=== PATIENT | female | born 1945 | race Caucasian/White ===

== ENCOUNTER → 2016-10-22 | Outpatient (CLI) | payer OTHER ==
[~2016-10-22] MED LIST: CHOL100010 PO; ESTR0.3T PO; METO25TA3 PO; OPTIRAY 320 IV PRN; ROSU5TAB PO; VSC/5 PO
--- NOTE | 2016-10-22 10:25 | DIAGNOSTIC IMAGING REPORT ---
CT ABD/PELVIS IV AND ORAL CONT CLINICAL HISTORY: PRIMARY CANCER OF THE LUNG F/U COMPARISON STUDY: 04/15/2016 TECHNIQUE: Following the IV administration of 117 mL of Optiray-320, CT scan of the abdomen and pelvis was performed from the lung bases to the proximal femurs. Images are reviewed in the axial, sagittal, and coronal planes. IV contrast was administered without complication. CT DOSE: 969.31 mGy.cm FINDINGS: Lower chest: There is a persistent right pleural effusion. There are postsurgical changes present. There are right infrahilar fibrotic changes similar to the prior study. Liver: The contrast-enhanced liver is normal in size, contour, and attenuation. There is no intrahepatic biliary ductal dilatation. The hepatic veins and portal veins are patent. Gallbladder: Surgically absent Spleen: Normal in size and attenuation. Pancreas: Unremarkable. Adrenal glands: Unremarkable. Kidneys: There is symmetric renal cortical enhancement. The kidneys are normal in size without hydronephrosis. Bowel: There are no transition zones indicate bowel obstruction. No acute inflammatory changes are visualized. Peritoneum: There is no intraperitoneal free air or abdominal ascites. Vasculature: The abdominal aorta is normal in course and caliber. Adenopathy: None. Pelvic viscera: The uterus appears surgically absent Skeletal structures: No destructive osseous lesions are seen. IMPRESSION: 1. No CT evidence of abdominal or pelvic metastatic disease 2. Postsurgical changes the right lung base. Persistent partially loculated right pleural effusion. Electronically signed by: Ten Rios M.D. 10/22/2016 10:24 AM Dictated Date/Time: 10/22/2016 10:20 AM
--- NOTE | 2016-10-22 10:27 | DIAGNOSTIC IMAGING REPORT ---
CT SCAN OF THE CHEST WITH IV CONTRAST CLINICAL HISTORY: Lung cancer follow-up. COMPARISON STUDY: Chest CT scans dated 04/15/2016 an 04/04/2015. TECHNIQUE: Following the IV administration of 117 cc of Optiray 320, CT scan of the thorax was performed from the thoracic inlet to the upper abdomen. Images are reviewed in the axial, sagittal, and coronal planes. IV contrast was administered without complication. FINDINGS: Thyroid: Imaged portions of the thyroid gland are normal in size and attenuation. Thoracic aorta: There is mild atherosclerotic calcification of the thoracic aorta, which is normal in caliber and demonstrates standard 3-vessel arch anatomy. No dissection is seen. Pulmonary vasculature: The pulmonary trunk is normal in caliber. There are no filling defects identified in the central pulmonary vessels to indicate pulmonary embolus. Note that this examination was not protocoled for evaluation of the pulmonary arteries. Heart: The heart is enlarged and without pericardial effusion. There are coronary artery calcifications. Lungs and pleural spaces: Evaluation of the lung parenchyma is modestly degraded by motion artifact. Again seen are postoperative changes from right lower lobe pulmonary resection. Loculated fluid at the right lung base is unchanged from previous and likely on a postoperative basis. Right perihilar scarring is similar to previous. No airspace consolidation is seen typical for pneumonia. There is no evidence of recurrent or residual pulmonary lesion. The trachea and central airways appear clear. Mediastinum: There is no mediastinal lymphadenopathy. Rupinder: Clear. Axillae: There is no axillary lymphadenopathy. Upper abdomen: Cholecystectomy clips are noted. No adrenal lesion is seen. There is a small hiatal hernia. Cortical atrophy is noted in the partially imaged kidneys. See report of abdominal CT performed concurrently for detailed intra-abdominal findings. Skeletal structures: The skeletal structures are osteopenic. Degenerative change and hyperkyphosis are noted in the thoracic spine. No lytic or blastic bony lesions are seen. Postoperative changes are noted in the right sided ribs. IMPRESSION: 1. Again seen are postoperative changes from right lower lobe pulmonary resection with chronic loculated pleural fluid at the right lung base. 2. There is no evidence of recurrent or metastatic disease in the thorax. 3. Cardiomegaly. 4. There is no airspace consolidation typical for pneumonia. 5. Additional findings as above. Electronically signed by: Flash Sr M.D. 10/22/2016 10:26 AM Dictated Date/Time: 10/22/2016 10:21 AM
== END | disposition home or self-care (01) ==
LOC: C.CTS 07:35
PROVIDERS: ATTEND Internal Medicine Hematology & Oncology
DX: C34.31 Malignant neoplasm of lower lobe, right bronchus or lung (principal); Z90.2 Acquired absence of lung [part of]; I51.7 Cardiomegaly

== ENCOUNTER → 2017-06-09 | Outpatient (CLI) | payer OTHER ==
[~2017-06-09] MED LIST changes: +ASPI81TA28 PO; -OPTIRAY 320 IV PRN
[2017-06-09 13:24] VITALS: BP 127/41; PULSE 40; TEMP 36.7; O2SAT 95
--- NOTE | 2017-06-09 14:30 | Radiation Oncology Follow-Up ---
Radiation Oncology Follow-Up Date of Visit Jun 09, 2017. Reason For Visit Annual follow-up Radiation Completion Date finished 10-11-2014 Diagnosis (1) Lung cancer, lower lobe Status: Resolved Onset Date: 07/19/2014 Histology Subtype: adenocarcinoma Stage: lll Permanent Comment: Non-small cell carcinoma of the lung. Status post bronchoscopy and biopsy 07/19/2014. Clinical stage TIb N2 M0 Status post completion of combined radiation and chemotherapy. Radiation completed 10/11/2014 received 6600 cGy Chemotherapy completed 11/18/2014 Status post right lower lobectomy 02/13/2015 Adenocarcinoma moderately differentiated grade 2 Pathologic stage [id number] N0M0 Last Edited By: Kiesha Traylor on Jun 04, 2015 15: 45 Interim History She's been doing well over this past year. She denies any change in respiratory status. She is not having difficulties with swallowing. She does have a dry cough. She has been seen in medical oncology and recently underwent CT scanning of the chest. I was performed on 05/30/2017. There is a chronic loculated right pleural effusion with evidence of prior right lower lobectomy. She is being followed by dermatology for 2 areas of cancer on her nose. One is on the right side of the nose the other on the dorsum the nose. She recently underwent Mohs procedures. Allergies Coded Allergies: Statins (Verified Adverse Reaction, Mild, Joint Pain, 04/18/15) Home Medications Scheduled Aspirin (Aspirin Ec), 81 MG PO DAILY Metoprolol Succ (Toprol Xl) (Toprol-Xl), 12.5 MG PO BID Rosuvastatin Calcium (Crestor), 5 MG PO EVERY OTHER DAY Solifenacin (Vesicare), 5 MG PO DAILY Review of Systems Gastrointestinal: Symptoms: WNL Oral: Symptoms: No Problems Respiratory: Symptoms: Dry Cough, SOB With Exertion Other Respiratory: " more of a dry cough jack in the evenings " Urinary: Symptoms: Nocturia Comments: nocturia times 2 Skin: Other Skin Symptoms: had skin cancer on righ tside of nose .... Physical Exam Vital Signs Date Time Temp Pulse Resp B/P (MAP) Pulse Ox O2 Delivery O2 Flow Rate FiO2 06/09/17 13:24 36.7 40 18 127/41 95 Fatigue: None General Appearance: no apparent distress Eyes: normal inspection, EOMI ENT: normal ENT inspection, hearing grossly normal Neck: no adenopathy, thyroid normal Respiratory/Chest: lungs clear, no respiratory distress, no accessory muscle use Cardiovascular: no gallop, no murmur, + bradycardia (rate at 44) Extremities: no pedal edema Neurologic/Psychiatric: no motor/sensory deficits, alert, normal mood/affect Skin: warm/dry Pain Management Side: Bilateral Patient Preferred Pain Scale: 0 - 10 Additional Studies See history of present illness recent CT of the chest 05/30/2017 at [facility]. Assessment & Plan Plan: Continue regular follow-up with medical oncology and pulmonary. She seen Dr. Andre today. She saw medical oncology today. CT scan was reviewed with her. We discussed the bradycardia. This was checked in medical oncology and was at 41. We noted at pulse in our office at 40 and 44. She is on beta joe. We have asked her primary care physician to see her and review the heart rate. We asked her to return to our office in 1 year. She has a follow- up appointment with dermatology in regards to the skin cancer which is being treated on the right side of the nose and the dorsum of the nose. She may call if she has any questions or concerns in the interim. Total Time In Follow-Up I spent 20 minutes speaking to the patient performing examination. I spent 15 minutes reviewing information in completing this note. Copy To Asa Mcgowan D.O.; Julio Ku D.O.; Boo Andre MD Problem Qualifiers (1) Lung cancer, lower lobe: Laterality: right Qualified Codes: C34.31 - Malignant neoplasm of lower lobe , right bronchus or lung
== END | disposition home or self-care (01) ==
LOC: C.ONC 13:12
PROVIDERS: ATTEND Physician Assistant Medical
DX: Z08 Encounter for follow-up examination after completed treatment for malignant neoplasm (principal); Z92.3 Personal history of irradiation; Z85.118 Personal history of other malignant neoplasm of bronchus and lung

== ENCOUNTER → 2017-11-15 | Outpatient (CLI) | payer OTHER ==
[~2017-11-15] MED LIST changes: -CHOL100010 PO; -ESTR0.3T PO; +OPTIRAY 320 IV PRN
--- NOTE | 2017-11-15 14:25 | DIAGNOSTIC IMAGING REPORT ---
CT NECK WITH INTRAVENOUS CONTRAST. HISTORY: Lung cancer. Right neck fullness. TECHNIQUE: Multiaxial CT images of the neck performed following the use of intravenous contrast. COMPARISON STUDY: Head CT 12/16/2014. Chest CT 10/22/2016. FINDINGS: Interval development of right supraclavicular lymphadenopathy/mass. The dominant lymph node/mass measures 3.5 x 2.7 cm. There are few additional smaller supraclavicular lymph nodes. Partially visualized small loculated right pleural effusion. Stable 3 mm nodule within the left lung apex on image 86 of 98. The thyroid gland enhances normally. Mild prevertebral edema. There is also mild edema at the right carotid space. The visualized brain parenchyma and orbits are unremarkable. Partial opacification the right sphenoid sinus. The mastoid air cells are clear. No suspicious lytic or blastic osseous lesions. There is a skin marker within the right lateral lower neck. No underlying soft tissue abnormality. The parotid and submandibular glands are symmetric. The right supraclavicular lymphadenopathy/mass encases the distal internal jugular vein and results in severe stenosis/occlusion of the internal jugular vein. This likely accounts for the right neck subcutaneous edema and the patient's sensation of fullness. IMPRESSION: 1. Interval development of right supraclavicular lymphadenopathy/mass with the dominant lymph node/mass measuring 3.5 x 2.7 cm. This lesion encases the distal internal jugular vein and results in severe stenosis/occlusion of the internal jugular vein. This likely accounts for the right neck subcutaneous edema, prevertebral edema, and the patient's sensation of fullness within the right neck. 2. Stable 3 mm nodule within the left lung apex. 3. Partially loculated small right pleural effusion. Electronically signed by: David Chester M.D. 11/15/2017 2:23 PM Dictated Date/Time: 11/15/2017 2:12 PM
--- NOTE | 2017-11-15 14:32 | DIAGNOSTIC IMAGING REPORT ---
CT (CHEST) THORAX WITH CLINICAL HISTORY: 72 years-old Female presenting with LUNG CA. TECHNIQUE: Multidetector CT imaging of the chest was performed without the use of intravenous contrast. IV contrast: 93 mL of Optiray 320. A dose lowering technique was used consistent with the principles of ALARA (as low as reasonably achievable). COMPARISON: 05/30/2017 and 10/22/2016.. CT DOSE (mGy.cm): The estimated cumulative dose is 1059.03. FINDINGS: Service Control Operator topogram: Left subclavian pacer with leads to the right atrium and right ventricular apex. Median sternotomy wires noted. Cholecystectomy clips. On soft tissue windows, normal thyroid and thoracic inlet. In the right clavicular fossa, an enhancing mass measuring 3.4 x 1.8 cm is noted (series 7 image 26). This may have been present on prior exam but was smaller and poorly delineated in the absence of intravenous contrast. No other sites of lymphadenopathy. Surrounding fat infiltration and few smaller lymph nodes also noted. Atherosclerosis of the aorta. Normal heart size. Coronary artery calcification. Loculated moderate right pleural effusion with pleural thickening. Cholecystectomy clips. On lung windows, bandlike opacities in the right lung with architecture distortion, unchanged. No new pulmonary nodule.. Postsurgical changes of right lower lobectomy. Mosaic attenuation and patchy central groundglass opacities in the left lung. No significant interlobular septal thickening. Central airways patent. On bone windows, degenerative changes of the spine. No destructive osseous lesion. IMPRESSION: 1. Interval development of a 3.4 x 1.8 cm right supraclavicular mass, which is highly suspicious for metastatic lymphadenopathy. 2. Postsurgical changes of right lower lobectomy. 3. Chronic loculated right pleural effusion and pleural thickening. 4. Chronic scarring in the residual right lung. No new pulmonary nodule. The report will be called/faxed according to standard departmental protocol. Electronically signed by: Logan Hernandez M.D. 11/15/2017 2:30 PM Dictated Date/Time: 11/15/2017 2:12 PM
== END | disposition home or self-care (01) ==
LOC: C.CTS 13:33
PROVIDERS: ATTEND Internal Medicine Hematology & Oncology
DX: C34.31 Malignant neoplasm of lower lobe, right bronchus or lung (principal)

== ENCOUNTER → 2017-11-22 | Outpatient (CLI) | payer OTHER ==
[~2017-11-22] MED LIST changes: -OPTIRAY 320 IV PRN
--- NOTE | 2017-11-22 14:15 | DIAGNOSTIC IMAGING REPORT ---
GUIDANCE NEEDLE PLACEMENT CLINICAL HISTORY: LUNG CA,RT NECK LYMPHADENOPATHY/MASS TECHNIQUE: Ultrasound-guided fine-needle aspiration COMPARISON STUDY: CT chest 10/22/2016. CT chest 11/15/2017 FINDINGS: Following description of the procedure and informed consent, 4 passes with 25 and 22-gauge needle were performed. Each pass was within or immediately around the nodule/node in question. Despite these attempts, sufficient specimen does not appear to have been acquired. There were no complications. Failure of this modality was explained to the patient as well as Dr. Mcgowan. Open surgical biopsy is suggested IMPRESSION: Biopsy attempt of the right supraclavicular mass. Although pathology has not submitted a final report, initial interpretation was of in adequate cellularity. Surgical biopsy is suggested. The above report was generated using voice recognition software. It may contain grammatical, syntax or spelling errors. Electronically signed by: Mariano Sandhu M.D. 11/22/2017 2:14 PM Dictated Date/Time: 11/22/2017 2:12 PM
== END | disposition home or self-care (01) ==
LOC: C.ULTR 12:14
PROVIDERS: ATTEND Internal Medicine Hematology & Oncology
DX: C34.31 Malignant neoplasm of lower lobe, right bronchus or lung (principal)

== ENCOUNTER → 2017-12-08 | Day surgery (SDC) | payer OTHER ==
[2017-11-29 09:09] VITALS: BMI 32.0
[~2017-12-08] VITALS: Ht 160 cm; Wt 84.1 kg
[~2017-12-08] MED LIST changes: +ACET1TAB84 PO; +ACET300T2 PO; +ACETAMINOPHEN 650 MG SUPP PR PRN; +ATROPINE SULFATE 0.1 MG/ML 5ML SYR IV PRN; +BUPIVACAINE 0.5 % 5 MG/1 ML MPF 30ML VIAL ONE; +CEFAZOLIN SOD 1 GM VIAL ONE; +DEXAMETHASONE SOD INJ 4 MG/ML VIAL ONE; +EpHEDrine SULFATE INJ 50 MG/ML AMP IV PRN; +FENTANYL CITRATE INJ 50 MCG/1 ML 2 ML VIAL IV PRN; +FENTANYL CITRATE INJ 50 MCG/1 ML 2 ML VIAL ONE; +FLUMAZENIL 0.1 MG/1 ML 10 ML VIAL IV PRN; +LABETALOL HCL IV 5 MG/ML 20ML IV PRN; +LABETALOL HCL IV 5 MG/ML 20ML ONE; +LACTATED RINGER'S 1000ML 1,000 ML IV SCH; +LIDOCAINE HCL 1% 20 ML VIAL ONE; +LIDOCAINE HCL 2% 2 ML VIAL (20MG/ML) ONE; +MIDAZOLAM HCL 1 MG/ML 2ML VIAL ONE; +NALOXONE HCL 0.4 MG/1 ML VIAL/CARP IV PRN; +ONDANSETRON INJ 2 MG/ML 2 ML VIAL IV PRN; +ONDANSETRON INJ 2 MG/ML 2 ML VIAL ONE; +OXYCODONE/ACETAMINOPHEN 5-325 TAB PO PRN; +PROMETHAZINE HCL INJ 12.5 MG in SODIUM CHLORIDE 0.9% 50ML 50 ML IV PRN; +PROPOFOL IV EMULSION 10 MG/ML 20 ML VIAL ONE
[2017-12-08 05:48] VITALS: BP 171/78; PULSE 73; TEMP 36.6; O2SAT 98; Ht 160 cm; Wt 84.1 kg
--- NOTE | 2017-12-08 06:28 | History & Physical Bridge Note ---
H&P Re-Evaluation Bridge Note: I have examined the patient, reviewed the History & Physical and in the interval since the performance of the History & Physical I have noted the following changes of clinical significance: No changes notedall questions answered family at bedside pt marked
--- NOTE | 2017-12-08 07:03 | Discharge Instructions ---
Discharge Instructions Date of Service December 08, 2017. Admission Reason for Admission: Right Supraclavicular Mass Discharge Discharge Diagnosis / Problem: Right Supraclavicular Mass Discharge Goals Goal(s): Decrease discomfort, Improve function Activity Recommendations Activity Limitations: as noted below Lifting Limitations: no more than 10 pounds Exercise/Sports Limitations: until after follow-up appointment May Resume Sexual Activity: when tolerated Shower/Bathe: tomorrow Driving or Machine Use: resume 1 day after discharge . Instructions / Follow-Up Instructions / Follow-Up Please call the General Surgery [facility] at [phone] to schedule suture removal. Please follow-up with Dr. Toussaint in the General Surgery Clinic in 1-2 weeks for incision check. For pain control you may use Ibuprofen (if you are able to take Ibuprofen products) 600-800mg every 8 hrs for 3 days. If you are unable to take Ibuprofen products you may take Acetaminophen (Tylenol) 1-2 tablets every 4-6 hrs for pain. Do not exceed more than 10 tablets in a 24 hr period. Please call the General Surgery Clinic with any questions or concerns. Current Hospital Diet Patient's current hospital diet: Discharge Diet Recommended Diet: Regular Diet Pending Studies Studies pending at discharge: yes List of pending studies: Pathology report. Medical Emergencies . Who to Call and When: Medical Emergencies: If at any time you feel your situation is an emergency, please call 911 immediately. . Non-Emergent Contact Non-Emergency issues call your: Primary Care Provider, Surgeon Call Non-Emergent contact if: temperature is above 101.5, your pain is not controlled, wound has increased drainage, wound has increased redness . "Provider Documentation" section prepared by Jeimy Hong. .
--- NOTE | 2017-12-08 07:47 | [facility] Post Operative Brief Note ---
Immediate Operative Summary Operative Date December 08, 2017. Pre-Operative Diagnosis Mass of right side of neck Post-Operative Diagnosis Same as preop Procedure(s) Performed Incisional Biopsy of Right Supraclavicular Mass Surgeon Dr. Toussaint Band Sewer Surgeon(s) none Estimated Blood Loss 5 cc Findings See Below HARD MASS INCISIONAL BIOPSY DONE Specimens A: right neck mass - sent as fresh specimen to lab Culture of right supraclavicular neck mass site sent for routine gram stain, C & S, anaerobic/aerobic microbes Anesthesia Type General
--- NOTE | 2017-12-08 08:55 | Anesthesiology Progress Note ---
Anesthesia Post Op Note Date & Time December 08, 2017 at 08:55 Vital Signs Pain Intensity: 4 Vital Signs Past 12 Hours Date Time Temp Pulse Resp B/P (MAP) Pulse Ox O2 Delivery O2 Flow Rate FiO2 12/08/17 08:35 36.3 72 14 175/85 98 Room Air 12/08/17 08:25 74 14 181/83 99 Room Air 12/08/17 08:15 72 14 182/92 100 Oxymask 10 12/08/17 08:05 75 14 197/78 100 Oxymask 10 12/08/17 07:55 36.9 81 16 182/74 100 Oxymask 10 12/08/17 05:48 36.6 73 18 171/78 (109) 98 Room Air Notes Mental Status: alert / awake / arousable, participated in evaluation Pt Amnestic to Procedure: Yes Nausea / Vomiting: adequately controlled Pain: adequately controlled Airway Patency, RR, SpO2: stable & adequate BP & HR: stable & adequate Hydration State: stable & adequate Anesthetic Complications: no major complications apparent
[2017-12-08 09:05] VITALS: BP 186/77; PULSE 79; TEMP 36.4; O2SAT 93
[2017-12-08 09:35] VITALS: BP 173/86; PULSE 77; O2SAT 92
--- NOTE | 2017-12-08 09:49 | OPERATIVE REPORT ---
DATE OF OPERATION: 12/08/2017 SURGEON: Derrick Toussaint MD PREOPERATIVE DIAGNOSIS: Large right supraclavicular mass. POSTOPERATIVE DIAGNOSIS: Large right supraclavicular mass. PROCEDURE: Incisional biopsy, right supraclavicular mass. SUMMARY: The patient was brought into the operating room under general anesthesia LMA. The patient was placed in a sitting position. Left neck area was checked and rotated to the left and a roll was placed underneath the shoulders. The right neck area and right upper chest were prepped with Betadine solution and properly draped. Systemic antibiotics was given. I used 0.5% Marcaine to infiltrate the skin and subcutaneous tissue. We made an incision just lateral to the 2 heads of the sternocleidomastoid above the clavicle. We could not really feel discretely the mass that was deep in the neck area, but we knew that it was compressing the internal jugular vein. At this point, an incision was made approximately an inch and a half long, deepened through subcutaneous tissue using electrocautery to free the subcuticular sutures. We went down into the lateral head of the sternocleidomastoid muscle. We divided that, then we were able to get deep in the neck where we could feel very hard mass down in the neck area. We stayed close to dissect all the tissue, avoiding nerve structures. Once we were on this mass, we could able to feel it. There were few components that appeared to be almost loculated cystic structures, non-fluid filled that was right on the mass. We took those biopsies separately. We dissected out more cephalad and were able to find the tip of this hard mass that was pretty much a rock hard area. We were able then to free up in the uppermost portion on the area that came off fairly easily, it was approximately a centimeter size, well rounded, took that out without any difficulty. A bivalve it and had the consistency and looked like possibility of malignancy. Since it is early in the morning, but the pathologist not here yet, we will send it for a frozen section, but having said that, we then went down further in the initial area that had these little cystic components within, had more tissue which was the same characteristic as the one we had just taken out of about 1 cm in size. We felt we had enough tissue. The area was checked for hemostasis and appeared quite satisfactory. I did place a piece of Surgicel down in the depth in that area. The wound was then closed with 2-0 Vicryl interrupted sutures to reapproximate the platysma, subcutaneous muscle, and 4-0 Monocryl skin edges. Steri-Strips applied. The procedure was tolerated well by the patient. Estimated blood loss approximately 5 mL. The amount of tissue that we had for final diagnosis was about 2 cm diameter size. I attest to the content of the Intraoperative Record and any orders documented therein. Any exceptions are noted below. MTDD
[2017-12-08 10:05] VITALS: BP 170/80; PULSE 80; O2SAT 93
== END | disposition home or self-care (01) ==
LOC: C.ACU 05:24
PROVIDERS: ATTEND Surgery
DX: R22.1 Localized swelling, mass and lump, neck (principal); I25.10 Atherosclerotic heart disease of native coronary artery without angina pectoris; J44.9 Chronic obstructive pulmonary disease, unspecified; E78.5 Hyperlipidemia, unspecified; I10 Essential (primary) hypertension; Z79.82 Long term (current) use of aspirin; Z85.828 Personal history of other malignant neoplasm of skin; Z85.118 Personal history of other malignant neoplasm of bronchus and lung; Z95.0 Presence of cardiac pacemaker; Z82.3 Family history of stroke; Z82.49 Family history of ischemic heart disease and other diseases of the circulatory system

== ENCOUNTER → 2017-12-12 | Outpatient (CLI) | payer OTHER ==
[~2017-12-12] MED LIST changes: -ACETAMINOPHEN 650 MG SUPP PR PRN; -ATROPINE SULFATE 0.1 MG/ML 5ML SYR IV PRN; -BUPIVACAINE 0.5 % 5 MG/1 ML MPF 30ML VIAL ONE; -CEFAZOLIN SOD 1 GM VIAL ONE; -DEXAMETHASONE SOD INJ 4 MG/ML VIAL ONE; -EpHEDrine SULFATE INJ 50 MG/ML AMP IV PRN; -FENTANYL CITRATE INJ 50 MCG/1 ML 2 ML VIAL IV PRN; -FENTANYL CITRATE INJ 50 MCG/1 ML 2 ML VIAL ONE; -FLUMAZENIL 0.1 MG/1 ML 10 ML VIAL IV PRN; -LABETALOL HCL IV 5 MG/ML 20ML IV PRN; -LABETALOL HCL IV 5 MG/ML 20ML ONE; -LACTATED RINGER'S 1000ML 1,000 ML IV SCH; -LIDOCAINE HCL 1% 20 ML VIAL ONE; -LIDOCAINE HCL 2% 2 ML VIAL (20MG/ML) ONE; -MIDAZOLAM HCL 1 MG/ML 2ML VIAL ONE; -NALOXONE HCL 0.4 MG/1 ML VIAL/CARP IV PRN; -ONDANSETRON INJ 2 MG/ML 2 ML VIAL IV PRN; -ONDANSETRON INJ 2 MG/ML 2 ML VIAL ONE; -OXYCODONE/ACETAMINOPHEN 5-325 TAB PO PRN; -PROMETHAZINE HCL INJ 12.5 MG in SODIUM CHLORIDE 0.9% 50ML 50 ML IV PRN; -PROPOFOL IV EMULSION 10 MG/ML 20 ML VIAL ONE
[2017-12-12 16:15] LABS: BASO % 0.2 %; BASO ABS # 0.01 K/uL (0-0.2); EOS % 6.3 %; EOS ABS # 0.32 K/uL (0-0.5); HEMATOCRIT 37.8 % (37-47); HEMOGLOBIN 12.5 g/dL (12.0-16.0); IG# 0.01 K/uL (0.00-0.02); LYMPH % 23.9 %; LYMPH ABS # 1.21 K/uL (1.2-3.4); MEAN CELL VOLUME 92.4 fL (80-100); MEAN CORPUSCULAR HEMOGLOBIN 30.6 pg (25-34); MEAN CORPUSCULAR HGB CONC 33.1 g/dl (32-36); MEAN PLATELET VOLUME 9.1 fL (7.4-10.4); MONO % 5.5 %; MONO ABS # 0.28 K/uL (0.11-0.59); NEUT % 63.9 %; NEUT ABS # 3.24 K/uL (1.4-6.5); PLATELET COUNT 202 K/uL (130-400); RED CELL DISTRIBUTION WIDTH CV 13.1 % (11.5-14.5); RED CELL DISTRIBUTION WIDTH SD 44.3 fL (36.4-46.3); WHITE BLOOD COUNT 5.07 K/uL (4.8-10.8)
[2017-12-12 16:40] LABS: ALT/SGPT 18 U/L (12-78); AST/SGOT 17 U/L (15-37); BLOOD UREA NITROGEN 17 mg/dl (7-18); CALCIUM 9.1 mg/dl (8.5-10.1); CARBON DIOXIDE 31 mmol/L (21-32); CREATININE 0.75 mg/dl (0.60-1.20); GLUCOSE 99 mg/dl (70-99); POTASSIUM 3.9 mmol/L (3.5-5.1); SODIUM 140 mmol/L (136-145)
[2017-12-12 16:43] LABS: ALKALINE PHOSPHATASE 77 U/L (45-117); TOTAL PROTEIN 8.2 gm/dl (6.4-8.2)
== END | disposition home or self-care (01) ==
LOC: C.LABCCP 15:15
PROVIDERS: ATTEND Internal Medicine Hematology & Oncology
DX: C34.31 Malignant neoplasm of lower lobe, right bronchus or lung (principal)

== ENCOUNTER → 2018-03-03 | Outpatient (CLI) | payer OTHER ==
[~2018-03-03] MED LIST changes: +ALEC150C PO; +APIX1TAB3 PO; -ASPI81TA28 PO; +POLY335019 PO
[2018-03-03 09:14] VITALS: BP 100/57; PULSE 59; TEMP 36.6; O2SAT 93
[2018-03-03 09:37] VITALS: BP 100/57; PULSE 59; TEMP 36.6; O2SAT 93
--- NOTE | 2018-03-03 10:34 | Radiation Oncology Follow-Up ---
Radiation Oncology Follow-Up Date of Visit Mar 03, 2018. Reason For Visit One-month follow-up Radiation Completion Date finished 10-11-2014 and 01-27-2018 Diagnosis (1) Primary cancer of right lung metastatic to other site Status: Acute Onset Date: 12/08/2017 Stage: Not Applicable Permanent Comment: Status post completion of radiation therapy to the right supraclavicular area/neck January 27, 2018. She received 3750 cGy Last Edited By : Kiesha Traylor on Feb 06, 2018 13:21 (2) Lung cancer, lower lobe Status: Resolved Onset Date: 07/19/2014 Permanent Comment: Non-small cell carcinoma of the lung. Status post bronchoscopy and biopsy 07/19/2014. Clinical stage TIb N2 M0 Status post completion of combined radiation and chemotherapy. Radiation completed 10/11/2014 received 6600 cGy Chemotherapy completed 11/18/2014 Status post right lower lobectomy 02/13/2015 Adenocarcinoma moderately differentiated grade 2 Pathologic stage ypT2a N0M0 Last Edited By: Kiesha Traylor on Jun 04, 2015 15: 45 History of Present Illness Ms. Lo was a nonsmoker but had a history of secondhand smoking exposure through her . In 2013 she noted some blood tinged sputum with a productive cough. There was no gross hemoptysis. A chest x-ray was ordered by her PCP. This showed a solid mass in the right midlung region measuring 4-5 cm. She then went on to have a CT scan of her lungs performed in June 2014. This showed a spiculated solid mass in the right lower lobe abutting the major fissure measuring 2.6 x 2.1 cm. A moderately enlarged right peritracheal lymph node was appreciated measuring 1.3 cm. With this finding the patient went on to have a PET/CT scan at [facility] on 06/17/2014. This showed an FDG avid right lower lobe spiculated mass entering 3.0 x 2.5 cm. Also appreciated was FDG avid is final and right hilar adenopathy. These were consistent with metastatic involvement of the lymph nodes. No evidence of distant metastatic disease was appreciated. Patient was seen by Dr. Khalif Llanes for consideration of diagnostic workup that included a possible bronchoscopy or EBUS. On July 19 he performed fiberoptic bronchoscopy with endobronchial ultrasound-guided transtracheal needle aspirate of lymphadenopathy and transbronchial brushings, biopsies and washings. There was no evidence of endobronchial obstruction or clear endobronchial lesions. Bronchial brushings revealed no malignant cells. Case: [id number]. Bronchial washings revealed no malignant cells. Case: [id number]. [place] EBUS biopsy of mediastinal lymphadenopathy revealed metastatic adenocarcinoma consistent with a lung primary. The R2 lymph nodes were biopsied. Case: [id number]. A transbronchial biopsy of the right lower lobe was performed. This revealed benign bronchial mucosa with no malignancy seen. Case: [id number]. Genetic mutation testing for EGFR, ALK and ROS 1 were requested by [employer] [employer] and are pending. Patient was seen in referral by Dr. Lorena Richardson on 08/06/2014. He reviewed the NCCN Guidelines and discussed treatment options with the patient. He is recommending consideration of combined chemoradiation. This would consist of weekly Carbo and Taxol followed by 2 additional cycles of additional chemotherapy consisting of Carboplatinum and Paclitaxel postradiation. We proceeded with combined chemoradiation as adjuvant treatment. Treatment started on August 26, 2014 and ended on October 11, 2014. She received a total of 33 fractions at 200 cGy per fraction for a total dose of 6600 cGy. She tolerated her definitive course of radiation therapy well. This was given with combined chemotherapy. She had no change in her respiratory status. No increased cough or shortness of breath. She did develop dysphagia. This was treated preventatively with aloe vera juice and [place] honey. She did require prescription for MBXC. She did not require any extended breaks in treatment. There was one day but treatment was held due to low counts. She was able to restart with only 1 day break. She had a recheck CT simulation for treatment response. There was approximately 30% decrease in volume. She completed treatment without difficulty. The patient was follow closely by both Dr. Mcgowan and our department. She underwent CT scans of the chest on April 04, 2015, September 23, 2015, April 15, 2016 and October 22, 2016. These showed evidence of postsurgical changes but no evidence of recurrence. Her most recent follow-up in our department was June 09, 2017. At that time she was doing well with no complaints. Interim History Approximately 2 months ago the patient started to develop headaches which would go up the back of her neck which at times were very severe. She is also noted some decrease in her visual acuity and was seen by the eye doctor. More recently she noted fullness in the lower right cervical region. She was seen in follow-up by Dr. Mcgowan on November 07, 2017. His examination of the neck revealed no definitive palpable peripheral lymphadenopathy but did reveal fullness in this region that he felt was suspicious. He therefore ordered a CT scan of the chest and neck. 11/15/2017. CT scan of the neck with intravenous contrast was performed. This showed the interval development of a right supraclavicular lymphadenopathy/mass. The dominant lymph node/mass measured 3.5 x 2.7 cm. There were a few additional smaller supraclavicular lymph nodes. The lesion encases the distal internal jugular vein resulting in severe stenosis/occlusion of the internal jugular vein likely accounting for the right neck subcutaneous edema, prevertebral edema and patient sensation of fullness within the right neck. 11/15/2017. CT scan of the chest was performed. This showed in the right supraclavicular fossa enhancing mass measuring 3.4 x 1.8 cm with no other lymphadenopathy. Postsurgical changes of the right lower lobectomy were again noted with no evidence of parenchymal lung recurrence. 11/22/2017. Ultrasound-guided fine-needle aspiration biopsy was performed. No metastatic carcinoma was identified with lymphocytes present. 3 of the 4 aspirate passes consisted of small amounts of blood only. This was felt to be an inadequate specimen. Case: [id number]. An open biopsy was therefore recommended. 12/08/2017. Dr. Toussaint performed an incisional biopsy consisting of a 1.5 x 1.0 x 1.1 cm apparent lymph node and a 0.9 x 0.7 x 0.5 cm aggregate of ulloa tissue. FINAL DIAGNOSIS LYMPH NODE, RIGHT NECK, BIOPSY: METASTATIC CARCINOMA CONSISTENT WITH LUNG PRIMARY. SEE COMMENT. COMMENT: Sections reveal a metastatic carcinoma. No distinct gland formation is identified. No intracellular bridges or distinct keratinization is identified. The cells are large with moderate amounts of cytoplasm. Nuclei show vesicular chromatin with prominent nucleoli. A panel of immunohistochemical stains is performed in an effort to characterize the cells. The cells are positive for CK7 and TTF-1. The cells are negative for Napsin A. The cells are negative for CK5/6. Rare cells are positive for P40. The immunohistochemical findings are consistent with a lung primary with features of adenocarcinoma. The patient has previous history of lung adenocarcinoma. Ancillary studies for EGFR, ALK, ROS-1 and PDL-1 will be performed with results reported as an addendum. 12/13/2017. Patient seen in radiation oncology to discuss radiation treatment options. Patient states that the headache has disappeared since the surgery however the visual changes continue. Status post completion of palliative radiation therapy to the right supraclavicular area. Treatment was completed January 27, 2018. She received 3750 cGy. Interim History She has been doing well over the past month in regards to her radiation therapy. She does feel there was some thickness to the skin in the right supraclavicular lower neck area. The skin irritation resolved without difficulty. She is noted no masses or tenderness. She did have some dysphasia at the end of treatment. This has resolved. She states that she does continue to chew her food well before swallowing. This prevents any difficulty with swallowing. She has a follow-up appointment with medical oncology on March 13. She has been having recheck laboratory studies. She stated that she has been having intermittent rectal bleeding. This had been every 2-3 days. It would occur with bowel movements. Occasionally some bleeding afterward. She wears a panty liner. At the most this is changed twice a day. The blood is bright red. She has reviewed this at the coagulation clinic. She has been switched from Xarelto to Eliquis. She is noted no changes in the bleeding. She denies any rectal pain. She has tried witch eliezer cleansers. Allergies Coded Allergies: Statins (Verified Adverse Reaction, Mild, Joint Pain, 12/08/17) Home Medications Scheduled Alectinib HCl (Alecensa), 600 MG PO BID Apixaban (Eliquis), 5 MG PO BID Metoprolol Succ (Toprol Xl) (Toprol-Xl), 12.5 MG PO BID Rosuvastatin Calcium (Crestor), 5 MG PO EVERY OTHER DAY Solifenacin (Vesicare), 5 MG PO QPM Scheduled PRN Acetaminophen (Tylenol Arthritis Ext Rel), 650-1,300 MG PO Q8H PRN for Pain Polyethylene Glycol 3350 (Miralax), 17 GM PO DAILY PRN for Constipation Review of Systems Gastrointestinal: Symptoms: Rectal Bleeding GI Comments: possible hemorrhoid ? bleeding daily or every other day Oral: Symptoms: No Problems Respiratory: Symptoms: Dry Cough, SOB With Exertion Urinary: Symptoms: Nocturia Comments: nocturia times 2 Skin: Symptoms: No Problems Additional Notes: She completed a distress management report and answered "no" to all questions. Physical Exam Vital Signs Date Time Temp Pulse Resp B/P (MAP) Pulse Ox O2 Delivery O2 Flow Rate FiO2 03/03/18 09:37 36.6 59 20 100/57 93 03/03/18 09:14 36.6 59 20 100/57 93 ECOG Performance Status: 0 Fatigue: None General Appearance: no apparent distress Eyes: normal inspection, EOMI ENT: normal ENT inspection, hearing grossly normal Neck: supple, no adenopathy, thyroid normal Respiratory/Chest: lungs clear, no respiratory distress, no accessory muscle use Cardiovascular: regular rate, rhythm, no gallop, no murmur Extremities: no pedal edema Neurologic/Psychiatric: no motor/sensory deficits, alert, normal mood/affect Skin: warm/dry Pain Management Patient Reports Pain: No Side: Bilateral Patient Preferred Pain Scale: 0 - 10 Initial Pain Intensity: 0.0 Pain Management Plan 0.0 Laboratory Laboratory Results: were reviewed Laboratory Comments: Hemoglobin checked within the past week and was 11.8. Pathology Pathology Results: were reviewed, and pertinent findings noted in HPI Imaging Imaging Studies: not applicable Assessment & Plan Plan: She will be seen in medical oncology on March 13. Recheck scanning per medical oncology. She will be seeing a family physician next week. I have asked her to review the issue with the rectal bleeding with the primary care physician. She may need referred for an evaluation by gastroenterology. We discussed the hemoglobin is at 11.8. This shows that the amount of bleeding is minimal. I have asked her to do sitz baths. We asked her to return to our office in 6 months. She may call if she has any questions or concerns in the interim. Total Time In Follow-Up I spent 20 minutes speaking to the patient in performing examination. I spent 15 minutes reviewing information and completing this note. AK Copy To Asa Mcgowan D.O.
== END | disposition home or self-care (01) ==
LOC: C.ONC 08:58
PROVIDERS: ATTEND Physician Assistant Medical
DX: Z08 Encounter for follow-up examination after completed treatment for malignant neoplasm (principal); Z92.3 Personal history of irradiation; Z85.118 Personal history of other malignant neoplasm of bronchus and lung

== ENCOUNTER → 2018-03-13 | Outpatient (CLI) | payer OTHER ==
[~2018-03-13] MED LIST changes: -ACET300T2 PO
--- NOTE | 2018-03-13 13:52 | DIAGNOSTIC IMAGING REPORT ---
CHEST 2 VIEWS ROUTINE CLINICAL HISTORY: 73 years-old Female presenting with LUNG CANCER. TECHNIQUE: PA and lateral views of the chest were obtained. COMPARISON: 12/22/2017. FINDINGS: Left subclavian pacer with leads in the right 8) ventricular apex. Median sternotomy wires noted. Atherosclerosis of aortic arch. Cardiac silhouette obscured along the right heart border secondary to the persistent loculated right pleural effusion. Pleural fluid on the right may have slightly increased from prior. Decreased aeration of the right lung. Left lung and pleural space clear. No pneumothorax. Degenerative changes of the thoracic spine. Cholecystectomy clips noted. IMPRESSION: 1. Stable to slight interval increase in loculated right pleural effusion with decreased aeration of the right lung. Electronically signed by: Logan Hernandez M.D. 03/13/2018 1:50 PM Dictated Date/Time: 03/13/2018 1:49 PM
== END | disposition home or self-care (01) ==
LOC: C.RAD 13:16
PROVIDERS: ATTEND Nurse Practitioner Family
DX: C34.31 Malignant neoplasm of lower lobe, right bronchus or lung (principal); J91.0 Malignant pleural effusion

== ENCOUNTER 2024-11-14 05:30 | Inpatient (IN) ==
--- NOTE | 2024-11-12 10:52 | Anesthesiology Consultation ---
Date of Service November 12, 2024 Assessment & Plan (1) Encounter for pre-operative examination: Chart Review Chart Review: Pending: Refer to Additional Notes / Consult section (Please send optimization note to cardio (awaiting response as well as most recent testing) and workload note sent to Pulm (awaiting response)) and Patient NOT seen in Pre Admission Testing Infectious Disease screening: Per PAT nursing assessment on 11/09/24, No known infectious disease contacts in past 10 days or current infectious disease symptoms. No recent travel outside the country. History Surgery Operation Date: 11/14/24 07:15 Proposed Procedures p Open Right Hemicolectomy - Dennis Lorenzo, DO Height/Weight Height: 5 ft 2 in Weight: 79.379 kg Allergies Allergy/AdvReac Type Severity Reaction Status Date / Time atorvastatin [From Lipitor] Allergy Unknown Unknown Verified 11/09/24 11:13 fenofibrate Allergy Unknown Unknown Verified 11/09/24 11:13 Txgyash-PXT-FqB Reductase AdvReac Mild Joint Pain Verified 11/09/24 11:13 Inhibitor [Ssghmtc-Nyn-Cgq Reductase Inhibitor] Medications Home Medications Medication Instructions Recorded Confirmed Last Taken rosuvastatin 5 mg tablet (Crestor) 5 mg PO QAM 04/09/19 11/09/24 10/31/24 levothyroxine 25 mcg capsule 25 mcg PO QAM 04/10/19 11/09/24 11/01/24 06:30 loratadine 10 mg tablet 10 mg PO QAM 04/10/19 11/09/24 10/31/24 alectinib 150 mg capsule (Alecensa) 450 mg PO BID 05/21/19 11/09/24 10/31/24 metoprolol succinate 25 mg 12.5 mg PO BID 05/21/19 11/09/24 11/01/24 06:30 tablet,extended release 24 hr apixaban 2.5 mg tablet (Eliquis) 2.5 mg PO BID 10/03/19 11/09/24 10/28/24 Oxygen Home 1 ea .Route DAILY #1 ea 11/18/20 11/09/24 Unknown furosemide 20 mg tablet 20 mg PO QAM 09/06/24 11/09/24 10/31/24 mirabegron 25 mg tablet,extended 25 mg PO QPM 09/06/24 11/09/24 10/30/24 release 24 hr (Myrbetriq) potassium chloride 20 mEq 10 meq PO QAM 09/06/24 11/09/24 10/31/24 tablet,extended release ferrous sulfate 325 mg (65 mg 325 mg PO BID 11/07/24 11/09/24 Unknown iron) tablet (FeroSul) umeclidinium 62.5 mcg-vilanterol 1 inh inhalation QPM 11/09/24 11/09/24 Unknown 25 mcg/actuation powdr for inhalation (Anoro Ellipta) Past Medical History Medical History (Updated 11/12/24 @ 11:00 by Joann Pinzon PA-C) Adenocarcinoma of lung (2019) non small cell lung ca; s/p thoracotomy; treated at cancer center at [facility] Anemia per 11/08/24 heme/onc note, anemia 'multifactorial: due to Alectinib, chronic disease, and iron deficiency. On oral B12 supplementation daily' (pt also on oral iron BID) Per heme/onc note, 'discussed IV iron supplementation which patient declined opting for increasing dose of oral iron to TID' CAD (coronary artery disease), [place] coronary artery CABG x1, 2011 Chronic hypoxemic respiratory failure 2L O2 cont Colon cancer dx 10/2024 COPD (chronic obstructive pulmonary disease) follows with jesenia camargo DVT (deep venous thrombosis) RUE 2017, 2/ obstructive tumor in right supraclavicular area Dysphagia Dyspnea on exertion History of anesthesia reaction "it doesn't take much" to put to sleep per pt History of chemotherapy HTN (hypertension) Hx of basal cell carcinoma removed Hx of corneal abrasion right Hx of pleural effusion R sided; per 09/[address], 'unchanged small loculated R pleural effusion' Hyperlipidemia Hypothyroidism Mass of right side of neck mets from lung ca; removed portion of this in dr's office "removed what they could" On home oxygen therapy O2 2L NC cont 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- follows with ruth berg Primary malignant neoplasm of right lung metastatic to other site "Status post completion of radiation therapy to the right supraclavicular area/neck January 27, 2018 (per 11/01/24 anesthesia eval, physical exam without any significant neck findings). She received 3750 cGy" portion removed in dr's office "removed what they could" Pulmonary hypertension Restrictive ventilatory defect Stress bladder incontinence, female Urinary frequency Past Family History Family History Brother Cancer Family/Other Diabetes Cancer Sister Breast cancer Father Stroke Son Diabetes Daughter Diabetes Past Surgical History Surgical History (Updated 11/12/24 @ 10:46 by Joann Pinzon PA-C) H/O: hysterectomy History of appendectomy History of basal cell carcinoma (BCC) excision multiple, since History of bilateral cataract extraction (2022) History of esophagogastroduodenoscopy (EGD) (2024) History of thoracotomy (2018) right lung- cancer Hx of CABG (2011) CABG x 1 (SVG-RCA); follows with ruth berg Hx of cardiac catheterization (2009) 2009--- went on to have CABG at [place], cannot remember if she has had others- follows with ruth berg Hx of cholecystectomy Hx of colonoscopy (2024) EGD/colonoscopy 11/01/24: MAC without issue S/P cardiac pacemaker procedure (2018) [facility] Social History Smoking Status: Never smoker Do You Dip or Chew Tobacco: No Hx Alcohol Use: No alcohol intake frequency: holidays/special occasions only Hx Substance Use: No substance use type: does not use Lab Results Anesthesia Preop Results Results Anesthesia Widget: WBC 5.78 K/ul (4.8-10.8) 11/05/24 Hgb 8.5 g/dl (12.0-16.0) L 11/05/24 Hct 26.8 % (37.0-47.0) L 11/05/24 Plt 214 K/uL (130-400) 11/05/24 Na 141 mmol/L (136-145) 11/05/24 K 4.2 mmol/L (3.5-5.1) 11/05/24 Cl 102 mmol/L (98-107) 11/05/24 CO2 36 mmol/L (21-32) H 11/05/24 BUN 13 mg/dl (6-23) 11/05/24 Creat 0.81 mg/dl (0.6-1.2) 11/05/24 Glucose Level 92 mg/dl (70-99(Fasting)) 04/07/25 Testing Electrocardiogram Date: 11/09/24 Electronic ventricular pacemaker; 74bpm Other Testing Chest CT 09/27/23: 1. No change in appearance of the chest since CT of March 17, 2023. 2. Stable postoperative findings following right lower lobectomy with an unchanged small loculated right pleural effusion and associated chronic pleural thickening. 3. No thoracic lymphadenopathy. No suspicious pulmonary nodules.
[2024-11-14 05:57] LABS: Hematocrit (blood only) 27.9 % (37.0-47.0); Mean Corpuscular Hemoglobin 29.5 pg (25.0-34.0); Mean Corpuscular Hgb Conc 32.3 g/dL (32.0-36.0); Mean Corpuscular Volume 91.5 fL (80.0-100.0); Mean Platelet Volume 10.2 fL (9.4-12.4); Platelet Count 225 K/uL (130-400); RDW Coefficient of Variation 14.1 % (11.5-14.5); RDW Standard Deviation 46.7 fL (36.4-46.3); Red Blood Count 3.05 M/uL (4.20-5.40); White Blood Count 6.32 K/ul (4.8-10.8)
[2024-11-14] MEDS: LR 15ML/HR IV SCH (06:14)
--- NOTE | 2024-11-14 06:18 | History & Physical Bridge Note ---
Date of Service November 14, 2024 History & Physical Bridge Note I have examined the patient, reviewed the History & Physical and in the interval since the performance of the History & Physical I have noted the following changes of clinical significance: no changes noted
[2024-11-14] MEDS ORDERED: SODIUM CHLORIDE 0.9% PF INJ 10 ML VIAL ONE (06:33)
[2024-11-14] MEDS ORDERED: ROPIVACAINE 0.5% 5 MG/ML 30 ML VIAL ONE (06:33)
[2024-11-14] MEDS ORDERED: ePHEDrine sulfate 50 MG/ML AMP IV PRN (06:35)
[2024-11-14] MEDS ORDERED: fentaNYL citrate PF 100 MCG/2 ML VIAL IV PRN (06:35)
[2024-11-14] MEDS ORDERED: ONDANSETRON INJ 2 MG/ML 2 ML VIAL IV PRN (06:35)
[2024-11-14] MEDS ORDERED: ATROPINE SULFATE 0.1 MG/ML 10ML SYR IV PRN (06:35)
[2024-11-14] MEDS ORDERED: HYDROmorphone INJ 1 MG/ML SYRINGE IV PRN (06:35)
[2024-11-14] MEDS ORDERED: MIDAZOLAM HCL 1 MG/ML 2ML VIAL ONE (06:43)
[2024-11-14] MEDS ORDERED: fentaNYL citrate PF 100 MCG/2 ML VIAL ONE (06:43)
[2024-11-14] MEDS ORDERED: LIDOCAINE 2% 2 ML VIAL/AMP(20MG/ML) INFIL ONE (06:43)
[2024-11-14] MEDS ORDERED: ONDANSETRON INJ 2 MG/ML 2 ML VIAL ONE ×2 (06:43→09:04)
[2024-11-14] MEDS ORDERED: ROCURONIUM BROMIDE 10 MG/ML 5 ML VIAL IV ONE ×3 (06:43→08:18)
[2024-11-14] MEDS ORDERED: PROPOFOL IV EMULSION 10 MG/ML 20 ML VIAL IV ONE ×2 (06:43→11:51)
[2024-11-14] MEDS ORDERED: ACETAMINOPHEN 1000 MG/100 ML IV IV ONE (06:50)
[2024-11-14] MEDS: ALBUT/IPRATROP 3MG/0.5MG NEB 3 ML VIAL NEB STA (06:57)
[2024-11-14] MEDS: ceFAZolin 2000MG 2,000 MG/15 ML SYR IV SCH ×2 (07:57→16:59)
[2024-11-14] MEDS ORDERED: KETAMINE HCL 10MG/ML SYR ONE (08:00)
[2024-11-14] MEDS ORDERED: ETOMIDATE 2 MG/ML 20 ML VIAL IV ONE (08:12)
[2024-11-14] MEDS ORDERED: HYDROmorphone INJ 2 MG/ML SYR/VIAL ONE (08:15)
[2024-11-14] MEDS ORDERED: DEXAMETHASONE SOD INJ 4 MG/ML VIAL ONE (08:27)
[2024-11-14] MEDS ORDERED: SUGAMMADEX SODIUM 200 MG/2 ML VIAL IV ONE ×2 (09:13→09:27)
--- NOTE | 2024-11-14 09:34 | Cancer Operative Report ---
Post Operative Report Pre & Post Diagnosis Operation Date: 11/14/24 07:15 Pre-Op Diagnosis: Cecum Mass Post-Op Diagnosis: Cecum Mass I identified the patient and participated in the time-out.: Yes Procedure Operation Date: 11/14/24 07:15 Actual Procedures p Right Open Hemicolectomy with Primary Anastomosis(Right) - Dennis Lorenzo DO Surgeon Dennis Lorenzo DO Can Reforming Machine Operator elvis Samaniego Estimated Blood Loss 50 Findings Consistent with Post-Op Diagnosis Specimens terminal ileum, cecum, right colon, portion of transverse colon Description of Procedure After informed consent was obtained the patient was taken to the operating room and placed in supine position. After successful intubation anesthesia performed a tap block. A Richardson catheter was placed sterilely and the abdomen was sterilely prepped and draped in usual fashion. I began with a midline incision using a 10 blade scalpel. This was carried down through the soft tissue using cautery. Anterior fascia was opened using cautery. Peritoneum was elevated with hemostats and incised under direct vision using Metzenbaum scissor. We then opened the incision to both poles using cautery. A Bookwalter retractor was used throughout the case to help with exposure. There was a firm cecal mass readily apparent. We packed off the small bowel on the left side of the abdomen. I mobilized the right colon along the white line of T[place]t using finger fractionation and cautery. Several inches proximal to the ileocecal valve the small bowel was transected using a VINNIE brown cartridge linear stapler. We then found a spot on the transverse colon proximal to the middle colic vessels and transected the transverse colon again using a VINNIE brown cartridge linear stapl er. We took down any attachments laterally using again cautery and finger fractionation. The mesentery was taken down using the LigaSure device staying as low as possible to incorporate as many lymph nodes as possible. Once this was completely divided the specimen was passed off and sent to pathology. There was adequate hemostasis. Next we performed a [id number] small bowel to transverse colon anastomosis. VINNIE brown cartridge linear stapler was used to perform this. The common enterotomy was closed using 3-0 Monocryl in running fashion for serosal/mucosal layers. 3-0 silk was then used to oversew this in Lembert fashion. 3-0 silk was also used to place a crotch stitch. The mesenteric defect was closed using 2-0 Vicryl. Anastomosis was widely patent. There was no evidence of any ischemia. At this point we changed our gloves. The entire abdomen was then thoroughly irrigated. No other abnormalities were identified. Liver and serosal surfaces as well as peritoneal surfaces were all within normal limits. We closed the fascia using #1 PDS starting from both poles running them and securing them together in the midline. Soft tissue was irrigated and skin closed using skin mavis. Silver dressing was applied. The patient was awakened extubated and transferred to recovery in stable condition. My nurse practitioner was present for the entire case was instrumental in providing exposure, assisting with the anastomosis, wound closure and dressing placement. Colon Resection Operation performed with curative intent: Yes Extent of colon and vascular resection: Right hemicolectomy ileocolic, R colic (if present) I attest to the content of the Intraoperative Record and any orders documented therein. Any exceptions are noted below.
[2024-11-14] MEDS: RACEPINEPHRINE 2.25% NEBU SOLN 0.5 ML VIAL ONE (09:57)
--- NOTE | 2024-11-14 10:16 | Anesthesiology Progress Note ---
Date of Service November 14, 2024 Anesthesia Post Procedure Vital Signs Vital Signs: Temp Pulse Pulse Pulse Resp BP Pulse Ox 11/14/24 11:15 36.4 C L 73 12 133/47 L 99 11/14/24 11:05 20 126/48 L 97 11/14/24 10:55 18 119/50 L 100 11/14/24 10:45 72 H 96 11/14/24 10:45 73 20 133/51 L 100 11/14/24 10:35 71 14 128/48 L 100 11/14/24 10:26 11/14/24 10:25 72 18 128/49 L 97 11/14/24 10:15 72 14 132/48 L 100 11/14/24 10:05 73 19 144/53 H 100 11/14/24 09:55 71 15 138/48 L 100 11/14/24 09:50 72 20 100 11/14/24 09:48 36.0 C L 73 21 116/44 L 83 L 11/14/24 07:53 74 16 11/14/24 05:50 11/14/24 05:50 36.6 C 79 18 152/56 H 95 O2 Del Method O2 Flow Rate FiO2 11/14/24 11:15 BiPAP 30 11/14/24 11:05 BiPAP 30 11/14/24 10:55 BiPAP 30 11/14/24 10:45 BiPAP 30 11/14/24 10:45 BiPAP 30 11/14/24 10:35 BiPAP 30 11/14/24 10:26 30 11/14/24 10:25 BiPAP 30 11/14/24 10:15 BiPAP 60 11/14/24 10:05 BiPAP 80 11/14/24 09:55 BiPAP 100 11/14/24 09:50 100 11/14/24 09:48 Oxymask 12 11/14/24 07:53 Room Air 11/14/24 05:50 Nasal Cannula 2 11/14/24 05:50 Nasal Cannula 2 Transfer of Care Handoff Completed per policy Notes Mental Status: alert / awake / arousable Patient Amnestic to Procedure: Yes Nausea / Vomiting: adequately controlled Pain: adequately controlled Airway Patency, RR, SpO2: see Notes below BP & HR: stable & adequate Hydration State: stable & adequate Anesthetic Complications: no major complications apparent, see Notes below and Pt Satisfied with anesthetic care Notes: Patient awake and responsive at end of procedure, low tidal volumes on vent. Decision made to extubate to bipap. Patient briefly decompensated while transitioning to bipap however quickly returned to spo2 100% on 18/05. Stridor noted however resolved with racemic epi and incraesed peep. Weaning O2 in pacu. ABG on 60% O2 pH 7.28 CO2 70 O2 247 HCO3 33 Patient improved and bipap weaned to 01/08, 30% fio2. signed out and admit to tele.
[2024-11-14 10:38] LABS: iSTAT Art Bld Gas pCO2 Correct 70 mmHg (35-46); iSTAT Art Bld Gas pH Corrected 7.285 (7.35-7.45); iSTAT Arterial Blood Gas HCO3 33 meg/L (19-24); iSTAT Arterial Blood Gas pCO2 70 mmHg (35-46); iSTAT Arterial Blood Gas pH 7.29 (7.35-7.45); iSTAT Arterial Blood Gas pO2 247 mmHg (80-95); iSTAT Arterial Blood Gas pO2 C 247; iSTAT Carbon Dioxide 36 mmol/L (24-31); iSTAT FiO2 60 %; iSTAT Hematocrit 26 % (37-47); iSTAT Hemoglobin 8.8 g/dl (12.0-16.0); iSTAT Potassium 3.2 mmol/L (3.3-5.0); iSTAT Sample Type Arterial; iSTAT Site Art Line; iSTAT Sodium 140 mmol/L (135-144); iSTAT SpO2 100
--- NOTE | 2024-11-14 10:39 | XRay Report ---
XR chest 1V portable CLINICAL HISTORY: Hypoxia history of right lower lobectomy COMPARISON STUDY: Chest CT dated 09/27/2023 FINDINGS: The left lung is clear. Heart size and pulmonary vascularity are unremarkable. There is a d ual-lead pacemaker in place. Median sternotomy wire sutures are present. Right upper quadrant surgica l clips are present. Right hemithoracic volume is small status post right lower lobectomy. There is discoid atelectasis in the right midlung zone and there is apical capping on the right side suggesting loculated fluid or f ibrosis. IMPRESSION: Status post right lower lobectomy. Discoid atelectasis right midlung zone. Right apical loculated fluid or fibrosis. Left lung clear. ACT 112: Negative or not required by law. Electronically signed by: Savanna García M.D. 11/14/2024 10:38 AM
[2024-11-14] MEDS ORDERED: MoRPHine SULFATE 4 MG/ML 1 ML CARP\\VIAL IV PRN (11:46)
[2024-11-14] MEDS: LACTATED RINGER'S 1,000 ML IV SCH (12:05)
[2024-11-14] MEDS: SUCCINYLCHOLINE CHLORIDE 20 MG/ML 10 ML VIAL IV ONE (12:14)
--- NOTE | 2024-11-14 13:06 | Hospitalist Consultation ---
Date of Consultation November 14, 2024 Assessment & Plan (1) Cecum mass: (2) Chronic hypoxemic respiratory failure: (3) Pacemaker: (4) Hypothyroidism: Plan 79-year-old female with right hemicolectomy due to recent diagnosis of adenocarcinoma of the cecum. This was diagnosed as outpatient colonoscopic biopsy earlier in October. Surgical resection by Dr. Lorenzo. Patient suffers from lung cancer with a previous right lower lobe lobectomy. She has a baseline history of oxygen dependent COPD and pulmonary hypertension. She has a history of high-grade AV block requiring a pacemaker typically taking metoprolol and Eliquis. 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 General surgery has placed the patient on a liquid diet. Hydration and parenteral pain control will be per the general surgical service. #COPD. Typically oxygen requiring. Patient will be continued on her oxygen and medications including umeclidinium and vilanterol with as needed nebulizers as needed #Pulm hypertension. Her Lasix will be held postoperatively until she is re liably taking p.o. well #Coronary artery disease. Patient continues on metoprolol 12.5 twice daily for secondary risk reduction she typically takes rosuvastatin which is on hold History of Present Illness Attending Physician: Dennis Lorenzo, DO History of Present Illness 79-year-old female who has a history of metastatic lung cancer, prior right lower lobe lung resection. in the past the metastasis was in lymph noted in chest, who was admitted for a right hemicolectomy due to a cecal mass on 11/14/2024. Patient is surgery by Dr. Lorenzo. Pre admission biopsy on colonoscopy resulted moderately differentiated adenocarcinoma with mucinous differentiation. PT did have some stridor and respiratory distress post procedure but has since recovered and is on her typical 2L Pt was continued on oral diet post op [facility] She has a history of COPD and Pulm hypertension, Allergies Allergy/AdvReac Type Severity Reaction Status Date / Time atorvastatin [From Lipitor] Allergy Unknown Unknown Verified 11/14/24 05:37 fenofibrate Allergy Unknown Unknown Verified 11/14/24 05:37 Vbcznoe-DSC-EbE Reductase AdvReac Mild Joint Pain Verified 11/14/24 05:37 Inhibitor [Wpovdea-Apg-Rhw Reductase Inhibitor] Home Medications Medication Instructions Recorded Confirmed Type rosuvastatin 5 mg tablet (Crestor) 5 mg PO QAM 04/09/19 11/14/24 History levothyroxine 25 mcg capsule 25 mcg PO QAM 04/10/19 11/14/24 History loratadine 10 mg tablet 10 mg PO QAM 04/10/19 11/14/24 History alectinib 150 mg capsule (Alecensa) 450 mg PO BID 05/21/19 11/14/24 History metoprolol succinate 25 mg 12.5 mg PO BID 05/21/19 11/14/24 History tablet,extended release 24 hr apixaban 2.5 mg tablet (Eliquis) 2.5 mg PO BID 10/03/19 11/14/24 History Oxygen Home 1 ea .Route DAILY #1 ea 11/18/20 11/14/24 Rx furosemide 20 mg tablet 20 mg PO QAM 09/06/24 11/14/24 History mirabegron 25 mg tablet,extended 25 mg PO QPM 09/06/24 11/14/24 History release 24 hr (Myrbetriq) potassium chloride 20 mEq 10 meq PO QAM 09/06/24 11/14/24 History tablet,extended release ferrous sulfate 325 mg (65 mg 325 mg PO BID 11/07/24 11/14/24 History iron) tablet (FeroSul) umeclidinium 62.5 mcg-vilanterol 1 inh inhalation QPM 11/09/24 11/14/24 History 25 mcg/actuation powdr for inhalation (Anoro Ellipta) Patient History Medical History Colon cancer dx 10/2024 Primary malignant neoplasm of right lung metastatic to other site "Status post completion of radiation therapy to the right supraclavicular area/neck January 27, 2018 (per 11/01/24 anesthesia eval, physical exam without any significant neck findings). She received 3750 cGy" portion removed in dr's office "removed what they could" Anemia per 11/08/24 heme/onc note, anemia 'multifactorial: due to Alectinib, chronic disease, and iron deficiency. On oral B12 supplementation daily' (pt also on oral iron BID) Per heme/onc note, 'discussed IV iron supplementation which patient declined opting for increasing dose of oral iron to TID' Restrictive ventilatory defect Hx of corneal abrasion right Pulmonary hypertension Chronic hypoxemic respiratory failure 2L O2 cont Hx of pleural effusion R sided; per 09/[address], 'unchanged small loculated R pleural effusion' Hx of basal cell carcinoma removed Dyspnea on exertion On home oxygen therapy O2 2L NC cont Stress bladder incontinence, female Hypothyroidism Dysphagia COPD (chronic obstructive pulmonary disease) follows with jesenia camargo History of anesthesia reaction "it doesn't take much" to put to sleep per pt 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- follows with ruth berg Mass of right side of neck mets from lung ca; removed portion of this in dr's office "removed what they could" Hyperlipidemia History of chemotherapy CAD (coronary artery disease), [facility] coronary artery CABG x1, 2011 DVT (deep venous thrombosis) RUE 2018, 2/ obstructive tumor in right supraclavicular area Urinary frequency HTN (hypertension) Adenocarcinoma of lung (2018) non small cell lung ca; s/p thoracotomy; [facility] at [facility] Surgical History History of esophagogastroduodenoscopy (EGD) (2024) H/O: hysterectomy History of appendectomy S/P cardiac pacemaker procedure (2018) [facility] History of bilateral cataract extraction (2022) History of basal cell carcinoma (BCC) excision multiple, since 1989' Hx of colonoscopy (2024) EGD/colonoscopy 11/01/24: MAC without issue Hx of cholecystectomy Hx of cardiac catheterization (2009) 2009--- went on to have CABG at [place], cannot remember if she has had others- follows with ruth berg Hx of CABG (2011) CABG x 1 (SVG-RCA); follows with ruth breg History of thoracotomy (2018) right lung- cancer Family History Brother Cancer Family/Other Diabetes Cancer Sister Breast cancer Father Stroke Son Diabetes Daughter Diabetes Social History (Updated 11/07/24 @ 15:56 by Venice Landry, ABRAHAM) Smoking Status: Never smoker Second Hand Exposure: No; Do You Dip or Chew Tobacco: No; Tobacco Cessation Education Requested by Patient: No Hx Alcohol Use: No Hx Substance Use: No Preferred Language: Macedonian Communication Ability: Effective 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 still slightly sedate from recovery Vital signs as documented. Head exam is normocephalic atraumatic Neck is without JVD, thyromegaly, or carotid bruits. Lungs are focal loss consistent with RLL removal, otherwise fair air movement but small breaths cw her copd Cardiac exam, Rhythm is regular.. No murmurs, rubs or gallops. Abdominal exam reveals abscent l bowel sounds, soft Extremities are nonedematous and both pedal pulses are present Neurologic exam is alert and oriented but falls asleep easily, no focal loss of strength or sensation Results & Data Results & Data Vital Signs (Past 12 Hours) Vital Signs Temp Pulse Pulse Pulse Resp BP Pulse Ox 11/14/24 12:34 11/14/24 12:23 97.9 F 71 16 137/45 L 98 11/14/24 12:22 79 11/14/24 11:46 97.9 F 72 16 137/45 L 99 11/14/24 11:46 11/14/24 11:25 73 20 127/52 L 99 11/14/24 11:15 97.5 F L 73 12 133/47 L 99 11/14/24 11:05 20 126/48 L 97 11/14/24 10:55 18 119/50 L 100 11/14/24 10:45 72 H 96 11/14/24 10:45 73 20 133/51 L 100 11/14/24 10:35 71 14 128/48 L 100 11/14/24 10:26 11/14/24 10:25 72 18 128/49 L 97 11/14/24 10:15 72 14 132/48 L 100 11/14/24 10:05 73 19 144/53 H 100 11/14/24 09:55 71 15 138/48 L 100 11/14/24 09:50 72 20 100 11/14/24 09:48 96.8 F L 73 21 116/44 L 83 L 11/14/24 07:53 74 16 11/14/24 05:50 11/14/24 05:50 97.9 F 79 18 152/56 H 95 Pulse Ox O2 Del Method O2 Del Method O2 Flow Rate O2 Flow Rate FiO2 11/14/24 12:34 Nasal Cannula 2 11/14/24 12:23 Nasal Cannula 2 11/14/24 12:22 11/14/24 11:46 Nasal Cannula 2 11/14/24 11:46 95 Nasal Cannula 2 11/14/24 11:25 BiPAP 30 11/14/24 11:15 BiPAP 30 11/14/24 11:05 BiPAP 30 11/14/24 10:55 BiPAP 30 11/14/24 10:45 BiPAP 30 11/14/24 10:45 BiPAP 30 11/14/24 10:35 BiPAP 30 11/14/24 10:26 30 11/14/24 10:25 BiPAP 30 11/14/24 10:15 BiPAP 60 11/14/24 10:05 BiPAP 80 11/14/24 09:55 BiPAP 100 11/14/24 09:50 100 11/14/24 09:48 Oxymask 12 11/14/24 07:53 Room Air 11/14/24 05:50 Nasal Cannula 2 11/14/24 05:50 Nasal Cannula 2 Laboratory Results Reviewed CBC reviewed postop chemistries PG Care Time/CCT Total # of Minutes Spent Total Time Spent with Patient: Total time spent is greater than 50% in coordination of care (as documented) at patient's floor/unit and/or counseling patient: Coding Level of Care Code 68124 IN/OBS CONSULT LVL 3,45M Diagnoses Cecum mass K63.89 Chronic hypoxemic respiratory failure J96.11 Pacemaker Z95.0 Hypothyroidism E03.9
[2024-11-14] MEDS: oxyCODONE HCL IR 5 MG TAB (IMMEDIATE RELEASE) PO PRN (18:21)
[2024-11-14] MEDS: UMECLIDINIUM/VILANTEROL 62.5/25MCG 7 PUFFS/INHALER INH SCH (21:48)
[2024-11-15] MEDS: oxyCODONE HCL IR 5 MG TAB (IMMEDIATE RELEASE) PO PRN (02:42)
[2024-11-15] MEDS: LEVOTHYROXINE SODIUM 25 MCG TABLET PO SCH (05:39)
[2024-11-15 06:35] LABS: Basophils # (auto) 0.01 K/uL (0.00-0.20); Basophils % (auto) 0.1 %; Hematocrit (blood only) 25.3 % (37.0-47.0); Hemoglobin 8.2 g/dl (12.0-16.0); Immature Granulocytes # (auto) 0.02 K/uL (0.01-0.20); Immature Granulocytes % (auto) 0.3 %; Lymphocytes # (auto) 0.55 K/uL (1.20-3.40); Lymphocytes % (auto) 7.1 %; Mean Corpuscular Hemoglobin 29.8 pg (25.0-34.0); Mean Corpuscular Hgb Conc 32.4 g/dL (32.0-36.0); Mean Platelet Volume 10.2 fL (9.4-12.4); Monocytes # (auto) 0.61 K/uL (0.11-0.59); Monocytes % (auto) 7.8 %; Neutrophils % (auto) 84.7 %; Platelet Count 189 K/uL (130-400); RDW Coefficient of Variation 13.8 % (11.5-14.5); RDW Standard Deviation 46.1 fL (36.4-46.3); Red Blood Count 2.75 M/uL (4.20-5.40); White Blood Count 7.79 K/ul (4.8-10.8)
[2024-11-15 07:23] LABS: Albumin Level 3.2 gm/dl (3.4-5.0); Bilirubin,Total 0.8 mg/dl (0.2-1.0); Calcium 8.3 mg/dl (8.6-10.3); Potassium 3.8 mmol/L (3.5-5.1)
--- NOTE | 2024-11-15 07:25 | Surgery Progress Note ---
Date of Service November 15, 2024 Assessment & Plan (1) Cecum mass: Plan: POD [address] Lorenzo 11/14/24 expected post surgical discomfort , taking oral pain medication Dressing CDI no strike through VSS , WBC wnl , h/h 8.09/25 will trend daily, continue to hold blood thinners at this time IS q1h while awake , OOB to chair if feeling well later today will keep sequeira cath for now Will order PT /OT keep on clears, has maintenance fluids LR @80ml/hr As above. Doing as expected. Continue to slowly increase activity. Clears only until better bowel function Admission and Anticipated Discharge Date Admission Date: November 14, 2024 Subjective pt with expected post surgical abd discomfort denies n/v , cp , sob, flatus Review of Systems Constitutional: no fever and no chills Respiratory: no dyspnea Cardiovascular: no chest pain Gastrointestinal: + abdominal pain; no nausea and no vomit ing Psychiatric: no confusion Physical Exam Constitutional: cooperative and comfortable; no acute distress Respiratory: normal respiratory effort and able to speak in complete sentences; no respiratory distress on 02 via nc Cardiovascular: Rate/Rhythm: regular rate Gastrointestinal (Abdomen): Inspection/Auscultation: + abdominal surgical incision (dressing cdi ); abdomen not distended Results & Data Vital Signs (Past 12 Hours) Vital Signs Temp Pulse Pulse Resp BP Pulse Ox O2 Del Method 11/15/24 03:17 97.9 F 83 18 127/64 94 Nasal Cannula 11/14/24 23:00 97.9 F 78 18 131/65 98 Nasal Cannula 11/14/24 22:51 82 11/14/24 20:12 98.2 F 77 17 125/65 98 Nasal Cannula 11/14/24 19:30 Nasal Cannula O2 Flow Rate 11/15/24 03:17 11/14/24 23:00 2 11/14/24 22:51 11/14/24 20:12 11/14/24 19:30 2 Results CBC w Diff Results: RBC 2.75 M/uL (4.20-5.40) L 11/15/24 WBC 7.79 K/ul (4.8-10.8) 11/15/24 Hgb 8.2 g/dl (12.0-16.0) L 11/15/24 Hct 25.3 % (37.0-47.0) L 11/15/24 MCV 92.0 fL (80.0-100.0) 11/15/24 MCH 29.8 pg (25.0-34.0) 11/15/24 MCHC 32.4 g/dL (32.0-36.0) 11/15/24 RDW Standard Deviation 46.1 fL (36.4-46.3) 11/15/24 RDW Coefficient of Variation 13.8 % (11.5-14.5) 11/15/24 Plt Count 189 K/uL (130-400) 11/15/24 MPV 10.2 fL (9.4-12.4) 11/15/24 Neutrophils (%) (Auto) 84.7 % 11/15/24 Lymphocytes (%) (Auto) 7.1 % 11/15/24 Monocytes # (Auto) 0.61 K/uL (0.11-0.59) H 11/15/24 Eosinophils # (Auto) 0.00 K/uL (0.00-0.50) 11/15/24 Immature Granulocyte % (Auto) 0.3 % 11/15/24 Neutrophils # (Auto) 6.60 K/uL (1.40-6.50) H 11/15/24 Lymphocytes # (Auto) 0.55 K/uL (1.20-3.40) L 11/15/24 Monocytes # (Auto) 0.61 K/uL (0.11-0.59) H 11/15/24 Eosinophils # (Auto) 0.00 K/uL (0.00-0.50) 11/15/24 Basophils # (Auto) 0.01 K/uL (0.00-0.20) 11/15/24 Immature Granulocyte # (Auto) 0.02 K/uL (0.01-0.20) 5 PG Care Time/CCT Total # of Minutes Spent Total Time Spent with Patient: Total time spent is greater than 50% in coordination of care (as documented) at patient's floor/unit and/or counseling patient: Coding Level of Care Code 80941 Post Operative Follow-Up Diagnoses Cecum mass K63.89
[2024-11-15 07:29] LABS: Albumin Globulin Ratio 1.1 (0.9-2); BUN Creatinine Ratio 11.3 (10-20); Creatinine Clr Calc Pharmacy 61.6 ml/min; Total Protein 6.2 gm/dl (6.0-8.3)
[2024-11-15] MEDS: POTASSIUM CHLORIDE 10 MEQ TABCR PO SCH (08:14)
[2024-11-15] MEDS: LORATADINE 10 MG TAB PO SCH (08:14)
[2024-11-15] MEDS: METOPROLOL SUCC 25MG EXT REL TAB PO SCH (08:15)
[2024-11-15] MEDS: VIBEGRON 75 MG TAB PO SCH (08:15)
[2024-11-15] MEDS ORDERED: FUROSEMIDE 20 MG TAB PO SCH (09:00)
[2024-11-15] MEDS ORDERED: ROSUVASTATIN CALCIUM 5 MG TAB PO SCH (09:00)
[2024-11-15] MEDS: ONDANSETRON INJ 2 MG/ML 2 ML VIAL IV PRN (11:26)
--- NOTE | 2024-11-15 16:03 | Hospitalist Progress Note ---
Date of Service November 15, 2024 Assessment & Plan (1) Cecum mass: (2) Chronic hypoxemic respiratory failure: (3) Pacemaker: (4) Hypothyroidism: Plan 79-year-old female with right hemicolectomy due to recent diagnosis of adenocarcinoma of the cecum. This was diagnosed as outpatient colonoscopic biopsy earlier in October. Surgical resection by Dr. Lorenzo. Patient suffers from lung cancer with a previous right lower lobe lobectomy. She has a baseline history of oxygen dependent COPD and pulmonary hypertension. She has a history of high-grade AV block requiring a pacemaker typically taking metoprolol and Eliquis. 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 General surgery has placed the patient on a liquid diet. Hydration and parenteral pain control will be per the general surgical service. CBC w/ hgb of 8.2, no leukocytosis BMP stable #COPD. On chronic oxygen at home. Patient will be continued on her oxygen and medications including umeclidinium and vilanterol with as needed nebulizers as needed #Pulm hypertension. Her Lasix will be held postoperatively until she is reliably taking p.o. well #Coronary artery disease. Patient continues on metoprolol 12.5 twice daily for secondary risk reduction she typically takes rosuvastatin which is on hold Code: full Discussed w/ general surgery team 11/15. Admission and Anticipated Discharge Date Admission Date: November 14, 2024 Subjective Patient seen and examined this morning. She reports that she is feeling okay today. She was eating a popsicle. She states she has no appetite but she has been tolerating clear liquids. She reports abdominal pain. She denies nausea, vomiting, chest pain, shortness of breath. Physical Exam Constitutional: WD/WN, vitals as above Eyes: PERRL, conjunctivae normal, anicteric sclerae Respiratory: breathing unlabored, on 2L nasal cannula, patient baseline Cardiovascular: well perfused Psychiatric: A+Ox3, euthymic affect Results & Data Results & Data Vital Signs (Past 12 Hours) Vital Signs Temp Pulse Pulse Pulse Resp BP Pulse Ox 11/15/24 15:49 36.8 C 88 17 136/65 96 11/15/24 11:46 11/15/24 11:42 11/15/24 11:41 78 11/15/24 10:48 36.8 C 81 18 137/61 99 11/15/24 07:00 36.9 C 78 18 124/56 L 98 Pulse Ox O2 Del Method O2 Del Method O2 Flow Rate O2 Flow Rate 11/15/24 15:49 Nasal Cannula 2 11/15/24 11:46 96 Nasal Cannula 2 11/15/24 11:42 Nasal Cannula 2 11/15/24 11:41 11/15/24 10:48 Nasal Cannula 2 11/15/24 07:00 Nasal Cannula 2 PG Care Time/CCT Total # of Minutes Spent Total Time Spent with Patient: Total time spent is greater than 50% in coordination of care (as documented) at patient's floor/unit and/or counseling patient: Coding Level of Care Code 85652 SUB INP/OBS CARE 2/35MIN Diagnoses Cecum mass K63.89 Chronic hypoxemic respiratory failure J96.11 Pacemaker Z95.0 Hypothyroidism E03.9
[2024-11-15] MEDS: MoRPHine SULFATE 2 MG/ML CARP IV PRN (16:21)
[2024-11-15] MEDS ORDERED: [UNRECOGNIZED DRUG - OTHER] PO SCH (17:00)
[2024-11-16 07:32] LABS: Basophils # (auto) 0.01 K/uL (0.00-0.20); Basophils % (auto) 0.2 %; Eosinophils # (auto) 0.08 K/uL (0.00-0.50); Eosinophils % (auto) 1.2 %; Hematocrit (blood only) 25.1 % (37.0-47.0); Immature Granulocytes # (auto) 0.03 K/uL (0.01-0.20); Immature Granulocytes % (auto) 0.5 %; Lymphocytes # (auto) 0.39 K/uL (1.20-3.40); Lymphocytes % (auto) 5.9 %; Mean Corpuscular Hemoglobin 29.5 pg (25.0-34.0); Mean Corpuscular Hgb Conc 31.9 g/dL (32.0-36.0); Mean Corpuscular Volume 92.6 fL (80.0-100.0); Mean Platelet Volume 10.3 fL (9.4-12.4); Monocytes # (auto) 0.49 K/uL (0.11-0.59); Monocytes % (auto) 7.4 %; Neutrophils # (auto) 5.62 K/uL (1.40-6.50); Neutrophils % (auto) 84.8 %; Platelet Count 182 K/uL (130-400); RDW Coefficient of Variation 14.2 % (11.5-14.5); RDW Standard Deviation 47.5 fL (36.4-46.3); Red Blood Count 2.71 M/uL (4.20-5.40); White Blood Count 6.62 K/ul (4.8-10.8)
[2024-11-16 08:09] LABS: Albumin Globulin Ratio 1.1 (0.9-2); Albumin Level 3.1 gm/dl (3.4-5.0); BUN Creatinine Ratio 9.7 (10-20); Bilirubin,Total 0.9 mg/dl (0.2-1.0); Calcium 8.4 mg/dl (8.6-10.3); Creatinine Clr Calc Pharmacy 70.5 ml/min; Globulin 2.9 gm/dl (2.5-4.0); Potassium 3.8 mmol/L (3.5-5.1)
[2024-11-16] MEDS ORDERED: ETOMIDATE 2 MG/ML 20 ML VIAL IV ONE (08:10)
[2024-11-16] MEDS ORDERED: SUCCINYLCHOLINE CHLORIDE 20 MG/ML 10 ML VIAL IV ONE (08:10)
--- NOTE | 2024-11-16 08:28 | Surgery Progress Note ---
Date of Service November 16, 2024 Assessment & Plan (1) H/O right hemicolectomy: Plan: pod 2 suspect post op ileus...will check KUB...if confirmed will place ngt. make npo/ice chips. Dr. Wyatt covering for weekend. Admission and Anticipated Discharge Date Admission Date: November 14, 2024 Subjective pt seen. began having nausea last night. worse today. not valerie clears. Physical Exam Physical Exam: alert. nad abd: soft. wound looks good. no drainage/sign of infection Results & Data Vital Signs (Past 12 Hours) Vital Signs Temp Pulse Pulse Pulse Resp BP Pulse Ox 11/16/24 07:59 11/16/24 07:58 37.1 C 86 17 122/64 95 11/16/24 02:54 36.9 C 85 16 127/67 95 11/16/24 01:56 82 11/15/24 23:42 36.7 C 83 18 123/64 96 O2 Del Method O2 Flow Rate 11/16/24 07:59 Nasal Cannula 2 11/16/24 07:58 Room Air 11/16/24 02:54 Nasal Cannula 2 11/16/24 01:56 11/15/24 23:42 Nasal Cannula 2 PG Care Time/CCT Total # of Minutes Spent Total Time Spent with Patient: Total time spent is greater than 50% in coordination of care (as documented) at patient's floor/unit and/or counseling patient: Coding Level of Care Code 74868 Post Operative Follow-Up Diagnoses H/O right hemicolectomy Z90.49
--- NOTE | 2024-11-16 09:11 | XRay Report ---
KUB HISTORY: s/p r hemicolectomy, eval for sbo COMPARISON STUDY: CT of 09/27/2023. FINDINGS: There are interval midline surgical mavis. There is interval diffuse small bowel distenti on measuring up to 4 cm diameter. No significant colonic distention seen. There is mild expected post operative free air. IMPRESSION: Diffuse small bowel distention could represent ileus or early obstruction. ACT 112: Negative or not required by law. The above report was generated using voice recognition software. It may contain grammatical, syntax o r spelling errors. Electronically signed by: Jose Fitzgerald M.D. 11/16/2024 9:09 AM
[2024-11-16] MEDS: [UNRECOGNIZED DRUG - OTHER] PO SCH (09:13)
[2024-11-16] MEDS: LACTATED RINGER'S 1,000 ML IV SCH (09:16)
[2024-11-16 11:42] LABS: Base Excess VBG 11.5 mEq/L; HCO3 VBG 39 mmol/L; Oxygen Saturation VBG 66.2 %; PCO2 VBG 72 mmHg (38-50); PO2 VBG 41 mmHg; pH VBG 7.34 (7.36-7.41)
[2024-11-16 11:48] LABS: Hematocrit (blood only) 26.5 % (37.0-47.0); Hemoglobin 8.4 g/dl (12.0-16.0)
--- NOTE | 2024-11-16 12:00 | Communication Note ---
Date of Service: November 16, 2024 Was called by nursing staff this afternoon regarding patient events. Patient had a KUB obtained concerning for ileus vs SBO. Recommended placing NGT for bowel decompression. However nursing staff was unable to place the NGT and during attempt to place it the patient became nauseous and did have an episode of bloody emesis. Per report from nursing staff, the blood was bright red and did have clots present. I went to evaluate the patient at bedside. She is currently resting comfortably in bed, VSS, and she has had no additional episodes of emesis. Her abdomen is soft and nondistended. Repeat H&H obtained and hgb 8.4. Will hold off on any blood products at this time.
[2024-11-16] MEDS: PROMETHAZINE 12.5 MG/50.5 ML BAG IV PRN (12:57)
[2024-11-16] MEDS: PANTOprazole 40 MG/10 ML SYR IV SCH (12:58)
--- NOTE | 2024-11-16 15:23 | Hospitalist Progress Note ---
Date of Service November 16, 2024 Assessment & Plan (1) Cecum mass: (2) Chronic hypoxemic respiratory failure: (3) Pacemaker: (4) Hypothyroidism: Plan 79-year-old female with right hemicolectomy due to recent diagnosis of adenocarcinoma of the cecum. This was diagnosed as outpatient colonoscopic biopsy earlier in October. Surgical resection by Dr. Lorenzo. Patient suffers from lung cancer with a previous right lower lobe lobectomy. She has a baseline history of oxygen dependent COPD and pulmonary hypertension. She has a history of high-grade AV block requiring a pacemaker typically taking metoprolol and Eliquis. 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 General surgery has placed the patient on a liquid diet. Hydration and parenteral pain control will be per the general surgical service. CBC w/ hgb of 8.4, no leukocytosis KUB 11/16 -> diffuse small bowel distention could represent ileus vs early obstruction. s/p episodes of hematemesis 11/16 after attempting NG tube impression --> start IV Protonix BID #COPD. On chronic oxygen at home prn CO2 elevated at 42, VBG's w/ pH of 7.34, pCO2 72 Recommend down titrating off oxygen, goal to keep O2 @ 88-90% Continue home inhalers AM BMP #Pulm hypertension. Her Lasix will be held postoperatively until she is reliably taking p.o. well #Coronary artery disease. Patient continues on metoprolol 12.5 twice daily for secondary risk reduction she typically takes rosuvastatin which is on hold Code: full Discussed w/ general surgery team 11/16. Admission and Anticipated Discharge Date Admission Date: November 14, 2024 Subjective Patient seen and examined this morning. Patient w/ abdominal pain, nausea, and hematemesis this AM. Nursing attempted to insert an NG tube and patient had a total of 3 episodes of emesis, involving bright red blood and clots. Physical Exam Constitutional: WD/WN, vitals as above Eyes: PERRL, conjunctivae normal, anicteric sclerae ENMT: external ear and nose normal, oropharynx normal Respiratory: normal respiratory effort, lungs clear to auscultation Cardiovascular: RRR, no murmur, no edema Psychiatric: A+Ox3, euthymic affect Results & Data Results & Data Vital Signs (Past 12 Hours) Vital Signs Temp Pulse Pulse Resp BP BP Pulse Ox 11/16/24 10:59 36.8 C 84 17 144/72 H 97 11/16/24 10:24 86 11/16/24 07:59 11/16/24 07:58 37.1 C 86 17 122/64 95 O2 Del Method O2 Flow Rate 11/16/24 10:59 Nasal Cannula 2 11/16/24 10:24 11/16/24 07:59 Nasal Cannula 2 11/16/24 07:58 Room Air PG Care Time/CCT Total # of Minutes Spent Total Time Spent with Patient: Total time spent is greater than 50% in coordination of care (as documented) at patient's floor/unit and/or counseling patient: Coding Level of Care Code 17454 SUB INP/OBS CARE 2/35MIN Diagnoses Cecum mass K63.89 Chronic hypoxemic respiratory failure J96.11 Pacemaker Z95.0 Hypothyroidism E03.9
[2024-11-16 17:53] LABS: iSTAT Arterial Blood Gas HCO3 36 meg/L (19-24); iSTAT Arterial Blood Gas pCO2 57 mmHg (35-46); iSTAT Arterial Blood Gas pH 7.41 (7.35-7.45); iSTAT Arterial Blood Gas pO2 91 mmHg (80-95); iSTAT Carbon Dioxide 38 mmol/L (24-31); iSTAT Hematocrit 26 % (37-47); iSTAT Hemoglobin 8.8 g/dl (12.0-16.0); iSTAT Potassium 3.9 mmol/L (3.3-5.0); iSTAT Sodium 135 mmol/L (135-144)
[2024-11-16] MEDS: OPTIRAY 320 125ml IV ONE (18:07)
--- NOTE | 2024-11-16 18:19 | Procedure Note ---
Procedure Note Date of Service November 16, 2024 Procedure Date: Noted above Procedure: Endotracheal intubation Pre-procedure Diagnosis: Altered mental status and inability to protect airway Post-procedure Diagnosis: same as above Prior to Procedure: Informed Consent: emergent Attending Staff: Socorro Henderson DO The identity of the patient was confirmed and a bedside time out was performed. 20 mg etomidate was used for this patient procedure Description of Procedure: Patient was evaluated and required intubation for impending respiratory failure. The patient was prepared in the usual fashion. A video laryngoscope was used. A 7.5 mm inner diameter endotrachial tube was placed endotracheally to 21 cm at t he teeth. A grade 1 view was obtained. The endotracheal tube was noted to pass through the vocal cords. Chest rise was bilateral. Bilateral breath sounds were heard without air sounds in the abdomen. Mist was noted in the endotracheal tube. End-tidal CO2 measurement was positive. Chest x-ray shows proper endotracheal tube placement. Complications: None Findings: Not applicable Specimens: Not applicable Estimated blood loss: Zero [facility] Procedure Codes (Charges) Resuscitation Resuscitation: 47774 Endotracheal Intubation, emergency Coding CPT Codes Resuscitation - Resuscitation: 69577 Endotracheal Intubation, emergency ([id number]) Additional Codes Date of Service (PG.SURGERY)
--- NOTE | 2024-11-16 18:22 | Critical Care Consultation ---
Date of Consultation November 16, 2024 Assessment & Plan (1) Encephalopathy acute: Reason Critically Ill: 79-year-old female with acute mental status change concerning for CVA PLAN: Neuro: Acute encephalopathy - Stroke alert to exclude thrombus amenable to clot retrieval Resp: Intubated secondary to inability to protect airway - No obvious evidence of aspiration at this time Fluids/Renal: Elevated bicarb GI/Nutrition: Postop day 2 - Not a candidate for thrombolytics Vascular access: Peripheral IV Code Status: Full code - Staff attempted to contact family who were unavailable Disposition: Transferring to the ICU with possible emergent transfer to tertiary stroke center (2) H/O right hemicolectomy: Supervising Physician Co-Signing Physician Notes I have personally spent 40 minutes of critical care time in the direct management of this patient. This is a life/limb threatening event. This includes time spent evaluating patient, direct bedside care, chart review, placing orders, interpretation of diagnostic studies, discussion with consultants, patient, and/or family members regarding treatment decisions, as well as other required patient management activities. This time is exclusive of all separately billable procedures, and teaching time and separate from and in addition to any other critical care service time. History of Present Illness Reason for Consultation: Lyubov lemus Attending Physician: Dennis Lorenzo, History of Present Illness History is limited due to acuity of situation patient is a 79-year-old female who is postop day 2 from a hemicolectomy. Bedside nurse reports she does not follow-up she was last seen approximately 1 hour. During my evaluation patient states that illogically localizing. EEG which demonstrated a normal pH and mild hypercapnia. In brief review of labs patient had an elevation in her bicarb; however, she had spontaneous respirations. Decision was made to proceed with acute stroke alert. She is not a candidate for tPA as she is postop day 2 from a hemicolectomy. Her she has been notified if there is an acute occlusion clot retrieval is essentially her only possible treatment. Given her dense encephalopathy decision was made to intubate the patient. I have notified Dr. Lorenzo of the above. Allergies Allergy/AdvReac Type Severity Reaction Status Date / Time atorvastatin [From Lipitor] Allergy Unknown Unknown Verified 11/14/24 05:37 fenofibrate Allergy Unknown Unknown Verified 11/14/24 05:37 Gciphmp-FIG-MnG Reductase AdvReac Mild Joint Pain Verified 11/14/24 05:37 Inhibitor [Bxqkpew-Cvr-Hhj Reductase Inhibitor] Home Medications Medication Instructions Recorded Confirmed Type rosuvastatin 5 mg tablet (Crestor) 5 mg PO QAM 04/09/19 11/14/24 History levothyroxine 25 mcg capsule 25 mcg PO QAM 04/10/19 11/14/24 History loratadine 10 mg tablet 10 mg PO QAM 04/10/19 11/14/24 History alectinib 150 mg capsule (Alecensa) 450 mg PO BID 05/21/19 11/14/24 History metoprolol succinate 25 mg 12.5 mg PO BID 05/21/19 11/14/24 History tablet,extended release 24 hr apixaban 2.5 mg tablet (Eliquis) 2.5 mg PO BID 10/03/19 11/14/24 History Oxygen Home 1 ea .Route DAILY #1 ea 11/18/20 11/14/24 Rx furosemide 20 mg tablet 20 mg PO QAM 09/06/24 11/14/24 History mirabegron 25 mg tablet,extended 25 mg PO QPM 09/06/24 11/14/24 History release 24 hr (Myrbetriq) potassium chloride 20 mEq 10 meq PO QAM 09/06/24 11/14/24 History tablet,extended release ferrous sulfate 325 mg (65 mg 325 mg PO BID 11/07/24 11/14/24 History iron) tablet (FeroSul) umeclidinium 62.5 mcg-vilanterol 1 inh inhalation QPM 11/09/24 11/14/24 History 25 mcg/actuation powdr for inhalation (Anoro Ellipta) Patient History Medical History Colon cancer dx 10/2024 Primary malignant neoplasm of right lung metastatic to other site "Status post completion of radiation therapy to the right supraclavicular area/neck January 27, 2018 (per 11/01/24 anesthesia eval, physical exam without any significant neck findings). She received 3750 cGy" portion removed in 's office "removed what they could" Anemia per 11/08/24 heme/onc note, anemia 'multifactorial: due to Alectinib, chronic disease, and iron deficiency. On oral B12 supplementation daily' (pt also on oral iron BID) Per heme/onc note, 'discussed IV iron supplementation which patient declined opting for increasing dose of oral iron to TID' Restrictive ventilatory defect Hx of corneal abrasion right Pulmonary hypertension Chronic hypoxemic respiratory failure 2L O2 cont Hx of pleural effusion R sided; per 09/[address], 'unchanged small loculated R pleural effusion' Hx of basal cell carcinoma removed Dyspnea on exertion On home oxygen therapy O2 2L NC cont Stress bladder incontinence, female Hypothyroidism Dysphagia COPD (chronic obstructive pulmonary disease) follows with jesenia camargo History of anesthesia reaction "it doesn't take much" to put to sleep per pt 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 History of bilateral cataract extraction (2022) History of basal cell carcinoma (BCC) excision multiple, since 1989' Hx of colonoscopy (2024) EGD/colonoscopy 11/01/24: MAC without issue Hx of cholecystectomy Hx of cardiac catheterization (2009) 2009--- went on to have CABG at [place], cannot remember if she has had others- follows with ruth berg Hx of CABG (2011) CABG x 1 (SVG-RCA); follows with ruth berg History of thoracotomy (2018) right lung- cancer Family History Brother Cancer Family/Other Diabetes Cancer Sister Breast cancer Father Stroke Son Diabetes Daughter Diabetes Social History Smoking Status: Never smoker Second Hand Exposure: No; Do You Dip or Chew Tobacco: No; Tobacco Cessation Education Requested by Patient: No Hx Alcohol Use: No Hx Substance Use: No Preferred Language: Upper Sorbian Communication Ability: Effective Furniture Servicer Required: No Beliefs That Will Affect Care: None marital status: Current Living Situation: Family Current Living Situation Comment: lives @ home w/ daughter current occupational status: retired How many Children do You have: 3 Other Information That Helps Us Care for You: No Feels Safe at Home: Yes Safety Concerns: Feels Safe At This Time during the past year weight has: decreased > 10 lbs Assistive Devices: Cane, Oxygen - Continuous and Walker Physical Exam Physical Exam: General: Glascow Coma Scale: Eyes: 1, Verbal 2, Motor 1, Total for Skin: Warm, dry, Head: Atraumatic Ears, nose, mouth and throat: airway patent - I placed an NG tube in the right nare and then suctioned approximately 1 L of fluid Cardiovascular: Normal peripheral perfusion, pulse 96 according to pulse o ximeter Respiratory: no respiratory distress, Gastrointestinal: Mildly tympanic, surgical dressings in place no shadowing Musculoskeletal: No deformity Results & Data Results & Data Vital Signs (Past 12 Hours) Vital Signs Temp Pulse Pulse Resp BP BP Pulse Ox 11/16/24 17:01 36.7 C 85 17 91/58 L 99 11/16/24 10:59 36.8 C 84 17 144/72 H 97 11/16/24 10:24 86 11/16/24 07:59 11/16/24 07:58 37.1 C 86 17 122/64 95 O2 Del Method O2 Flow Rate 11/16/24 17:01 Nasal Cannula 2 11/16/24 10:59 Nasal Cannula 2 11/16/24 10:24 11/16/24 07:59 Nasal Cannula 2 11/16/24 07:58 Room Air Critical Care Results & Data Vital Signs (Past 12 Hours) Vital Signs Temp Pulse Pulse Resp BP BP Pulse Ox 11/16/24 17:01 36.7 C 85 17 91/58 L 99 11/16/24 10:59 36.8 C 84 17 144/72 H 97 11/16/24 10:24 86 11/16/24 07:59 11/16/24 07:58 37.1 C 86 17 122/64 95 O2 Del Method O2 Flow Rate 11/16/24 17:01 Nasal Cannula 2 11/16/24 10:59 Nasal Cannula 2 11/16/24 10:24 11/16/24 07:59 Nasal Cannula 2 11/16/24 07:58 Room Air Lab & Micro Results (Past 24 Hours) RBC 2.71 M/uL (4.20-5.40) L 11/16/24 WBC 6.62 K/ul (4.8-10.8) 11/16/24 Hgb 8.4 g/dl (12.0-16.0) L 11/16/24 Hct 26.5 % (37.0-47.0) L 11/16/24 MCV 92.6 fL (80.0-100.0) 11/16/24 MCH 29.5 pg (25.0-34.0) 11/16/24 MCHC 31.9 g/dL (32.0-36.0) L 11/16/24 RDW Standard Deviation 47.5 fL (36.4-46.3) H 11/16/24 RDW Coefficient of Variation 14.2 % (11.5-14.5) 11/16/24 Plt Count 182 K/uL (130-400) 11/16/24 MPV 10.3 fL (9.4-12.4) 11/16/24 Neutrophils (%) (Auto) 84.8 % 11/16/24 Lymphocytes (%) (Auto) 5.9 % 11/16/24 Monocytes # (Auto) 0.49 K/uL (0.11-0.59) 11/16/24 Eosinophils # (Auto) 0.08 K/uL (0.00-0.50) 11/16/24 Immature Granulocyte % (Auto) 0.5 % 11/16/24 Neutrophils # (Auto) 5.62 K/uL (1.40-6.50) 11/16/24 Lymphocytes # (Auto) 0.39 K/uL (1.20-3.40) L 11/16/24 Monocytes # (Auto) 0.49 K/uL (0.11-0.59) 11/16/24 Eosinophils # (Auto) 0.08 K/uL (0.00-0.50) 11/16/24 Basophils # (Auto) 0.01 K/uL (0.00-0.20) 11/16/24 Immature Granulocyte # (Auto) 0.03 K/uL (0.01-0.20) 5 Na 142 mmol/L (136-145) 11/16/24 K 3.8 mmol/L (3.5-5.1) 11/16/24 Cl 97 mmol/L (98-107) L 11/16/24 CO2 42 mmol/L (21-32) H* 11/16/24 Anion Gap 3 (3-11) 11/16/24 BUN 6 mg/dl (6-23) 11/16/24 Creatinine 0.62 mg/dl (0.6-1.2) 11/16/24 BUN/Creatinine Ratio 9.7 (10-20) L 11/16/24 Glu 118 mg/dl (70-99(Fasting)) H 11/16/24 Ca 8.4 mg/dl (8.6-10.3) L 11/16/24 Total Bilirubin 0.9 mg/dl (0.2-1.0) 11/16/24 AST 130 U/L (13-39) H 11/16/24 ALT 55 U/L (7-52) H 11/16/24 Alkaline Phosphatase 128 U/L (34-104) H 11/16/24 TP 6.0 gm/dl (6.0-8.3) 11/16/24 Albumin 3.1 gm/dl (3.4-5.0) L 11/16/24 Globulin 2.9 gm/dl (2.5-4.0) 11/16/24 Albumin/Globulin Ratio 1.1 (0.9-2) 11/16/24 Calcium Level 8.4 mg/dl (8.6-10.3) L 11/16/24 06:46 Venous Blood pH 7.34 (7.36-7.41) L 11/16/24 11:25 Venous Blood Partial Pressure CO2 72 mmHg (38-50) H 11/16/24 11 :25 Venous Blood Partial Pressure O2 41 mmHg 11/16/24 11:25 Venous Blood HCO3 39 mmol/L 11/16/24 11:25 Venous Blood Base Excess 11.5 mEq/L 11/16/24 11:25 Venous Blood Oxygen Saturation 66.2 % 11/16/24 11:25 Diagnostic Findings (Past 24 Hours) KUB X-Ray 11/16/24 00:00 KUB HISTORY: s/p r hemicolectomy, eval for sbo COMPARISON STUDY: CT of 09/27/2023. FINDINGS: There are interval midline surgical mavis. There is interval diffuse small bowel distention measuring up to 4 cm diameter. No significant colonic distention seen. There is mild expected postoperative free air. IMPRESSION: Diffuse small bowel distention could represent ileus or early obstruction. ACT 112: Negative or not required by law. The above report was generated using voice recognition software. It may contain grammatical, syntax or spelling errors. Electronically signed by: Jose Fitzgerald M.D. 11/16/2024 9:09 AM I & O Totals 24 Hours 11/15/24 11/16/24 11/17/24 06:59 06:59 06:59 Intake Total 2708 / 2708 2420 / 2420 50.5 / 50.5 Output Total 850 / 850 0 / 2049 50 / 50 Balance 1858 / 1858 370 / 370 0.5 / 0.5 Cumulative 11/07/24 16:54 thru 11/16/24 17:01 Intake Total 5178.5 Output Total 2950 Balance 2228.5 RT Ventilator Mngmt (Last Documented) Ventilator Ordered Settings Respiratory Rate 17 11/16/24 17:01 Fraction of Inspired Oxygen 30 11/14/24 11:25 Ventilator - PT Measurements Respiratory Rate 17 Coding Level of Care Code 57402 CRITICAL CARE 1ST 30-74M Diagnoses Encephalopathy acute G93.40 H/O right hemicolectomy Z90.49
--- NOTE | 2024-11-16 18:51 | CT Scan Report ---
Head CT without contrast CT angiogram of the neck CT angiogram of the brain with contrast Provided History: Neuro deficit Comparison: None Technique: HEAD CT: Using multidetector thin collimation helical acquisition technique, axial, coronal and sagittal CT images from the skull base to the vertex were obtained without intravenous contrast. HEAD and NECK CTA: During rapid bolus intravenous injection of nonionic contrast material, axial images were obtained using thin collimation multidetector helical technique from the base of the neck through the of vertex of the head. This CT angiogram data was reconstructed at thin intervals with mild overlap. 3D reconstructions were obtained. The axial source images, multiplanar reformations, 3D reconstructions in both maximum intensity projection display and volume rendered models were reviewed. Dose reduction techniques were achieved by using automatic exposure control and/or adjustment of mA and/or kV according to patient size and/or use of iterative reconstruction technique. Findings: Head CT: There is no intracranial hemorrhage, mass effect, or midline shift. Stroud/white matter differentiation in both cerebral hemispheres is preserved. Ventricles are proportionate to the cerebral sulci. Calcifications of the basal ganglia, may be idiopathic or age-related, versus sequela of toxic/metabolic abnormality. Head CTA demonstrates nostenosis of the major intracranial arteries. There is a 4 x 4 mm aneurysm arising from the distal anterior cerebral artery, series 8 image 196. Neck CTA demonstrates no stenosis of the major cervical arteries. Calcification of the carotid bulbs bilaterally without associated stenosis. There is significant tortuosity of the distal internal carotid arteries. The origins of the great vessels from the aortic arch are patent. Circumferential loculated pleural effusion seen throughout the right hemithorax. Endotracheal tube tip at the mid thoracic trachea. NG tube in place. Impression: 1. Head CTA demonstrates no stenosis or large vessel occlusion. 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 2. Neck CTA demonstrates no stenosis of the major cervical arteries. 3. No intracranial hemorrhage on the noncontrast head CT. 4. Partially visualized loculated pleural effusion throughout the right hemithorax. Findings discussed with CROW Roberts, at 6:49 PM, 11/16/[address] Goode Electronically signed by Kenyon Goode 11-16-2024 6:50 PM
--- NOTE | 2024-11-16 18:57 | XRay Report ---
Chest radiograph, one view History: Illness Comparison: November 14, 2024 Findings: Single AP view of the chest performed. Low lung volumes. Endotracheal tube tip 2.1 cm above the edwar. NG/OG tube sidehole is in the stomach. No focal consolidation. Right pleural effusion is seen. No pneumothorax. The cardiomediastinal silhouette is within normal limits. Left chest wall dual-lead AICD. Normal pulmonary vascularity. No evidence for lymphadenopathy. No visualized bony or soft tissue abnormality. Impression: Low lung volumes with right pleural effusion and lines and tubes, as above. Electronically signed by Kenyon Goode 11-16-2024 6:56 PM
--- NOTE | 2024-11-16 19:06 | Communication Note ---
Date of Service: November 16, 2024 Patient seen on evening rounds follow verbal signout from Dr. Henderson. She is POD #2 from R hemicolectomy without immediate complication. This AM she was found to have SBO vs ileus on imaging. NGT was attempted but with bloody emesis and return of small clots. HGB remains stable. She was intubated due to acute respiratory failure, severe encephalopathy, hypoxemia by Dr. Henderson at 1815. Received minimal doses of opiates, 2mg Morphine early afternoon and 10mg Oxycodone around 0500, unlikely her mentation is result is Rx especially as she received 0.4mg Narcan. Intubated via etomidate and without paralysis, 1 hour later she remains unresponsive, CTA without LVO or acute diffusion restriction to indicate CVA. Incidental 4mm saccular aneurysm of RODNEY present. On exam she withdraws to pain in lower extremities not in uppers. Pupils 2mm equal round and reactive. Does not track or follow commands. [place] [facility] [place] indication for transfer at this point. SBP goal < 140mmHg i/s/o aneurysm. I reached out to our on-call Neurologist, Dr. Washburn. He agrees with STAT EEG as well as MRI tonight to rule out global hypoxemia. No AEDs necessary. Fentanyl boluses PRN obvious discomfort. No continuous sedation indicated at this time. 2144: EEG negative for epileptiform activity. MRI unable to be completed due to cardiac device incompatibility. Continue close neurologic monitoring with hopeful extubation in AM. She has poor respiratory reserve at baseline, though requiring minimal ventilator support which is reassuring. Making adequate urine, IVF were stopped in order to optimize volume status for successful extubation in patient on home diuretics. She examines euvolemic. Frequent re-evaluation for reinitiation if indicated as she is strict NPO with OGT to LIS. Son updated at bedside. 0215: IVF reinitiated with UOP less than 30cc/hr for 2 hours. Coding Level of Care Code 89949 CRITICAL CARE EA ADD 30M Time Spent (min) 32
--- NOTE | 2024-11-16 19:09 | XRay Report ---
Clinical history: Tube placement One view of the abdomen was obtained No prior examination is available for comparison Findings: The pelvis is outside of the imaged area There is a nasogastric tube coiled within the stomach, with the tip in the gastric fundus. There are dilated small bowel loops with colonic gas present as well. No renal or ureteral calculi are seen. Sternal wires are present. There is scoliosis. Surgical clips are seen suggestive or prior cholecystectomy Impression: 1. Nasogastric tube with its tip within the stomach 2. Small bowel dilatation that could be due to a partial small bowel obstruction ACT 112: Positive. There are findings on this exam that require communication between the performing entity and the patient following Patient Test Result Information Act ([place] ACT 112) guidelines. Electronically signed by Shubham Patiño 11-16-2024 7:09 PM
[2024-11-16] MEDS: RAPID SEQUENCE INDUCTION BAG ONE (19:27)
[2024-11-16] MEDS: NALOXONE HCL 0.4 MG/1 ML VIAL/CARP IV ONE (19:27)
[2024-11-16] MEDS: NALOXONE HCL 0.4 MG/1 ML VIAL/CARP ONE (19:27)
[2024-11-16 20:18] LABS: Base Excess VBG 11.4 mEq/L; HCO3 VBG 37 mmol/L; Oxygen Saturation VBG 65.8 %; PCO2 VBG 53 mmHg (38-50); PO2 VBG 36 mmHg; pH VBG 7.45 (7.36-7.41)
[2024-11-16 20:41] LABS: BUN Creatinine Ratio 9.5 (10-20); Calcium 8.5 mg/dl (8.6-10.3); Creatinine Clr Calc Pharmacy 37.7 ml/min; Magnesium 1.8 mg/dl (1.7-2.4); Potassium 3.8 mmol/L (3.5-5.1)
[2024-11-16] MEDS: MAGNESIUM SULFATE / D5W 1 GM/100 ML BAG IV SCH (21:35)
--- NOTE | 2024-11-16 21:44 | Electroencephalogram ---
EEG Procedure Note Date of Service November 16, 2024 Start / End Times Start Time: 2109 End Time: 2129 Referring Physician Caitie reed History unresponsive. Home Medication List Medication Instructions Recorded Confirmed Type rosuvastatin 5 mg tablet (Crestor) 5 mg PO QAM 04/09/19 11/14/24 History levothyroxine 25 mcg capsule 25 mcg PO QAM 04/10/19 11/14/24 History loratadine 10 mg tablet 10 mg PO QAM 04/10/19 11/14/24 History alectinib 150 mg capsule (Alecensa) 450 mg PO BID 05/21/19 11/14/24 History metoprolol succinate 25 mg 12.5 mg PO BID 05/21/19 11/14/24 History tablet,extended release 24 hr apixaban 2.5 mg tablet (Eliquis) 2.5 mg PO BID 10/03/19 11/14/24 History Oxygen Home 1 ea .Route DAILY #1 ea 11/18/20 11/14/24 Rx furosemide 20 mg tablet 20 mg PO QAM 09/06/24 11/14/24 History mirabegron 25 mg tablet,extended 25 mg PO QPM 09/06/24 11/14/24 History release 24 hr (Myrbetriq) potassium chloride 20 mEq 10 meq PO QAM 09/06/24 11/14/24 History tablet,extended release ferrous sulfate 325 mg (65 mg 325 mg PO BID 11/07/24 11/14/24 History iron) tablet (FeroSul) umeclidinium 62.5 mcg-vilanterol 1 inh inhalation QPM 11/09/24 11/14/24 History 25 mcg/actuation powdr for inhalation (Anoro Ellipta) Inpatient Medication List Lactated Ringer's (Lr) 1,000 mls @ 80 mls/hr IV .[id number] TIERRA Stop: 11/17/24 08:29 Last Admin: 11/16/24 20:33 Dose: Not Given Documented By: Infusion: 11/16/24 19:33 Dose: Infused Documented By: Admin: 11/16/24 09:16 Dose: 80 mls/hr Documented By: PK Promethazine HCl (Phenergan) 12.5 mg in 50.5 mls @ 202 mls/hr IV Q6H PRN PRN Reason: Nausea And Vomiting Stop: 12/16/24 11:31 Last Infusion: 11/16/24 13:46 Dose: Infused Documented By: Admin: 11/16/24 12:57 Dose: 202 mls/hr Documented By: MARYANA Pantoprazole Sodium (Protonix) 40 mg in 10 mls @ 5 mls/min IV BID TIERRA Stop: 12/16/24 12:44 Last Admin: 11/16/24 12:58 Dose: 5 mls/min Documented By: MARYANA Magnesium Sulfate/Dextrose (Magnesium Sulfate / D5w) 1 gm in 100 mls @ 50 mls/hr IV Q2H TIERRA Stop: 11/17/24 00:59 Last Admin: 11/16/24 21:35 Dose: 50 mls/hr Documented By: ANJELICA Levothyroxine Sodium (Levothyroxine Sodium 25 Mcg Tablet) 25 mcg PO DAILYBB [facility] Stop: 12/15/24 06:29 Last Admin: 11/16/24 04:55 Dose: 25 mcg Documented By: Admin: 11/15/24 05:39 Dose: 25 mcg Documented By: ELENA Loratadine (Loratadine 10 Mg Tab) 10 mg PO QAM [facility] Stop: 12/15/24 08:59 Last Admin: 11/16/24 09:14 Dose: 10 mg Documented By: Admin: 11/15/24 08:14 Dose: 10 mg Documented By: PANKAJ Metoprolol Succinate (Metoprolol Succ 25mg Ext Rel Tab) 12.5 mg PO BID [facility] Stop: 12/15/24 08:59 Last Admin: 11/16/24 21:32 Dose: Not Given Documented By: Admin: 11/16/24 09:14 Dose: 12.5 mg Documented By: Admin: 11/15/24 20:49 Dose: 12.5 mg Documented By: Admin: 11/15/24 08:15 Dose: 12.5 mg Documented By: PANKAJ Morphine Sulfate (Morphine Sulfate 2 Mg/Ml Carp) 2 mg IV Q3H PRN PRN Reason: Pain (1,2,3,4,5) & Pre PT Stop: 11/28/24 11:45 Last Admin: 11/16/24 12:59 Dose: 2 mg Documented By: Admin: 11/15/24 20:55 Dose: 2 mg Documented By: Admin: 11/15/24 16:21 Dose: 2 mg Documented By: PANKAJ Alectinib~Non- Formulary Patient's Own Med 1 each PO BIDM [facility] Stop: 12/16/24 07:59 Last Admin: 11/16/24 19:27 Dose: Not Given Documented By: Admin: 11/16/24 09:13 Dose: 1 each Documented By: MARYANA Ondansetron HCl (Ondansetron Inj 2 Mg/Ml 2 Ml Vial) 4 mg IV Q4H PRN PRN Reason: Nausea And Vomiting Stop: 12/14/24 11:45 Last Admin: 11/16/24 09:16 Dose: 4 mg Documented By: Admin: 11/15/24 11:26 Dose: 4 mg Documented By: PANKAJ Oxycodone HCl (Oxycodone Hcl Ir 5 Mg Tab (Immediate Release)) 5 mg PO Q4H PRN PRN Reason: MODERATE Pain (4,5,6) & Pre PT Stop: 11/28/24 11:45 Last Admin: 11/14/24 21:53 Dose: 5 mg Documented By: Admin: 11/14/24 18:21 Dose: 5 mg Documented By: PANKAJ Oxycodone HCl (Oxycodone Hcl Ir 5 Mg Tab (Immediate Release)) 10 mg PO Q4H PRN PRN Reason: SEVERE Pain (7,8,9,10) Stop: 11/28/24 11:45 Last Admin: 11/16/24 04:54 Dose: 10 mg Documented By: Admin: 11/15/24 10:26 Dose: 10 mg Documented By: Admin: 11/15/24 02:42 Dose: 10 mg Documented By: ELENA Potassium Chloride (Potassium Chloride 10 Meq Tabcr) 10 meq PO QAM [facility] Stop: 12/15/24 08:59 Last Admin: 11/16/24 09:16 Dose: 10 meq Documented By: Admin: 11/15/24 08:14 Dose: 10 meq Documented By: PANKAJ Umeclidinium/Vilanterol (Umeclidinium/Vilanterol 62.5/25mcg 7 Puffs/Inhaler) 1 puffs INH QPM TIERRA Stop: 12/14/24 20:59 Last Admin: 11/16/24 21:32 Dose: Not Given Documented By: Admin: 11/15/24 20:48 Dose: 1 puffs Documented By: Admin: 11/14/24 21:48 Dose: 1 puffs Documented By: ELENA Vibegron (Vibegron 75 Mg Tab) 75 mg PO DAILY [facility] Stop: 12/15/24 08:59 Last Admin: 11/16/24 09:14 Dose: 75 mg Documented By: Admin: 11/15/24 08:15 Dose: 75 mg Documented By: PANKAJ Discontinued Medications Albuterol (Albut/Ipratrop 3mg/0.5mg Neb 3 Ml Vial) 3 ml NEB NOW STA; Protocol Stop: 11/14/24 06:42 Last Admin: 11/14/24 06:57 Dose: 3 ml Documented By: MIGUEL Epinephrine (Racepinephrine 2.25% Nebu Soln 0.5 Ml Vial) Confirm Administered Dose 0.5 ml .ROUTE .STK-MED ONE Stop: 11/14/24 09:55 Last Admin: 11/14/24 09:57 Dose: 0.5 ml Documented By: GRACE Cefazolin Sodium (Ancef 2000mg) 2,000 mg in 15 mls @ 3.75 mls/min IV PREOP TIERRA; Protocol Stop: 11/14/24 18:00 Last Admin: 11/14/24 07:57 Dose: 3.75 mls/min Documented By: JACKIE Lactated Ringer's (Lr) 1,000 mls @ 15 mls/hr IV .Q24H [facility]ER[facility] Stop: 11/15/24 05:59 Last Infusion: 11/14/24 07:28 Dose: Infused Documented By: Admin: 11/14/24 06:14 Dose: 15 mls/hr Documented By: DOMINIK Cefazolin Sodium (Ancef 2000mg) 2,000 mg in 15 mls @ 3.75 mls/min IV Q8H TIERRA; Protocol Stop: 11/15/24 15:59 Last Admin: 11/15/24 08:14 Dose: 3.75 mls/min Documented By: Admin: 11/14/24 23:11 Dose: 3.75 mls/min Documented By: Admin: 11/14/24 16:59 Dose: 3.75 mls/min Documented By: PANKAJ Lactated Ringer's (Lr) 1,000 mls @ 80 mls/hr IV .[id number] [facility]ERRA Stop: 11/15/24 11:45 Last Infusion: 11/15/24 12:11 Dose: Infused Documented By: Admin: 11/14/24 23:11 Dose: 80 mls/hr Documented By: Infusion: 11/14/24 23:11 Dose: Infused Documented By: Admin: 11/14/24 12:05 Dose: 80 mls/hr Documented By: PANKAJ Ioversol (Optiray 320 125ml) 119 ml IV ONCE ONE Stop: 11/16/24 18:08 Last Admin: 11/16/24 18:07 Dose: 119 ml Documented By: LUIS CARLOS Miscellaneous (Alectinib [Alecensa] 150 Mg Capsule--Order Awaiting Action) 1 each N/A QS [facility]ERRA Stop: 12/15/24 15:59 Last Admin: 11/15/24 16:37 Dose: Not Given Documented By: PANKAJ Miscellaneous (Rapid Sequence Induction Bag) Confirm Administered Dose 1 each N/A .STK-MED ONE Stop: 11/16/24 17:48 Last Admin: 11/16/24 19:27 Dose: Not Given Documented By: ANJELICA Naloxone HCl (Naloxone Hcl 0.4 Mg/1 Ml Vial/Carp) Confirm Administered Dose 0.4 mg .ROUTE .STK-MED ONE Stop: 11/16/24 17:28 Last Admin: 11/16/24 19:27 Dose: Not Given Documented By: MNFranco Naloxone HCl (Naloxone Hcl 0.4 Mg/1 Ml Vial/Carp) 0.4 mg IV ONCE ONE Stop: 11/16/24 17:31 Last Admin: 11/16/24 19:27 Dose: Not Given Documented By: MNFranco Succinylcholine Chloride (Succinylcholine Chloride 20 Mg/Ml 10 Ml Vial) Confirm Administered Dose 200 mg IV .STK-MED ONE Stop: 11/14/24 11:50 Last Admin: 11/14/24 12:14 Dose: Not Given Documented By: PANKAJ Description This is a 21 electrode EEG with a single channel dedicated to limited EKG. The electrodes were placed in accordance with the International 10-20 system. Interpretation This is a 21 electrode EEG with a single channel dedicated to limited EKG. The electrodes were placed in accordance with the International 10-20 system. There is a posterior dominant rhythm of 5-6 Hz which is symmetrically distributed and attenuates with eye opening. There is a normal anterior to posterior organization. Photic stimulation: unremarkable Hyperventilation performed: ___ unremarkable; _x_ not performed. There is no focal slowing. No epileptiform abnormalities. Sleep stage: _x_ not achieved, ___drowsy state, ___ Stage II, ___ REM stage achieved. Interpretation Mildly abnormal study due to diffuse slowing without epileptic discharge. pt is NOT in status. A normal EEG does not completely exclude a diagnosis of epilepsy. [facility] EEG Procedure Codes Indication for Procedure (1) Encephalopathy acute: Neurology Neurology: [id number] EEG include record awake & drowsy
[2024-11-16] MEDS: ACETAMINOPHEN 1,000 MG/100 ML VIAL IV PRN (23:18)
[2024-11-17] MEDS: fentaNYL citrate PF 100 MCG/2 ML VIAL IV PRN (01:20)
[2024-11-17] MEDS ORDERED: STAT IV Infusion **Titration per Protocol STA (04:33)
[2024-11-17] MEDS: LACTATED RINGER'S 250 ML IV ONE (04:38)
[2024-11-17 05:42] LABS: Basophils # (auto) 0.01 K/uL (0.00-0.20); Basophils % (auto) 0.1 %; Eosinophils # (auto) 0.04 K/uL (0.00-0.50); Eosinophils % (auto) 0.6 %; Hematocrit (blood only) 25.6 % (37.0-47.0); Hemoglobin 8.1 g/dl (12.0-16.0); Immature Granulocytes # (auto) 0.05 K/uL (0.01-0.20); Immature Granulocytes % (auto) 0.7 %; Lymphocytes # (auto) 0.53 K/uL (1.20-3.40); Lymphocytes % (auto) 7.8 %; Mean Corpuscular Hemoglobin 28.8 pg (25.0-34.0); Mean Corpuscular Hgb Conc 31.6 g/dL (32.0-36.0); Mean Corpuscular Volume 91.1 fL (80.0-100.0); Mean Platelet Volume 10.3 fL (9.4-12.4); Monocytes # (auto) 0.37 K/uL (0.11-0.59); Monocytes % (auto) 5.4 %; Neutrophils # (auto) 5.83 K/uL (1.40-6.50); Neutrophils % (auto) 85.4 %; Platelet Count 180 K/uL (130-400); RDW Coefficient of Variation 13.7 % (11.5-14.5); RDW Standard Deviation 45.4 fL (36.4-46.3); Red Blood Count 2.81 M/uL (4.20-5.40); White Blood Count 6.83 K/ul (4.8-10.8)
[2024-11-17 05:57] LABS: BUN Creatinine Ratio 10.4 (10-20); Calcium 8.4 mg/dl (8.6-10.3); Creatinine Clr Calc Pharmacy 41.8 ml/min; Potassium 3.2 mmol/L (3.5-5.1)
[2024-11-17 06:35] LABS: Albumin Level 2.9 gm/dl (3.4-5.0); Bilirubin,Total 1.1 mg/dl (0.2-1.0); Globulin 2.9 gm/dl (2.5-4.0); Magnesium 2.1 mg/dl (1.7-2.4); Phosphorus 1.4 mg/dl (2.5-4.9); Total Protein 5.8 gm/dl (6.0-8.3)
[2024-11-17] MEDS ORDERED: SODIUM PHOSPHATE 3 MMOL/1 ML INFUSION IV STA (06:49)
[2024-11-17] MEDS ORDERED: POTASSIUM PHOS 3 MMOL/1 ML INFUSION IV STA (07:06)
--- NOTE | 2024-11-17 07:08 | Critical Care Progress Note ---
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 - [place] blood pressure control less than 140 systolic - Unable to obtain MRI secondary to pacemaker incompatible with 3T coil - 1.5T coil unavailable due to maintenance - Neurology consultation - EEG reported negative Analgesia - Oxycodone per general surgery's protocol - Attempt to use nonopioid-based analgesics given patient's underlying lung disease and possible hypoxic respiratory drive Resp: Anticipate extubation later today - Obtain ABG Pulmonary hypertension COPD Group D - Home O2 2 L: Goal oxygen saturation 88 to 92% - Likely has chronic respiratory acidosis: Bicarb in 2020 was 35 -History lung cancer: Stage III adenocarcinoma of lung - History of lobectomy CV: Status post pacemaker Coronary artery disease status post one-vessel CABG January 29, 2012 History hypertension: Goal less than 140 systolic -Metoprolol 12.5 mg extended release given in twice daily dosing per medical record Fluids/Renal: Elevated bicarb: Suspect compensated chronic respiratory acidosis Mild hypokalemia and hypophosphatemia - 21 mmol potassium phosphate today Hypochloremia - Plasma-Lyte @ 80mL/hr ID: No indication for anti-infectives at this time GI/Nutrition: Postop day 3 Right hemicolectomy - Not a candidate for thrombolytics Hyperlipidemia: Rosuvastatin 5 mg Postoperative ileus - Maintain NG tube to low intermittent suction: Able to clamp for 1 hour after medication administration Heme: Prior systemic anticoagulation with Eliquis secondary to upper extremity DVT 2018 Anemia -Multifactorial: Postoperative anemia and probable anemia of chronic disease DVT prophylaxis: Postop day 3 and high risk patient for DVT adding chemoprophylaxis deferring to surgery as to when to start systemic anticoagulation Endocrine: ICU hyperglycemia protocol Hypothyroidism - 25 mcg Synthroid daily Vascular access: Peripheral IV Code Status: Full code PT OT consult: Anticipate out of bed to chair once extubated and stable for 2 to 3 hours Disposition: ICU (2) H/O right hemicolectomy: Admission and Anticipated Discharge Date Admission Date: November 14, 2024 Supervising Physician Co-Signing Physician Notes I have personally spent 35 minutes of critical care time in the direct management of this patient. This is a life/limb threatening event. This includes time spent evaluating patient, direct bedside care, chart review, placing orders, interpretation of diagnostic studies, discussion with consultants, patient, and/or family members regarding treatment decisions, as well as other required patient management activities. This time is exclusive of all separately billable procedures, and teaching time and separate from and in addition to any other critical care service time. Subjective Overnight team reports patient spontaneously awoke able to follow commands while intubated. During my evaluation patient difficult to arouse, had not received significant sedation. End-tidal CO2 positive and on lower side, patient may be very sensitive to mild over ventilation. Attempted to place the patient on pressure support ventilation and had extended apnea., Converted to SIMV mode and attempt to wean patient this morning. Eventually the patient became arousable and was redirectable. Physical Exam Physical Exam: General: [place] Coma Scale: Eyes: 3, Verbal 1T, Motor 6, Total 10T Skin: Warm, dry, Head: Atraumatic Ears, nose, mouth and throat: Obscured by endotracheal tube - NG tube right naris Cardiovascular: Normal peripheral perfusion Respiratory: Ventilator settings reviewed and manipulated to SIMV mode Gastrointestinal: Mildly tympanic, surgical dressings in place no shadowing Musculoskeletal: No deformity Results & Data Results & Data Vital Signs (Past 12 Hours) Vital Signs Temp Pulse Resp BP Pulse Ox O2 Del Method FiO2 11/17/24 06:18 37.8 C H 82 23 95 11/17/24 06:15 119/50 L 11/17/24 06:15 119/50 L 11/17/24 06:09 37.8 C H 83 21 95 11/17/24 06:06 37.8 C H 84 22 95 11/17/24 06:00 109/52 L 11/17/24 06:00 109/52 L 11/17/24 05:54 37.8 C H 84 24 94 11/17/24 05:45 116/51 L 11/17/24 05:45 116/51 L 11/17/24 05:39 37.8 C H 86 21 95 11/17/24 05:30 37.7 C H 86 21 100 11/17/24 05:27 37.7 C H 85 18 95 11/17/24 05:00 37.7 C H 83 18 95 11/17/24 05:00 125/70 11/17/24 05:00 125/70 11/17/24 05:00 125/70 11/17/24 04:51 37.7 C H 81 18 96 11/17/24 04:45 139/47 L 11/17/24 04:45 139/47 L 11/17/24 04:45 139/47 L 11/17/24 04:42 37.7 C H 81 18 95 11/17/24 04:33 37.7 C H 81 18 94 11/17/24 04:31 120/44 L 11/17/24 04:31 120/44 L 11/17/24 04:31 120/44 L 11/17/24 04:21 37.7 C H 84 18 95 11/17/24 04:20 129/53 L 11/17/24 04:18 37.8 C H 85 18 94 11/17/24 04:16 116/37 L 11/17/24 04:16 116/37 L 11/17/24 04:15 37.8 C H 81 18 94 11/17/24 04:00 30 11/17/24 04:00 37.8 C H 81 19 95 11/17/24 04:00 137/51 L 11/17/24 03:45 37.8 C H 81 18 94 11/17/24 03:33 37.8 C H 81 18 93 11/17/24 03:30 116/53 L 11/17/24 03:30 116/53 L 11/17/24 03:27 37.8 C H 80 18 92 11/17/24 03:15 110/45 L 11/17/24 03:15 110/45 L 11/17/24 03:09 37.8 C H 81 18 93 11/17/24 03:00 115/45 L 11/17/24 03:00 115/45 L 11/17/24 03:00 37.8 C H 80 18 92 11/17/24 02:51 37.8 C H 81 18 93 11/17/24 02:45 118/50 L 11/17/24 02:42 37.8 C H 81 18 95 11/17/24 02:37 80 18 96 30 11/17/24 02:33 37.8 C H 81 18 94 11/17/24 02:30 109/48 L 11/17/24 02:30 109/48 L 11/17/24 02:30 109/48 L 11/17/24 02:27 37.8 C H 81 18 94 11/17/24 02:24 37.8 C H 81 18 94 11/17/24 02:15 108/48 L 11/17/24 02:15 108/48 L 11/17/24 02:12 37.7 C H 82 18 95 11/17/24 02:09 37.7 C H 84 18 96 11/17/24 02:00 105/69 11/17/24 01:54 37.7 C H 79 18 95 11/17/24 01:51 37.7 C H 80 18 96 11/17/24 01:30 37.7 C H 81 18 97 11/17/24 01:30 102/44 L 11/17/24 01:30 102/44 L 11/17/24 01:21 37.8 C H 81 18 94 11/17/24 01:06 37.8 C H 80 18 94 11/17/24 01:00 112/53 L 11/17/24 01:00 112/53 L 11/17/24 00:54 37.8 C H 80 18 95 11/17/24 00:51 37.8 C H 80 18 96 11/17/24 00:30 106/42 L 11/17/24 00:30 106/42 L 11/17/24 00:30 37.9 C H 82 18 92 11/17/24 00:27 37.9 C H 81 18 93 11/17/24 00:15 37.9 C H 82 18 94 11/17/24 00:15 101/45 L 11/17/24 00:15 101/45 L 11/17/24 00:00 84 11/17/24 00:00 37.9 C H 79 18 94 11/17/24 00:00 105/41 L 11/17/24 00:00 105/41 L 11/16/24 23:57 37.9 C H 82 18 93 11/16/24 23:45 109/51 L 11/16/24 23:39 37.9 C H 82 18 94 11/16/24 23:33 40 11/16/24 23:31 117/45 L 11/16/24 23:27 38.0 C H 85 18 95 11/16/24 23:15 115/47 L 11/16/24 23:09 37.9 C H 84 18 92 11/16/24 23:07 18 40 11/16/24 23:00 37.9 C H 85 18 92 11/16/24 23:00 119/44 L 11/16/24 22:30 97/44 L 11/16/24 22:30 97/44 L 11/16/24 22:27 37.9 C H 85 18 90 11/16/24 22:18 119/48 L 11/16/24 22:18 88 18 94 11/16/24 20:36 87 18 91 11/16/24 20:33 37 C 11/16/24 20:30 111/54 L 11/16/24 20:30 111/54 L 11/16/24 20:30 111/54 L 11/16/24 20:12 86 18 95 11/16/24 20:00 86 18 91 11/16/24 20:00 118/50 L 11/16/24 20:00 118/50 L 11/16/24 20:00 30 11/16/24 19:57 86 18 91 11/16/24 19:39 74 18 94 11/16/24 19:15 71 18 94 11/16/24 19:03 76 18 93 11/16/24 19:00 Mechanical Vent 30 11/16/24 19:00 127/52 L 11/16/24 19:00 127/52 L Critical Care Results & Data Vital Signs (Past 12 Hours) Vital Signs Temp Pulse Resp BP Pulse Ox O2 Del Method FiO2 11/17/24 06:18 37.8 C H 82 23 95 11/17/24 06:15 119/50 L 11/17/24 06:15 119/50 L 11/17/24 06:09 37.8 C H 83 21 95 11/17/24 06:06 37.8 C H 84 22 95 11/17/24 06:00 109/52 L 11/17/24 06:00 109/52 L 11/17/24 05:54 37.8 C H 84 24 94 11/17/24 05:45 116/51 L 11/17/24 05:45 116/51 L 11/17/24 05:39 37.8 C H 86 21 95 11/17/24 05:30 37.7 C H 86 21 100 11/17/24 05:27 37.7 C H 85 18 95 11/17/24 05:00 37.7 C H 83 18 95 11/17/24 05:00 125/70 11/17/24 05:00 125/70 11/17/24 05:00 125/70 11/17/24 04:51 37.7 C H 81 18 96 11/17/24 04:45 139/47 L 11/17/24 04:45 139/47 L 11/17/24 04:45 139/47 L 11/17/24 04:42 37.7 C H 81 18 95 11/17/24 04:33 37.7 C H 81 18 94 11/17/24 04:31 120/44 L 11/17/24 04:31 120/44 L 11/17/24 04:31 120/44 L 11/17/24 04:21 37.7 C H 84 18 95 11/17/24 04:20 129/53 L 11/17/24 04:18 37.8 C H 85 18 94 11/17/24 04:16 116/37 L 11/17/24 04:16 116/37 L 11/17/24 04:15 37.8 C H 81 18 94 11/17/24 04:00 30 11/17/24 04:00 37.8 C H 81 19 95 11/17/24 04:00 137/51 L 11/17/24 03:45 37.8 C H 81 18 94 11/17/24 03:33 37.8 C H 81 18 93 11/17/24 03:30 116/53 L 11/17/24 03:30 116/53 L 11/17/24 03:27 37.8 C H 80 18 92 11/17/24 03:15 110/45 L 11/17/24 03:15 110/45 L 11/17/24 03:09 37.8 C H 81 18 93 11/17/24 03:00 115/45 L 11/17/24 03:00 115/45 L 11/17/24 03:00 37.8 C H 80 18 92 11/17/24 02:51 37.8 C H 81 18 93 11/17/24 02:45 118/50 L 11/17/24 02:42 37.8 C H 81 18 95 11/17/24 02:37 80 18 96 30 11/17/24 02:33 37.8 C H 81 18 94 11/17/24 02:30 109/48 L 11/17/24 02:30 109/48 L 11/17/24 02:30 109/48 L 11/17/24 02:27 37.8 C H 81 18 94 11/17/24 02:24 37.8 C H 81 18 94 11/17/24 02:15 108/48 L 11/17/24 02:15 108/48 L 11/17/24 02:12 37.7 C H 82 18 95 11/17/24 02:09 37.7 C H 84 18 96 11/17/24 02:00 105/69 11/17/24 01:54 37.7 C H 79 18 95 11/17/24 01:51 37.7 C H 80 18 96 11/17/24 01:30 37.7 C H 81 18 97 11/17/24 01:30 102/44 L 11/17/24 01:30 102/44 L 11/17/24 01:21 37.8 C H 81 18 94 11/17/24 01:06 37.8 C H 80 18 94 11/17/24 01:00 112/53 L 11/17/24 01:00 112/53 L 11/17/24 00:54 37.8 C H 80 18 95 11/17/24 00:51 37.8 C H 80 18 96 11/17/24 00:30 106/42 L 11/17/24 00:30 106/42 L 11/17/24 00:30 37.9 C H 82 18 92 11/17/24 00:27 37.9 C H 81 18 93 11/17/24 00:15 37.9 C H 82 18 94 11/17/24 00:15 101/45 L 11/17/24 00:15 101/45 L 11/17/24 00:00 84 11/17/24 00:00 37.9 C H 79 18 94 11/17/24 00:00 105/41 L 11/17/24 00:00 105/41 L 11/16/24 23:57 37.9 C H 82 18 93 11/16/24 23:45 109/51 L 11/16/24 23:39 37.9 C H 82 18 94 11/16/24 23:33 40 11/16/24 23:31 117/45 L 11/16/24 23:27 38.0 C H 85 18 95 11/16/24 23:15 115/47 L 11/16/24 23:09 37.9 C H 84 18 92 11/16/24 23:07 18 40 11/16/24 23:00 37.9 C H 85 18 92 11/16/24 23:00 119/44 L 11/16/24 22:30 97/44 L 11/16/24 22:30 97/44 L 11/16/24 22:27 37.9 C H 85 18 90 11/16/24 22:18 119/48 L 11/16/24 22:18 88 18 94 11/16/24 20:36 87 18 91 11/16/24 20:33 37 C 11/16/24 20:30 111/54 L 11/16/24 20:30 111/54 L 11/16/24 20:30 111/54 L 11/16/24 20:12 86 18 95 11/16/24 20:00 86 18 91 11/16/24 20:00 118/50 L 11/16/24 20:00 118/50 L 11/16/24 20:00 30 11/16/24 19:57 86 18 91 11/16/24 19:39 74 18 94 11/16/24 19:15 71 18 94 11/16/24 19:03 76 18 93 11/16/24 19:00 Mechanical Vent 30 11/16/24 19:00 127/52 L 11/16/24 19:00 127/52 L Lab & Micro Results (Past 24 Hours) RBC 2.81 M/uL (4.20-5.40) L 11/17/24 WBC 6.83 K/ul (4.8-10.8) 11/17/24 Hgb 8.1 g/dl (12.0-16.0) L 11/17/24 Hct 25.6 % (37.0-47.0) L 11/17/24 MCV 91.1 fL (80.0-100.0) 11/17/24 MCH 28.8 pg (25.0-34.0) 11/17/24 MCHC 31.6 g/dL (32.0-36.0) L 11/17/24 RDW Standard Deviation 45.4 fL (36.4-46.3) 11/17/24 RDW Coefficient of Variation 13.7 % (11.5-14.5) 11/17/24 Plt Count 180 K/uL (130-400) 11/17/24 MPV 10.3 fL (9.4-12.4) 11/17/24 Neutrophils (%) (Auto) 85.4 % 11/17/24 Lymphocytes (%) (Auto) 7.8 % 11/17/24 Monocytes # (Auto) 0.37 K/uL (0.11-0.59) 11/17/24 Eosinophils # (Auto) 0.04 K/uL (0.00-0.50) 11/17/24 Immature Granulocyte % (Auto) 0.7 % 11/17/24 Neutrophils # (Auto) 5.83 K/uL (1.40-6.50) 11/17/24 Lymphocytes # (Auto) 0.53 K/uL (1.20-3.40) L 11/17/24 Monocytes # (Auto) 0.37 K/uL (0.11-0.59) 11/17/24 Eosinophils # (Auto) 0.04 K/uL (0.00-0.50) 11/17/24 Basophils # (Auto) 0.01 K/uL (0.00-0.20) 11/17/24 Immature Granulocyte # (Auto) 0.05 K/uL (0.01-0.20) 5 Na 139 mmol/L (136-145) 11/17/24 K 3.2 mmol/L (3.5-5.1) L 11/17/24 Cl 94 mmol/L (98-107) L 11/17/24 CO2 36 mmol/L (21-32) H 11/17/24 Anion Gap 9 (3-11) 11/17/24 BUN 11 mg/dl (6-23) 11/17/24 Creatinine 1.06 mg/dl (0.6-1.2) 11/17/24 BUN/Creatinine Ratio 10.4 (10-20) 11/17/24 Glu 102 mg/dl (70-99(Fasting)) H 11/17/24 Ca 8.4 mg/dl (8.6-10.3) L 11/17/24 Phosphorus Level 1.4 mg/dl (2.5-4.9) L* 11/17/24 Total Bilirubin 1.1 mg/dl (0.2-1.0) H 11/17/24 AST 98 U/L (13-39) H 11/17/24 ALT 52 U/L (7-52) 11/17/24 Alkaline Phosphatase 123 U/L (34-104) H 11/17/24 TP 5.8 gm/dl (6.0-8.3) L 11/17/24 Albumin 2.9 gm/dl (3.4-5.0) L 11/17/24 Globulin 2.9 gm/dl (2.5-4.0) 11/17/24 Albumin/Globulin Ratio 1.0 (0.9-2) 11/17/24 Mg 2.1 mg/dl (1.7-2.4) 11/17/24 05:15 Calcium Level 8.4 mg/dl (8.6-10.3) L 11/17/24 05:15 Venous Blood pH 7.45 (7.36-7.41) H 11/16/24 20:11 Venous Blood Partial Pressure CO2 53 mmHg (38-50) H 11/16/24 20 :11 Venous Blood Partial Pressure O2 36 mmHg 11/16/24 20:11 Venous Blood HCO3 37 mmol/L 11/16/24 20:11 Venous Blood Base Excess 11.4 mEq/L 11/16/24 20:11 Venous Blood Oxygen Saturation 65.8 % 11/16/24 20:11 Diagnostic Findings (Past 24 Hours) KUB X-Ray 11/16/24 00:00 KUB HISTORY: s/p r hemicolectomy, eval for sbo COMPARISON STUDY: CT of 09/27/2023. FINDINGS: There are interval midline surgical mavis. There is interval diffuse small bowel distention measuring up to 4 cm diameter. No significant colonic distention seen. There is mild expected postoperative free air. IMPRESSION: Diffuse small bowel distention could represent ileus or early obstruction. ACT 112: Negative or not required by law. The above report was generated using voice recognition software. It may contain grammatical, syntax or spelling errors. Electronically signed by: Jose Fitzgerald M.D. 11/16/2024 9:[address] 11/16/24 17:[address] without contrast CT angiogram of the neck CT angiogram of the brain with contrast Provided History: Neuro deficit Comparison: None Technique: HEAD CT: Using multidetector thin collimation helical acquisition technique, axial, coronal and sagittal CT images from the skull base to the vertex were obtained without intravenous contrast. HEAD and NECK CTA: During rapid bolus intravenous injection of nonionic contrast material, axial images were obtained using thin collimation multidetector helical technique from the base of the neck through the of vertex of the head. This CT angiogram data was reconstructed at thin intervals with mild overlap. 3D reconstructions were obtained. The axial source images, multiplanar reformations, 3D reconstructions in both maximum intensity projection display and volume rendered models were reviewed. Dose reduction techniques were achieved by using automatic exposure control and/or adjustment of mA and/or kV according to patient size and/or use of iterative reconstruction technique. Findings: Head CT: There is no intracranial hemorrhage, mass effect, or midline shift. Stroud/white matter differentiation in both cerebral hemispheres is preserved. Ventricles are proportionate to the cerebral sulci. Calcifications of the basal ganglia, may be idiopathic or age-related, versus sequela of toxic/metabolic abnormality. Head CTA demonstrates nostenosis of the major intracranial arteries. There is a 4 x 4 mm aneurysm arising from the distal anterior cerebral artery, series 8 image 196. Neck CTA demonstrates no stenosis of the major cervical arteries. Calcification of the carotid bulbs bilaterally without associated stenosis. There is significant tortuosity of the distal internal carotid arteries. The origins of the great vessels from the aortic arch are patent. Circumferential loculated pleural effusion seen throughout the right hemithorax. Endotracheal tube tip at the mid thoracic trachea. NG tube in place. Impression: 1. Head CTA demonstrates no stenosis or large vessel occlusion. 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 2. Neck CTA demonstrates no stenosis of the major cervical arteries. 3. No intracranial hemorrhage on the noncontrast head CT. 4. Partially visualized loculated pleural effusion throughout the right hemithorax. Findings discussed with CROW Roberts, at 6:49 PM, 11/16/[address] Goode Electronically signed by Kenyon Goode 11-16-2024 6:50 PM Head CTA 11/16/24 17:[address] without contrast CT angiogram of the neck CT angiogram of the brain with contrast Provided History: Neuro deficit Comparison: None Technique: HEAD CT: Using multidetector thin collimation helical acquisition technique, axial, coronal and sagittal CT images from the skull base to the vertex were obtained without intravenous contrast. HEAD and NECK CTA: During rapid bolus intravenous injection of nonionic contrast material, axial images were obtained using thin collimation multidetector helical technique from the base of the neck through the of vertex of the head. This CT angiogram data was reconstructed at thin intervals with mild overlap. 3D reconstructions were obtained. The axial source images, multiplanar reformations, 3D reconstructions in both maximum intensity projection display and volume rendered models were reviewed. Dose reduction techniques were achieved by using automatic exposure control and/or adjustment of mA and/or kV according to patient size and/or use of iterative reconstruction technique. Findings: Head CT: There is no intracranial hemorrhage, mass effect, or midline shift. Stroud/white matter differentiation in both cerebral hemispheres is preserved. Ventricles are proportionate to the cerebral sulci. Calcifications of the basal ganglia, may be idiopathic or age-related, versus sequela of toxic/metabolic abnormality. Head CTA demonstrates nostenosis of the major intracranial arteries. There is a 4 x 4 mm aneurysm arising from the distal anterior cerebral artery, series 8 image 196. Neck CTA demonstrates no stenosis of the major cervical arteries. Calcification of the carotid bulbs bilaterally without associated stenosis. There is significant tortuosity of the distal internal carotid arteries. The origins of the great vessels from the aortic arch are patent. Circumferential loculated pleural effusion seen throughout the right hemithorax. Endotracheal tube tip at the mid thoracic trachea. NG tube in place. Impression: 1. Head CTA demonstrates no stenosis or large vessel occlusion. 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 2. Neck CTA demonstrates no stenosis of the major cervical arteries. 3. No intracranial hemorrhage on the noncontrast head CT. 4. Partially visualized loculated pleural effusion throughout the right hemithorax. Findings discussed with CROW Roberts, at 6:49 PM, 11/16/[address] Goode Electronically signed by Kenyon Goode 11-16-2024 6:50 PM Neck CTA 11/16/24 17:[address] without contrast CT angiogram of the neck CT angiogram of the brain with contrast Provided History: Neuro deficit Comparison: None Technique: HEAD CT: Using multidetector thin collimation helical acquisition technique, axial, coronal and sagittal CT images from the skull base to the vertex were obtained without intravenous contrast. HEAD and NECK CTA: During rapid bolus intravenous injection of nonionic contrast material, axial images were obtained using thin collimation multidetector helical technique from the base of the neck through the of vertex of the head. This CT angiogram data was reconstructed at thin intervals with mild overlap. 3D reconstructions were obtained. The axial source images, multiplanar reformations, 3D reconstructions in both maximum intensity projection display and volume rendered models were reviewed. Dose reduction techniques were achieved by using automatic exposure control and/or adjustment of mA and/or kV according to patient size and/or use of iterative reconstruction technique. Findings: Head CT: There is no intracranial hemorrhage, mass effect, or midline shift. Stroud/white matter differentiation in both cerebral hemispheres is preserved. Ventricles are proportionate to the cerebral sulci. Calcifications of the basal ganglia, may be idiopathic or age-related, versus sequela of toxic/metabolic abnormality. Head CTA demonstrates nostenosis of the major intracranial arteries. There is a 4 x 4 mm aneurysm arising from the distal anterior cerebral artery, series 8 image 196. Neck CTA demonstrates no stenosis of the major cervical arteries. Calcification of the carotid bulbs bilaterally without associated stenosis. There is significant tortuosity of the distal internal carotid arteries. The origins of the great vessels from the aortic arch are patent. Circumferential loculated pleural effusion seen throughout the right hemithorax. Endotracheal tube tip at the mid thoracic trachea. NG tube in place. Impression: 1. Head CTA demonstrates no stenosis or large vessel occlusion. 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 2. Neck CTA demonstrates no stenosis of the major cervical arteries. 3. No intracranial hemorrhage on the noncontrast head CT. 4. Partially visualized loculated pleural effusion throughout the right hemithorax. Findings discussed with CROW Roberts, at 6:49 PM, 11/16/[address] Goode Electronically signed by Kenyon Goode 11-16-2024 6:50 PM Chest X-Ray 11/16/24 18:22 Chest radiograph, one view History: Illness Comparison: November 14, 2024 Findings: Single AP view of the chest performed. Low lung volumes. Endotracheal tube tip 2.1 cm above the edwar. NG/OG tube sidehole is in the stomach. No focal consolidation. Right pleural effusion is seen. No pneumothorax. The cardiomediastinal silhouette is within normal limits. Left chest wall dual-lead AICD. Normal pulmonary vascularity. No evidence for lymphadenopathy. No visualized bony or soft tissue abnormality. Impression: Low lung volumes with right pleural effusion and lines and tubes, as above. Electronically signed by Kenyon Goode 11-16-2024 6:56 PM KUB X-Ray 11/16/24 18:35 Clinical history: Tube placement One view of the abdomen was obtained No prior examination is available for comparison Findings: The pelvis is outside of the imaged area There is a nasogastric tube coiled within the stomach, with the tip in the gastric fundus. There are dilated small bowel loops with colonic gas present as well. No renal or ureteral calculi are seen. Sternal wires are present. There is scoliosis. Surgical clips are seen suggestive or prior cholecystectomy Impression: 1. Nasogastric tube with its tip within the stomach 2. Small bowel dilatation that could be due to a partial small bowel obstruction ACT 112: Positive. There are findings on this exam that require communication between the performing entity and the patient following Patient Test Result Information Act ([place] ACT 112) guidelines. Electronically signed by Shubham Patiño 11-16-2024 7:09 PM I & O Totals 24 Hours 11/15/24 11/16/24 11/17/24 06:59 06:59 06:59 Intake Total 2708 / 2708 2420 / 2420 1586.333 / 1586.333 Output Total 850 / 850 2050 / 0 640 / 640 Balance 1858 / 1858 370 / 370 946.333 / 946.333 Cumulative 11/07/24 16:54 thru 11/17/24 06:00 Intake Total 6714.333 Output Total 3540 Balance 3174.333 RT Ventilator Mngmt (Last Documented) Ventilator Ordered Settings Ventilator Support Mode Assist Control 11/17/24 04:00 Respiratory Rate 23 11/17/24 06:18 Ventilator Tidal Volume 400 11/17/24 04 :00 Setting Minute Ventilation 7.2 11/17/24 02:37 Positive End Expiratory 5 11/17/24 04:00 Pressure Fraction of Inspired Oxygen 30 11/17/24 04:00 Machine Comment titrated oxygen to 30% 11/17/24 02:37 Ventilator - PT Measurements Respiratory Rate 23 Exhaled Tidal Volume 400 Minute Ventilation 7.2 Peak Inspiratory Airway 29 Pressure Plateau Pressure 22 Respiratory Cycle Inspiratory: 1:3.2 Expiratory Ratio Inspiratory Phase Time 0.8 End-Tidal CO2 25 Static Lung Compliance 23.53 Dynamic Lung Compliance 16.67 Normal Static Lung Compliance 45.00 Patient Measurements Comment Patient placed on NK in room and initial vent check performed. Coding Level of Care Code 73011 CRITICAL CARE 1ST 30-74M Diagnoses Encephalopathy acute G93.40 H/O right hemicolectomy Z90.49
[2024-11-17] MEDS ORDERED: SODIUM PHOSPHATE 30 MMOL in SODIUM CHLORIDE 0.9% 500 ML IV ONE (07:15)
[2024-11-17 07:29] LABS: iSTAT Allen Test Pass; iSTAT Art Bld Gas pCO2 Correct 49 mmHg (35-46); iSTAT Arterial Blood Gas HCO3 33 meg/L (19-24); iSTAT Arterial Blood Gas pCO2 48 mmHg (35-46); iSTAT Arterial Blood Gas pH 7.45 (7.35-7.45); iSTAT Arterial Blood Gas pO2 81 mmHg (80-95); iSTAT Arterial Blood Gas pO2 C 86; iSTAT Carbon Dioxide 35 mmol/L (24-31); iSTAT FiO2 30 %; iSTAT Hematocrit 26 % (37-47); iSTAT Hemoglobin 8.8 g/dl (12.0-16.0); iSTAT Potassium 2.9 mmol/L (3.3-5.0); iSTAT Sample Type Arterial; iSTAT Site R Radial; iSTAT Sodium 136 mmol/L (135-144); iSTAT SpO2 93
[2024-11-17] MEDS: PLASMA-LYTE A 1,000 ML IV SCH (07:36)
--- NOTE | 2024-11-17 07:38 | Neurology Consultation ---
Date of Consultation November 17, 2024 Assessment & Plan (1) Encephalopathy acute: History of Present Illness Attending Physician: Dennis Lorenzo, History of Present Illness S: pt intubated but now off sedation and awake and following command. EEG negative. called last night for EEG eval for r/o seizure for unresponsive event. ICU event note from last night: History is limited due to acuity of situation patient is a 79-year-old female who is postop day 2 from a hemicolectomy. Bedside nurse reports she does not follow-up she was last seen approximately 1 hour. During my evaluation patient states that illogically localizing. EEG which demonstrated a normal pH and mild hypercapnia. In brief review of labs patient had an elevation in her bicarb; however, she had spontaneous respirations. Decision was made to proceed with acute stroke alert. She is not a candidate for tPA as she is postop day 2 from a hemicolectomy. Her she has been notified if there is an acute occlusion clot retrieval is essentially her only possible treatment. Given her dense encephalopathy decision was made to intubate the patient. I have notified Dr. Lorenzo of the above. Allergies Allergy/AdvReac Type Severity Reaction Status Date / Time atorvastatin [From Lipitor] Allergy Unknown Unknown Verified 11/14/24 05:37 fenofibrate Allergy Unknown Unknown Verified 11/14/24 05:37 Jypvlqk-PQD-ApU Reductase AdvReac Mild Joint Pain Verified 11/14/24 05:37 Inhibitor [Mwrsgbn-Wni-Emn Reductase Inhibitor] Home Medications Medication Instructions Recorded Confirmed Type rosuvastatin 5 mg tablet (Crestor) 5 mg PO QAM 04/09/19 11/14/24 History levothyroxine 25 mcg capsule 25 mcg PO QAM 04/10/19 11/14/24 History loratadine 10 mg tablet 10 mg PO QAM 04/10/19 11/14/24 History alectinib 150 mg capsule (Alecensa) 450 mg PO BID 05/21/19 11/14/24 History metoprolol succinate 25 mg 12.5 mg PO BID 05/21/19 11/14/24 History tablet,extended release 24 hr apixaban 2.5 mg tablet (Eliquis) 2.5 mg PO BID 10/03/19 11/14/24 History Oxygen Home 1 ea .Route DAILY #1 ea 11/18/20 11/14/24 Rx furosemide 20 mg tablet 20 mg PO QAM 09/06/24 11/14/24 History mirabegron 25 mg tablet,extended 25 mg PO QPM 09/06/24 11/14/24 History release 24 hr (Myrbetriq) potassium chloride 20 mEq 10 meq PO QAM 09/06/24 11/14/24 History tablet,extended release ferrous sulfate 325 mg (65 mg 325 mg PO BID 11/07/24 11/14/24 History iron) tablet (FeroSul) umeclidinium 62.5 mcg-vilanterol 1 inh inhalation QPM 11/09/24 11/14/24 History 25 mcg/actuation powdr for inhalation (Anoro Ellipta) Patient History Medical History Colon cancer dx 10/2024 Primary malignant neoplasm of right lung metastatic to other site "Status post completion of radiation therapy to the right supraclavicular area/neck January 27, 2018 (per 11/01/24 anesthesia eval, physical exam without any significant neck findings). She received 3750 cGy" portion removed in dr's office "removed what they could" Anemia per 11/08/24 heme/onc note, anemia 'multifactorial: due to Alectinib, chronic disease, and iron deficiency. On oral B12 supplementation daily' (pt also on oral iron BID) Per heme/onc note, 'discussed IV iron supplementation which patient declined opting for increasing dose of oral iron to TID' Restrictive ventilatory defect Hx of corneal abrasion right Pulmonary hypertension Chronic hypoxemic respiratory failure 2L O2 cont Hx of pleural effusion R sided; per 09/[address], 'unchanged small loculated R pleural effusion' Hx of basal cell carcinoma removed Dyspnea on exertion On home oxygen therapy O2 2L NC cont Stress bladder incontinence, female Hypothyroidism Dysphagia COPD (chronic obstructive pulmonary disease) follows with jesenia camargo History of anesthesia reaction "it doesn't take much" to put to sleep per pt 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 History of bilateral cataract extraction (2022) History of basal cell carcinoma (BCC) excision multiple, since Hx of colonoscopy (2024) EGD/colonoscopy 11/01/24: MAC without issue Hx of cholecystectomy Hx of cardiac catheterization (2009) 2009--- went on to have CABG at [place], cannot remember if she has had others- follows with ruth berg Hx of CABG (2011) CABG x 1 (SVG-RCA); follows with ruth berg History of thoracotomy (2018) right lung- cancer Family History Brother Cancer Family/Other Diabetes Cancer Sister Breast cancer Father Stroke Son Diabetes Daughter Diabetes Social History Smoking Status: Never smoker Second Hand Exposure: No; Do You Dip or Chew Tobacco: No; Tobacco Cessation Education Requested by Patient: No Hx Alcohol Use: No Hx Substance Use: No Preferred Language: Hebrew Communication Ability: Effective Auth Specialist Required: No Beliefs That Will Affect Care: None marital status: Current Living Situation: Family Current Living Situation Comment: lives @ home w/ daughter current occupational status: retired How many Children do You have: 3 Other Information That Helps Us Care for You: No Feels Safe at Home: Yes Safety Concerns: Feels Safe At This Time during the past year weight has: decreased > 10 lbs Assistive Devices: Cane, Oxygen - Continuous and Walker Exam (Neuro) Physical Exam: HEENT: normocephalic grossly Neuro: Mental: Alert, intubated, follows simple command well. CN: PERRL, Full EOM, symmetric face grossly. Motor: No abnormal movements, normal tone, moves distal limbs b/l Impression: 79 yo female with respiratory failure and unresponsiveness event, pt now awake and follows command well. EEG negative. CT head negative. Likely had hypoxic related mental status change. Recommendations: avoid hypoxic events. not much to add from neurology. no need for further seizure work up. EEG negative, see report. Chart reviewed I have spent more than 50% educating patient about potential diagnosis and neurological evaluation and coordinating care with patient's treatment team. Total time spent (including chart review and coordination of care): 45 min (this includes chart review). Results & Data Vital Signs (Past 12 Hours) Vital Signs Temp Pulse Resp BP Pulse Ox FiO2 11/17/24 06:18 37.8 C H 82 23 95 11/17/24 06:15 119/50 L 11/17/24 06:15 119/50 L 11/17/24 06:09 37.8 C H 83 21 95 11/17/24 06:06 37.8 C H 84 22 95 11/17/24 06:00 109/52 L 11/17/24 06:00 109/52 L 11/17/24 05:54 37.8 C H 84 24 94 11/17/24 05:45 116/51 L 11/17/24 05:45 116/51 L 11/17/24 05:39 37.8 C H 86 21 95 11/17/24 05:30 37.7 C H 86 21 100 11/17/24 05:27 37.7 C H 85 18 95 11/17/24 05:00 37.7 C H 83 18 95 11/17/24 05:00 125/70 11/17/24 05:00 125/70 11/17/24 05:00 125/70 11/17/24 04:51 37.7 C H 81 18 96 11/17/24 04:45 139/47 L 11/17/24 04:45 139/47 L 11/17/24 04:45 139/47 L 11/17/24 04:42 37.7 C H 81 18 95 11/17/24 04:33 37.7 C H 81 18 94 11/17/24 04:31 120/44 L 11/17/24 04:31 120/44 L 11/17/24 04:31 120/44 L 11/17/24 04:21 37.7 C H 84 18 95 11/17/24 04:20 129/53 L 11/17/24 04:18 37.8 C H 85 18 94 11/17/24 04:16 116/37 L 11/17/24 04:16 116/37 L 11/17/24 04:15 37.8 C H 81 18 94 11/17/24 04:00 30 11/17/24 04:00 37.8 C H 81 19 95 11/17/24 04:00 137/51 L 11/17/24 03:45 37.8 C H 81 18 94 11/17/24 03:33 37.8 C H 81 18 93 11/17/24 03:30 116/53 L 11/17/24 03:30 116/53 L 11/17/24 03:27 37.8 C H 80 18 92 11/17/24 03:15 110/45 L 11/17/24 03:15 110/45 L 11/17/24 03:09 37.8 C H 81 18 93 11/17/24 03:00 115/45 L 11/17/24 03:00 115/45 L 11/17/24 03:00 37.8 C H 80 18 92 11/17/24 02:51 37.8 C H 81 18 93 11/17/24 02:45 118/50 L 11/17/24 02:42 37.8 C H 81 18 95 11/17/24 02:37 80 18 96 30 11/17/24 02:33 37.8 C H 81 18 94 11/17/24 02:30 109/48 L 11/17/24 02:30 109/48 L 11/17/24 02:30 109/48 L 11/17/24 02:27 37.8 C H 81 18 94 11/17/24 02:24 37.8 C H 81 18 94 11/17/24 02:15 108/48 L 11/17/24 02:15 108/48 L 11/17/24 02:12 37.7 C H 82 18 95 11/17/24 02:09 37.7 C H 84 18 96 11/17/24 02:00 105/69 11/17/24 01:54 37.7 C H 79 18 95 11/17/24 01:51 37.7 C H 80 18 96 11/17/24 01:30 37.7 C H 81 18 97 11/17/24 01:30 102/44 L 11/17/24 01:30 102/44 L 11/17/24 01:21 37.8 C H 81 18 94 11/17/24 01:06 37.8 C H 80 18 94 11/17/24 01:00 112/53 L 11/17/24 01:00 112/53 L 11/17/24 00:54 37.8 C H 80 18 95 11/17/24 00:51 37.8 C H 80 18 96 11/17/24 00:30 106/42 L 11/17/24 00:30 106/42 L 11/17/24 00:30 37.9 C H 82 18 92 11/17/24 00:27 37.9 C H 81 18 93 11/17/24 00:15 37.9 C H 82 18 94 11/17/24 00:15 101/45 L 11/17/24 00:15 101/45 L 11/17/24 00:00 84 11/17/24 00:00 37.9 C H 79 18 94 11/17/24 00:00 105/41 L 11/17/24 00:00 105/41 L 11/16/24 23:57 37.9 C H 82 18 93 11/16/24 23:45 109/51 L 11/16/24 23:39 37.9 C H 82 18 94 11/16/24 23:33 40 11/16/24 23:31 117/45 L 11/16/24 23:27 38.0 C H 85 18 95 11/16/24 23:15 115/47 L 11/16/24 23:09 37.9 C H 84 18 92 11/16/24 23:07 18 40 11/16/24 23:00 37.9 C H 85 18 92 11/16/24 23:00 119/44 L 11/16/24 22:30 97/44 L 11/16/24 22:30 97/44 L 11/16/24 22:27 37.9 C H 85 18 90 11/16/24 22:18 119/48 L 11/16/24 22:18 88 18 94 11/16/24 20:36 87 18 91 11/16/24 20:33 37 C 11/16/24 20:30 111/54 L 11/16/24 20:30 111/54 L 11/16/24 20:30 111/54 L 11/16/24 20:12 86 18 95 11/16/24 20:00 86 18 91 11/16/24 20:00 118/50 L 11/16/24 20:00 118/50 L 11/16/24 20:00 30 11/16/24 19:57 86 18 91 11/16/24 19:39 74 18 94 PG Care Time/CCT Total # of Minutes Spent Total Time Spent with Patient: Total time spent is greater than 50% in coordination of care (as documented) at patient's floor/unit and/or counseling patient: Coding Level of Care Code 43761 IN/OBS CONSULT LVL 2,35M Diagnoses Encephalopathy acute G93.40
[2024-11-17] MEDS: POTASSIUM PHOSPHATE 21 MMOL in SODIUM CHLORIDE 0.9% 500 ML IV ONE (07:50)
[2024-11-17] MEDS: ENOXAPARIN INJ 40 MG/0.4 ML SYR SQ SCH (07:50)
[2024-11-17] MEDS: ICU ELECTROLYTE REPLACEMENT PROTOCOL SCH (07:51)
[2024-11-17] MEDS: POTASSIUM CHLORIDE 20 MEQ/15 ML UDC NG SCH (07:58)
--- NOTE | 2024-11-17 10:16 | Surgery Progress Note ---
Date of Service November 17, 2024 Assessment & Plan (1) H/O right hemicolectomy: Plan: respiratory failure per ICU team NG with significant drainage, maintain till more alert no stroke identified con't present care Admission and Anticipated Discharge Date Admission Date: November 14, 2024 Subjective events of yesterday noted no stroke extubated and on O2 support NG in place Review of Systems Constitutional: no fever and no chills Cardiovascular: no chest pain Gastrointestinal: + abdominal pain Physical Exam Constitutional: WD/WN, vitals as above Respiratory: + labored breathing; no respiratory dist ress Cardiovascular: RRR, no murmur, no edema Gastrointestinal (Abdomen): Inspection/Auscultation: abdomen normal to inspection, normal bowel sounds and + abdominal surgical incision (dressing dry and clean); abdomen not distended Percussion/Palpation: + abdomen tender and abdomen soft; no guarding and abdomen not rigid Musculoskeletal: Head/Neck/Chest: normocephalic and head atraumatic Skin: no rashes, warm and dry Results & Data Vital Signs (Past 12 Hours) Vital Signs Temp Pulse Pulse Resp BP BP Pulse Ox 11/17/24 08:00 95 H 11/17/24 08:00 11/17/24 08:00 11/17/24 08:00 11/17/24 07:45 101 H 28 H 95 11/17/24 07:45 101 H 95 11/17/24 07:30 37.8 C H 95 H 22 147/59 H 94 11/17/24 07:10 95 H 22 93 11/17/24 06:18 37.8 C H 82 23 95 11/17/24 06:15 119/50 L 11/17/24 06:15 119/50 L 11/17/24 06:09 37.8 C H 83 21 95 11/17/24 06:06 37.8 C H 84 22 95 11/17/24 06:00 109/52 L 11/17/24 06:00 109/52 L 11/17/24 05:54 37.8 C H 84 24 94 11/17/24 05:45 116/51 L 11/17/24 05:45 116/51 L 11/17/24 05:39 37.8 C H 86 21 95 11/17/24 05:30 37.7 C H 86 21 100 11/17/24 05:27 37.7 C H 85 18 95 11/17/24 05:00 37.7 C H 83 18 95 11/17/24 05:00 125/70 11/17/24 05:00 125/70 11/17/24 05:00 125/70 11/17/24 04:51 37.7 C H 81 18 96 11/17/24 04:45 139/47 L 11/17/24 04:45 139/47 L 11/17/24 04:45 139/47 L 11/17/24 04:42 37.7 C H 81 18 95 11/17/24 04:33 37.7 C H 81 18 94 11/17/24 04:31 120/44 L 11/17/24 04:31 120/44 L 11/17/24 04:31 120/44 L 11/17/24 04:21 37.7 C H 84 18 95 11/17/24 04:20 129/53 L 11/17/24 04:18 37.8 C H 85 18 94 11/17/24 04:16 116/37 L 11/17/24 04:16 116/37 L 11/17/24 04:15 37.8 C H 81 18 94 11/17/24 04:00 11/17/24 04:00 37.8 C H 81 19 95 11/17/24 04:00 137/51 L 11/17/24 03:45 37.8 C H 81 18 94 11/17/24 03:33 37.8 C H 81 18 93 11/17/24 03:30 116/53 L 11/17/24 03:30 116/53 L 11/17/24 03:27 37.8 C H 80 18 92 11/17/24 03:15 110/45 L 11/17/24 03:15 110/45 L 11/17/24 03:09 37.8 C H 81 18 93 11/17/24 03:00 115/45 L 11/17/24 03:00 115/45 L 11/17/24 03:00 37.8 C H 80 18 92 11/17/24 02:51 37.8 C H 81 18 93 11/17/24 02:45 118/50 L 11/17/24 02:42 37.8 C H 81 18 95 11/17/24 02:37 80 18 96 11/17/24 02:33 37.8 C H 81 18 94 11/17/24 02:30 109/48 L 11/17/24 02:30 109/48 L 11/17/24 02:30 109/48 L 11/17/24 02:27 37.8 C H 81 18 94 11/17/24 02:24 37.8 C H 81 18 94 11/17/24 02:15 108/48 L 11/17/24 02:15 108/48 L 11/17/24 02:12 37.7 C H 82 18 95 11/17/24 02:09 37.7 C H 84 18 96 11/17/24 02:00 105/69 11/17/24 01:54 37.7 C H 79 18 95 11/17/24 01:51 37.7 C H 80 18 96 11/17/24 01:30 37.7 C H 81 18 97 11/17/24 01:30 102/44 L 11/17/24 01:30 102/44 L 11/17/24 01:21 37.8 C H 81 18 94 11/17/24 01:06 37.8 C H 80 18 94 11/17/24 01:00 112/53 L 11/17/24 01:00 112/53 L 11/17/24 00:54 37.8 C H 80 18 95 11/17/24 00:51 37.8 C H 80 18 96 11/17/24 00:30 106/42 L 11/17/24 00:30 106/42 L 11/17/24 00:30 37.9 C H 82 18 92 11/17/24 00:27 37.9 C H 81 18 93 11/17/24 00:15 37.9 C H 82 18 94 11/17/24 00:15 101/45 L 11/17/24 00:15 101/45 L 11/17/24 00:00 84 11/17/24 00:00 37.9 C H 79 18 94 11/17/24 00:00 105/41 L 11/17/24 00:00 105/41 L 11/16/24 23:57 37.9 C H 82 18 93 11/16/24 23:45 109/51 L 11/16/24 23:39 37.9 C H 82 18 94 11/16/24 23:33 11/16/24 23:31 117/45 L 11/16/24 23:27 38.0 C H 85 18 95 11/16/24 23:15 115/47 L 11/16/24 23:09 37.9 C H 84 18 92 11/16/24 23:07 18 11/16/24 23:00 37.9 C H 85 18 92 11/16/24 23:00 119/44 L 11/16/24 22:30 97/44 L 11/16/24 22:30 97/44 L 11/16/24 22:27 37.9 C H 85 18 90 11/16/24 22:18 119/48 L 11/16/24 22:18 88 18 94 Pulse Ox O2 Del Method O2 Del Method O2 Flow Rate FiO2 11/17/24 08:00 11/17/24 08:00 CPAP 11/17/24 08:00 96 CPAP 2 11/17/24 08:00 30 11/17/24 07:45 30 11/17/24 07:45 11/17/24 07:30 Mechanical Vent 11/17/24 07:10 30 11/17/24 06:18 11/17/24 06:15 11/17/24 06:15 11/17/24 06:09 11/17/24 06:06 11/17/24 06:00 11/17/24 06:00 11/17/24 05:54 11/17/24 05:45 11/17/24 05:45 11/17/24 05:39 11/17/24 05:30 11/17/24 05:27 11/17/24 05:00 11/17/24 05:00 11/17/24 05:00 11/17/24 05:00 11/17/24 04:51 11/17/24 04:45 11/17/24 04:45 11/17/24 04:45 11/17/24 04:42 11/17/24 04:33 11/17/24 04:31 11/17/24 04:31 11/17/24 04:31 11/17/24 04:21 11/17/24 04:20 11/17/24 04:18 11/17/24 04:16 11/17/24 04:16 11/17/24 04:15 11/17/24 04:00 30 11/17/24 04:00 11/17/24 04:00 11/17/24 03:45 11/17/24 03:33 11/17/24 03:30 11/17/24 03:30 11/17/24 03:27 11/17/24 03:15 11/17/24 03:15 11/17/24 03:09 11/17/24 03:00 11/17/24 03:00 11/17/24 03:00 11/17/24 02:51 11/17/24 02:45 11/17/24 02:42 11/17/24 02:37 30 11/17/24 02:33 11/17/24 02:30 11/17/24 02:30 11/17/24 02:30 11/17/24 02:27 11/17/24 02:24 11/17/24 02:15 11/17/24 02:15 11/17/24 02:12 11/17/24 02:09 11/17/24 02:00 11/17/24 01:54 11/17/24 01:51 11/17/24 01:30 11/17/24 01:30 11/17/24 01:30 11/17/24 01:21 11/17/24 01:06 11/17/24 01:00 11/17/24 01:00 11/17/24 00:54 11/17/24 00:51 11/17/24 00:30 11/17/24 00:30 11/17/24 00:30 11/17/24 00:27 11/17/24 00:15 11/17/24 00:15 11/17/24 00:15 11/17/24 00:00 11/17/24 00:00 11/17/24 00:00 11/17/24 00:00 11/16/24 23:57 11/16/24 23:45 11/16/24 23:39 11/16/24 23:33 40 11/16/24 23:31 11/16/24 23:27 11/16/24 23:15 11/16/24 23:09 11/16/24 23:07 40 11/16/24 23:00 11/16/24 23:00 11/16/24 22:30 11/16/24 22:30 11/16/24 22:27 11/16/24 22:18 11/16/24 22:18
[2024-11-17] MEDS: NOREPINEPHRINE/D5W 4 MG/250 ML PLCT IV SCH (12:10)
[2024-11-17] MEDS: ACETAMINOPHEN 325 MG TAB PO PRN (16:36)
--- NOTE | 2024-11-17 22:53 | XRay Report ---
EXAM: XR chest 1V portable CLINICAL HISTORY: Rales, increased oxygen, eval for pulmonary edema. TECHNIQUE: An X-ray image of the chest is obtained in AP projection. COMPARISON: Prior dated 03/13/2018 FINDINGS: Pulmonary Parenchyma: A cardiac pacemaker is seen in situ with intact wires. An appropriately placed NG-tube is noted. Sternotomy sutures are seen in the midline. Multiple wires are seen projected over the left hemithorax. Marked rotation of the patient is noted. A raised right hemidiaphragm is noted, which appears to be an interval stable finding. There is an interval visualization of airspace opacification in the right lung with coarse reticular shadowing likely representing Anhtony B lines. The right CP angle also appears blunt, which might be due to pleural effusion. Vascular congestion is in the left lung with obliteration of the CP angle, which might represent mild pleural effusion/thickening/soft tissue shadowing. Clinical correlation is recommended. Heart and Mediastinum: Heart size appears moderately enlarged. Stable. No mediastinal widening or masses. No hilar or mediastinal lymphadenopathy. Bony Thorax: Bony thorax appears intact without fractures or deformities. Soft Tissues: Soft tissues overlying the chest wall are unremarkable. The surgical mavis seen in the right hypochondrium are likely due to cholecystectomy. IMPRESSION: 1. Appropriately placed cardiac pacemaker and NG tube. 2. Interval development of airspace opacification in the right lung with Anthony lines and obliteration of the CP angle, which might represent pleural effusion. Stable appearing raised right hemidiaphragm. 3. Vascular congestion identified in the left lung with a blunted left CP angle, which might represent pleural effusion/thickening/soft tissue shadowing. Please evaluate clinically. 4. Stable appearing moderate cardiomegaly. 5. The findings are concerning for pulmonary edema, more pronounced in the right lung, likely due to the dependent position Please evaluate clinically. 6. Chronically elevated right hemidiaphragm. Electronically signed by Dillan Latham 11-17-2024 10:49 PM
--- NOTE | 2024-11-18 00:27 | Communication Note ---
Date of Service: November 18, 2024 Patient seen on evening rounds. Events of today noted. Hypoxic to 82% on 10L NRB mask. Increased to 15L. IVF stopped. R air entry limited, rales throughout. CXR obtained - c/w vascular congestion as well as atelectasis of R lung. Patient awakens and is interactive, able to speak in short sentences. BIPAP was applied and after recruitment her respiratory status has improved. Weaning FiO2 as able. AAOx3. Transition to DuoNeb. Position upright, vest therapy. She remains high risk for reintubation. Son was contacted with no answer, will attempt again. 0500: Unfortunately Christina's breathing remains labored, RR 30-40. I do not feel she has the strength to support her own breathing at this time. Plan for intubation with support of ED physician. Coding Level of Care Code None
[2024-11-18] MEDS: ALBUT/IPRATROP 3MG/0.5MG NEB 3 ML VIAL NEB SCH (01:58)
[2024-11-18 02:11] LABS: Hematocrit (blood only) 27.8 % (37.0-47.0); Hemoglobin 8.7 g/dl (12.0-16.0); Mean Corpuscular Hemoglobin 29.3 pg (25.0-34.0); Mean Corpuscular Hgb Conc 31.3 g/dL (32.0-36.0); Mean Corpuscular Volume 93.6 fL (80.0-100.0); Mean Platelet Volume 10.6 fL (9.4-12.4); Platelet Count 200 K/uL (130-400); RDW Standard Deviation 47.5 fL (36.4-46.3); Red Blood Count 2.97 M/uL (4.20-5.40); White Blood Count 7.38 K/ul (4.8-10.8)
[2024-11-18] MEDS: ACETAMINOPHEN 1,000 MG/100 ML VIAL IV STA (02:20)
[2024-11-18 02:31] LABS: Appearance Urine Clear (Clear); Bacteria Urine Automated None Seen (None Seen); Bilirubin Urine Negative (Negative); Blood Urine 3+ (Negative); Color Urine Yellow; Glucose Urine UA Negative (Negative); Granular Casts Urine Present /lpf (None Prsent); Hyaline Casts Urine Present /lpf (None Presnt); Ketones Urine 3+ (Negative); Leukocyte Esterase Urine Negative (Negative); Nitrite Urine Negative (Negative); Protein Urine 2+ (Negative); RBC Urine Automated >20 /hpf (0-2); Specific Gravity Urine 1.028 (1.000-1.030); Urobilinogen Urine Negative (Negative); WBC Urine Automated 0-5 /hpf (0-5)
[2024-11-18 02:58] LABS: Albumin Level 3.1 gm/dl (3.4-5.0); BUN Creatinine Ratio 15.9 (10-20); Bilirubin,Total 0.8 mg/dl (0.2-1.0); Calcium 8.3 mg/dl (8.6-10.3); Creatinine Clr Calc Pharmacy 50.4 ml/min; Globulin 3.2 gm/dl (2.5-4.0); Magnesium 1.9 mg/dl (1.7-2.4); Phosphorus 3.2 mg/dl (2.5-4.9); Potassium 4.3 mmol/L (3.5-5.1); Total Protein 6.3 gm/dl (6.0-8.3)
[2024-11-18 03:05] LABS: Acanthocytes 1+; Basophils # (auto) 0.01 K/uL (0.00-0.20); Basophils % (auto) 0.1 %; Eosinophils # (auto) 0.01 K/uL (0.00-0.50); Eosinophils % (auto) 0.1 %; Immature Granulocytes # (auto) 0.03 K/uL (0.01-0.20); Immature Granulocytes % (auto) 0.4 %; Lymphocytes # (auto) 0.23 K/uL (1.20-3.40); Lymphocytes % (auto) 3.1 %; Monocytes # (auto) 0.43 K/uL (0.11-0.59); Monocytes % (auto) 5.8 %; Neutrophils # (auto) 6.67 K/uL (1.40-6.50); Neutrophils % (auto) 90.5 %; Ovalocytes 1+; Polychromasia 1+
[2024-11-18 03:07] LABS: Adenovirus PCR Not Detected (NotDetected); Bordetella parapertussis PCR Not Detected (NotDetected); Bordetella pertussis PCR Not Detected (NotDetected); Chlamydia pneumoniae PCR Not Detected (NotDetected); Coronavirus 229E PCR Not Detected (NotDetected); Coronavirus CoV-2 (COVID19)PCR Not Detected (NotDetected); Coronavirus HKU1 PCR Not Detected (NotDetected); Coronavirus NL63 PCR Not Detected (NotDetected); Coronavirus OC43PCR Not Detected (NotDetected); Human Metapneumovirus PCR Not Detected (NotDetected); Influenza A PCR Not Detected (NotDetected); Influenza B PCR Not Detected (NotDetected); Mycoplasma pneumoniae PCR Not Detected (NotDetected); Parainfluenza Virus 1 PCR Not Detected (NotDetected); Parainfluenza Virus 2 PCR Not Detected (NotDetected); Parainfluenza Virus 3 PCR Not Detected (NotDetected); Parainfluenza Virus 4 PCR Not Detected (NotDetected); Respiratory Syncytial VirusPCR Not Detected (NotDetected); Rhinovirus/Enterovirus PCR Not Detected (NotDetected)
[2024-11-18] MEDS ORDERED: STAT IV Infusion **Titration per Protocol STA ×2 (05:12→08:58)
[2024-11-18] MEDS: propofoL 1,000 MG/100 ML VIAL IV SCH (05:30)
--- NOTE | 2024-11-18 05:30 | Procedure Note ---
Procedure Note Date of Service November 18, 2024 INTUBATION PROCEDURE NOTE: APC: Joleen Odonnell PA-C. Attending: Álvaro Tristan A time-out was completed verifying correct patient, procedure, site, positioning. Patient was evaluated and required intubation for respiratory failure. Sedative agent used: etomidate 20mg, fentanyl 50mcg Paralysis agent used: rocuronium 50mg Son and patient verbally consented. Risks and benefits were discussed. The patient was prepared in the appropriate fashion. Sedation was achieved utilizing etomidate and fentanyl, paralyzed utilizing rocuronium, per Dr. Tristan administration. The patient was easily ventilated using [id number] to achieve adequate oxygenation. A 7.5 Polish endotracheal tube was placed under direct visualization to 21 cm at the lip. The stylette was removed and balloon was inflated with 10mL of air. Appropriate Colorimetric change was appreciated. Bilateral breath sounds were heard without air sounds in the abdomen. I performed the procedure. Dr. Tristan was present for the entire procedure. Number of attempts: 1 Airway difficulty: Not difficult Post Intubation Chest X-ray is pending at this time. Patient tolerated the procedure well and there were no immediate complications. [facility] Procedure Codes (Charges) Resuscitation Resuscitation: 29211 Endotracheal Intubation, emergency Ventilator Management Ventilator Managment: 83272 Ventilation assist and management; Hospital inpt/obs, intl day Coding CPT Codes Ventilator Management - Ventilator Managment: 62020 Ventilation assist and management; Hospital inpt/obs, intl day ([id number]) Resuscitation - Resuscitation: 78706 Endotracheal Intubation, emergency ([id number]) Additional Codes Date of Service (PG.SURGERY)
--- NOTE | 2024-11-18 05:37 | Procedure Note ---
Procedure Note Date of Service November 18, 2024 Note Endotracheal Intubation Indication hypoxic respiratory failure. The patient was on 100% oxygen via NRB prior to the procedure. Suction, airway equipment, RSI drugs, respiratory equipment, and appropriate personnel were prepared prior to the initiation of the procedure. A time out was taken. Induction was performed with 20 mg of etomidate, 50 mcg of fentanyl, and 50 mg of rocuronium. After observing the clinical benefit of the medications, the airway was easily visualized utilizing a glide scope. A 7.5 size ETT tube was placed atraumatically to 20 cm using standard technique by the ICU PA Joleen Odonnell. The cuff inflated without signs of malfunction. There were bilateral breath sounds, positive colormetric change, no gastric sounds, a good capnography waveform, and post procedure pulse oximetry was 100%. Post intubation sedation and paralysis deferred to the ICU PA following postintubation chest x-ray. There were no complications. I was present during the entire procedure and assisted in the set up, intubation, and confirmation of tube placement. Order for postintubation chest x-ray placed by . Coding
[2024-11-18] MEDS: NOREPINEPHRINE/D5W 4 MG/250 ML IV ONE (06:01)
[2024-11-18] MEDS: RAPID SEQUENCE INDUCTION BAG ONE (06:01)
[2024-11-18] MEDS: MAGNESIUM OXIDE 400 MG TAB NG SCH (06:05)
--- NOTE | 2024-11-18 06:26 | XRay Report ---
EXAM: XR chest 1V portable CLINICAL HISTORY: Post-intubation. TECHNIQUE: An X-ray image of the chest is obtained in AP projection. COMPARISON: Last study dated 11/17/2024. FINDINGS: Lines and tubes: ETT is seen in place with a distal tip about 4 cm above the edwar. An appropriately placed NG-tube is noted. Pulmonary Parenchyma: A cardiac pacemaker is seen in situ with intact wires. Sternotomy sutures are seen in the midline. Multiple wires are seen projected over the left hemithorax. A raised right hemidiaphragm is noted, which appears to be an interval stable finding. Unchanged airspace opacification in the right lung. The right CP angle also appears unclear, which might be due to pleural effusion. Vascular congestion is in the left lung with obliteration of the CP angle, which might represent mild pleural effusion/thickening/soft tissue shadowing. Clinical correlation is recommended. Heart and Mediastinum: Heart size cannot be accurately assessed. No mediastinal widening or masses. No hilar or mediastinal lymphadenopathy. Bony Thorax: Bony thorax appears intact without appreciable fractures or deformities. Soft Tissues: Soft tissues overlying the chest wall are unremarkable. The surgical mavis seen in the right hypochondrium are likely due to cholecystectomy. IMPRESSION: 1. Interval intubation with ETT is seen in place with its distal tip about 4 cm above the edwar. 2. NG tube unchanged, showing a relatively distended stomach and left colonic flexure with air. 3. Unchanged airspace opacification in the right lung and obliteration of the CP angle, which might represent pleural effusion. Unchanged appearing raised right hemidiaphragm. 4. Unchanged vascular congestion identified in the left lung with a blunted left CP angle, which might represent pleural effusion/thickening. 5. The rest of the study is unchanged. Electronically signed by Dillan Latham 11-18-2024 06:25 AM
[2024-11-18 06:36] LABS: iSTAT Allen Test Pass; iSTAT Art Bld Gas pCO2 Correct 49 mmHg (35-46); iSTAT Art Bld Gas pH Corrected 7.415 (7.35-7.45); iSTAT Arterial Blood Gas HCO3 31 meg/L (19-24); iSTAT Arterial Blood Gas pCO2 47 mmHg (35-46); iSTAT Arterial Blood Gas pH 7.43 (7.35-7.45); iSTAT Arterial Blood Gas pO2 69 mmHg (80-95); iSTAT Arterial Blood Gas pO2 C 74; iSTAT Carbon Dioxide 33 mmol/L (24-31); iSTAT FiO2 40 %; iSTAT Hematocrit 24 % (37-47); iSTAT Hemoglobin 8.2 g/dl (12.0-16.0); iSTAT Potassium 3.9 mmol/L (3.3-5.0); iSTAT Sample Type Arterial; iSTAT Site L Radial; iSTAT Sodium 138 mmol/L (135-144); iSTAT SpO2 96
--- NOTE | 2024-11-18 07:28 | Critical Care Progress Note ---
Date of Service November 18, 2024 Assessment & Plan (1) Encephalopathy acute: Plan: Reason Critically Ill: 79-year-old female with metastatic colon cancer status post hemicolectomy brought to ICU with mental status changes. Prior history of adenocarcinoma of the lung status post resection ALK positive 24-hour events: The patient was extubated yesterday. She did poorly and eventually required application of BiPAP but remained tachypneic with increased work of breathing and was subsequently reintubated. PLAN: Neuro: Encephalopathy of unclear etiology. Stroke alert conducted. Initial imaging unrevealing however unable to obtain MRI secondary to pacemaker. Now currently sedated. Additional workup per neurology Resp: Reintubated due to increased work of breathing, tachypnea, and respiratory failure. Chest x-ray today shows increasing opacification of the right hemithorax. Bedside ultrasound performed. A very small pleural effusion was identified. There is volume loss due to the patient's prior lung surgery on that side which results in the elevated hemidiaphragm. Pulmonary toilet may be an issue. Will pursue bronchoscopy with BAL to obtain lower respiratory specimens. Will also proceed with CT of the chest to better define pulmonary p arenchymal processes CV: History of coronary disease with associated hypertension. Hemodynamically stable. Fluids/Renal: Decreased urine output overnight. Serum creatinine remains stable. CO2 is elevated consistent with probable chronic hypercarbic respiratory failure. Currently maintaining adequate oxygenation goals. Initiate ICU electrolyte replacement protocol ID: Patient received Ancef prophylaxis perioperatively from the to the . She has been persistently febrile. White count is normal. Suspicion for healthcare associated pneumonia. Will initiate vancomycin and Zosyn pending respiratory cultures. GI/Nutrition: Diet per surgery. Would favor enteral nutrition as soon as felt to be feasible by surgery. Heme: Mild anemia. No indication for transfusion currently. History of DVT on Eliquis in the outpatient setting. Recommend restarting anticoagulation as soon as feasible per surgery Endocrine: Glycemic protocol. Continue Synthroid Vascular access: Peripheral IV Code Status: Full code Patient remains critically ill at this point in time with multisystem organ dysfunction and significant possibility of clinical decline. A total of 45 minutes in critical care time was spent in evaluation management coordination of care for this patient exclusive of procedures (2) H/O right hemicolectomy: Admission and Anticipated Discharge Date Admission Date: November 14, 2024 Subjective Patient seen and examined. EMR reviewed. 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 Discussed on multidisciplinary rounds. Patient remains intubated and sedated Review of Systems Review of Systems: Unobtainable due to endotracheal tube Physical Exam Constitutional: + mechanically ventilated Neck: trachea midline, no thyromegaly Respiratory: Auscultation: + diminished lung sounds; no wheezes Mechanical breath sounds Cardiovascular: RRR, no murmur, no edema Gastrointestinal (Abdomen): normal bowel sounds, soft, nontender, no hepatosplenomegaly Musculoskeletal: Extremities: extremities normal to inspection Skin: no rashes, warm and dry Neurologic: Sedated on the ventilator Lymphatic: no cervical lymphadenopathy Results & Data Results & Data Vital Signs (Past 12 Hours) Vital Signs Temp Pulse Pulse Resp BP Pulse Ox O2 Del Method 11/18/24 05:49 92 H 18 93 11/18/24 05:41 11/18/24 05:40 95/48 L 11/18/24 05:36 109/47 L 11/18/24 05:36 38.0 C H 91 H 18 93 11/18/24 05:34 102/49 L 11/18/24 05:33 38.0 C H 93 H 19 96 11/18/24 05:32 96/49 L 11/18/24 05:30 99/46 L 11/18/24 05:28 105/46 L 11/18/24 05:27 38.0 C H 95 H 18 98 11/18/24 05:26 120/47 L 11/18/24 05:26 120/47 L 11/18/24 05:24 119/54 L 11/18/24 05:22 131/57 L 11/18/24 05:21 38.1 C H 98 H 21 100 11/18/24 05:20 121/53 L 11/18/24 05:20 121/53 L 11/18/24 05:12 38.1 C H 69 27 H 99 11/18/24 05:09 38.1 C H 70 28 H 94 11/18/24 05:00 158/41 H 11/18/24 04:51 38.1 C H 73 25 H 100 11/18/24 04:48 38.1 C H 71 31 H 100 11/18/24 04:42 38.1 C H 76 16 97 11/18/24 04:31 141/52 H 04/20/25 04:31 141/52 H 11/18/24 04:03 38.1 C H 96 H 29 H 100 11/18/24 04:00 118/62 11/18/24 04:00 118/62 11/18/24 04:00 118/62 11/18/24 03:57 38.1 C H 92 H 34 H 100 11/18/24 03:33 38.2 C H 68 35 H 100 11/18/24 03:30 142/45 H 11/18/24 03:30 142/45 H 11/18/24 03:30 142/45 H 11/18/24 03:30 142/45 H 11/18/24 03:24 38.3 C H 96 H 28 H 98 11/18/24 03:09 38.4 C H 97 H 31 H 100 11/18/24 03:00 114/49 L 11/18/24 02:54 38.5 C H 96 H 27 H 97 11/18/24 02:31 142/50 H 11/18/24 02:31 142/50 H 11/18/24 02:30 38.5 C H 70 27 H 95 11/18/24 02:25 69 37 H 95 11/18/24 02:21 38.5 C H 71 33 H 95 11/18/24 02:15 38.5 C H 73 37 H 98 11/18/24 02:00 149/53 H 11/18/24 02:00 149/53 H 11/18/24 02:00 149/53 H 11/18/24 02:00 38.4 C H 69 36 H 95 11/18/24 01:58 69 37 H 95 BiPAP 11/18/24 01:30 144/60 H 11/18/24 01:30 38.4 C H 96 H 29 H 99 11/18/24 01:27 38.4 C H 95 H 25 H 97 11/18/24 01:18 38.3 C H 95 H 27 H 98 11/18/24 01:03 38.3 C H 95 H 25 H 98 11/18/24 01:00 139/56 L 11/18/24 00:57 38.3 C H 95 H 26 H 98 11/18/24 00:54 38.4 C H 94 H 26 H 98 11/18/24 00:36 38.3 C H 97 H 27 H 98 11/18/24 00:27 38.3 C H 67 29 H 93 11/18/24 00:15 38.4 C H 72 35 H 96 11/18/24 00:00 96 H 11/18/24 00:00 125/67 11/18/24 00:00 125/67 11/18/24 00:00 125/67 11/18/24 00:00 125/67 11/18/24 00:00 38.4 C H 81 13 95 11/17/24 23:51 38.3 C H 68 12 92 11/17/24 23:48 124/46 L 11/17/24 23:48 124/46 L 11/17/24 23:48 124/46 L 11/17/24 23:48 38.3 C H 69 16 92 11/17/24 23:39 38.3 C H 65 12 93 11/17/24 23:21 38.2 C H 71 25 H 94 11/17/24 23:09 38.1 C H 67 14 92 11/17/24 23:00 145/46 H 11/17/24 22:57 38.0 C H 69 27 H 92 11/17/24 22:53 69 36 H 91 11/17/24 22:42 37.9 C H 67 18 91 11/17/24 22:30 147/54 H 11/17/24 22:27 37.8 C H 96 H 15 93 11/17/24 22:21 37.8 C H 95 H 18 93 11/17/24 22:03 37.7 C H 95 H 27 H 92 11/17/24 22:00 138/52 L 11/17/24 22:00 138/52 L 11/17/24 21:42 37.7 C H 70 15 91 11/17/24 21:33 37.7 C H 67 12 97 11/17/24 21:30 131/63 11/17/24 21:30 131/63 11/17/24 21:27 37.8 C H 68 21 100 11/17/24 21:18 37.8 C H 75 27 H 100 11/17/24 21:00 149/50 H 11/17/24 20:51 37.7 C H 72 36 H 97 11/17/24 20:45 37.7 C H 69 17 95 11/17/24 20:43 71 34 H 91 11/17/24 20:39 37.7 C H 69 25 H 93 11/17/24 20:36 153/56 H 11/17/24 20:33 37.7 C H 70 34 H 93 11/17/24 20:18 37.7 C H 66 24 84 L 11/17/24 20:03 37.7 C H 67 29 H 88 L 11/17/24 20:01 161/50 H 11/17/24 20:01 161/50 H 11/17/24 20:01 161/50 H 11/17/24 20:01 161/50 H 11/17/24 19:57 37.7 C H 65 21 87 L 11/17/24 19:42 37.6 C H 69 28 H 97 11/17/24 19:30 143/72 H 11/17/24 19:30 37.6 C H 68 31 H 90 FiO2 11/18/24 05:49 40 11/18/24 05:41 40 11/18/24 05:40 11/18/24 05:36 11/18/24 05:36 11/18/24 05:34 11/18/24 05:33 11/18/24 05:32 11/18/24 05:30 11/18/24 05:28 11/18/24 05:27 11/18/24 05:26 11/18/24 05:26 11/18/24 05:24 11/18/24 05:22 11/18/24 05:21 11/18/24 05:20 11/18/24 05:20 11/18/24 05:12 11/18/24 05:09 11/18/24 05:00 11/18/24 04:51 11/18/24 04:48 11/18/24 04:42 11/18/24 04:31 11/18/24 04:31 11/18/24 04:03 11/18/24 04:00 11/18/24 04:00 11/18/24 04:00 11/18/24 03:57 11/18/24 03:33 11/18/24 03:30 11/18/24 03:30 11/18/24 03:30 11/18/24 03:30 11/18/24 03:24 11/18/24 03:09 11/18/24 03:00 11/18/24 02:54 11/18/24 02:31 11/18/24 02:31 11/18/24 02:30 11/18/24 02:25 50 11/18/24 02:21 11/18/24 02:15 11/18/24 02:00 11/18/24 02:00 11/18/24 02:00 11/18/24 02:00 11/18/24 01:58 50 11/18/24 01:30 11/18/24 01:30 11/18/24 01:27 11/18/24 01:18 11/18/24 01:03 11/18/24 01:00 11/18/24 00:57 11/18/24 00:54 11/18/24 00:36 11/18/24 00:27 11/18/24 00:15 11/18/24 00:00 11/18/24 00:00 11/18/24 00:00 11/18/24 00:00 11/18/24 00:00 11/18/24 00:00 11/17/24 23:51 11/17/24 23:48 11/17/24 23:48 11/17/24 23:48 11/17/24 23:48 11/17/24 23:39 11/17/24 23:21 11/17/24 23:09 11/17/24 23:00 11/17/24 22:57 11/17/24 22:53 60 11/17/24 22:42 11/17/24 22:30 11/17/24 22:27 11/17/24 22:21 11/17/24 22:03 11/17/24 22:00 11/17/24 22:00 11/17/24 21:42 11/17/24 21:33 11/17/24 21:30 11/17/24 21:30 11/17/24 21:27 11/17/24 21:18 11/17/24 21:00 11/17/24 20:51 11/17/24 20:45 11/17/24 20:43 100 11/17/24 20:39 11/17/24 20:36 11/17/24 20:33 11/17/24 20:18 11/17/24 20:03 11/17/24 20:01 11/17/24 20:01 11/17/24 20:01 11/17/24 20:01 11/17/24 19:57 11/17/24 19:42 11/17/24 19:30 11/17/24 19:30 Critical Care Results & Data Vital Signs (Past 12 Hours) Vital Signs Temp Pulse Pulse Resp BP Pulse Ox O2 Del Method 11/18/24 05:49 92 H 18 93 11/18/24 05:41 11/18/24 05:40 95/48 L 11/18/24 05:36 109/47 L 11/18/24 05:36 38.0 C H 91 H 18 93 11/18/24 05:34 102/49 L 11/18/24 05:33 38.0 C H 93 H 19 96 11/18/24 05:32 96/49 L 11/18/24 05:30 99/46 L 11/18/24 05:28 105/46 L 11/18/24 05:27 38.0 C H 95 H 18 98 11/18/24 05:26 120/47 L 11/18/24 05:26 120/47 L 11/18/24 05:24 119/54 L 11/18/24 05:22 131/57 L 11/18/24 05:21 38.1 C H 98 H 21 100 11/18/24 05:20 121/53 L 11/18/24 05:20 121/53 L 11/18/24 05:12 38.1 C H 69 27 H 99 11/18/24 05:09 38.1 C H 70 28 H 94 11/18/24 05:00 158/41 H 11/18/24 04:51 38.1 C H 73 25 H 100 11/18/24 04:48 38.1 C H 71 31 H 100 11/18/24 04:42 38.1 C H 76 16 97 11/18/24 04:31 141/52 H 11/18/24 04:31 141/52 H 11/18/24 04:03 38.1 C H 96 H 29 H 100 11/18/24 04:00 118/62 11/18/24 04:00 118/62 11/18/24 04:00 118/62 11/18/24 03:57 38.1 C H 92 H 34 H 100 11/18/24 03:33 38.2 C H 68 35 H 100 11/18/24 03:30 142/45 H 11/18/24 03:30 142/45 H 11/18/24 03:30 142/45 H 11/18/24 03:30 142/45 H 11/18/24 03:24 38.3 C H 96 H 28 H 98 11/18/24 03:09 38.4 C H 97 H 31 H 100 11/18/24 03:00 114/49 L 11/18/24 02:54 38.5 C H 96 H 27 H 97 11/18/24 02:31 142/50 H 11/18/24 02:31 142/50 H 11/18/24 02:30 38.5 C H 70 27 H 95 11/18/24 02:25 69 37 H 95 11/18/24 02:21 38.5 C H 71 33 H 95 11/18/24 02:15 38.5 C H 73 37 H 98 11/18/24 02:00 149/53 H 11/18/24 02:00 149/53 H 11/18/24 02:00 149/53 H 11/18/24 02:00 38.4 C H 69 36 H 95 11/18/24 01:58 69 37 H 95 BiPAP 11/18/24 01:30 144/60 H 11/18/24 01:30 38.4 C H 96 H 29 H 99 11/18/24 01:27 38.4 C H 95 H 25 H 97 11/18/24 01:18 38.3 C H 95 H 27 H 98 11/18/24 01:03 38.3 C H 95 H 25 H 98 11/18/24 01:00 139/56 L 11/18/24 00:57 38.3 C H 95 H 26 H 98 11/18/24 00:54 38.4 C H 94 H 26 H 98 11/18/24 00:36 38.3 C H 97 H 27 H 98 11/18/24 00:27 38.3 C H 67 29 H 93 11/18/24 00:15 38.4 C H 72 35 H 96 11/18/24 00:00 96 H 11/18/24 00:00 125/67 11/18/24 00:00 125/67 11/18/24 00:00 125/67 11/18/24 00:00 125/67 11/18/24 00:00 38.4 C H 81 13 95 11/17/24 23:51 38.3 C H 68 12 92 11/17/24 23:48 124/46 L 11/17/24 23:48 124/46 L 11/17/24 23:48 124/46 L 11/17/24 23:48 38.3 C H 69 16 92 11/17/24 23:39 38.3 C H 65 12 93 11/17/24 23:21 38.2 C H 71 25 H 94 11/17/24 23:09 38.1 C H 67 14 92 11/17/24 23:00 145/46 H 11/17/24 22:57 38.0 C H 69 27 H 92 11/17/24 22:53 69 36 H 91 11/17/24 22:42 37.9 C H 67 18 91 11/17/24 22:30 147/54 H 11/17/24 22:27 37.8 C H 96 H 15 93 11/17/24 22:21 37.8 C H 95 H 18 93 11/17/24 22:03 37.7 C H 95 H 27 H 92 11/17/24 22:00 138/52 L 11/17/24 22:00 138/52 L 11/17/24 21:42 37.7 C H 70 15 91 11/17/24 21:33 37.7 C H 67 12 97 11/17/24 21:30 131/63 11/17/24 21:30 131/63 11/17/24 21:27 37.8 C H 68 21 100 11/17/24 21:18 37.8 C H 75 27 H 100 11/17/24 21:00 149/50 H 11/17/24 20:51 37.7 C H 72 36 H 97 11/17/24 20:45 37.7 C H 69 17 95 11/17/24 20:43 71 34 H 91 11/17/24 20:39 37.7 C H 69 25 H 93 11/17/24 20:36 153/56 H 11/17/24 20:33 37.7 C H 70 34 H 93 11/17/24 20:18 37.7 C H 66 24 84 L 11/17/24 20:03 37.7 C H 67 29 H 88 L 11/17/24 20:01 161/50 H 11/17/24 20:01 161/50 H 11/17/24 20:01 161/50 H 11/17/24 20:01 161/50 H 11/17/24 19:57 37.7 C H 65 21 87 L 11/17/24 19:42 37.6 C H 69 28 H 97 FiO2 11/18/24 05:49 40 11/18/24 05:41 40 11/18/24 05:40 11/18/24 05:36 11/18/24 05:36 11/18/24 05:34 11/18/24 05:33 11/18/24 05:32 11/18/24 05:30 11/18/24 05:28 11/18/24 05:27 11/18/24 05:26 11/18/24 05:26 11/18/24 05:24 11/18/24 05:22 11/18/24 05:21 11/18/24 05:20 11/18/24 05:20 11/18/24 05:12 11/18/24 05:09 11/18/24 05:00 11/18/24 04:51 11/18/24 04:48 11/18/24 04:42 11/18/24 04:31 11/18/24 04:31 11/18/24 04:03 11/18/24 04:00 11/18/24 04:00 11/18/24 04:00 11/18/24 03:57 11/18/24 03:33 11/18/24 03:30 11/18/24 03:30 11/18/24 03:30 11/18/24 03:30 11/18/24 03:24 11/18/24 03:09 11/18/24 03:00 11/18/24 02:54 11/18/24 02:31 11/18/24 02:31 11/18/24 02:30 11/18/24 02:25 50 11/18/24 02:21 11/18/24 02:15 11/18/24 02:00 11/18/24 02:00 11/18/24 02:00 11/18/24 02:00 11/18/24 01:58 50 11/18/24 01:30 11/18/24 01:30 11/18/24 01:27 11/18/24 01:18 11/18/24 01:03 11/18/24 01:00 11/18/24 00:57 11/18/24 00:54 11/18/24 00:36 11/18/24 00:27 11/18/24 00:15 11/18/24 00:00 11/18/24 00:00 11/18/24 00:00 11/18/24 00:00 11/18/24 00:00 11/18/24 00:00 11/17/24 23:51 11/17/24 23:48 11/17/24 23:48 11/17/24 23:48 11/17/24 23:48 11/17/24 23:39 11/17/24 23:21 11/17/24 23:09 11/17/24 23:00 11/17/24 22:57 11/17/24 22:53 60 11/17/24 22:42 11/17/24 22:30 11/17/24 22:27 11/17/24 22:21 11/17/24 22:03 11/17/24 22:00 11/17/24 22:00 11/17/24 21:42 11/17/24 21:33 11/17/24 21:30 11/17/24 21:30 11/17/24 21:27 11/17/24 21:18 11/17/24 21:00 11/17/24 20:51 11/17/24 20:45 11/17/24 20:43 100 11/17/24 20:39 11/17/24 20:36 11/17/24 20:33 11/17/24 20:18 11/17/24 20:03 11/17/24 20:01 11/17/24 20:01 11/17/24 20:01 11/17/24 20:01 11/17/24 19:57 11/17/24 19:42 Lab & Micro Results (Past 24 Hours) RBC 2.97 M/uL (4.20-5.40) L 11/18/24 WBC 7.38 K/ul (4.8-10.8) 11/18/24 Hgb 8.7 g/dl (12.0-16.0) L 11/18/24 Hct 27.8 % (37.0-47.0) L 11/18/24 MCV 93.6 fL (80.0-100.0) 11/18/24 MCH 29.3 pg (25.0-34.0) 11/18/24 MCHC 31.3 g/dL (32.0-36.0) L 11/18/24 RDW Standard Deviation 47.5 fL (36.4-46.3) H 11/18/24 RDW Coefficient of Variation 14.0 % (11.5-14.5) 11/18/24 Plt Count 200 K/uL (130-400) 11/18/24 MPV 10.6 fL (9.4-12.4) 11/18/24 Neutrophils (%) (Auto) 90.5 % 11/18/24 Lymphocytes (%) (Auto) 3.1 % 11/18/24 Monocytes # (Auto) 0.43 K/uL (0.11-0.59) 11/18/24 Eosinophils # (Auto) 0.01 K/uL (0.00-0.50) 11/18/24 Immature Granulocyte % (Auto) 0.4 % 11/18/24 Neutrophils # (Auto) 6.67 K/uL (1.40-6.50) H 11/18/24 Lymphocytes # (Auto) 0.23 K/uL (1.20-3.40) L 11/18/24 Monocytes # (Auto) 0.43 K/uL (0.11-0.59) 11/18/24 Eosinophils # (Auto) 0.01 K/uL (0.00-0.50) 11/18/24 Basophils # (Auto) 0.01 K/uL (0.00-0.20) 11/18/24 Immature Granulocyte # (Auto) 0.03 K/uL (0.01-0.20) 5 Polychromasia 1+ 11/18/24 Ovalocytes 1+ 11/18/24 Acanthocytes 1+ 11/18/24 Na 139 mmol/L (136-145) 11/18/24 K 4.3 mmol/L (3.5-5.1) 11/18/24 Cl 98 mmol/L (98-107) 11/18/24 CO2 36 mmol/L (21-32) H 11/18/24 Anion Gap 5 (3-11) 11/18/24 BUN 14 mg/dl (6-23) 11/18/24 Creatinine 0.88 mg/dl (0.6-1.2) 11/18/24 BUN/Creatinine Ratio 15.9 (10-20) 11/18/24 Glu 125 mg/dl (70-99(Fasting)) H 11/18/24 Ca 8.3 mg/dl (8.6-10.3) L 11/18/24 Phosphorus Level 3.2 mg/dl (2.5-4.9) 11/18/24 Total Bilirubin 0.8 mg/dl (0.2-1.0) 11/18/24 AST 83 U/L (13-39) H 11/18/24 ALT 61 U/L (7-52) H 11/18/24 Alkaline Phosphatase 107 U/L (34-104) H 11/18/24 TP 6.3 gm/dl (6.0-8.3) 11/18/24 Albumin 3.1 gm/dl (3.4-5.0) L 11/18/24 Globulin 3.2 gm/dl (2.5-4.0) 11/18/24 Albumin/Globulin Ratio 1.0 (0.9-2) 11/18/24 Mg 1.9 mg/dl (1.7-2.4) 11/18/24 01:47 Calcium Level 8.3 mg/dl (8.6-10.3) L 11/18/24 01:47 Mic Test Pass 11/18/24 06:23 Diagnostic Findings (Past 24 Hours) Chest X-Ray 11/17/24 19:49 EXAM: XR chest 1V portable CLINICAL HISTORY: Rales, increased oxygen, eval for pulmonary edema. TECHNIQUE: An X-ray image of the chest is obtained in AP projection. COMPARISON: Prior dated 03/13/2018 FINDINGS: Pulmonary Parenchyma: A cardiac pacemaker is seen in situ with intact wires. An appropriately placed NG-tube is noted. Sternotomy sutures are seen in the midline. Multiple wires are seen projected over the left hemithorax. Marked rotation of the patient is noted. A raised right hemidiaphragm is noted, which appears to be an interval stable finding. There is an interval visualization of airspace opacification in the right lung with coarse reticular shadowing likely representing Anthony B lines. The right CP angle also appears blunt, which might be due to pleural effusion. Vascular congestion is in the left lung with obliteration of the CP angle, which might represent mild pleural effusion/thickening/soft tissue shadowing. Clinical correlation is recommended. Heart and Mediastinum: Heart size appears moderately enlarged. Stable. No mediastinal widening or masses. No hilar or mediastinal lymphadenopathy. Bony Thorax: Bony thorax appears intact without fractures or deformities. Soft Tissues: Soft tissues overlying the chest wall are unremarkable. The surgical mavis seen in the right hypochondrium are likely due to cholecystectomy. IMPRESSION: 1. Appropriately placed cardiac pacemaker and NG tube. 2. Interval development of airspace opacification in the right lung with Anthony lines and obliteration of the CP angle, which might represent pleural effusion. Stable appearing raised right hemidiaphragm. 3. Vascular congestion identified in the left lung with a blunted left CP angle, which might represent pleural effusion/thickening/soft tissue shadowing. Please evaluate clinically. 4. Stable appearing moderate cardiomegaly. 5. The findings are concerning for pulmonary edema, more pronounced in the right lung, likely due to the dependent position Please evaluate clinically. 6. Chronically elevated right hemidiaphragm. Electronically signed by Dillan Latham 11-17-2024 10:49 PM Chest X-Ray 11/18/24 05:23 EXAM: XR chest 1V portable CLINICAL HISTORY: Post-intubation. TECHNIQUE: An X-ray image of the chest is obtained in AP projection. COMPARISON: Last study dated 11/17/2024. FINDINGS: Lines and tubes: ETT is seen in place with a distal tip about 4 cm above the edwar. An appropriately placed NG-tube is noted. Pulmonary Parenchyma: A cardiac pacemaker is seen in situ with intact wires. Sternotomy sutures are seen in the midline. Multiple wires are seen projected over the left hemithorax. A raised right hemidiaphragm is noted, which appears to be an interval stable finding. Unchanged airspace opacification in the right lung. The right CP angle also appears unclear, which might be due to pleural effusion. Vascular congestion is in the left lung with obliteration of the CP angle, which might represent mild pleural effusion/thickening/soft tissue shadowing. Clinical correlation is recommended. Heart and Mediastinum: Heart size cannot be accurately assessed. No mediastinal widening or masses. No hilar or mediastinal lymphadenopathy. Bony Thorax: Bony thorax appears intact without appreciable fractures or deformities. Soft Tissues: Soft tissues overlying the chest wall are unremarkable. The surgical mavis seen in the right hypochondrium are likely due to cholecystectomy. IMPRESSION: 1. Interval intubation with ETT is seen in place with its distal tip about 4 cm above the edwar. 2. NG tube unchanged, showing a relatively distended stomach and left colonic flexure with air. 3. Unchanged airspace opacification in the right lung and obliteration of the CP angle, which might represent pleural effusion. Unchanged appearing raised right hemidiaphragm. 4. Unchanged vascular congestion identified in the left lung with a blunted left CP angle, which might represent pleural effusion/thickening. 5. The rest of the study is unchanged. Electronically signed by Dillan Latham 11-18-2024 06:25 AM I & O Totals 24 Hours 11/17/24 11/18/24 11/19/24 06:59 06:59 06:59 Intake Total 1586.333 / 1726.464 8248.333 / 3356.333 . Output Total 640 / 640 640 / 640 Balance 946.333 / 194.891 8123.333 / 2716.333 .. Cumulative 11/07/24 16:54 thru 11/18/24 07:03 Intake Total 56810.856 Output Total 4180 Balance 5905.856 RT Ventilator Mngmt (Last Documented) Ventilator Ordered Settings Ventilator Support Mode Assist Control 11/18/24 05:49 Respiratory Rate 18 11/18/24 05:49 Ventilator Tidal Volume 370 11/18/24 05:49 Setting Minute Ventilation 6 11/18/24 05:49 Ventilator Positive Pressure 10 11/17/24 08:00 Support Setting Positive End Expiratory 8 11/18/24 05:49 Pressure Fraction of Inspired Oxygen 40 11/18/24 05:49 Machine Comment found pt on these settings, 11/17/24 07:[address] Henderson Ventilator - PT Measurements Respiratory Rate 18 Exhaled Tidal Volume 370 Minute Ventilation 6 Peak Inspiratory Airway 30 Pressure Plateau Pressure 22 Respiratory Cycle Inspiratory: 1:2.7 Expiratory Ratio Inspiratory Phase Time 0.9 End-Tidal CO2 40 Static Lung Compliance 26.43 Dynamic Lung Compliance 16.82 Normal Static Lung Compliance 45.00 Patient Measurements Comment Patient placed on NK in room and initial vent check performed. Coding Level of Care Code 54415 CRITICAL CARE 1ST 30-74M Diagnoses Encephalopathy acute G93.40 H/O right hemicolectomy Z90.49
[2024-11-18] MEDS: fentaNYL citrate PF 100 MCG/2 ML VIAL IV PRN (07:39)
[2024-11-18] MEDS ORDERED: VANCOMYCIN CONSULT ACTIVE PRN (07:40)
--- NOTE | 2024-11-18 07:52 | Procedure Note ---
Procedure Note Date of Service November 18, 2024 Procedure: Fiberoptic bronchoscopy Therapeutic aspiration of secretions, initial/subsequent Provider: Willi Rea MD Consent: Procedure was urgent. The patient is intubated on the ventilator unable to provide consent. No family immediately available Indication: Abnormal chest x-ray Procedure: Patient was intubated in the ICU. She was placed on 100% FiO2 on the ventilator.. Scope was advanced via the existing endotracheal tube via the Bodai adapter. Tube was approximately 1 cm above the edwar. There were thin secretions present throughout the endotracheal tube which were suctioned free. Upon exiting the endotracheal tube, there were mucopurulent secretions identified in the bilateral lower lobes more consistently on the right than the left. A Luken's trap was placed in line with the bronchoscope and secretions from the right mainstem bronchus were lavaged free with sterile saline. These will be sent for microbiologic analysis. Once the airways were cleared, systemic inspection of the airways was conducted. The mucosa was friable throughout but there were no obvious endobronchial lesions identified. Patient is status post right lower lobectomy. The staple site appeared intact. Impression: 1. Endotracheal tube approximately 1 cm above the edwar. 2. Mucopurulent secretions present throughout the tracheobronchial tree, await microbiologic analysis. 3. Status post right lower lobectomy with staple site intact [facility] [place] Procedure Codes (Charges) Pulmonary/Thoracic Procedure 1: Pulmonary and Thoracic: 89535 Dx bronchoscopy/BAL Coding CPT Codes Pulmonary/Thoracic - Pulmonary and Thoracic: 82173 Dx bronchoscopy/BAL ([id number]) Additional Codes Date of Service (PG.SURGERY)
[2024-11-18] MEDS: PROPOFOL BOLUS FROM BAG IV PRN (07:53)
[2024-11-18] MEDS: LACTATED RINGER'S 1,000 ML IV ONE (09:02)
[2024-11-18] MEDS: VANCOMYCIN HCL 1,750 MG in SODIUM CHLORIDE 0.9% 500 ML IV ONE (09:03)
[2024-11-18] MEDS: METOPROLOL TARTRATE 25 MG TAB PO SCH (09:07)
--- NOTE | 2024-11-18 09:07 | CT Scan Report ---
HISTORY: Shortness of breath. Intubated. TECHNIQUE: CT imaging of the chest was performed without the use of IV contrast.. Images are presented in axial, sagittal, and coronal reformats. COMPARISON: Chest radiograph dated 11/18/2024. Chest CT dated 09/27/2024. FINDINGS: Lungs: Multifocal airspace opacity throughout the right lung is new or significantly increased since the prior study with dense right upper lobe opacity containing air bronchograms. dense left lung base opacity. Loculated right pleural effusion measuring 4.7 x 2.1 x 6.1 cm with surrounding pleural thickening. Trace left effusion. Endotracheal tube is in the lower thoracic trachea just above the level of the edwar. No pneumothorax. Heart/Mediastinum: Mild cardiomegaly. Mitral annular calcification and mild aortic valvular calcification. Left subclavian approach pacer/AICD. Coronary artery calcifications with multivessel disease. NG tube traverses the thoracic esophagus. Fullness of the right hilum suggesting lymphadenopathy. Vasculature: No thoracic aortic aneurysm. Mild to moderate atherosclerotic vascular disease of the thoracic aorta. Mild aortic valvular calcification. Soft Tissues: Unremarkable. Upper Abdomen: Unremarkable. Bones: Median sternotomy. IMPRESSION: 1. New severe multifocal airspace opacity throughout the right lung and involving the left lung base concerning for multifocal pneumonia. Follow-up chest CT with contrast is recommended in 1-2 months to ensure resolution. 2. Moderate size loculated right pleural effusion is similar to the prior study with surrounding pleural thickening. 3. Trace left pleural effusion. 4. Fullness of the right hilum suggesting lymphadenopathy. 5. Endotracheal tube tip is deep measuring less than 2 cm above the edwar. 6. Mild cardiomegaly. Coronary artery calcifications are present. 7. Additional chronic and/or incidental findings as detailed above. ACT 112: Positive. There are findings on this exam that require communication between the performing entity and the patient following Patient Test Result Information Act ([place] ACT 112) guidelines. Electronically signed by Khalif Hurley 11-18-2024 09:06 AM
--- NOTE | 2024-11-18 09:26 | Pharmacy Report ---
Pharmacy PK ABX Note - Date of Service November 18, 2024 - Assessment and Plan Assessment * 79 year old F receiving pip/tazo and vancomycin for treatment of HAP/VAP. Admitted earlier for right hemicolectomy due to recent diagnosis of adenocarcinoma of the cecum. * PMH: NSCLC s/p RLL lobectomy, O2 dependent COPD, pacemaker * Pertinent microbiologic data includes: blood cultures, bronch, and urine cultures pending * SCr at/near baseline Plan Vancomycin * Loading dose: 1750 mg IV x 1 * Maintenance dose: 1500 mg IV every 24 hours * Regimen is predicted to achieve target AUC/ISSA of 400-600 mg/L.hr * Random level ordered for: 11/20 AM Pharmacy will continue to follow and will adjust dose/frequency as necessary. Thank you. Pharmacy has transitioned to AUC monitoring for vancomycin. AUC/ISSA is the preferred PK/PD target and is associated with decreased risk of nephrotoxicity compared to traditional trough targets.
[2024-11-18] MEDS: PIPERACILLIN/TAZOBACTAM 4.5 GM/100 ML BAG IV ONE (09:50)
--- NOTE | 2024-11-18 10:09 | Surgery Progress Note ---
Date of Service November 18, 2024 Assessment & Plan (1) H/O right hemicolectomy: Plan: pneumonia on vent con't abx con't NG until extubated and bowel function returns Admission and Anticipated Discharge Date Admission Date: November 14, 2024 Subjective reintubated this AM after CT chest requiring some pressors Review of Systems Constitutional: no fever Physical Exam Constitutional: + mechanically ventilated Neck: trachea midline Respiratory: Auscultation: + rhonchi Cardiovascular: RRR, no murmur, no edema Gastrointestinal (Abdomen): Inspection/Auscultation: abdomen normal to inspection and normal bowel sounds; abdomen not distended Percussion/Palpation: + abdomen tender and abdomen soft; no guarding and abdomen not rigid Musculoskeletal: Head/Neck/Chest: normocephalic and head atraumatic Results & Data Vital Signs (Past 12 Hours) Vital Signs Temp Pulse Pulse Resp BP Pulse Ox O2 Del Method 11/18/24 08:05 87 19 96 11/18/24 08:05 Mechanical Vent 11/18/24 05:49 92 H 18 93 11/18/24 05:41 11/18/24 05:40 95/48 L 11/18/24 05:36 109/47 L 11/18/24 05:36 38.0 C H 91 H 18 93 11/18/24 05:34 102/49 L 11/18/24 05:33 38.0 C H 93 H 19 96 11/18/24 05:32 96/49 L 11/18/24 05:30 99/46 L 11/18/24 05:28 105/46 L 11/18/24 05:27 38.0 C H 95 H 18 98 11/18/24 05:26 120/47 L 11/18/24 05:26 120/47 L 11/18/24 05:24 119/54 L 11/18/24 05:22 131/57 L 11/18/24 05:21 38.1 C H 98 H 21 100 11/18/24 05:20 121/53 L 11/18/24 05:20 121/53 L 11/18/24 05:12 38.1 C H 69 27 H 99 11/18/24 05:09 38.1 C H 70 28 H 94 11/18/24 05:00 158/41 H 11/18/24 04:51 38.1 C H 73 25 H 100 11/18/24 04:48 38.1 C H 71 31 H 100 11/18/24 04:42 38.1 C H 76 16 97 11/18/24 04:31 141/52 H 11/18/24 04:31 141/52 H 11/18/24 04:03 38.1 C H 96 H 29 H 100 11/18/24 04:00 118/62 11/18/24 04:00 118/62 11/18/24 04:00 118/62 11/18/24 03:57 38.1 C H 92 H 34 H 100 11/18/24 03:33 38.2 C H 68 35 H 100 11/18/24 03:30 142/45 H 11/18/24 03:30 142/45 H 11/18/24 03:30 142/45 H 11/18/24 03:30 142/45 H 11/18/24 03:24 38.3 C H 96 H 28 H 98 11/18/24 03:09 38.4 C H 97 H 31 H 100 11/18/24 03:00 114/49 L 11/18/24 02:54 38.5 C H 96 H 27 H 97 11/18/24 02:31 142/50 H 11/18/24 02:31 142/50 H 11/18/24 02:30 38.5 C H 70 27 H 95 11/18/24 02:25 69 37 H 95 11/18/24 02:21 38.5 C H 71 33 H 95 11/18/24 02:15 38.5 C H 73 37 H 98 11/18/24 02:00 149/53 H 11/18/24 02:00 149/53 H 11/18/24 02:00 149/53 H 11/18/24 02:00 38.4 C H 69 36 H 95 11/18/24 01:58 69 37 H 95 BiPAP 11/18/24 01:30 144/60 H 11/18/24 01:30 38.4 C H 96 H 29 H 99 11/18/24 01:27 38.4 C H 95 H 25 H 97 11/18/24 01:18 38.3 C H 95 H 27 H 98 11/18/24 01:03 38.3 C H 95 H 25 H 98 04/20/25 01:00 139/56 L 11/18/24 00:57 38.3 C H 95 H 26 H 98 11/18/24 00:54 38.4 C H 94 H 26 H 98 11/18/24 00:36 38.3 C H 97 H 27 H 98 11/18/24 00:27 38.3 C H 67 29 H 93 11/18/24 00:15 38.4 C H 72 35 H 96 11/18/24 00:00 96 H 11/18/24 00:00 125/67 11/18/24 00:00 125/67 11/18/24 00:00 125/67 11/18/24 00:00 125/67 11/18/24 00:00 38.4 C H 81 13 95 11/17/24 23:51 38.3 C H 68 12 92 11/17/24 23:48 124/46 L 11/17/24 23:48 124/46 L 11/17/24 23:48 124/46 L 11/17/24 23:48 38.3 C H 69 16 92 11/17/24 23:39 38.3 C H 65 12 93 11/17/24 23:21 38.2 C H 71 25 H 94 11/17/24 23:09 38.1 C H 67 14 92 11/17/24 23:00 145/46 H 11/17/24 22:57 38.0 C H 69 27 H 92 11/17/24 22:53 69 36 H 91 11/17/24 22:42 37.9 C H 67 18 91 11/17/24 22:30 147/54 H 11/17/24 22:27 37.8 C H 96 H 15 93 11/17/24 22:21 37.8 C H 95 H 18 93 FiO2 11/18/24 08:05 40 11/18/24 08:05 11/18/24 05:49 40 11/18/24 05:41 40 11/18/24 05:40 11/18/24 05:36 11/18/24 05:36 11/18/24 05:34 11/18/24 05:33 11/18/24 05:32 11/18/24 05:30 11/18/24 05:28 11/18/24 05:27 11/18/24 05:26 11/18/24 05:26 11/18/24 05:24 11/18/24 05:22 11/18/24 05:21 11/18/24 05:20 11/18/24 05:20 11/18/24 05:12 11/18/24 05:09 11/18/24 05:00 11/18/24 04:51 11/18/24 04:48 11/18/24 04:42 11/18/24 04:31 11/18/24 04:31 11/18/24 04:03 11/18/24 04:00 11/18/24 04:00 11/18/24 04:00 11/18/24 03:57 11/18/24 03:33 11/18/24 03:30 11/18/24 03:30 11/18/24 03:30 11/18/24 03:30 11/18/24 03:24 11/18/24 03:09 11/18/24 03:00 11/18/24 02:54 11/18/24 02:31 11/18/24 02:31 11/18/24 02:30 11/18/24 02:25 50 11/18/24 02:21 11/18/24 02:15 11/18/24 02:00 11/18/24 02:00 11/18/24 02:00 11/18/24 02:00 11/18/24 01:58 50 11/18/24 01:30 11/18/24 01:30 11/18/24 01:27 11/18/24 01:18 11/18/24 01:03 11/18/24 01:00 11/18/24 00:57 11/18/24 00:54 11/18/24 00:36 11/18/24 00:27 11/18/24 00:15 11/18/24 00:00 11/18/24 00:00 11/18/24 00:00 11/18/24 00:00 11/18/24 00:00 11/18/24 00:00 11/17/24 23:51 11/17/24 23:48 11/17/24 23:48 11/17/24 23:48 11/17/24 23:48 11/17/24 23:39 11/17/24 23:21 11/17/24 23:09 11/17/24 23:00 11/17/24 22:57 11/17/24 22:53 60 11/17/24 22:42 11/17/24 22:30 11/17/24 22:27 11/17/24 22:21 Diagnostic Findings HISTORY: Shortness of breath. Intubated. TECHNIQUE: CT imaging of the chest was performed without the use of IV contrast.. Images are presented in axial, sagittal, and coronal reformats. COMPARISON: Chest radiograph dated 11/18/2024. Chest CT dated 09/27/2024. FINDINGS: Lungs: Multifocal airspace opacity throughout the right lung is new or significantly increased since the prior study with dense right upper lobe opacity containing air bronchograms. dense left lung base opacity. Loculated right pleural effusion measuring 4.7 x 2.1 x 6.1 cm with surrounding pleural thickening. Trace left effusion. Endotracheal tube is in the lower thoracic trachea just above the level of the edwar. No pneumothorax. Heart/Mediastinum: Mild cardiomegaly. Mitral annular calcification and mild aortic valvular calcification. Left subclavian approach pacer/AICD. Coronary artery calcifications with multivessel disease. NG tube traverses the thoracic esophagus. Fullness of the right hilum suggesting lymphadenopathy. Vasculature: No thoracic aortic aneurysm. Mild to moderate atherosclerotic vascular disease of the thoracic aorta. Mild aortic valvular calcification. Soft Tissues: Unremarkable. Upper Abdomen: Unremarkable. Bones: Median sternotomy. IMPRESSION: 1. New severe multifocal airspace opacity throughout the right lung and involving the left lung base concerning for multifocal pneumonia. Follow-up chest CT with contrast is recommended in 1-2 months to ensure resolution. 2. Moderate size loculated right pleural effusion is similar to the prior study with surrounding pleural thickening. 3. Trace left pleural effusion. 4. Fullness of the right hilum suggesting lymphadenopathy. 5. Endotracheal tube tip is deep measuring less than 2 cm above the edwar. 6. Mild cardiomegaly. Coronary artery calcifications are present. 7. Additional chronic and/or incidental findings as detailed above.
[2024-11-18] MEDS: PIPERACILLIN/TAZOBACTAM 4.5 GM/100 ML BAG IV SCH (13:07)
[2024-11-18] MEDS: PHENYLEPHRINE/NSS 25 MG/250 ML BAG IV SCH (19:58)
[2024-11-19 05:18] LABS: Basophils # (auto) 0.01 K/uL (0.00-0.20); Basophils % (auto) 0.1 %; Eosinophils # (auto) 0.06 K/uL (0.00-0.50); Eosinophils % (auto) 0.9 %; Hematocrit (blood only) 23.7 % (37.0-47.0); Hemoglobin 7.6 g/dl (12.0-16.0); Immature Granulocytes # (auto) 0.02 K/uL (0.01-0.20); Immature Granulocytes % (auto) 0.3 %; Lymphocytes # (auto) 0.38 K/uL (1.20-3.40); Lymphocytes % (auto) 5.5 %; Mean Corpuscular Hemoglobin 29.1 pg (25.0-34.0); Mean Corpuscular Hgb Conc 32.1 g/dL (32.0-36.0); Mean Corpuscular Volume 90.8 fL (80.0-100.0); Mean Platelet Volume 10.8 fL (9.4-12.4); Monocytes # (auto) 0.41 K/uL (0.11-0.59); Neutrophils # (auto) 5.99 K/uL (1.40-6.50); Neutrophils % (auto) 87.2 %; Platelet Count 191 K/uL (130-400); RDW Coefficient of Variation 14.1 % (11.5-14.5); RDW Standard Deviation 46.5 fL (36.4-46.3); Red Blood Count 2.61 M/uL (4.20-5.40); White Blood Count 6.87 K/ul (4.8-10.8)
[2024-11-19 05:37] LABS: Albumin Globulin Ratio 0.9 (0.9-2); Albumin Level 2.7 gm/dl (3.4-5.0); BUN Creatinine Ratio 18.1 (10-20); Bilirubin,Total 0.9 mg/dl (0.2-1.0); Creatinine Clr Calc Pharmacy 54.4 ml/min; Magnesium 1.9 mg/dl (1.7-2.4); Phosphorus 3.2 mg/dl (2.5-4.9); Potassium 3.5 mmol/L (3.5-5.1); Total Protein 5.7 gm/dl (6.0-8.3)
[2024-11-19 05:58] LABS: Acanthocytes 2+; Ovalocytes 1+; Polychromasia 1+
[2024-11-19] MEDS: MAGNESIUM OXIDE 400 MG TAB NG SCH (06:24)
[2024-11-19] MEDS: POTASSIUM CHLORIDE 20 MEQ/15 ML UDC NG SCH ×2 (06:24→20:05)
--- NOTE | 2024-11-19 08:18 | Surgery Progress Note ---
Date of Service November 19, 2024 Assessment & Plan (1) H/O right hemicolectomy: Plan: patient is POD #[address] Flanagan -Unfortunately over the weekend the patient was found to have acute mental status change, concern for CVA and did require intubation. No evidence of stroke found. -She was extubated temporarily yesterday, however shortly afterwards did require re-intubation due to respiratory failure. -Patient underwent CT imaging with concerns of severe multifocal pneumonia. Patient still intubated/sedated in the ICU this morning. Started on IV abx with Zosyn and Vanco. -NGT in place and gastric output appreciated in canister, continue to suction. No reported return of bowel function as of yet. -Midline incision with mavis in place without signs of infection -Hgb 7.6 today - patient is not requiring pressors -Appreciate critical care input and recommendations as above. wound looks good. awaiting bowel fx. pneumonia primary acute issue. Keep NGT until extubated/alert/bowel fx. may need t/c IV nutrition at some point Admission and Anticipated Discharge Date Admission Date: November 14, 2024 Subjective Yesterday the patient had to be re-intubated due to respiratory failure. Critical care team also preformed bronchoscopy with BAL. This morning patient still in ICU intubated/lightly sedated Started on ABX with Zosyn and Vanco for concern of multifocal pneumonia NGT in place with gastric output , per nursing staff no return of bowel function as of yet Hgb 7.6 this AM. Not requiring pressors Physical Exam Constitutional: + mechanically ventilated Respiratory: Auscultation: + diminished lung sounds Mechanical breath sounds b/l Cardiovascular: Rate/Rhythm: regular rate Gastrointestinal (Abdomen): Abdomen soft, nondistended, midline incision with mavis in place. Incisions are c/d/i without overlying signs of infection Results & Data Vital Signs (Past 12 Hours) Vital Signs Temp Pulse Pulse Resp BP Pulse Ox O2 Del Method 11/19/24 07:10 90 18 99 11/19/24 07:10 94 H 18 99 Mechanical Vent 11/19/24 07:00 11/19/24 04:00 11/19/24 02:26 80 19 99 11/19/24 01:00 126/41 L 11/19/24 01:00 126/41 L 11/19/24 01:00 126/41 L 11/19/24 01:00 37.9 C H 71 27 H 98 11/19/24 00:48 37.9 C H 70 18 98 11/19/24 00:45 110/43 L 11/19/24 00:45 110/43 L 11/19/24 00:39 37.9 C H 97 H 18 99 11/19/24 00:36 37.9 C H 95 H 18 100 11/19/24 00:15 37.9 C H 97 H 18 99 11/19/24 00:12 37.8 C H 97 H 18 99 11/19/24 00:00 86 11/19/24 00:00 121/49 L 11/19/24 00:00 121/49 L 11/19/24 00:00 11/18/24 23:48 37.8 C H 95 H 18 99 11/18/24 23:45 113/44 L 11/18/24 23:45 113/44 L 11/18/24 23:45 113/44 L 11/18/24 23:45 37.8 C H 95 H 18 99 11/18/24 23:15 114/42 L 11/18/24 23:15 114/42 L 11/18/24 23:15 114/42 L 11/18/24 23:12 37.8 C H 95 H 18 99 11/18/24 23:03 37.9 C H 94 H 18 99 11/18/24 23:00 116/43 L 11/18/24 23:00 116/43 L 11/18/24 23:00 116/43 L 11/18/24 22:57 37.9 C H 96 H 18 98 11/18/24 22:45 116/42 L 11/18/24 22:45 37.9 C H 95 H 21 98 11/18/24 22:42 37.9 C H 96 H 18 98 11/18/24 22:30 121/47 L 11/18/24 22:30 121/47 L 11/18/24 22:30 121/47 L 11/18/24 22:30 37.9 C H 94 H 20 98 11/18/24 22:17 92 H 19 98 11/18/24 22:15 37.9 C H 100 H 19 97 11/18/24 22:15 127/47 L 11/18/24 22:15 127/47 L 11/18/24 22:15 127/47 L 11/18/24 22:15 127/47 L 11/18/24 22:09 38.0 C H 73 19 97 11/18/24 22:01 120/42 L 11/18/24 22:01 120/42 L 11/18/24 21:57 38.1 C H 73 27 H 97 11/18/24 21:31 110/55 L 11/18/24 21:30 38.1 C H 72 27 H 100 11/18/24 21:21 38.1 C H 67 21 95 11/18/24 21:15 114/42 L 11/18/24 21:15 114/42 L 11/18/24 21:15 38.1 C H 72 25 H 96 11/18/24 21:03 38.2 C H 72 21 97 11/18/24 21:02 122/35 L 11/18/24 21:02 122/35 L 11/18/24 21:02 122/35 L 11/18/24 20:54 38.2 C H 70 21 97 11/18/24 20:45 38.2 C H 69 22 97 11/18/24 20:30 109/50 L 11/18/24 20:30 109/50 L 11/18/24 20:30 38.3 C H 90 22 98 11/18/24 20:21 38.3 C H 100 H 23 100 11/18/24 20:15 38.4 C H 100 H 23 100 11/18/24 20:15 100 H 20 99 FiO2 11/19/24 07:10 30 11/19/24 07:10 30 11/19/24 07:00 30 11/19/24 04:00 40 11/19/24 02:26 40 11/19/24 01:00 11/19/24 01:00 11/19/24 01:00 11/19/24 01:00 11/19/24 00:48 11/19/24 00:45 11/19/24 00:45 11/19/24 00:39 11/19/24 00:36 11/19/24 00:15 11/19/24 00:12 11/19/24 00:00 11/19/24 00:00 11/19/24 00:00 11/19/24 00:00 30 11/18/24 23:48 11/18/24 23:45 11/18/24 23:45 11/18/24 23:45 11/18/24 23:45 11/18/24 23:15 11/18/24 23:15 11/18/24 23:15 11/18/24 23:12 11/18/24 23:03 11/18/24 23:00 11/18/24 23:00 11/18/24 23:00 11/18/24 22:57 11/18/24 22:45 11/18/24 22:45 11/18/24 22:42 11/18/24 22:30 11/18/24 22:30 11/18/24 22:30 11/18/24 22:30 11/18/24 22:17 40 11/18/24 22:15 11/18/24 22:15 11/18/24 22:15 11/18/24 22:15 11/18/24 22:15 11/18/24 22:09 11/18/24 22:01 11/18/24 22:01 11/18/24 21:57 11/18/24 21:31 11/18/24 21:30 11/18/24 21:21 11/18/24 21:15 11/18/24 21:15 11/18/24 21:15 11/18/24 21:03 11/18/24 21:02 11/18/24 21:02 11/18/24 21:02 11/18/24 20:54 11/18/24 20:45 11/18/24 20:30 11/18/24 20:30 11/18/24 20:30 11/18/24 20:21 11/18/24 20:15 11/18/24 20:15 40 PG Care Time/CCT Total # of Minutes Spent Total Time Spent with Patient: Total time spent is greater than 50% in coordination of care (as documented) at patient's floor/unit and/or counseling patient: C[place] [address] Post Operative Follow-Up Patient Type Established Medical Decision Making Straight Forward Diagnoses H/O right hemicolectomy Z90.49
--- NOTE | 2024-11-19 08:20 | XRay Report ---
EXAM: XR chest 1V portable CLINICAL HISTORY: respiratory failure TECHNIQUE: X-ray image of the chest obtained in 1 frontal projection. COMPARISON: Prior X-ray dated 11/18/2024 for comparison. FINDINGS: Low lying ETT with its tip 1cm above edwar, needs repositioning. Normal position of NG tube. (distal tip not seen) Pulmonary Parenchyma: Significant interval resolution of air space opacification in right lung. Mild haziness in right lung and left lower zone. Unchanged blunting of bilateral CP angles possibly pleural effusion. Heart and Mediastinum: Heart size and shape are normal. Left side dual wire cardiac pacemaker. No mediastinal widening or masses. No hilar or mediastinal lymphadenopathy. Bony Thorax: Sternotomy sutures. Bony thorax appears intact without fractures or deformities. Soft Tissues: Unchanged elevated position of right diaphragm. Soft tissues overlying the chest wall are unremarkable. IMPRESSION: 1. Low lying ETT with its tip 1cm above edwar, needs repositioning. 2. Normal position of NG tube. 3. Significant interval resolution of air space opacification in right lung. 4. Mild haziness in right lung and left lower zone. 5. Unchanged blunting of bilateral CP angles possibly pleural effusion. 6. Unchanged elevated position of right diaphragm. Electronically signed by Dillan Latham 11-19-2024 08:19 AM
--- NOTE | 2024-11-19 08:33 | Critical Care Progress Note ---
Date of Service November 19, 2024 Assessment & Plan (1) Encephalopathy acute: Plan: Reason Critically Ill: 79-year-old female with metastatic colon cancer status post hemicolectomy brought to ICU with mental status changes. Prior history of adenocarcinoma of the lung status post resection ALK positive 24-hour events: Patient required bronchoscopy yesterday morning. Her vent settings are minimal. Chest x-ray this morning looks better. She has remained hemodynamically stable. She was placed on SBT this morning but after about 15 to 20 minutes RSBI increased to 120 and patient was placed back on full ventilatory support. PLAN: Neuro: Currently sedated with propofol. Resp: Continue mechanical ventilation given failure of SBT this morning. CT scan was reviewed. There is a small loculated pleural fluid collection in the posterior aspect of the right chest which appears to have been present dating back to September of this year. No indication for drainage at this point in time. CV: History of coronary disease with associated hypertension. Hemodynamically stable. Continue metoprolol as tolerated Fluids/Renal: Decreased urine output overnight. Serum creatinine remains stable. CO2 is elevated consistent with probable chronic hypercarbic respiratory failure. Currently maintaining adequate oxygenation goals. Initiate ICU electrolyte replacement protocol ID: Healthcare associated pneumonia. Day #2 Zosyn and vancomycin. Cultures are pending. GI/Nutrition: Diet per surgery. Heme: Mild anemia. No indication for transfusion currently. History of DVT on Eliquis in the outpatient setting. Recommend restarting anticoagulation as soon as feasible per surgery Endocrine: Glycemic protocol. Continue Synthroid Vascular access: Peripheral IV Code Status: Full code Patient remains critically ill at this point in time with multisystem organ dysfunction and significant possibility of clinical decline. A total of 35 minutes in critical care time was spent in evaluation management coordination of care for this patient exclusive of procedures Admission and Anticipated Discharge Date Admission Date: November 14, 2024 Subjective Patient seen and examined. EMR reviewed. Discussed with bedside critical care nurse, and overnight critical care TIM. Reviewed on multidisciplinary rounds. Patient remains intubated and sedated. She is able to nod her head to questions. She is complaining of some mild abdominal discomfort Review of Systems Review of Systems: Unobtainable due to endotracheal tube Physical Exam 2 Constitutional: + mechanically ventilated Neck: trachea midline, no thyromegaly Respiratory: Auscultation: + diminished lung sounds; no wheezes Cardiovascular: RRR, no murmur, no edema Gastrointestinal (Abdomen): normal bowel sounds, soft, nontender, no hepatosplenomegaly Musculoskeletal: Extremities: extremities normal to inspection Skin: no rashes, warm and dry Lymphatic: no cervical lymphadenopathy Results & Data Results & Data Vital Signs (Past 12 Hours) Vital Signs Temp Pulse Pulse Resp BP Pulse Ox O2 Del Method 11/19/24 08:00 37.8 C H 75 26 H 130/59 L 98 Mechanical Vent 11/19/24 07:27 37.8 C H 86 18 120/57 L 98 Mechanical Vent 11/19/24 07:15 37.8 C H 96 H 18 133/52 L 99 Mechanical Vent 11/19/24 07:10 90 18 99 11/19/24 07:10 94 H 18 99 Mechanical Vent 11/19/24 07:00 37.9 C H 90 18 135/53 L 99 Mechanical Vent 11/19/24 07:00 11/19/24 04:00 11/19/24 02:26 80 19 99 11/19/24 01:00 126/41 L 11/19/24 01:00 126/41 L 11/19/24 01:00 126/41 L 11/19/24 01:00 37.9 C H 71 27 H 98 11/19/24 00:48 37.9 C H 70 18 98 11/19/24 00:45 110/43 L 11/19/24 00:45 110/43 L 11/19/24 00:39 37.9 C H 97 H 18 99 11/19/24 00:36 37.9 C H 95 H 18 100 11/19/24 00:15 37.9 C H 97 H 18 99 11/19/24 00:12 37.8 C H 97 H 18 99 11/19/24 00:00 86 11/19/24 00:00 121/49 L 11/19/24 00:00 121/49 L 11/19/24 00:00 11/18/24 23:48 37.8 C H 95 H 18 99 11/18/24 23:45 113/44 L 11/18/24 23:45 113/44 L 11/18/24 23:45 113/44 L 11/18/24 23:45 37.8 C H 95 H 18 99 11/18/24 23:15 114/42 L 11/18/24 23:15 114/42 L 11/18/24 23:15 114/42 L 11/18/24 23:12 37.8 C H 95 H 18 99 11/18/24 23:03 37.9 C H 94 H 18 99 11/18/24 23:00 116/43 L 11/18/24 23:00 116/43 L 11/18/24 23:00 116/43 L 11/18/24 22:57 37.9 C H 96 H 18 98 11/18/24 22:45 116/42 L 11/18/24 22:45 37.9 C H 95 H 21 98 11/18/24 22:42 37.9 C H 96 H 18 98 11/18/24 22:30 121/47 L 11/18/24 22:30 121/47 L 11/18/24 22:30 121/47 L 11/18/24 22:30 37.9 C H 94 H 20 98 11/18/24 22:17 92 H 19 98 11/18/24 22:15 37.9 C H 100 H 19 97 11/18/24 22:15 127/47 L 11/18/24 22:15 127/47 L 11/18/24 22:15 127/47 L 11/18/24 22:15 127/47 L 11/18/24 22:09 38.0 C H 73 19 97 11/18/24 22:01 120/42 L 11/18/24 22:01 120/42 L 11/18/24 21:57 38.1 C H 73 27 H 97 11/18/24 21:31 110/55 L 11/18/24 21:30 38.1 C H 72 27 H 100 11/18/24 21:21 38.1 C H 67 21 95 11/18/24 21:15 114/42 L 11/18/24 21:15 114/42 L 11/18/24 21:15 38.1 C H 72 25 H 96 11/18/24 21:03 38.2 C H 72 21 97 11/18/24 21:02 122/35 L 11/18/24 21:02 122/35 L 11/18/24 21:02 122/35 L 11/18/24 20:54 38.2 C H 70 21 97 11/18/24 20:45 38.2 C H 69 22 97 FiO2 11/19/24 08:00 30 11/19/24 07:27 30 11/19/24 07:15 30 11/19/24 07:10 30 11/19/24 07:10 30 11/19/24 07:00 30 11/19/24 07:00 30 11/19/24 04:00 40 11/19/24 02:26 40 11/19/24 01:00 11/19/24 01:00 11/19/24 01:00 11/19/24 01:00 11/19/24 00:48 11/19/24 00:45 11/19/24 00:45 11/19/24 00:39 11/19/24 00:36 11/19/24 00:15 11/19/24 00:12 11/19/24 00:00 11/19/24 00:00 11/19/24 00:00 11/19/24 00:00 30 11/18/24 23:48 11/18/24 23:45 11/18/24 23:45 11/18/24 23:45 11/18/24 23:45 11/18/24 23:15 11/18/24 23:15 11/18/24 23:15 11/18/24 23:12 11/18/24 23:03 11/18/24 23:00 11/18/24 23:00 11/18/24 23:00 11/18/24 22:57 11/18/24 22:45 11/18/24 22:45 11/18/24 22:42 11/18/24 22:30 11/18/24 22:30 11/18/24 22:30 11/18/24 22:30 11/18/24 22:17 40 11/18/24 22:15 11/18/24 22:15 11/18/24 22:15 11/18/24 22:15 11/18/24 22:15 11/18/24 22:09 11/18/24 22:01 11/18/24 22:01 11/18/24 21:57 11/18/24 21:31 11/18/24 21:30 11/18/24 21:21 11/18/24 21:15 11/18/24 21:15 11/18/24 21:15 11/18/24 21:03 11/18/24 21:02 11/18/24 21:02 11/18/24 21:02 11/18/24 20:54 11/18/24 20:45 Critical Care Results & Data Vital Signs (Past 12 Hours) Vital Signs Temp Pulse Pulse Resp BP Pulse Ox O2 Del Method 11/19/24 08:00 37.8 C H 75 26 H 130/59 L 98 Mechanical Vent 11/19/24 07:27 37.8 C H 86 18 120/57 L 98 Mechanical Vent 11/19/24 07:15 37.8 C H 96 H 18 133/52 L 99 Mechanical Vent 11/19/24 07:10 90 18 99 11/19/24 07:10 94 H 18 99 Mechanical Vent 11/19/24 07:00 37.9 C H 90 18 135/53 L 99 Mechanical Vent 11/19/24 07:00 11/19/24 04:00 11/19/24 02:26 80 19 99 11/19/24 01:00 126/41 L 11/19/24 01:00 126/41 L 11/19/24 01:00 126/41 L 11/19/24 01:00 37.9 C H 71 27 H 98 11/19/24 00:48 37.9 C H 70 18 98 11/19/24 00:45 110/43 L 11/19/24 00:45 110/43 L 11/19/24 00:39 37.9 C H 97 H 18 99 11/19/24 00:36 37.9 C H 95 H 18 100 11/19/24 00:15 37.9 C H 97 H 18 99 11/19/24 00:12 37.8 C H 97 H 18 99 11/19/24 00:00 86 11/19/24 00:00 121/49 L 11/19/24 00:00 121/49 L 11/19/24 00:00 11/18/24 23:48 37.8 C H 95 H 18 99 11/18/24 23:45 113/44 L 11/18/24 23:45 113/44 L 11/18/24 23:45 113/44 L 11/18/24 23:45 37.8 C H 95 H 18 99 11/18/24 23:15 114/42 L 11/18/24 23:15 114/42 L 11/18/24 23:15 114/42 L 11/18/24 23:12 37.8 C H 95 H 18 99 11/18/24 23:03 37.9 C H 94 H 18 99 11/18/24 23:00 116/43 L 11/18/24 23:00 116/43 L 11/18/24 23:00 116/43 L 11/18/24 22:57 37.9 C H 96 H 18 98 11/18/24 22:45 116/42 L 11/18/24 22:45 37.9 C H 95 H 21 98 11/18/24 22:42 37.9 C H 96 H 18 98 11/18/24 22:30 121/47 L 11/18/24 22:30 121/47 L 11/18/24 22:30 121/47 L 11/18/24 22:30 37.9 C H 94 H 20 98 11/18/24 22:17 92 H 19 98 11/18/24 22:15 37.9 C H 100 H 19 97 11/18/24 22:15 127/47 L 11/18/24 22:15 127/47 L 11/18/24 22:15 127/47 L 11/18/24 22:15 127/47 L 11/18/24 22:09 38.0 C H 73 19 97 11/18/24 22:01 120/42 L 11/18/24 22:01 120/42 L 11/18/24 21:57 38.1 C H 73 27 H 97 11/18/24 21:31 110/55 L 11/18/24 21:30 38.1 C H 72 27 H 100 11/18/24 21:21 38.1 C H 67 21 95 11/18/24 21:15 114/42 L 11/18/24 21:15 114/42 L 11/18/24 21:15 38.1 C H 72 25 H 96 11/18/24 21:03 38.2 C H 72 21 97 11/18/24 21:02 122/35 L 11/18/24 21:02 122/35 L 11/18/24 21:02 122/35 L 11/18/24 20:54 38.2 C H 70 21 97 0420/25 20:45 38.2 C H 69 22 97 FiO2 11/19/24 08:00 30 11/19/24 07:27 30 11/19/24 07:15 30 11/19/24 07:10 30 11/19/24 07:10 30 11/19/24 07:00 30 11/19/24 07:00 30 11/19/24 04:00 40 11/19/24 02:26 40 11/19/24 01:00 11/19/24 01:00 11/19/24 01:00 11/19/24 01:00 11/19/24 00:48 11/19/24 00:45 11/19/24 00:45 11/19/24 00:39 11/19/24 00:36 11/19/24 00:15 11/19/24 00:12 11/19/24 00:00 11/19/24 00:00 11/19/24 00:00 11/19/24 00:00 30 11/18/24 23:48 11/18/24 23:45 11/18/24 23:45 11/18/24 23:45 11/18/24 23:45 11/18/24 23:15 11/18/24 23:15 11/18/24 23:15 11/18/24 23:12 11/18/24 23:03 11/18/24 23:00 11/18/24 23:00 11/18/24 23:00 11/18/24 22:57 11/18/24 22:45 11/18/24 22:45 11/18/24 22:42 11/18/24 22:30 11/18/24 22:30 11/18/24 22:30 11/18/24 22:30 11/18/24 22:17 40 11/18/24 22:15 11/18/24 22:15 11/18/24 22:15 11/18/24 22:15 11/18/24 22:15 11/18/24 22:09 11/18/24 22:01 11/18/24 22:01 11/18/24 21:57 11/18/24 21:31 11/18/24 21:30 11/18/24 21:21 11/18/24 21:15 11/18/24 21:15 11/18/24 21:15 11/18/24 21:03 11/18/24 21:02 11/18/24 21:02 11/18/24 21:02 11/18/24 20:54 11/18/24 20:45 Lab & Micro Results (Past 24 Hours) RBC 2.61 M/uL (4.20-5.40) L 11/19/24 WBC 6.87 K/ul (4.8-10.8) 11/19/24 Hgb 7.6 g/dl (12.0-16.0) L 11/19/24 Hct 23.7 % (37.0-47.0) L 11/19/24 MCV 90.8 fL (80.0-100.0) 11/19/24 MCH 29.1 pg (25.0-34.0) 11/19/24 MCHC 32.1 g/dL (32.0-36.0) 11/19/24 RDW Standard Deviation 46.5 fL (36.4-46.3) H 11/19/24 RDW Coefficient of Variation 14.1 % (11.5-14.5) 11/19/24 Plt Count 191 K/uL (130-400) 11/19/24 MPV 10.8 fL (9.4-12.4) 11/19/24 Neutrophils (%) (Auto) 87.2 % 11/19/24 Lymphocytes (%) (Auto) 5.5 % 11/19/24 Monocytes # (Auto) 0.41 K/uL (0.11-0.59) 11/19/24 Eosinophils # (Auto) 0.06 K/uL (0.00-0.50) 11/19/24 Immature Granulocyte % (Auto) 0.3 % 11/19/24 Neutrophils # (Auto) 5.99 K/uL (1.40-6.50) 11/19/24 Lymphocytes # (Auto) 0.38 K/uL (1.20-3.40) L 11/19/24 Monocytes # (Auto) 0.41 K/uL (0.11-0.59) 11/19/24 Eosinophils # (Auto) 0.06 K/uL (0.00-0.50) 11/19/24 Basophils # (Auto) 0.01 K/uL (0.00-0.20) 11/19/24 Immature Granulocyte # (Auto) 0.02 K/uL (0.01-0.20) 5 Polychromasia 1+ 11/19/24 Ovalocytes 1+ 11/19/24 Acanthocytes 2+ 11/19/24 Na 139 mmol/L (136-145) 11/19/24 K 3.5 mmol/L (3.5-5.1) 11/19/24 Cl 97 mmol/L (98-107) L 11/19/24 CO2 36 mmol/L (21-32) H 11/19/24 Anion Gap 6 (3-11) 11/19/24 BUN 15 mg/dl (6-23) 11/19/24 Creatinine 0.83 mg/dl (0.6-1.2) 11/19/24 BUN/Creatinine Ratio 18.1 (10-20) 11/19/24 Glu 130 mg/dl (70-99(Fasting)) H 11/19/24 Ca 8.0 mg/dl (8.6-10.3) L 11/19/24 Phosphorus Level 3.2 mg/dl (2.5-4.9) 11/19/24 Total Bilirubin 0.9 mg/dl (0.2-1.0) 11/19/24 AST 41 U/L (13-39) H 11/19/24 ALT 39 U/L (7-52) 11/19/24 Alkaline Phosphatase 96 U/L (34-104) 11/19/24 TP 5.7 gm/dl (6.0-8.3) L 11/19/24 Albumin 2.7 gm/dl (3.4-5.0) L 11/19/24 Globulin 3.0 gm/dl (2.5-4.0) 11/19/24 Albumin/Globulin Ratio 0.9 (0.9-2) 11/19/24 Mg 1.9 mg/dl (1.7-2.4) 11/19/24 04:47 Calcium Level 8.0 mg/dl (8.6-10.3) L 11/19/24 04:47 Microbiology 11/18/24 07:50 Gram Stain - Final Bronch Sanders, Right Main Stem Bronchial Culture - Preliminary Heavy normal nando present, Final report to follow. 11/18/24 08:10 Urine Culture - Preliminary Urine,Indwelling Cath No growth - Less than 1,000 colonies/mL, Final report to follow. 11/18/24 01:54 Aerobic Blood Culture - Preliminary Blood No growth in Aerobic bottle after 24 hours. Anaerobic Blood Culture - Preliminary No growth in Anaerobic bottle after 24 hours. 11/18/24 01:47 Aerobic Blood Culture - Preliminary Blood No growth in Aerobic bottle after 24 hours. Anaerobic Blood Culture - Preliminary No growth in Anaerobic bottle after 24 hours. Diagnostic Findings (Past 24 Hours) Chest CT 11/18/24 07:48 HISTORY: Shortness of breath. Intubated. TECHNIQUE: CT imaging of the chest was performed without the use of IV contrast.. Images are presented in axial, sagittal, and coronal reformats. COMPARISON: Chest radiograph dated 11/18/2024. Chest CT dated 09/27/2024. FINDINGS: Lungs: Multifocal airspace opacity throughout the right lung is new or significantly increased since the prior study with dense right upper lobe opacity containing air bronchograms. dense left lung base opacity. Loculated right pleural effusion measuring 4.7 x 2.1 x 6.1 cm with surrounding pleural thickening. Trace left effusion. Endotracheal tube is in the lower thoracic trachea just above the level of the edwar. No pneumothorax. Heart/Mediastinum: Mild cardiomegaly. Mitral annular calcification and mild aortic valvular calcification. Left subclavian approach pacer/AICD. Coronary artery calcifications with multivessel disease. NG tube traverses the thoracic esophagus. Fullness of the right hilum suggesting lymphadenopathy. Vasculature: No thoracic aortic aneurysm. Mild to moderate atherosclerotic vascular disease of the thoracic aorta. Mild aortic valvular calcification. Soft Tissues: Unremarkable. Upper Abdomen: Unremarkable. Bones: Median sternotomy. IMPRESSION: 1. New severe multifocal airspace opacity throughout the right lung and involving the left lung base concerning for multifocal pneumonia. Follow-up chest CT with contrast is recommended in 1-2 months to ensure resolution. 2. Moderate size loculated right pleural effusion is similar to the prior study with surrounding pleural thickening. 3. Trace left pleural effusion. 4. Fullness of the right hilum suggesting lymphadenopathy. 5. Endotracheal tube tip is deep measuring less than 2 cm above the edwar. 6. Mild cardiomegaly. Coronary artery calcifications are present. 7. Additional chronic and/or incidental findings as detailed above. ACT 112: Positive. There are findings on this exam that require communication between the performing entity and the patient following Patient Test Result Information Act ([place] ACT 112) guidelines. Electronically signed by Khalif Hurley 11-18-2024 09:06 AM Chest X-Ray 11/19/24 07:19 EXAM: XR chest 1V portable CLINICAL HISTORY: respiratory failure TECHNIQUE: X-ray image of the chest obtained in 1 frontal projection. COMPARISON: Prior X-ray dated 11/18/2024 for comparison. FINDINGS: Low lying ETT with its tip 1cm above edwar, needs repositioning. Normal position of NG tube. (distal tip not seen) Pulmonary Parenchyma: Significant interval resolution of air space opacification in right lung. Mild haziness in right lung and left lower zone. Unchanged blunting of bilateral CP angles possibly pleural effusion. Heart and Mediastinum: Heart size and shape are normal. Left side dual wire cardiac pacemaker. No mediastinal widening or masses. No hilar or mediastinal lymphadenopathy. Bony Thorax: Sternotomy sutures. Bony thorax appears intact without fractures or deformities. Soft Tissues: Unchanged elevated position of right diaphragm. Soft tissues overlying the chest wall are unremarkable. IMPRESSION: 1. Low lying ETT with its tip 1cm above edwar, needs repositioning. 2. Normal position of NG tube. 3. Significant interval resolution of air space opacification in right lung. 4. Mild haziness in right lung and left lower zone. 5. Unchanged blunting of bilateral CP angles possibly pleural effusion. 6. Unchanged elevated position of right diaphragm. Electronically signed by Dillan Latham 11-19-2024 08:19 AM I & O Totals 24 Hours 11/18/24 11/19/24 11/20/24 06:59 06:59 06:59 Intake Total 3356.333 / 3356.333 2195.717 / 2195.717 50.443 / 50.443 Output Total 640 / 640 715 / 715 Balance 2716.333 / 2716.333 1480.717 / 1480.717 50.443 / 50.443 Cumulative 11/07/24 16:54 thru 11/19/24 08:27 Intake Total 56388.826 Output Total 4895 Balance 7421.826 RT Ventilator Mngmt (Last Documented) Ventilator Ordered Settings Ventilator Support Mode Assist Control 11/19/24 07:10 Respiratory Rate 26 11/19/24 08:00 Ventilator Tidal Volume 370 11/19/24 07:10 Setting Minute Ventilation 11 11/19/24 07:10 Ventilator Positive Pressure 10 11/17/24 08:00 Support Setting Positive End Expiratory 6 11/19/24 07:10 Pressure Fraction of Inspired Oxygen 30 11/19/24 08:00 Machine Comment found pt on these settings, 11/17/24 07:[address] Henderson Ventilator - PT Measurements Respiratory Rate 26 Exhaled Tidal Volume 370 Minute Ventilation 11 Peak Inspiratory Airway 24 Pressure Plateau Pressure 20 Respiratory Cycle Inspiratory: 1:2.7 Expiratory Ratio Inspiratory Phase Time 0.9 End-Tidal CO2 47 Static Lung Compliance 26.43 Dynamic Lung Compliance 20.56 Normal Static Lung Compliance 46.00 Patient Measurements Comment pt bronched by Dr. Rea at bedside in ICU Coding Level of Care Code 32852 CRITICAL CARE 1ST 30-74M Diagnoses Encephalopathy acute G93.40
[2024-11-19] MEDS: VANCOMYCIN HCL 1,500 MG in SODIUM CHLORIDE 0.9% 500 ML IV SCH (08:59)
--- NOTE | 2024-11-19 10:09 | Ultrasound Report ---
ULTRASOUND LEFT UPPER EXTREMITY VENOUS CLINICAL HISTORY: Left arm swelling. COMPARISON STUDY: None. TECHNIQUE: Real-time, grayscale, and color Doppler sonography of the deep veins of the left upper ext remity is performed. Compression and augmentation were utilized. FINDINGS: No evidence of DVT seen at the left upper extremity. IMPRESSION: No DVT seen. ACT 112: Act 112:Negative or not required by law. Electronically signed by: Jose Fitzgreald M.D. 11/19/2024 10:07 AM
--- NOTE | 2024-11-19 10:51 | XRay Report ---
KUB HISTORY: ileus/sbo COMPARISON STUDY: 11/16/2024 FINDINGS: Nasogastric tube tip is stable at the left upper quadrant. Stable right upper quadrant surg ical clips. There are multiple dilated small bowel loops at the left abdomen measuring up to 4 cm angeles meter, stable. No colonic distention seen. No gross free air. IMPRESSION: Stable small bowel distention. ACT 112: Negative or not required by law. The above report was generated using voice recognition software. It may contain grammatical, syntax o r spelling errors. Electronically signed by: Jose Fitzgerald M.D. 11/19/2024 10:49 AM
[2024-11-19 18:33] LABS: Magnesium 1.8 mg/dl (1.7-2.4); Phosphorus 2.7 mg/dl (2.5-4.9); Potassium 3.9 mmol/L (3.5-5.1)
[2024-11-19] MEDS: MAGNESIUM OXIDE 400 MG TAB PO SCH (20:05)
[2024-11-20 05:29] LABS: Basophils # (auto) 0.01 K/uL (0.00-0.20); Basophils % (auto) 0.1 %; Eosinophils # (auto) 0.22 K/uL (0.00-0.50); Eosinophils % (auto) 2.5 %; Hematocrit (blood only) 23.4 % (37.0-47.0); Hemoglobin 7.6 g/dl (12.0-16.0); Immature Granulocytes # (auto) 0.03 K/uL (0.01-0.20); Immature Granulocytes % (auto) 0.3 %; Lymphocytes # (auto) 0.46 K/uL (1.20-3.40); Lymphocytes % (auto) 5.3 %; Mean Corpuscular Hemoglobin 29.2 pg (25.0-34.0); Mean Corpuscular Hgb Conc 32.5 g/dL (32.0-36.0); Mean Platelet Volume 10.5 fL (9.4-12.4); Monocytes # (auto) 0.41 K/uL (0.11-0.59); Monocytes % (auto) 4.7 %; Neutrophils # (auto) 7.54 K/uL (1.40-6.50); Neutrophils % (auto) 87.1 %; Platelet Count 231 K/uL (130-400); RDW Coefficient of Variation 14.2 % (11.5-14.5); RDW Standard Deviation 46.7 fL (36.4-46.3); White Blood Count 8.67 K/ul (4.8-10.8)
[2024-11-20] MEDS: FUROSEMIDE 40 MG/4 ML VIAL IV ONE (05:38)
[2024-11-20 05:43] LABS: BUN Creatinine Ratio 17.6 (10-20); Calcium 7.9 mg/dl (8.6-10.3); Creatinine Clr Calc Pharmacy 50.3 ml/min; Magnesium 1.9 mg/dl (1.7-2.4); Phosphorus 2.9 mg/dl (2.5-4.9); Potassium 3.9 mmol/L (3.5-5.1)
[2024-11-20 05:55] LABS: Acanthocytes 1+; Ovalocytes 1+; Polychromasia 1+
[2024-11-20] MEDS: MAGNESIUM SULFATE / D5W 1 GM/100 ML BAG IV SCH (06:30)
[2024-11-20] MEDS: POTASSIUM CHLORIDE / WTR 10 MEQ/100 ML PLCT IV SCH ×2 (06:30→20:04)
--- NOTE | 2024-11-20 07:13 | Surgery Progress Note ---
Date of Service November 20, 2024 Assessment & Plan (1) H/O right hemicolectomy: Plan: awaiting return of bowel fx suspect post op ileus will d/w ICU...may consider TPN until return of bowel fx path still pending. (2) Encephalopathy acute: Admission and Anticipated Discharge Date Admission Date: November 14, 2024 Subjective pt sedated on vent. stable Physical Exam Physical Exam: sedated abd: soft. mild distension. incision looks good Results & Data Vital Signs (Past 12 Hours) Vital Signs Temp Pulse Resp BP Pulse Ox O2 Del Method FiO2 11/20/24 07:00 37.5 C 91 H 18 109/64 94 Mechanical Vent 30 11/20/24 06:30 37.5 C 95 H 18 128/53 L 93 Mechanical Vent 30 11/20/24 06:00 124/54 L 11/20/24 06:00 124/54 L 11/20/24 06:00 124/54 L 11/20/24 06:00 124/54 L 11/20/24 06:00 37.5 C 87 18 95 11/20/24 05:33 37.6 C H 93 H 18 94 11/20/24 05:30 128/51 L 11/20/24 05:30 128/51 L 11/20/24 05:30 128/51 L 11/20/24 05:30 128/51 L 11/20/24 05:27 37.6 C H 90 18 96 11/20/24 05:06 37.8 C H 123 H 21 96 11/20/24 04:50 146/62 H 11/20/24 04:50 146/62 H 11/20/24 04:33 37.8 C H 92 H 29 H 94 11/20/24 04:30 114/49 L 11/20/24 04:30 114/49 L 11/20/24 04:30 114/49 L 11/20/24 04:21 37.9 C H 92 H 32 H 94 11/20/24 04:03 37.9 C H 93 H 30 H 95 11/20/24 04:00 120/49 L 11/20/24 04:00 120/49 L 11/20/24 04:00 120/49 L 11/20/24 03:45 37.9 C H 94 H 32 H 96 11/20/24 03:30 118/52 L 11/20/24 03:30 118/52 L 11/20/24 03:21 37.9 C H 96 H 28 H 100 11/20/24 03:15 95 H 18 95 30 11/20/24 03:06 37.9 C H 95 H 18 93 11/20/24 03:00 30 11/20/24 03:00 110/50 L 11/20/24 02:57 38.0 C H 95 H 18 93 11/20/24 02:30 121/51 L 11/20/24 02:03 38.1 C H 96 H 18 94 11/20/24 02:00 120/50 L 11/20/24 02:00 120/50 L 11/20/24 01:57 38.1 C H 99 H 18 94 11/20/24 01:30 118/41 L 11/20/24 01:30 118/41 L 11/20/24 01:15 38.1 C H 72 25 H 92 11/20/24 01:06 38.1 C H 63 25 H 94 11/20/24 01:01 115/42 L 11/20/24 01:01 115/42 L 11/20/24 00:48 38.1 C H 72 24 93 11/20/24 00:31 113/43 L 11/20/24 00:31 113/43 L 11/20/24 00:31 113/43 L 11/20/24 00:30 38.0 C H 69 18 92 11/20/24 00:03 38.0 C H 93 H 18 93 11/20/24 00:00 115/45 L 11/20/24 00:00 115/45 L 11/19/24 23:48 38.0 C H 94 H 18 93 11/19/24 23:30 111/49 L 11/19/24 23:30 111/49 L 11/19/24 23:24 38.0 C H 96 H 18 92 11/19/24 23:21 38.0 C H 96 H 18 91 11/19/24 23:03 87 19 96 30 11/19/24 23:00 30 11/19/24 22:30 117/52 L 11/19/24 22:30 117/52 L 11/19/24 22:15 38.1 C H 68 21 99 11/19/24 22:06 38.1 C H 75 18 95 11/19/24 22:00 118/49 L 11/19/24 21:54 38.0 C H 94 H 19 96 11/19/24 21:30 38.0 C H 81 27 H 91 11/19/24 21:30 104/45 L 11/19/24 21:30 104/45 L 11/19/24 21:30 104/45 L 11/19/24 21:03 37.9 C H 100 H 19 92 11/19/24 21:00 117/47 L 11/19/24 21:00 117/47 L 11/19/24 20:51 37.9 C H 100 H 24 92 11/19/24 20:00 37.8 C H 94 H 21 93 11/19/24 20:00 Mechanical Vent 30 11/19/24 19:27 85 19 94 30 PG Care Time/CCT Total # of Minutes Spent Total Time Spent with Patient: Total time spent is greater than 50% in coordination of care (as documented) at patient's floor/unit and/or counseling patient: Coding Level of Care Code 64220 Post Operative Follow-Up Diagnoses H/O right hemicolectomy Z90.49 Encephalopathy acute G93.40
--- NOTE | 2024-11-20 07:26 | XRay Report ---
EXAM: XR chest 1V portable CLINICAL HISTORY: resp failure TECHNIQUE: Radiograph of chest was acquired. COMPARISON: 11/19/2024 FINDINGS: Mild haziness in right lung and left lower zone. Unchanged blunting of bilateral CP angles possibly pleural effusion. Rest of the lungs are clear and well-expanded with no pulmonary infiltrate or pleural effusion. The cardiomediastinal silhouette is within normal limits. No acute osseous abnormality. Sternotomy sutures. Left side dual wire cardiac pacemaker. Low lying ETT with its tip 2cm above edawr, needs repositioning by atleast 1cm cranially. Normal position of NG tube. IMPRESSION: 1. No acute cardiopulmonary disease. 2. Low lying ETT with its tip 2cm above edwar, needs repositioning cranially by 1cm. 3. Normal position of NG tube. 4. Mild haziness in right lung and left lower zone. 5. Unchanged blunting of bilateral CP angles possibly pleural effusion. 6. Unchanged elevated position of right diaphragm. Electronically signed by Elliot Benitez 11-20-2024 07:26 AM
--- NOTE | 2024-11-20 07:48 | Critical Care Progress Note ---
Date of Service November 20, 2024 Assessment & Plan (1) Encephalopathy acute: Plan: Reason Critically Ill: 79-year-old female with metastatic colon cancer status post hemicolectomy brought to ICU with mental status changes. Prior history of adenocarcinoma of the lung status post resection ALK positive 24-hour events: Failed SBT this morning after approximately 30 minutes. Back on full ventilator support at this time. She is awake, alert, and communicates simple yes/no questions. Diuresed well earlier this morning. PLAN: Neuro: Currently sedated with propofol. Resp: Continue mechanical ventilation given failure of SBT this morning. There is a small loculated pleural fluid collection in the posterior aspect of the right chest which appears to have been present dating back to September of this year. No indication for drainage at this point in time. Continue with normal vent settings with hopes of extubation soon. Will trial SBT later today as well. CV: History of coronary disease with associated hypertension. Hemodynamically stable. Continue metoprolol as tolerated. Fluids/Renal: CO2 has improved since being on ventilator. Currently maintaining adequate oxygenation goals. Initiate ICU electrolyte replacement protocol ID: Healthcare associated pneumonia. Day #3 Zosyn and vancomycin. Cultures without growth currently. GI/Nutrition: Diet per surgery. Heme: Mild anemia. No indication for transfusion currently. History of DVT on Eliquis in the outpatient setting. Recommend restarting anticoagulation as soon as feasible per surgery Endocrine: Glycemic protocol. Continue Synthroid Goals of care: Case management will reach out to family to establish point of contact. Discussion to be had with family moving forward regarding ongoing interventions given her ongoing tenuous respiratory status. Vascular access: Peripheral IV Code Status: Full code Patient remains critically ill at this point in time with multisystem organ dysfunction and significant possibility of clinical decline. A total of 35 minutes in critical care time was spent in evaluation management coordination of care for this patient exclusive of procedures Admission and Anticipated Discharge Date Admission Date: November 14, 2024 Supervising Physician Co-Signing Physician Notes Patient seen and examined. EMR reviewed. Discussed with overnight critical care TIM, bedside critical care nurse, and a multidisciplinary rounds as well as with critical care TIM. Agree with assessment plan as noted. The patient failed SBT this morning due to RSBI greater than 100 10:30 to 15 minutes on SBT. Will plan on repeating later today. Trying to locate family to discuss interventions such as tracheostomy in the event the patient is unable to be liberated from the ventilator. Patient remains n.p.o. given concern about ileus. Would hold off on parenteral nutrition for 7 to 10 days in hopes of resuming bowel function. Will discuss with surgery starting full anticoagulation for her history of atrial fibrillation. Subjective Patient was seen and evaluated at bedside. She failed her spontaneous breathing trial this morning. She is alert and communicative nodding her head yes and no and pointing to things that she needs. She had an uneventful night. Did receive a dose of IV Lasix with greater than 2 L urine output today. Review of Systems Review of Systems: Unable to obtain significant information secondary to state of intubation. Physical Exam Constitutional: + mechanically ventilated Neck: trachea midline, no thyromegaly Respiratory: Auscultation: + diminished lung sounds; no wheezes Cardiovascular: RRR, no murmur, no edema Gastrointestinal (Abdomen): normal bowel sounds, soft, nontender, no hepatosplenomegaly Musculoskeletal: Extremities: extremities normal to inspection Skin: no rashes, warm and dry Lymphatic: no cervical lymphadenopathy Results & Data Results & Data Vital Signs (Past 12 Hours) Vital Signs Temp Pulse Resp BP Pulse Ox O2 Del Method FiO2 11/20/24 07:39 68 22 95 30 11/20/24 07:30 37.5 C 82 30 H 141/61 H 94 Mechanical Vent 11/20/24 07:00 37.5 C 91 H 18 109/64 94 Mechanical Vent 11/20/24 06:30 37.5 C 95 H 18 128/53 L 93 Mechanical Vent 11/20/24 06:00 124/54 L 11/20/24 06:00 124/54 L 11/20/24 06:00 124/54 L 11/20/24 06:00 124/54 L 11/20/24 06:00 37.5 C 87 18 95 11/20/24 05:33 37.6 C H 93 H 18 94 11/20/24 05:30 128/51 L 11/20/24 05:30 128/51 L 11/20/24 05:30 128/51 L 11/20/24 05:30 128/51 L 11/20/24 05:27 37.6 C H 90 18 96 11/20/24 05:06 37.8 C H 123 H 21 96 11/20/24 04:50 146/62 H 11/20/24 04:50 146/62 H 11/20/24 04:33 37.8 C H 92 H 29 H 94 11/20/24 04:30 114/49 L 11/20/24 04:30 114/49 L 11/20/24 04:30 114/49 L 11/20/24 04:21 37.9 C H 92 H 32 H 94 11/20/24 04:03 37.9 C H 93 H 30 H 95 11/20/24 04:00 120/49 L 11/20/24 04:00 120/49 L 11/20/24 04:00 120/49 L 11/20/24 03:45 37.9 C H 94 H 32 H 96 11/20/24 03:30 118/52 L 11/20/24 03:30 118/52 L 11/20/24 03:21 37.9 C H 96 H 28 H 100 11/20/24 03:15 95 H 18 95 30 11/20/24 03:06 37.9 C H 95 H 18 93 11/20/24 03:00 30 11/20/24 03:00 110/50 L 11/20/24 02:57 38.0 C H 95 H 18 93 11/20/24 02:30 121/51 L 11/20/24 02:03 38.1 C H 96 H 18 94 11/20/24 02:00 120/50 L 11/20/24 02:00 120/50 L 11/20/24 01:57 38.1 C H 99 H 18 94 11/20/24 01:30 118/41 L 11/20/24 01:30 118/41 L 11/20/24 01:15 38.1 C H 72 25 H 92 11/20/24 01:06 38.1 C H 63 25 H 94 11/20/24 01:01 115/42 L 11/20/24 01:01 115/42 L 11/20/24 00:48 38.1 C H 72 24 93 11/20/24 00:31 113/43 L 11/20/24 00:31 113/43 L 11/20/24 00:31 113/43 L 11/20/24 00:30 38.0 C H 69 18 92 11/20/24 00:03 38.0 C H 93 H 18 93 04/22/25 00:00 115/45 L 11/20/24 00:00 115/45 L 11/19/24 23:48 38.0 C H 94 H 18 93 11/19/24 23:30 111/49 L 11/19/24 23:30 111/49 L 11/19/24 23:24 38.0 C H 96 H 18 92 11/19/24 23:21 38.0 C H 96 H 18 91 11/19/24 23:03 87 19 96 30 11/19/24 23:00 30 11/19/24 22:30 117/52 L 11/19/24 22:30 117/52 L 11/19/24 22:15 38.1 C H 68 21 99 11/19/24 22:06 38.1 C H 75 18 95 11/19/24 22:00 118/49 L 11/19/24 21:54 38.0 C H 94 H 19 96 11/19/24 21:30 38.0 C H 81 27 H 91 11/19/24 21:30 104/45 L 11/19/24 21:30 104/45 L 11/19/24 21:30 104/45 L 11/19/24 21:03 37.9 C H 100 H 19 92 11/19/24 21:00 117/47 L 11/19/24 21:00 117/47 L 11/19/24 20:51 37.9 C H 100 H 24 92 11/19/24 20:00 37.8 C H 94 H 21 93 11/19/24 20:00 Mechanical Vent 30 Coding Level of Care Code 45010 SUB INP/OBS CARE 2MIN Diagnoses Encephalopathy acute G93.40
[2024-11-20] MEDS: VANCOMYCIN LEVEL ONE (09:28)
--- NOTE | 2024-11-20 10:19 | Electrocardiogram Report ---
Test Reason : Blood Pressure : */* mmHG Vent. Rate : 88 BPM Atrial Rate : 88 BPM P-R Int : 268 ms QRS Dur : 146 ms QT Int : 398 ms P-R-T Axes : 45 77 18 degrees QTcB Int : 481 ms Sinus rhythm with 1st degree A-V block Non-specific intra-ventricular conduction block Abnormal ECG No previous ECGs available Confirmed by Sunny Nobles ([id number]) on 11/20/2024 10:19:00 AM Referred By: Dennis Lorenzo Confirmed By: Sunny Nobles
--- NOTE | 2024-11-20 11:23 | Advance Care Plan Prog Note ---
Advanced Care Planning Note Date of Discussion November 20, 2024 ACP Discussion Diagnoses requiring ACP discussion: [*] A [id number] discussion with the [*] regarding the patient's advanced care planning took place during this hospitalization on the above date. The discussion included the explanation and discussion of advance directives and associated forms/documents, as well as the patient's current code status. We also discussed at length the patient's medical conditions (both acute and chronic), general prognosis, treatment options, and goals of care. The following summarizes the discussion: [*] Status Resuscitation Status Full Code Total Time I spent a total of [*] minutes was spent on this discussion, including counseling, answering questions, and completing, if any, pertinent advanced care planning forms/documents.
--- NOTE | 2024-11-20 13:16 | Pharmacy Report ---
Pharmacy PK ABX Note - Date of Service November 20, 2024 - Assessment and Plan Assessment 11/20 * Day 3 of antibiotics, Vancomycin/zosyn. * Bronch growing normal nando. Urine culture no growth. Blood cultures negative at 48 hours. Remains ventilated, possible need for trach. * Random vancomycin level this morning suggests therapeutic dosing, will continue current dose. no additional level unless significant change in renal function or change in duration of therapy * Plan to complete 5 days of antibiotics. 11/18 * 79 year old F receiving pip/tazo and vancomycin for treatment of HAP/VAP. Admitted earlier for right hemicolectomy due to recent diagnosis of adenocarcinoma of the cecum. * PMH: NSCLC s/p RLL lobectomy, O2 dependent COPD, pacemaker * Pertinent microbiologic data includes: blood cultures, bronch, and urine cultures pending * SCr at/near baseline Plan Vancomycin * Loading dose: 1750 mg IV x 1 * Maintenance dose: 1500 mg IV every 24 hours * Random level 11.9 mcg/mL, continue current dosing * Regimen is predicted to achieve target AUC/ISSA of 400-600 mg/L.hr * No further levels unless change in duration/renal function Pharmacy will continue to follow and will adjust dose/frequency as necessary. Thank you. Pharmacy has transitioned to AUC monitoring for vancomycin. AUC/ISSA is the preferred PK/PD target and is associated with decreased risk of nephrotoxicity compared to traditional trough targets.
[2024-11-20 19:18] LABS: Magnesium 2.1 mg/dl (1.7-2.4); Phosphorus 3.3 mg/dl (2.5-4.9); Potassium 3.6 mmol/L (3.5-5.1)
[2024-11-20] MEDS ORDERED: APIXABAN 2.5 MG TAB PO SCH (21:00)
[2024-11-21 05:18] LABS: Basophils # (auto) 0.02 K/uL (0.00-0.20); Basophils % (auto) 0.3 %; Eosinophils # (auto) 0.17 K/uL (0.00-0.50); Eosinophils % (auto) 2.5 %; Hematocrit (blood only) 22.1 % (37.0-47.0); Hemoglobin 7.2 g/dl (12.0-16.0); Immature Granulocytes # (auto) 0.05 K/uL (0.01-0.20); Immature Granulocytes % (auto) 0.7 %; Lymphocytes # (auto) 0.46 K/uL (1.20-3.40); Lymphocytes % (auto) 6.7 %; Mean Corpuscular Hemoglobin 29.1 pg (25.0-34.0); Mean Corpuscular Hgb Conc 32.6 g/dL (32.0-36.0); Mean Corpuscular Volume 89.5 fL (80.0-100.0); Mean Platelet Volume 10.3 fL (9.4-12.4); Monocytes % (auto) 5.8 %; Neutrophils # (auto) 5.77 K/uL (1.40-6.50); Platelet Count 251 K/uL (130-400); RDW Coefficient of Variation 14.4 % (11.5-14.5); RDW Standard Deviation 47.2 fL (36.4-46.3); Red Blood Count 2.47 M/uL (4.20-5.40); White Blood Count 6.87 K/ul (4.8-10.8)
[2024-11-21 05:28] LABS: Calcium 7.6 mg/dl (8.6-10.3); Creatinine Clr Calc Pharmacy 48.7 ml/min; Phosphorus 3.4 mg/dl (2.5-4.9)
[2024-11-21 05:38] LABS: Acanthocytes 1+; Ovalocytes 1+; Polychromasia 1+
[2024-11-21] MEDS: MAGNESIUM SULFATE / D5W 1 GM/100 ML BAG IV SCH (06:04)
--- NOTE | 2024-11-21 07:39 | XRay Report ---
EXAM: XR chest 1V portable CLINICAL HISTORY: Respiratory failure. TECHNIQUE: An X-ray image of the chest is obtained in AP projection. COMPARISON: study dated 11/20/2024 FINDINGS: ET tube seen about 3.2 cm from cthe peggy NG tube reaching left infradiaphragmatic region ICD device seen Multiple wires and tubes seen crossing chest Sternotomy sutures Pulmonary Parenchyma: Bilateral perihilar haziness, right upper lung zone ill-defined opacities and prominent bronchovascular markings, possibly due to pulmonary congestion Blunting both costophrenic angles suggest pleural effusion Elevated right hemidiaphragm Heart and Mediastinum: Apparent cardiomegaly Bony Thorax: Bony thorax appears intact without fractures or deformities. Soft Tissues: Soft tissues overlying the chest wall are unremarkable. IMPRESSION: 1. ET tube seen about 3.2cm from edwar 2. NG tube reaching left infradiaphragmatic region 3. ICD device seen 4. Still seen features of pulmonary congestion and bilateral pleural effusion 5. Elevated right hemidiaphragm 6. No interval changes Electronically signed by Dillan Latham 11-21-2024 07:38 AM
--- NOTE | 2024-11-21 07:40 | Surgery Progress Note ---
Date of Service November 21, 2024 Assessment & Plan (1) H/O right hemicolectomy: Plan: Bowel function returning. Will discuss with primary team regarding starting feeds via the NG tube. Admission and Anticipated Discharge Date Admission Date: November 14, 2024 Subjective Patient seen. She is still sedated on the vent. Currently had a bowel movement overnight. Physical Exam Physical Exam: Sedated on vent Abdomen is soft. Nondistended. Incision looks good Results & Data Vital Signs (Past 12 Hours) Vital Signs Temp Pulse Pulse Resp BP Pulse Ox O2 Del Method 11/21/24 06:00 37.2 C 86 18 118/45 L 96 11/21/24 05:00 37.3 C 84 18 103/39 L 96 11/21/24 04:03 37.4 C 87 18 97 11/21/24 04:00 105/41 L 11/21/24 04:00 11/21/24 03:45 86 20 95 11/21/24 03:00 37.4 C 89 18 116/46 L 94 11/21/24 02:00 37.4 C 97 H 18 116/48 L 97 11/21/24 01:31 83 19 97 Mechanical Vent 11/21/24 01:00 104/40 L 11/21/24 01:00 37.4 C 83 18 98 11/21/24 00:42 37.4 C 84 18 99 11/21/24 00:42 103/45 L 11/21/24 00:14 105/39 L 11/21/24 00:12 37.5 C 81 18 97 11/21/24 00:03 37.4 C 82 18 98 11/21/24 00:00 87 11/21/24 00:00 11/20/24 23:25 84 21 95 11/20/24 23:03 37.5 C 88 21 97 11/20/24 23:01 113/48 L 11/20/24 22:09 37.6 C H 88 14 97 11/20/24 22:00 105/44 L 11/20/24 21:38 88 22 98 11/20/24 21:09 37.6 C H 95 H 19 97 11/20/24 21:00 110/46 L 11/20/24 20:00 11/20/24 19:45 Mechanical Vent FiO2 11/21/24 06:00 30 11/21/24 05:00 30 11/21/24 04:03 30 11/21/24 04:00 11/21/24 04:00 30 11/21/24 03:45 30 11/21/24 03:00 30 11/21/24 02:00 30 11/21/24 01:31 30 11/21/24 01:00 11/21/24 01:00 30 11/21/24 00:42 30 11/21/24 00:42 11/21/24 00:14 11/21/24 00:12 30 11/21/24 00:03 30 11/21/24 00:00 11/21/24 00:00 30 11/20/24 23:25 30 11/20/24 23:03 30 11/20/24 23:01 11/20/24 22:09 30 11/20/24 22:00 11/20/24 21:38 30 11/20/24 21:09 30 11/20/24 21:00 11/20/24 20:00 30 11/20/24 19:45 PG Care Time/CCT Total # of Minutes Spent Total Time Spent with Patient: Total time spent is greater than 50% in coordination of care (as documented) at patient's floor/unit and/or counseling patient: Coding Level of Care Code 08776 Post Operative Follow-Up Diagnoses H/O right hemicolectomy Z90.49
[2024-11-21 07:41] LABS: Cdiff Toxin B Gene (2yr or >) Positive Cdiff Gene (Neg)
[2024-11-21] MEDS: APIXABAN 2.5 MG TAB PO SCH (07:46)
--- NOTE | 2024-11-21 07:47 | XRay Report ---
EXAM: XR KUB/Abdomen 1 view CLINICAL HISTORY: Ileus/small bowel obstruction. TECHNIQUE: X-ray images of the abdomen were obtained in supine position. COMPARISON: CT study dated 09/27/2023. FINDINGS: Gas Pattern: Gas pattern within the abdomen is normal. No evidence of bowel obstruction or distention. NG tube seen with tip in place Soft Tissues: Midline surgical sutures are seen. Surgical clips in the gall bladder fossa Sternotomy sutures noted Soft tissues of the abdomen appear normal without evidence of masses or calcifications. Liver, spleen, and kidneys are of normal size and position. Bilateral hip joint degenerative changes with sclerosis in femoral head (rightleft). IMPRESSION: 1. No acute abnormalities identified. 2. No interval changes. 3. Bilateral hip joint degenerative changes with sclerosis in femoral head (rightleft). Electronically signed by Dillan Latham 11-21-2024 07:46 AM
[2024-11-21 08:15] LABS: Cdiff Antigen Negative; Cdiff Toxin A+B Negative Cdiff Toxin (Negative)
--- NOTE | 2024-11-21 09:11 | Critical Care Progress Note ---
Date of Service November 21, 2024 Assessment & Plan (1) Encephalopathy acute: Plan: Reason Critically Ill: 79-year-old female with metastatic colon cancer status post hemicolectomy brought to ICU with mental status changes. Prior history of adenocarcinoma of the lung status post resection, ALK positive 24-hour events: SBT this morning improved with borderline RSBI at 105. Patient extubated to BiPAP. Doing reasonably well clinically. PLAN: Neuro: Sedation off. Pain reasonably well-controlled. Resp: Extubated to BiPAP. Will see how she responds. Will try and wean off BiPAP as tolerated. [place] pulmonary toilet including incentive spirometry and flutter valve. Out of bed to chair as tolerated. CV: History of coronary disease with associated hypertension. Hemodynamically stable. Continue metoprolol as tolerated. Heart rate controlled Fluids/Renal: CO2 has improved since being on ventilator. Currently maintaining adequate oxygenation goals. Initiate ICU electrolyte replacement protocol ID: Healthcare associated pneumonia. Day #4/5 Zosyn and vancomycin. Cultures without growth currently. GI/Nutrition: Okay to start tube feeds. Speech therapy evaluation in a.m. and advance diet as tolerated. Will defer NG tube management to surgery long-term but would keep for today Heme: Mild anemia. No indication for transfusion currently. History of DVT on Eliquis in the outpatient setting. Back on home Eliquis dose Endocrine: Glycemic protocol. Continue Synthroid Goals of care: Patient was not interested in tracheostomy yesterday. Hopefully we can avoid reintubation but if she gets reintubated, will definitely need to discuss long-term options. Will need aggressive physical therapy and Occupational Therapy. Vascular access: Peripheral IV Code Status: Full code Total time for todays visit is 50 minutes which includes reviewing records, the face to face visit, as well as time to record documentation and coordination of care with other specialists and providers. Admission and Anticipated Discharge Date Admission Date: November 14, 2024 Subjective Patient seen and examined. EMR reviewed. Discussed with bedside critical care nurse, overnight critical care TIM, and on multidisciplinary rounds. Patient completed SBT this morning. Results were somewhat reassuring. She had extensive discussions with family members and with the overnight critical care TIM indicating she did not want to pursue tracheostomy. She was extubated to BiPAP and is doing reasonably well currently. Pain is reasonably well- controlled. She did have bowel movement overnight. Abdominal pain controlled Review of Systems Review of Systems: All systems reviewed & are unremarkable except as noted in Subjective Physical Exam Constitutional: + frail appearing; no acute distress and not in distress Neck: trachea midline, no thyromegaly Respiratory: Auscultation: + diminished lung sounds; no wheezes Cardiovascular: RRR, no murmur, no edema Gastrointestinal (Abdomen): normal bowel sounds, soft, nontender, no hepatosplenomegaly Musculoskeletal: Extremities: extremities normal to inspection Skin: no rashes, warm and dry Lymphatic: no cervical lymphadenopathy Results & Data Results & Data Vital Signs (Past 12 Hours) Vital Signs Temp Pulse Pulse Resp BP Pulse Ox O2 Del Method 11/21/24 08:15 37.3 C 92 H 24 91 Mechanical Vent 11/21/24 08:09 123/45 L 11/21/24 08:09 123/45 L 11/21/24 08:00 103/40 L 11/21/24 08:00 Mechanical Vent 11/21/24 08:00 11/21/24 07:57 37.3 C 88 18 92 11/21/24 07:13 83 18 94 11/21/24 07:03 37.2 C 82 18 96 11/21/24 07:00 132/49 L 11/21/24 06:00 37.2 C 86 18 118/45 L 96 11/21/24 05:00 37.3 C 84 18 103/39 L 96 11/21/24 04:03 37.4 C 87 18 97 11/21/24 04:00 105/41 L 11/21/24 04:00 11/21/24 03:45 86 20 95 11/21/24 03:00 37.4 C 89 18 116/46 L 94 11/21/24 02:00 37.4 C 97 H 18 116/48 L 97 11/21/24 01:31 83 19 97 Mechanical Vent 11/21/24 01:00 104/40 L 11/21/24 01:00 37.4 C 83 18 98 11/21/24 00:42 37.4 C 84 18 99 11/21/24 00:42 103/45 L 11/21/24 00:14 105/39 L 11/21/24 00:12 37.5 C 81 18 97 11/21/24 00:03 37.4 C 82 18 98 11/21/24 00:00 87 11/21/24 00:00 04/22/25 23:25 84 21 95 11/20/24 23:03 37.5 C 88 21 97 11/20/24 23:01 113/48 L 11/20/24 22:09 37.6 C H 88 14 97 11/20/24 22:00 105/44 L 11/20/24 21:38 88 22 98 FiO2 11/21/24 08:15 0.3 11/21/24 08:09 11/21/24 08:09 11/21/24 08:00 11/21/24 08:00 0.3 11/21/24 08:00 30 11/21/24 07:57 11/21/24 07:13 30 11/21/24 07:03 11/21/24 07:00 11/21/24 06:00 30 11/21/24 05:00 30 11/21/24 04:03 30 11/21/24 04:00 11/21/24 04:00 30 11/21/24 03:45 30 11/21/24 03:00 30 11/21/24 02:00 30 11/21/24 01:31 30 11/21/24 01:00 11/21/24 01:00 30 11/21/24 00:42 30 11/21/24 00:42 11/21/24 00:14 11/21/24 00:12 30 11/21/24 00:03 30 11/21/24 00:00 11/21/24 00:00 30 11/20/24 23:25 30 11/20/24 23:03 30 11/20/24 23:01 11/20/24 22:09 30 11/20/24 22:00 11/20/24 21:38 30 Critical Care Results & Data Vital Signs (Past 12 Hours) Vital Signs Temp Pulse Pulse Resp BP Pulse Ox O2 Del Method 11/21/24 08:15 37.3 C 92 H 24 91 Mechanical Vent 11/21/24 08:09 123/45 L 11/21/24 08:09 123/45 L 11/21/24 08:00 103/40 L 11/21/24 08:00 Mechanical Vent 11/21/24 08:00 11/21/24 07:57 37.3 C 88 18 92 11/21/24 07:13 83 18 94 11/21/24 07:03 37.2 C 82 18 96 11/21/24 07:00 132/49 L 11/21/24 06:00 37.2 C 86 18 118/45 L 96 11/21/24 05:00 37.3 C 84 18 103/39 L 96 11/21/24 04:03 37.4 C 87 18 97 11/21/24 04:00 105/41 L 11/21/24 04:00 11/21/24 03:45 86 20 95 11/21/24 03:00 37.4 C 89 18 116/46 L 94 11/21/24 02:00 37.4 C 97 H 18 116/48 L 97 11/21/24 01:31 83 19 97 Mechanical Vent 11/21/24 01:00 104/40 L 11/21/24 01:00 37.4 C 83 18 98 11/21/24 00:42 37.4 C 84 18 99 11/21/24 00:42 103/45 L 11/21/24 00:14 105/39 L 11/21/24 00:12 37.5 C 81 18 97 11/21/24 00:03 37.4 C 82 18 98 11/21/24 00:00 87 11/21/24 00:00 11/20/24 23:25 84 21 95 11/20/24 23:03 37.5 C 88 21 97 11/20/24 23:01 113/48 L 11/20/24 22:09 37.6 C H 88 14 97 11/20/24 22:00 105/44 L 11/20/24 21:38 88 22 98 FiO2 11/21/24 08:15 0.3 11/21/24 08:09 11/21/24 08:09 11/21/24 08:00 11/21/24 08:00 0.3 11/21/24 08:00 30 11/21/24 07:57 11/21/24 07:13 30 11/21/24 07:03 11/21/24 07:00 11/21/24 06:00 30 11/21/24 05:00 30 11/21/24 04:03 30 11/21/24 04:00 11/21/24 04:00 30 11/21/24 03:45 30 11/21/24 03:00 30 11/21/24 02:00 30 11/21/24 01:31 30 11/21/24 01:00 11/21/24 01:00 30 11/21/24 00:42 30 11/21/24 00:42 11/21/24 00:14 11/21/24 00:12 30 11/21/24 00:03 30 11/21/24 00:00 11/21/24 00:00 30 11/20/24 23:25 30 11/20/24 23:03 30 11/20/24 23:01 11/20/24 22:09 30 11/20/24 22:00 11/20/24 21:38 30 Lab & Micro Results (Past 24 Hours) RBC 2.47 M/uL (4.20-5.40) L 11/21/24 WBC 6.87 K/ul (4.8-10.8) 11/21/24 Hgb 7.2 g/dl (12.0-16.0) L 11/21/24 Hct 22.1 % (37.0-47.0) L 11/21/24 MCV 89.5 fL (80.0-100.0) 11/21/24 MCH 29.1 pg (25.0-34.0) 11/21/24 MCHC 32.6 g/dL (32.0-36.0) 11/21/24 RDW Standard Deviation 47.2 fL (36.4-46.3) H 11/21/24 RDW Coefficient of Variation 14.4 % (11.5-14.5) 11/21/24 Plt Count 251 K/uL (130-400) 11/21/24 MPV 10.3 fL (9.4-12.4) 11/21/24 Neutrophils (%) (Auto) 84.0 % 11/21/24 Lymphocytes (%) (Auto) 6.7 % 11/21/24 Monocytes # (Auto) 0.40 K/uL (0.11-0.59) 11/21/24 Eosinophils # (Auto) 0.17 K/uL (0.00-0.50) 11/21/24 Immature Granulocyte % (Auto) 0.7 % 11/21/24 Neutrophils # (Auto) 5.77 K/uL (1.40-6.50) 11/21/24 Lymphocytes # (Auto) 0.46 K/uL (1.20-3.40) L 11/21/24 Monocytes # (Auto) 0.40 K/uL (0.11-0.59) 11/21/24 Eosinophils # (Auto) 0.17 K/uL (0.00-0.50) 11/21/24 Basophils # (Auto) 0.02 K/uL (0.00-0.20) 11/21/24 Immature Granulocyte # (Auto) 0.05 K/uL (0.01-0.20) 5 Polychromasia 1+ 11/21/24 Ovalocytes 1+ 11/21/24 Acanthocytes 1+ 11/21/24 Na 137 mmol/L (136-145) 11/21/24 K 4.0 mmol/L (3.5-5.1) 11/21/24 Cl 98 mmol/L (98-107) 11/21/24 CO2 30 mmol/L (21-32) 11/21/24 Anion Gap 9 (3-11) 11/21/24 BUN 16 mg/dl (6-23) 11/21/24 Creatinine 0.94 mg/dl (0.6-1.2) 11/21/24 BUN/Creatinine Ratio 17.0 (10-20) 11/21/24 Glu 116 mg/dl (70-99(Fasting)) H 11/21/24 Ca 7.6 mg/dl (8.6-10.3) L 11/21/24 Phosphorus Level 3.4 mg/dl (2.5-4.9) 11/21/24 Mg 2.0 mg/dl (1.7-2.4) 11/21/24 04:50 Calcium Level 7.6 mg/dl (8.6-10.3) L 11/21/24 04:50 Microbiology 11/18/24 07:50 Gram Stain - Final Bronch [place], Right Main Stem Bronchial Culture - Final Heavy normal nando. 11/18/24 08:10 Urine Culture - Final Urine,Indwelling Cath No growth - less than 1,000 colonies/mL. Diagnostic Findings (Past 24 Hours) Chest X-Ray 11/21/24 07:00 EXAM: XR chest 1V portable CLINICAL HISTORY: Respiratory failure. TECHNIQUE: An X-ray image of the chest is obtained in AP projection. COMPARISON: study dated 11/20/2024 FINDINGS: ET tube seen about 3.2 cm from cthe peggy NG tube reaching left infradiaphragmatic region ICD device seen Multiple wires and tubes seen crossing chest Sternotomy sutures Pulmonary Parenchyma: Bilateral perihilar haziness, right upper lung zone ill-defined opacities and prominent bronchovascular markings, possibly due to pulmonary congestion Blunting both costophrenic angles suggest pleural effusion Elevated right hemidiaphragm Heart and Mediastinum: Apparent cardiomegaly Bony Thorax: Bony thorax appears intact without fractures or deformities. Soft Tissues: Soft tissues overlying the chest wall are unremarkable. IMPRESSION: 1. ET tube seen about 3.2cm from edwar 2. NG tube reaching left infradiaphragmatic region 3. ICD device seen 4. Still seen features of pulmonary congestion and bilateral pleural effusion 5. Elevated right hemidiaphragm 6. No interval changes Electronically signed by Dillan Latham 11-21-2024 07:38 AM KUB X-Ray 11/21/24 07:00 EXAM: XR KUB/Abdomen 1 view CLINICAL HISTORY: Ileus/small bowel obstruction. TECHNIQUE: X-ray images of the abdomen were obtained in supine position. COMPARISON: CT study dated 09/27/2023. FINDINGS: Gas Pattern: Gas pattern within the abdomen is normal. No evidence of bowel obstruction or distention. NG tube seen with tip in place Soft Tissues: Midline surgical sutures are seen. Surgical clips in the gall bladder fossa Sternotomy sutures noted Soft tissues of the abdomen appear normal without evidence of masses or calcifications. Liver, spleen, and kidneys are of normal size and position. Bilateral hip joint degenerative changes with sclerosis in femoral head (rightleft). IMPRESSION: 1. No acute abnormalities identified. 2. No interval changes. 3. Bilateral hip joint degenerative changes with sclerosis in femoral head (rightleft). Electronically signed by Dillan Latham 11-21-2024 07:46 AM I & O Totals 24 Hours 11/20/24 11/21/24 11/22/24 06:59 06:59 06:59 Intake Total 1112.880 / 1640.063 1539.557 / 202.557 110.437 / 110.437 Output Total 563 / 563 3069 / 3069 Balance 549.880 / 549.880 -1041.443 / -1041.443 110.437 / 110.437 Cumulative 11/07/24 16:54 thru 11/21/24 08:10 Intake Total 60962.257 Output Total 8527 Balance 6990.257 RT Ventilator Mngmt (Last Documented) Ventilator Ordered Settings Ventilator Support Mode Assist Control 11/21/24 08:00 Respiratory Rate 24 11/21/24 08:15 Ventilator Tidal Volume 370 11/21/24 08:00 Setting Minute Ventilation 6.4 11/21/24 07:13 Ventilator Positive Pressure 10 11/17/24 08:00 Support Setting Positive End Expiratory 5 11/21/24 08:00 Pressure Fraction of Inspired Oxygen 0.3 11/21/24 08:15 Peak Inspiratory Flow 33 11/21/24 07:13 Machine Comment found pt on these settings, 11/17/24 07:[address] Henderson Ventilator - PT Measurements Respiratory Rate 24 Exhaled Tidal Volume 369 Minute Ventilation 6.4 Peak Inspiratory Airway 21 Pressure Plateau Pressure 16.8 Respiratory Cycle Inspiratory: 1:2.7 Expiratory Ratio Inspiratory Phase Time 0.90 End-Tidal CO2 38 Static Lung Compliance 31.27 Dynamic Lung Compliance 23.06 Normal Static Lung Compliance 46.00 Patient Measurements Comment pt bronched by Dr. Rea at bedside in ICU Coding Level of Care Code 70626 SUB INP/OBS CARE 3/50MIN Diagnoses Encephalopathy acute G93.40
[2024-11-21] MEDS: FUROSEMIDE INJ 20 MG/2 ML VIAL IV ONE (10:42)
[2024-11-21] MEDS ORDERED: DEXAMETHASONE SOD INJ 4 MG/ML VIAL IV STA (10:58)
[2024-11-21] MEDS: RACEPINEPHRINE 2.25% NEBU SOLN 0.5 ML VIAL ONE (11:06)
[2024-11-21] MEDS: RACEPINEPHRINE 2.25% NEBU SOLN 0.5 ML VIAL NEB STA (11:06)
[2024-11-21] MEDS: TUBE FEEDING WATER FLUSH NG SCH (11:17)
[2024-11-21] MEDS: dexAMETHasone 10 MG in SYRINGE 0 ML IV STA (11:20)
[2024-11-21] MEDS: PEPTAMEN INTENSE VHP 1.0 CAL 1,000 ML BAG OG SCH (14:55)
[2024-11-22] MEDS: ICU Protocol for HYPERglycemia SCH (00:18)
[2024-11-22 05:15] LABS: Basophils # (auto) 0.01 K/uL (0.00-0.20); Basophils % (auto) 0.1 %; Hematocrit (blood only) 24.4 % (37.0-47.0); Hemoglobin 7.8 g/dl (12.0-16.0); Immature Granulocytes # (auto) 0.15 K/uL (0.01-0.20); Immature Granulocytes % (auto) 2.1 %; Lymphocytes # (auto) 0.46 K/uL (1.20-3.40); Lymphocytes % (auto) 6.4 %; Mean Corpuscular Hemoglobin 28.8 pg (25.0-34.0); Mean Platelet Volume 10.3 fL (9.4-12.4); Monocytes # (auto) 0.59 K/uL (0.11-0.59); Monocytes % (auto) 8.2 %; Neutrophils # (auto) 5.95 K/uL (1.40-6.50); Neutrophils % (auto) 83.2 %; Platelet Count 328 K/uL (130-400); RDW Coefficient of Variation 14.2 % (11.5-14.5); RDW Standard Deviation 45.6 fL (36.4-46.3); Red Blood Count 2.71 M/uL (4.20-5.40); White Blood Count 7.16 K/ul (4.8-10.8)
[2024-11-22 05:28] LABS: BUN Creatinine Ratio 24.1 (10-20); Calcium 8.1 mg/dl (8.6-10.3); Creatinine Clr Calc Pharmacy 57.9 ml/min; Magnesium 1.9 mg/dl (1.7-2.4); Phosphorus 3.6 mg/dl (2.5-4.9)
--- NOTE | 2024-11-22 05:42 | XRay Report ---
EXAM: XR chest 1V portable CLINICAL HISTORY: Increased work of breathing. TECHNIQUE: X-ray image of the chest obtained in frontal AP projection. COMPARISON: Prior X-ray dated 11/21/2024 for comparison. FINDINGS: Interval removal of ETT. NG tube in situ. Left side dual wire cardiac pacemaker. Pulmonary Parenchyma: Interval development of faint opacities in the right lung. Unchanged prominent bilateral parahilar markings. Suggested mild pleural effusion, mainly on the right side. Heart and Mediastinum: Cardiomegaly. No mediastinal widening or masses. No hilar or mediastinal lymphadenopathy. Bony Thorax: Sternotomy sutures. Bony thorax appears intact without fractures or deformities. Soft Tissues: Elevated right hemidiaphragm. Soft tissues overlying the chest wall are unremarkable. Surgical mavis in the right hypochondrium. IMPRESSION: 1. Interval removal of ETT. 2. NG tube in situ. 3. Left side dual wire cardiac pacemaker. 4. Interval development of faint opacities in the right lung. It could be inflammatory or pulmonary edema. Clinical correlation needed. 5. Unchanged prominent bilateral parahilar markings are likely congestion. 6. Cardiomegaly. 7. Elevated right hemidiaphragm. Electronically signed by Dillan Latham 11-22-2024 05:42 AM
[2024-11-22] MEDS: MAGNESIUM SULFATE / D5W 1 GM/100 ML BAG IV SCH (06:06)
[2024-11-22] MEDS: FUROSEMIDE INJ 20 MG/2 ML VIAL IV ONE (06:06)
[2024-11-22 06:18] LABS: Acanthocytes 1+; Ovalocytes 1+
[2024-11-22] MEDS: MULTI VIT W/MINERALS LIQUID 15 ML UDC NG SCH (07:57)
--- NOTE | 2024-11-22 09:06 | Critical Care Progress Note ---
Date of Service November 22, 2024 Assessment & Plan (1) Encephalopathy acute: Plan: Reason Critically Ill: 79-year-old female with metastatic colon cancer status post hemicolectomy brought to ICU with mental status changes. Prior history of adenocarcinoma of the lung status post resection, ALK positive 24-hour events: Extubated. Spent some of the day yesterday on BiPAP and then was transitioned to high flow. Mental status improved.. PLAN: Neuro: No current issues. PT and OT evaluations. Out of bed to chair as tolerated. Resp: Remains extubated. Can wean off of high flow oxygen. Pulmonary toilet is going to be an issue with the patient. Reinforced the importance of adherence to incentive spirometry and flutter valve. Will try chest PT and bed. Hopefully she does better getting up out of bed. CV: History of coronary disease with associated hypertension. Hemodynamically stable. Continue metoprolol as tolerated. Heart rate controlled Fluids/Renal: Continue ICU replacement protocol ID: Healthcare associated pneumonia. Completed 5 days Zosyn vancomycin. Cultures without growth currently. Patient is C. difficile gene positive but toxin negative. Carrier status. No antimicrobial coverage required GI/Nutrition: Speech therapy evaluation this morning. Can remove NG tube. Advance diet per speech Heme: Mild anemia. No indication for transfusion currently. History of DVT on Eliquis in the outpatient setting. Back on home Eliquis dose Endocrine: Glycemic protocol. Continue Synthroid Vascular access: Peripheral IV Code Status: Full code Patient's critical care issues have resolved. She can likely transfer to the floor later today. Critical care will sign off Admission and Anticipated Discharge Date Admission Date: November 14, 2024 Subjective Patient seen and examined. Henry reyes. Discussed with bedside critical care nurse and patient at bedside and on multidisciplinary rounds. Patient is doing reasonably well. Pulmonary toilet continues to be an issue. She remains extubated. She used BiPAP for periods of time and then was transition to high flow overnight. She is saturating well. She continues to have rapid shallow breathing with a poorly effective cough. Nevertheless, she appears more comfortable today and is doing reasonably well. Review of Systems Review of Systems: All systems reviewed & are unremarkable except as noted in Subjective Physical Exam Constitutional: + frail appearing; no acute distress and not in distress Neck: trachea midline, no thyromegaly Respiratory: Auscultation: + diminished lung sounds; no wheezes Cardiovascular: RRR, no murmur, no edema Gastrointestinal (Abdomen): normal bowel sounds, soft, nontender, no hepatosplenomegaly Musculoskeletal: Extremities: extremities normal to inspection Skin: no rashes, warm and dry Lymphatic: no cervical lymphadenopathy Results & Data Results & Data Vital Signs (Past 12 Hours) Vital Signs Temp Pulse Pulse Pulse Resp BP Pulse Ox 11/22/24 08:02 36.6 C 11/22/24 08:00 111/46 L 11/22/24 08:00 86 30 H 98 11/22/24 08:00 11/22/24 07:42 86 26 H 99 11/22/24 07:09 87 11/22/24 07:03 37.1 C 86 28 H 97 11/22/24 07:00 125/48 L 11/22/24 06:54 37.1 C 90 24 96 11/22/24 06:30 125/51 L 11/22/24 06:30 125/51 L 11/22/24 06:27 37.1 C 85 25 H 96 11/22/24 06:09 37.2 C 87 31 H 95 11/22/24 06:00 122/51 L 11/22/24 05:54 37.2 C 87 28 H 98 11/22/24 05:09 86 29 H 98 11/22/24 05:00 37.3 C 90 32 H 119/53 L 97 11/22/24 04:06 37.3 C 88 30 H 122/49 L 97 11/22/24 03:05 86 33 H 98 11/22/24 03:03 37.3 C 89 30 H 122/53 L 97 11/22/24 02:20 86 33 H 98 11/22/24 02:00 37.3 C 86 32 H 121/50 L 98 11/22/24 01:00 37.4 C 89 30 H 116/53 L 97 11/22/24 00:06 37.4 C 87 30 H 124/59 L 97 11/22/24 00:00 80 11/21/24 23:38 86 34 H 97 11/21/24 23:00 37.5 C 86 34 H 106/49 L 97 11/21/24 22:00 37.5 C 89 33 H 113/50 L 98 11/21/24 21:18 92 H 34 H 95 O2 Del Method O2 Flow Rate FiO2 11/22/24 08:02 11/22/24 08:00 11/22/24 08:00 High Flow Nasal Cannula 25 30 11/22/24 08:00 High Flow Nasal Cannula 25 30 11/22/24 07:42 High Flow Nasal Cannula 30 30 11/22/24 07:09 11/22/24 07:03 11/22/24 07:00 11/22/24 06:54 11/22/24 06:30 11/22/24 06:30 11/22/24 06:27 11/22/24 06:09 11/22/24 06:00 11/22/24 05:54 11/22/24 05:09 High Flow Nasal Cannula 30 30 11/22/24 05:00 High Flow Nasal Cannula 30 30 11/22/24 04:06 BiPAP 30 11/22/24 03:05 30 11/22/24 03:03 BiPAP 30 11/22/24 02:20 BiPAP 30 11/22/24 02:00 BiPAP 30 11/22/24 01:00 BiPAP 30 11/22/24 00:06 BiPAP 30 11/22/24 00:00 11/21/24 23:38 30 11/21/24 23:00 BiPAP 30 11/21/24 22:00 BiPAP 30 11/21/24 21:18 30 Critical Care Results & Data Vital Signs (Past 12 Hours) Vital Signs Temp Pulse Pulse Pulse Resp BP Pulse Ox 11/22/24 08:02 36.6 C 11/22/24 08:00 111/46 L 11/22/24 08:00 86 30 H 98 11/22/24 08:00 11/22/24 07:42 86 26 H 99 11/22/24 07:09 87 11/22/24 07:03 37.1 C 86 28 H 97 11/22/24 07:00 125/48 L 11/22/24 06:54 37.1 C 90 24 96 11/22/24 06:30 125/51 L 11/22/24 06:30 125/51 L 11/22/24 06:27 37.1 C 85 25 H 96 11/22/24 06:09 37.2 C 87 31 H 95 11/22/24 06:00 122/51 L 11/22/24 05:54 37.2 C 87 28 H 98 11/22/24 05:09 86 29 H 98 11/22/24 05:00 37.3 C 90 32 H 119/53 L 97 11/22/24 04:06 37.3 C 88 30 H 122/49 L 97 11/22/24 03:05 86 33 H 98 11/22/24 03:03 37.3 C 89 30 H 122/53 L 97 11/22/24 02:20 86 33 H 98 11/22/24 02:00 37.3 C 86 32 H 121/50 L 98 11/22/24 01:00 37.4 C 89 30 H 116/53 L 97 11/22/24 00:06 37.4 C 87 30 H 124/59 L 97 11/22/24 00:00 80 11/21/24 23:38 86 34 H 97 11/21/24 23:00 37.5 C 86 34 H 106/49 L 97 11/21/24 22:00 37.5 C 89 33 H 113/50 L 98 11/21/24 21:18 92 H 34 H 95 O2 Del Method O2 Flow Rate FiO2 11/22/24 08:02 11/22/24 08:00 11/22/24 08:00 High Flow Nasal Cannula 25 30 11/22/24 08:00 High Flow Nasal Cannula 25 30 11/22/24 07:42 High Flow Nasal Cannula 30 30 11/22/24 07:09 11/22/24 07:03 11/22/24 07:00 11/22/24 06:54 11/22/24 06:30 11/22/24 06:30 11/22/24 06:27 11/22/24 06:09 11/22/24 06:00 11/22/24 05:54 11/22/24 05:09 High Flow Nasal Cannula 30 30 11/22/24 05:00 High Flow Nasal Cannula 30 30 11/22/24 04:06 BiPAP 30 11/22/24 03:05 30 11/22/24 03:03 BiPAP 30 11/22/24 02:20 BiPAP 30 11/22/24 02:00 BiPAP 30 11/22/24 01:00 BiPAP 30 11/22/24 00:06 BiPAP 30 11/22/24 00:00 11/21/24 23:38 30 11/21/24 23:00 BiPAP 30 11/21/24 22:00 BiPAP 30 11/21/24 21:18 30 Lab & Micro Results (Past 24 Hours) RBC 2.71 M/uL (4.20-5.40) L 11/22/24 WBC 7.16 K/ul (4.8-10.8) 11/22/24 Hgb 7.8 g/dl (12.0-16.0) L 11/22/24 Hct 24.4 % (37.0-47.0) L 11/22/24 MCV 90.0 fL (80.0-100.0) 11/22/24 MCH 28.8 pg (25.0-34.0) 11/22/24 MCHC 32.0 g/dL (32.0-36.0) 11/22/24 RDW Standard Deviation 45.6 fL (36.4-46.3) 11/22/24 RDW Coefficient of Variation 14.2 % (11.5-14.5) 11/22/24 Plt Count 328 K/uL (130-400) 11/22/24 MPV 10.3 fL (9.4-12.4) 11/22/24 Neutrophils (%) (Auto) 83.2 % 11/22/24 Lymphocytes (%) (Auto) 6.4 % 11/22/24 Monocytes # (Auto) 0.59 K/uL (0.11-0.59) 11/22/24 Eosinophils # (Auto) 0.00 K/uL (0.00-0.50) 11/22/24 Immature Granulocyte % (Auto) 2.1 % 11/22/24 Neutrophils # (Auto) 5.95 K/uL (1.40-6.50) 11/22/24 Lymphocytes # (Auto) 0.46 K/uL (1.20-3.40) L 11/22/24 Monocytes # (Auto) 0.59 K/uL (0.11-0.59) 11/22/24 Eosinophils # (Auto) 0.00 K/uL (0.00-0.50) 11/22/24 Basophils # (Auto) 0.01 K/uL (0.00-0.20) 11/22/24 Immature Granulocyte # (Auto) 0.15 K/uL (0.01-0.20) 5 Ovalocytes 1+ 11/22/24 Acanthocytes 1+ 11/22/24 Na 139 mmol/L (136-145) 11/22/24 K 4.0 mmol/L (3.5-5.1) 11/22/24 Cl 98 mmol/L (98-107) 11/22/24 CO2 34 mmol/L (21-32) H 11/22/24 Anion Gap 7 (3-11) 11/22/24 BUN 19 mg/dl (6-23) 11/22/24 Creatinine 0.79 mg/dl (0.6-1.2) 11/22/24 BUN/Creatinine Ratio 24.1 (10-20) H 11/22/24 Glu 131 mg/dl (70-99(Fasting)) H 11/22/24 Ca 8.1 mg/dl (8.6-10.3) L 11/22/24 Phosphorus Level 3.6 mg/dl (2.5-4.9) 11/22/24 Mg 1.9 mg/dl (1.7-2.4) 11/22/24 04:47 Calcium Level 8.1 mg/dl (8.6-10.3) L 11/22/24 04:47 Diagnostic Findings (Past 24 Hours) Chest X-Ray 11/22/24 04:31 EXAM: XR chest 1V portable CLINICAL HISTORY: Increased work of breathing. TECHNIQUE: X-ray image of the chest obtained in frontal AP projection. COMPARISON: Prior X-ray dated 11/21/2024 for comparison. FINDINGS: Interval removal of ETT. NG tube in situ. Left side dual wire cardiac pacemaker. Pulmonary Parenchyma: Interval development of faint opacities in the right lung. Unchanged prominent bilateral parahilar markings. Suggested mild pleural effusion, mainly on the right side. Heart and Mediastinum: Cardiomegaly. No mediastinal widening or masses. No hilar or mediastinal lymphadenopathy. Bony Thorax: Sternotomy sutures. Bony thorax appears intact without fractures or deformities. Soft Tissues: Elevated right hemidiaphragm. Soft tissues overlying the chest wall are unremarkable. Surgical mavis in the right hypochondrium. IMPRESSION: 1. Interval removal of ETT. 2. NG tube in situ. 3. Left side dual wire cardiac pacemaker. 4. Interval development of faint opacities in the right lung. It could be inflammatory or pulmonary edema. Clinical correlation needed. 5. Unchanged prominent bilateral parahilar markings are likely congestion. 6. Cardiomegaly. 7. Elevated right hemidiaphragm. Electronically signed by Dillan Latham 11-22-2024 05:42 AM I & O Totals 24 Hours 11/21/24 11/22/24 11/23/24 06:59 06:59 06:59 Intake Total 2026.557 / 2027.557 1560.437 / 1560.437 93.333 / 93.333 Output Total 3069 / 3069 1891 / 1891 800 / 800 Balance -1041.443 / -1041.443 -330.563 / -330.563 -706.667 / -706.667 Cumulative 11/07/24 16:54 thru 11/22/24 08:02 Intake Total 30065.590 Output Total 24232 Balance 5842.590 RT Ventilator Mngmt (Last Documented) Ventilator Ordered Settings Ventilator Support Mode Assist Control 11/21/24 08:00 Respiratory Rate 30 11/22/24 08:00 Ventilator Tidal Volume 370 11/21/24 08:00 Setting Minute Ventilation 6.4 11/21/24 07:13 Ventilator Positive Pressure 10 11/17/24 08:00 Support Setting Positive End Expiratory 5 11/21/24 08:00 Pressure Fraction of Inspired Oxygen 30 11/22/24 08:00 Peak Inspiratory Flow 33 11/21/24 07:13 Machine Comment found pt on these settings, 11/17/24 07:[address] Henderson Ventilator - PT Measurements Respiratory Rate 30 Exhaled Tidal Volume 369 Minute Ventilation 6.4 Peak Inspiratory Airway 21 Pressure Plateau Pressure 16.8 Respiratory Cycle Inspiratory: 1:2.7 Expiratory Ratio Inspiratory Phase Time 0.90 End-Tidal CO2 38 Static Lung Compliance 31.27 Dynamic Lung Compliance 23.06 Normal Static Lung Compliance 46.00 Patient Measurements Comment pt bronched by Dr. Rea at bedside in ICU Coding Level of Care Code 92467 SUB INP/OBS CARE 3/50MIN Diagnoses Encephalopathy acute G93.40
--- NOTE | 2024-11-22 09:29 | Surgery Progress Note ---
Date of Service November 22, 2024 Assessment & Plan (1) Adenocarcinoma of colon: Plan: Doing okay from a GI standpoint. We are going to remove the NG tube and initiate a diet after being seen by speech and swallowing team. Discussed with Dr. Rea. We are going to initiate some physical therapy and start the transition for transfer out of the ICU likely tomorrow. I did discuss with her her pathology report which had negative margins as well as negative nodes. Will continue to follow along closely. Admission and Anticipated Discharge Date Admission Date: November 14, 2024 Subjective Patient seen. She has been extubated since yesterday and holding her own. She does appear rather weak and tired. She is currently denying any abdominal pain Physical Exam Physical Exam: Appears fatigued. Completely oriented. Abdomen is soft nontender. Her incision is healing nicely with no drainage or sign of infection Results & Data Vital Signs (Past 12 Hours) Vital Signs Temp Pulse Pulse Pulse Resp BP Pulse Ox 11/22/24 09:02 86 24 97 11/22/24 09:01 112/44 L 11/22/24 08:53 84 28 H 95 11/22/24 08:30 117/47 L 11/22/24 08:23 85 27 H 96 11/22/24 08:04 116/55 L 11/22/24 08:02 36.6 C 11/22/24 08:00 111/46 L 11/22/24 08:00 86 30 H 98 11/22/24 08:00 11/22/24 07:42 86 26 H 99 11/22/24 07:09 87 11/22/24 07:03 37.1 C 86 28 H 97 11/22/24 07:00 125/48 L 11/22/24 06:54 37.1 C 90 24 96 11/22/24 06:30 125/51 L 11/22/24 06:30 125/51 L 11/22/24 06:27 37.1 C 85 25 H 96 11/22/24 06:09 37.2 C 87 31 H 95 11/22/24 06:00 122/51 L 11/22/24 05:54 37.2 C 87 28 H 98 11/22/24 05:09 86 29 H 98 11/22/24 05:00 37.3 C 90 32 H 119/53 L 97 11/22/24 04:06 37.3 C 88 30 H 122/49 L 97 11/22/24 03:05 86 33 H 98 11/22/24 03:03 37.3 C 89 30 H 122/53 L 97 11/22/24 02:20 86 33 H 98 11/22/24 02:00 37.3 C 86 32 H 121/50 L 98 11/22/24 01:00 37.4 C 89 30 H 116/53 L 97 11/22/24 00:06 37.4 C 87 30 H 124/59 L 97 11/22/24 00:00 80 11/21/24 23:38 86 34 H 97 11/21/24 23:00 37.5 C 86 34 H 106/49 L 97 11/21/24 22:00 37.5 C 89 33 H 113/50 L 98 O2 Del Method O2 Flow Rate FiO2 11/22/24 09:02 Nasal Cannula 2 11/22/24 09:01 11/22/24 08:53 11/22/24 08:30 11/22/24 08:23 11/22/24 08:04 11/22/24 08:02 11/22/24 08:00 11/22/24 08:00 High Flow Nasal Cannula 25 30 11/22/24 08:00 High Flow Nasal Cannula 25 30 11/22/24 07:42 High Flow Nasal Cannula 30 30 11/22/24 07:09 11/22/24 07:03 11/22/24 07:00 11/22/24 06:54 11/22/24 06:30 11/22/24 06:30 11/22/24 06:27 11/22/24 06:09 11/22/24 06:00 11/22/24 05:54 11/22/24 05:09 High Flow Nasal Cannula 30 30 11/22/24 05:00 High Flow Nasal Cannula 30 30 11/22/24 04:06 BiPAP 30 11/22/24 03:05 30 11/22/24 03:03 BiPAP 30 11/22/24 02:20 BiPAP 30 11/22/24 02:00 BiPAP 30 11/22/24 01:00 BiPAP 30 11/22/24 00:06 BiPAP 30 11/22/24 00:00 11/21/24 23:38 30 11/21/24 23:00 BiPAP 30 11/21/24 22:00 BiPAP 30 PG Care Time/CCT Total # of Minutes Spent Total Time Spent with Patient: Total time spent is greater than 50% in coordination of care (as documented) at patient's floor/unit and/or counseling patient: Coding Level of Care Code 19908 Post Operative Follow-Up Diagnoses Adenocarcinoma of colon C18.9
[2024-11-23 04:48] LABS: Basophils # (auto) 0.02 K/uL (0.00-0.20); Basophils % (auto) 0.2 %; Eosinophils # (auto) 0.38 K/uL (0.00-0.50); Eosinophils % (auto) 4.2 %; Hemoglobin 8.1 g/dl (12.0-16.0); Immature Granulocytes # (auto) 0.16 K/uL (0.01-0.20); Immature Granulocytes % (auto) 1.8 %; Lymphocytes # (auto) 0.56 K/uL (1.20-3.40); Lymphocytes % (auto) 6.2 %; Mean Corpuscular Hemoglobin 28.7 pg (25.0-34.0); Mean Corpuscular Hgb Conc 32.4 g/dL (32.0-36.0); Mean Corpuscular Volume 88.7 fL (80.0-100.0); Mean Platelet Volume 9.9 fL (9.4-12.4); Monocytes # (auto) 0.74 K/uL (0.11-0.59); Monocytes % (auto) 8.2 %; Neutrophils # (auto) 7.15 K/uL (1.40-6.50); Neutrophils % (auto) 79.4 %; Platelet Count 345 K/uL (130-400); RDW Coefficient of Variation 14.2 % (11.5-14.5); RDW Standard Deviation 46.2 fL (36.4-46.3); Red Blood Count 2.82 M/uL (4.20-5.40); White Blood Count 9.01 K/ul (4.8-10.8)
[2024-11-23 05:04] LABS: BUN Creatinine Ratio 23.4 (10-20); Creatinine Clr Calc Pharmacy 56.9 ml/min; Phosphorus 3.3 mg/dl (2.5-4.9); Potassium 3.3 mmol/L (3.5-5.1)
[2024-11-23] MEDS: MAGNESIUM SULFATE / D5W 1 GM/100 ML BAG IV SCH (05:47)
[2024-11-23] MEDS: POTASSIUM CHLORIDE 20 MEQ/15 ML UDC PO SCH (05:47)
--- NOTE | 2024-11-23 07:41 | Critical Care Progress Note ---
Date of Service November 23, 2024 Assessment & Plan (1) Encephalopathy acute: Plan: Reason Critically Ill: 79-year-old female with colon cancer status post hemicolectomy brought to ICU with mental status changes. Prior history of adenocarcinoma of the lung status post resection, ALK positive 24-hour events: Off BiPAP and down to 2 L nasal cannula. Working on pulmonary toilet. Passed swallow evaluation and advancing diet. Working with PT and OT. Unfortunately her x-ray today demonstrates again opacification of the right hemithorax. PLAN: Neuro: No current issues. PT and OT evaluations. Out of bed to chair as tolerated. Needs aggressive rehab Resp: Down to 2 L nasal cannula. Continue pulmonary toilet with flutter valve and incentive spirometry. Chest PT as tolerated. Chest x-ray this morning with opacification again of the right hemithorax. Continue aggressive pulmonary toilet. Hypertonic saline and Mucinex. Given her clinical stability, would not pursue bronchoscopy at this point in time. Hopefully her cough can increase to the point that she can expectorate phlegm. CV: History of coronary disease with associated hypertension. Hemodynamically stable. Continue metoprolol as tolerated. Heart rate controlled Fluids/Renal: Continue ICU replacement protocol ID: Healthcare associated pneumonia. Completed 5 days Zosyn vancomycin. Cultures without growth currently. Patient is C. difficile gene positive but toxin negative. Carrier status. No antimicrobial coverage required GI/Nutrition: Tolerating diet. Heme: Mild anemia. No indication for transfusion currently. History of DVT on Eliquis in the outpatient setting. Back on home Eliquis dose Endocrine: Glycemic protocol. Continue Synthroid Vascular access: Peripheral IV Code Status: Full code Okay to transfer to the floor. Critical care will sign off. Feel free to contact us with questions or concerns. Will follow for pulmonary issues Admission and Anticipated Discharge Date Admission Date: November 14, 2024 Subjective Patient seen and examined. EMR reviewed. Discussed with critical care nurse at bedside in a multidisciplinary rounds as well as with overnight critical care TIM. Patient is showing steady clinical improvement. She is tolerating a diet and pa ssed her swallow evaluation. She is working with therapy but is significantly weak and deconditioned at this point in time. She is coughing and expectorating small amounts of phlegm. She is working aggressively with pulmonary toilet. She is on a minimal amount of oxygen currently Review of Systems Review of Systems: All systems reviewed & are unremarkable except as noted in Subjective Physical Exam Constitutional: + frail appearing; no acute distress and not in distress Neck: trachea midline, no thyromegaly Respiratory: Auscultation: + diminished lung sounds; no wheezes Cardiovascular: RRR, no murmur, no edema Gastrointestinal (Abdomen): normal bowel sounds, soft, nontender, no hepatosp lenomegaly Musculoskeletal: Extremities: extremities normal to inspection Skin: no rashes, warm and dry Lymphatic: no cervical lymphadenopathy Results & Data Results & Data Vital Signs (Past 12 Hours) Vital Signs Temp Pulse Pulse Pulse Resp BP Pulse Ox 11/23/24 07:23 82 24 99 11/23/24 07:00 69 11/23/24 06:00 129/48 L 11/23/24 06:00 129/48 L 11/23/24 06:00 129/48 L 11/23/24 06:00 129/48 L 11/23/24 06:00 81 21 99 11/23/24 05:09 75 27 H 100 11/23/24 05:00 101/43 L 11/23/24 05:00 101/43 L 11/23/24 04:39 71 25 H 100 11/23/24 04:12 69 21 100 11/23/24 04:00 94/36 L 11/23/24 03:57 73 21 100 11/23/24 03:19 37.0 C 11/23/24 03:03 69 21 100 11/23/24 03:00 103/41 L 11/23/24 03:00 103/41 L 11/23/24 03:00 103/41 L 11/23/24 02:45 70 21 96 11/23/24 02:00 75 29 H 94 11/23/24 02:00 86/69 L 11/23/24 02:00 86/69 L 11/23/24 02:00 86/69 L 11/23/24 01:33 77 29 H 98 11/23/24 01:15 74 28 H 100 11/23/24 00:39 70 28 H 98 11/23/24 00:12 77 11/23/24 00:00 36.9 C 11/22/24 23:00 71 21 98 11/22/24 23:00 101/47 L 11/22/24 23:00 101/47 L 11/22/24 22:06 83 30 H 98 11/22/24 22:02 79 32 H 97 11/22/24 22:00 105/50 L 11/22/24 21:57 84 29 H 98 11/22/24 21:00 116/47 L 11/22/24 21:00 85 30 H 98 11/22/24 20:45 11/22/24 20:12 84 30 H 99 11/22/24 20:00 119/49 L 11/22/24 20:00 119/49 L 11/22/24 19:54 80 25 H 100 11/22/24 19:51 36.5 C 11/22/24 19:45 84 24 97 O2 Del Method O2 Flow Rate FiO2 11/23/24 07:23 Nasal Cannula 2 11/23/24 07:00 11/23/24 06:00 11/23/24 06:00 11/23/24 06:00 11/23/24 06:00 11/23/24 06:00 Nasal Cannula 3 11/23/24 05:09 11/23/24 05:00 11/23/24 05:00 11/23/24 04:39 11/23/24 04:12 11/23/24 04:00 11/23/24 03:57 11/23/24 03:19 11/23/24 03:03 11/23/24 03:00 11/23/24 03:00 11/23/24 03:00 11/23/24 02:45 11/23/24 02:00 11/23/24 02:00 11/23/24 02:00 11/23/24 02:00 11/23/24 01:33 BiPAP 30 11/23/24 01:15 11/23/24 00:39 11/23/24 00:12 11/23/24 00:00 11/22/24 23:00 11/22/24 23:00 11/22/24 23:00 11/22/24 22:06 11/22/24 22:02 30 11/22/24 22:00 11/22/24 21:57 11/22/24 21:00 11/22/24 21:00 11/22/24 20:45 Nasal Cannula 2 11/22/24 20:12 11/22/24 20:00 11/22/24 20:00 11/22/24 19:54 Nasal Cannula 2 11/22/24 19:51 11/22/24 19:45 Critical Care Results & Data Vital Signs (Past 12 Hours) Vital Signs Temp Pulse Pulse Pulse Resp BP Pulse Ox 11/23/24 07:23 82 24 99 11/23/24 07:00 69 11/23/24 06:00 129/48 L 11/23/24 06:00 129/48 L 11/23/24 06:00 129/48 L 11/23/24 06:00 129/48 L 11/23/24 06:00 81 21 99 11/23/24 05:09 75 27 H 100 11/23/24 05:00 101/43 L 11/23/24 05:00 101/43 L 11/23/24 04:39 71 25 H 100 11/23/24 04:12 69 21 100 11/23/24 04:00 94/36 L 11/23/24 03:57 73 21 100 11/23/24 03:19 37.0 C 11/23/24 03:03 69 21 100 11/23/24 03:00 103/41 L 11/23/24 03:00 103/41 L 11/23/24 03:00 103/41 L 11/23/24 02:45 70 21 96 11/23/24 02:00 75 29 H 94 11/23/24 02:00 86/69 L 11/23/24 02:00 86/69 L 11/23/24 02:00 86/69 L 11/23/24 01:33 77 29 H 98 11/23/24 01:15 74 28 H 100 11/23/24 00:39 70 28 H 98 11/23/24 00:12 77 11/23/24 00:00 36.9 C 11/22/24 23:00 71 21 98 11/22/24 23:00 101/47 L 11/22/24 23:00 101/47 L 11/22/24 22:06 83 30 H 98 11/22/24 22:02 79 32 H 97 11/22/24 22:00 105/50 L 11/22/24 21:57 84 29 H 98 11/22/24 21:00 116/47 L 11/22/24 21:00 85 30 H 98 11/22/24 20:45 11/22/24 20:12 84 30 H 99 11/22/24 20:00 119/49 L 11/22/24 20:00 119/49 L 11/22/24 19:54 80 25 H 100 11/22/24 19:51 36.5 C 11/22/24 19:45 84 24 97 O2 Del Method O2 Flow Rate FiO2 11/23/24 07:23 Nasal Cannula 2 11/23/24 07:00 11/23/24 06:00 11/23/24 06:00 11/23/24 06:00 11/23/24 06:00 11/23/24 06:00 Nasal Cannula 3 11/23/24 05:09 11/23/24 05:00 11/23/24 05:00 11/23/24 04:39 11/23/24 04:12 11/23/24 04:00 11/23/24 03:57 11/23/24 03:19 11/23/24 03:03 11/23/24 03:00 11/23/24 03:00 11/23/24 03:00 11/23/24 02:45 11/23/24 02:00 11/23/24 02:00 11/23/24 02:00 11/23/24 02:00 11/23/24 01:33 BiPAP 30 11/23/24 01:15 11/23/24 00:39 11/23/24 00:12 11/23/24 00:00 11/22/24 23:00 11/22/24 23:00 11/22/24 23:00 11/22/24 22:06 11/22/24 22:02 30 11/22/24 22:00 11/22/24 21:57 11/22/24 21:00 11/22/24 21:00 11/22/24 20:45 Nasal Cannula 2 11/22/24 20:12 11/22/24 20:00 11/22/24 20:00 11/22/24 19:54 Nasal Cannula 2 11/22/24 19:51 11/22/24 19:45 Lab & Micro Results (Past 24 Hours) RBC 2.82 M/uL (4.20-5.40) L 11/23/24 WBC 9.01 K/ul (4.8-10.8) 11/23/24 Hgb 8.1 g/dl (12.0-16.0) L 11/23/24 Hct 25.0 % (37.0-47.0) L 11/23/24 MCV 88.7 fL (80.0-100.0) 11/23/24 MCH 28.7 pg (25.0-34.0) 11/23/24 MCHC 32.4 g/dL (32.0-36.0) 11/23/24 RDW Standard Deviation 46.2 fL (36.4-46.3) 11/23/24 RDW Coefficient of Variation 14.2 % (11.5-14.5) 11/23/24 Plt Count 345 K/uL (130-400) 11/23/24 MPV 9.9 fL (9.4-12.4) 11/23/24 Neutrophils (%) (Auto) 79.4 % 11/23/24 Lymphocytes (%) (Auto) 6.2 % 11/23/24 Monocytes # (Auto) 0.74 K/uL (0.11-0.59) H 11/23/24 Eosinophils # (Auto) 0.38 K/uL (0.00-0.50) 11/23/24 Immature Granulocyte % (Auto) 1.8 % 11/23/24 Neutrophils # (Auto) 7.15 K/uL (1.40-6.50) H 11/23/24 Lymphocytes # (Auto) 0.56 K/uL (1.20-3.40) L 11/23/24 Monocytes # (Auto) 0.74 K/uL (0.11-0.59) H 11/23/24 Eosinophils # (Auto) 0.38 K/uL (0.00-0.50) 11/23/24 Basophils # (Auto) 0.02 K/uL (0.00-0.20) 11/23/24 Immature Granulocyte # (Auto) 0.16 K/uL (0.01-0.20) 5 Na 140 mmol/L (136-145) 11/23/24 K 3.3 mmol/L (3.5-5.1) L 11/23/24 Cl 99 mmol/L (98-107) 11/23/24 CO2 36 mmol/L (21-32) H 11/23/24 Anion Gap 5 (3-11) 11/23/24 BUN 18 mg/dl (6-23) 11/23/24 Creatinine 0.77 mg/dl (0.6-1.2) 11/23/24 BUN/Creatinine Ratio 23.4 (10-20) H 11/23/24 Glu 117 mg/dl (70-99(Fasting)) H 11/23/24 Ca 8.0 mg/dl (8.6-10.3) L 11/23/24 Phosphorus Level 3.3 mg/dl (2.5-4.9) 11/23/24 Mg 2.0 mg/dl (1.7-2.4) 11/23/24 04:34 Calcium Level 8.0 mg/dl (8.6-10.3) L 11/23/24 04:34 Microbiology 11/18/24 01:47 Aerobic Blood Culture - Final Blood No growth in Aerobic bottle after 5 days. Anaerobic Blood Culture - Final No growth in Anaerobic bottle after 5 days. 11/18/24 01:54 Aerobic Blood Culture - Final Blood No growth in Aerobic bottle after 5 days. Anaerobic Blood Culture - Final No growth in Anaerobic bottle after 5 days. Diagnostic Findings (Past 24 Hours) Chest X-Ray 11/22/24 04:31 EXAM: XR chest 1V portable CLINICAL HISTORY: Increased work of breathing. TECHNIQUE: X-ray image of the chest obtained in frontal AP projection. COMPARISON: Prior X-ray dated 11/21/2024 for comparison. FINDINGS: Interval removal of ETT. NG tube in situ. Left side dual wire cardiac pacemaker. Pulmonary Parenchyma: Interval development of faint opacities in the right lung. Unchanged prominent bilateral parahilar markings. Suggested mild pleural effusion, mainly on the right side. Heart and Mediastinum: Cardiomegaly. No mediastinal widening or masses. No hilar or mediastinal lymphadenopathy. Bony Thorax: Sternotomy sutures. Bony thorax appears intact without fractures or deformities. Soft Tissues: Elevated right hemidiaphragm. Soft tissues overlying the chest wall are unremarkable. Surgical mavis in the right hypochondrium. IMPRESSION: 1. Interval removal of ETT. 2. NG tube in situ. 3. Left side dual wire cardiac pacemaker. 4. Interval development of faint opacities in the right lung. It could be inflammatory or pulmonary edema. Clinical correlation needed. 5. Unchanged prominent bilateral parahilar markings are likely congestion. 6. Cardiomegaly. 7. Elevated right hemidiaphragm. Electronically signed by Dillan Latham 11-22-2024 05:42 AM I & O Totals 24 Hours 11/22/24 11/23/24 11/24/24 06:59 06:59 06:59 Intake Total 1560.437 / 9305.583 2282.333 / 1623.333 75.833 / 75.833 Output Total 1891 / 1891 2601 / 2601 Balance -330.563 / -330.563 -977.667 / -977.667 75.833 / 75.833 Cumulative 11/07/24 16:54 thru 11/23/24 07:18 Intake Total 65222.423 Output Total 10665 Balance 5647.423 RT Ventilator Mngmt (Last Documented) Ventilator Ordered Settings Ventilator Support Mode Assist Control 11/21/24 08:00 Respiratory Rate 24 11/23/24 07:23 Ventilator Tidal Volume 370 11/21/24 08:00 Setting Minute Ventilation 6.4 11/21/24 07:13 Ventilator Positive Pressure 10 11/17/24 08:00 Support Setting Positive End Expiratory 5 11/21/24 08:00 Pressure Fraction of Inspired Oxygen 30 11/23/24 01:33 Peak Inspiratory Flow 33 11/21/24 07:13 Machine Comment found pt on these settings, 11/17/24 07:[address] Henderson Ventilator - PT Measurements Respiratory Rate 24 Exhaled Tidal Volume 369 Minute Ventilation 6.4 Peak Inspiratory Airway 21 Pressure Plateau Pressure 16.8 Respiratory Cycle Inspiratory: 1:2.7 Expiratory Ratio Inspiratory Phase Time 0.90 End-Tidal CO2 38 Static Lung Compliance 31.27 Dynamic Lung Compliance 23.06 Normal Static Lung Compliance 46.00 Patient Measurements Comment pt bronched by Dr. Rea at bedside in ICU Coding Level of Care Code 57961 SUB INP/OBS CARE 3/50MIN Diagnoses Encephalopathy acute G93.40
--- NOTE | 2024-11-23 07:48 | XRay Report ---
EXAM: XR chest 1V portable CLINICAL HISTORY: eval lung cruz TECHNIQUE: An X-ray image of the chest is obtained in AP projection. COMPARISON: CR 11/22/2024. FINDINGS: Left side dual wire cardiac pacemaker. Pulmonary Parenchyma: Interval progression of the right hemithorax opacity/ pleural effusion with resultant near total opacification of the right hemothorax. Unchanged prominent left parahilar markings. Unchanged suspected left minimal pleural effusion. Heart and Mediastinum: Apparent cardiomegaly. No mediastinal widening or masses. No hilar or mediastinal lymphadenopathy. Bony Thorax: Sternotomy sutures. Bony thorax appears intact without fractures or deformities. Soft Tissues: Elevated right hemidiaphragm. Soft tissues overlying the chest wall are unremarkable. Surgical mavis in the right hypochondrium. IMPRESSION: 1. Left side dual wire cardiac pacemaker. 2. Interval progression of the right hemothorax opacity/ effusion leading to near total opacification. 3. Unchanged prominent left parahilar markings are likely congestion. 4. Unchanged radiological features suggesting minimal left pleural effusion. 5. Apparent cardiomegaly. Electronically signed by Dillan Latham 11-23-2024 07:48 AM
[2024-11-23] MEDS: guaiFENesin SUGAR FREE 200 MG/10 ML UDC PO SCH (10:11)
[2024-11-23] MEDS: CEROVITE ADV FORMULA TAB PO SCH (10:11)
--- NOTE | 2024-11-23 13:57 | Surgery Progress Note ---
Date of Service November 23, 2024 Assessment & Plan (1) H/O right hemicolectomy: Plan: From my standpoint she is doing okay. Her bowels are moving. We will advance her diet to regular. She may also have nutritional supplements. It is okay with me if she gets transferred out of the ICU to the floor. She will need extensive physical therapy as she is obviously quite weak. Will likely need rehab upon discharge. Admission and Anticipated Discharge Date Admission Date: November 14, 2024 Subjective pt seen. she is quite weak but doing ok after extubation. her bowels are moving and she is tolerating full liquids. Physical Exam Physical Exam: alert. nad abd: soft. nt. incision looks good. Results & Data Vital Signs (Past 12 Hours) Vital Signs Temp Pulse Pulse Resp BP Pulse Ox O2 Del Method 11/23/24 13:30 82 20 100 Nasal Cannula 11/23/24 13:00 97/45 L 11/23/24 13:00 97/45 L 11/23/24 12:49 98 11/23/24 12:06 79 24 95 11/23/24 12:00 36.6 C 11/23/24 11:00 87 22 129/64 99 11/23/24 10:03 85 22 100 11/23/24 10:00 135/59 L 11/23/24 10:00 135/59 L 11/23/24 09:57 85 30 H 100 11/23/24 09:03 86 32 H 100 11/23/24 09:00 119/45 L 11/23/24 09:00 119/45 L 11/23/24 08:51 88 23 100 11/23/24 08:18 86 32 H 100 11/23/24 08:00 117/48 L 11/23/24 08:00 Nasal Cannula 11/23/24 08:00 36.6 C 11/23/24 07:51 91 H 28 H 99 11/23/24 07:23 82 24 99 Nasal Cannula 11/23/24 07:09 77 22 99 11/23/24 07:00 98/46 L 11/23/24 07:00 69 11/23/24 06:57 80 18 100 Nasal Cannula 11/23/24 06:00 129/48 L 11/23/24 06:00 129/48 L 11/23/24 06:00 129/48 L 11/23/24 06:00 129/48 L 11/23/24 06:00 129/48 L 11/23/24 06:00 81 21 99 Nasal Cannula 11/23/24 05:09 75 27 H 100 11/23/24 05:00 101/43 L 11/23/24 05:00 101/43 L 11/23/24 04:39 71 25 H 100 11/23/24 04:12 69 21 100 11/23/24 04:00 94/36 L 11/23/24 03:57 73 21 100 11/23/24 03:19 37.0 C 11/23/24 03:03 69 21 100 11/23/24 03:00 103/41 L 11/23/24 03:00 103/41 L 11/23/24 03:00 103/41 L 11/23/24 02:45 70 21 96 11/23/24 02:00 75 29 H 94 11/23/24 02:00 86/69 L 11/23/24 02:00 86/69 L 11/23/24 02:00 86/69 L O2 Flow Rate 11/23/24 13:30 2 11/23/24 13:00 11/23/24 13:00 11/23/24 12:49 11/23/24 12:06 11/23/24 12:00 11/23/24 11:00 11/23/24 10:03 11/23/24 10:00 11/23/24 10:00 11/23/24 09:57 11/23/24 09:03 11/23/24 09:00 11/23/24 09:00 11/23/24 08:51 11/23/24 08:18 11/23/24 08:00 11/23/24 08:00 3 11/23/24 08:00 11/23/24 07:51 11/23/24 07:23 2 11/23/24 07:09 11/23/24 07:00 11/23/24 07:00 11/23/24 06:57 3 11/23/24 06:00 11/23/24 06:00 11/23/24 06:00 11/23/24 06:00 11/23/24 06:00 11/23/24 06:00 3 11/23/24 05:09 11/23/24 05:00 11/23/24 05:00 11/23/24 04:39 11/23/24 04:12 11/23/24 04:00 11/23/24 03:57 11/23/24 03:19 11/23/24 03:03 11/23/24 03:00 11/23/24 03:00 11/23/24 03:00 11/23/24 02:45 11/23/24 02:00 11/23/24 02:00 11/23/24 02:00 11/23/24 02:00 PG Care Time/CCT Total # of Minutes Spent Total Time Spent with Patient: Total time spent is greater than 50% in coordination of care (as documented) at patient's floor/unit and/or counseling patient: Coding Level of Care Code 90395 Post Operative Follow-Up Diagnoses H/O right hemicolectomy Z90.49
--- NOTE | 2024-11-23 14:06 | Hospitalist Progress Note ---
Date of Service November 23, 2024 Assessment & Plan (1) Cecum mass: (2) Chronic hypoxemic respiratory failure: (3) Pacemaker: (4) Hypothyroidism: Plan 79-year-old female with a PMHx of Lung cancer with right lower lobe lobectomy, COPD with oxygen dependence and pulm HTN, Pacemaker secondary to AV-block, upper extremity DVT who presented to the hospital for planned right hemicolectomy due to recent diagnosis of adenocarcinoma of the cecum. This was diagnosed as outpatient colonoscopic biopsy earlier in October. Surgical resection by Dr. Lorenzo on 11/14. #Mildly differentiated adenocarcinoma of the cecum status post surgical resection/acute blood loss anemia on chronic anemia from: Cancer. Post operatively patient had post op ileus, attempt made to place NG tube which resulted in emesis with blood and clots. On POD#2 had acute onset in mental s tatus changes concerning for stoke and required intubation on 11/16 as she was not protecting her airway. Was seen by tele-stroke who did not recommend transfer or TNK. Seen by neurology who recommend EEG (no seizure activity) and MRI (which could not be completed d/t pacemaker incompatibility). She was extubated on 11/17 but tachypneic with bipap and had to be reintubated later that evening. Had bronchoscopy 11/18 showing mucopurulent secretions. Completed course of Vanc/Zosyn for HAP/VAP. Blood cultures negative. Was extubated to BIPAP on 11/21. Has been weaned down to NC. NG tube has been removed. On 11/23 stable for downgrade from ICU. Diet advancement / pain control / dispo planning per primary team Hgb stable at 8.1 - will monitor AM labs, transfuse or give iron as needed PPI changed to qAM - likely does not need to be continued at discharge if no further signs of GI bleed #COPD/Acute respiratory failure with hypoxia requiring intubation On chronic oxygen at home prn Intubation/bronchoscopy events as above. CXR 11/23 showing interval progression of the right hemothorax opacity/ effusion leading to near total opacification Continue scheduled nebs, IS,FV, Hypertonic saline and Mucinex Pulmonary following - repeat CXR ordered for AM #Hypokalemia 3.3 this morning, replaced PO recheck BMP and Mag in AM #Elevated Blood glucose Mild - BSG checks in ICU per protocol. Check A1c in AM but suspect these can be discontinued #Pulm hypertension. Home dose lasix 20mg - this has been held. If BP stabilizes consider restarting in AM #Coronary artery disease/ Hx of AV block with pacer in place/ Hx of bypass Continues on metoprolol 12.5 mg BID, Eliquis 2.5mg po bid, and okay to resume rosuvastatin #Hypothyroid - continue Synthroid #hx of lung cancer s/- right lower lobe lobectomy - noted #hx of DVT associated with pacemaker - continue Eliquis (lifelong) DVT proph: continue home Eliquis Dispo-continued stay but downgraded from ICU to PCU Thank you for allowing us to participate in the care of this patient, please reach out with any questions or concerns. Medicine will continue to follow Admission and Anticipated Discharge Date Admission Date: November 14, 2024 Supervising Physician Co-Signing Physician Notes CROW Supervision Note: I did not personally see or examine the patient today, but I verified all puga points of CROW Becerril's assessment and plan with the following exceptions/additions: None Subjective patient seen sitting up in bed. In the ICU. Family present at bedside. Reports that she is feeling tired. Also reports that she wants to go home, states that she uses no assistive devices and so drove prior to coming to the hospital. She realizes she cannot do this at present. States that she cannot even get out of bed without help. Encouraged to do exercises and follow nurse recommendations to try to shorten her rehab stay. Reports her appetite is poor. Breathing she says feels normal, was wearing 2 L of oxygen all the time prior to arrival to the hospital. History of open heart surgery in 2009 for bypass after failed stents. Review of Systems Review of Systems: All systems reviewed & are unremarkable except as noted in Subjective Physical Exam Physical Exam: General: NAD, VS as above Resp: normal respiratory effort, lungs diminished, 2L NC CV: RRR, no murmur, sternotomy scar Abd: normal bowel sounds, non tender, Extremities: Moves all extremities, no edema Neuro: A&O x3, Results & Data Results & Data Vital Signs (Past 12 Hours) Vital Signs Temp Pulse Pulse Resp BP Pulse Ox O2 Del Method 11/23/24 13:30 82 20 100 Nasal Cannula 11/23/24 13:00 97/45 L 11/23/24 13:00 97/45 L 11/23/24 12:49 98 11/23/24 12:06 79 24 95 11/23/24 12:00 97.9 F 11/23/24 11:00 87 22 129/64 99 11/23/24 10:03 85 22 100 11/23/24 10:00 135/59 L 11/23/24 10:00 135/59 L 11/23/24 09:57 85 30 H 100 11/23/24 09:03 86 32 H 100 11/23/24 09:00 119/45 L 11/23/24 09:00 119/45 L 11/23/24 08:51 88 23 100 11/23/24 08:18 86 32 H 100 11/23/24 08:00 117/48 L 11/23/24 08:00 Nasal Cannula 11/23/24 08:00 97.9 F 11/23/24 07:51 91 H 28 H 99 11/23/24 07:23 82 24 99 Nasal Cannula 11/23/24 07:09 77 22 99 11/23/24 07:00 98/46 L 11/23/24 07:00 69 11/23/24 06:57 80 18 100 Nasal Cannula 11/23/24 06:00 129/48 L 11/23/24 06:00 129/48 L 11/23/24 06:00 129/48 L 11/23/24 06:00 129/48 L 11/23/24 06:00 129/48 L 11/23/24 06:00 81 21 99 Nasal Cannula 11/23/24 05:09 75 27 H 100 11/23/24 05:00 101/43 L 11/23/24 05:00 101/43 L 11/23/24 04:39 71 25 H 100 11/23/24 04:12 69 21 100 11/23/24 04:00 94/36 L 11/23/24 03:57 73 21 100 11/23/24 03:19 98.6 F 11/23/24 03:03 69 21 100 11/23/24 03:00 103/41 L 11/23/24 03:00 103/41 L 11/23/24 03:00 103/41 L 11/23/24 02:45 70 21 96 O2 Flow Rate 11/23/24 13:30 2 11/23/24 13:00 11/23/24 13:00 Laboratory Results cbc and chemistry reviewed Diagnostic Findings cxr reviewed PG Care Time/CCT Total # of Minutes Spent Total Time Spent with Patient: Total time spent is greater than 50% in coordination of care (as documented) at patient's floor/unit and/or counseling patient: Coding Level of Care Code 47220 SUB INP/OBS CARE 3/50MIN Diagnoses Cecum mass K63.89 Chronic hypoxemic respiratory failure J96.11 Pacemaker Z95.0 Hypothyroidism E03.9
[2024-11-23] MEDS: SODIUM CHLOR 7% 4 ML NEB NEB SCH (19:37)
[2024-11-23] MEDS ORDERED: PANTOprazole 40 MG TAB PO SCH (21:00)
[2024-11-24 04:57] LABS: Basophils # (auto) 0.01 K/uL (0.00-0.20); Basophils % (auto) 0.1 %; Eosinophils # (auto) 0.37 K/uL (0.00-0.50); Eosinophils % (auto) 4.2 %; Hematocrit (blood only) 23.6 % (37.0-47.0); Hemoglobin 7.4 g/dl (12.0-16.0); Immature Granulocytes # (auto) 0.14 K/uL (0.01-0.20); Immature Granulocytes % (auto) 1.6 %; Lymphocytes # (auto) 0.56 K/uL (1.20-3.40); Lymphocytes % (auto) 6.4 %; Mean Corpuscular Hemoglobin 28.4 pg (25.0-34.0); Mean Corpuscular Hgb Conc 31.4 g/dL (32.0-36.0); Mean Corpuscular Volume 90.4 fL (80.0-100.0); Mean Platelet Volume 9.7 fL (9.4-12.4); Monocytes # (auto) 0.62 K/uL (0.11-0.59); Neutrophils # (auto) 7.11 K/uL (1.40-6.50); Neutrophils % (auto) 80.7 %; Platelet Count 336 K/uL (130-400); RDW Coefficient of Variation 14.4 % (11.5-14.5); RDW Standard Deviation 46.6 fL (36.4-46.3); Red Blood Count 2.61 M/uL (4.20-5.40); White Blood Count 8.81 K/ul (4.8-10.8)
[2024-11-24 05:30] LABS: BUN Creatinine Ratio 21.6 (10-20); Calcium 7.9 mg/dl (8.6-10.3); Creatinine Clr Calc Pharmacy 59.4 ml/min; Phosphorus 3.1 mg/dl (2.5-4.9); Potassium 4.1 mmol/L (3.5-5.1)
[2024-11-24 05:42] LABS: Acanthocytes 1+; Ovalocytes 1+; Polychromasia 1+
--- NOTE | 2024-11-24 05:45 | Surgery Progress Note ---
Date of Service November 24, 2024 Assessment & Plan (1) H/O right hemicolectomy: Plan: Patient doing well from a surgical standpoint, she is tolerating low fiber diet without issues of worsening pain, N/V. Continue nutritional supplements Patient stable to be transferred out of the ICU Continue PT/OT, OOB as tolerated Continue aggressive pulmonary toilet Admission and Anticipated Discharge Date Admission Date: November 14, 2024 Supervising Physician Co-Signing Physician Notes She is doing well from a GI standpoint Her incision looks good with mavis She is tolerating a low fiber diet with return of bowel function Still monitoring her respiratory situation Encourage ambulation and spirometry Subjective Patient seen and evaluated this morning. States she is feeling well considering just feels weak Patient moving bowels and her diet was advanced yesterday and she has been able to tolerate without any nausea or vomiting Pain well controlled VSS and hemodynamically stable Physical Exam Constitutional: comfortable; no acute distress Respiratory: normal respiratory effort; no respiratory distress and no labored breathing Cardiovascular: Rate/Rhythm: regular rate Gastrointestinal (Abdomen): Abdomen soft, nondistended, nontender to palpation. Mavis in place to midline incision, c/d/i without any signs of infection Results & Data Vital Signs (Past 12 Hours) Vital Signs Temp Pulse Pulse Pulse Resp BP BP 11/24/24 03:53 36.2 C L 79 23 107/40 L 11/24/24 01:47 79 23 11/23/24 23:07 82 11/23/24 23:02 82 29 H 11/23/24 22:51 37.1 C 82 25 H 102/44 L 11/23/24 22:17 11/23/24 20:00 36.6 C 90 18 120/43 L 11/23/24 19:37 88 29 H 11/23/24 18:13 36.6 C 11/23/24 18:12 88 24 96/40 L Pulse Ox O2 Del Method O2 Flow Rate FiO2 11/24/24 03:53 98 Nasal Cannula 2 11/24/24 01:47 100 Nasal Cannula 2 11/23/24 23:07 11/23/24 23:02 96 28 11/23/24 22:51 92 Nasal Cannula 2 11/23/24 22:17 Nasal Cannula 2 11/23/24 20:00 92 Nasal Cannula 2 11/23/24 19:37 100 Nasal Cannula 2 11/23/24 18:13 11/23/24 18:12 96 Nasal Cannula 2 PG Care Time/CCT Total # of Minutes Spent Total Time Spent with Patient: Total time spent is greater than 50% in coordination of care (as documented) at patient's floor/unit and/or counseling patient: Coding [place] [address] Post Operative Follow-Up Patient Type Established Medical Decision Making Straight Forward Diagnoses H/O right hemicolectomy Z90.49
[2024-11-24 07:26] LABS: Estimated Average Glucose 103 mg/dl; Hemoglobin A1C 5.2 % (4.5-5.6)
[2024-11-24] MEDS: MoRPHine SULFATE 2 MG/ML CARP ONE (08:28)
--- NOTE | 2024-11-24 08:50 | XRay Report ---
EXAM: XR chest 1V portable CLINICAL HISTORY: eval lung cruz TECHNIQUE: An X-ray image of the chest is obtained in AP projection. COMPARISON: study dated 11/23/2024. FINDINGS: Left side dual wire cardiac pacemaker. Pulmonary Parenchyma: Total opacification of the right hemothorax. Unchanged prominent left parahilar markings. Unchanged suspected left minimal pleural effusion. Heart and Mediastinum: Apparent cardiomegaly. No mediastinal widening or masses. No hilar or mediastinal lymphadenopathy. Bony Thorax: Sternotomy sutures. Bony thorax appears intact without fractures or deformities. Soft Tissues: Elevated right hemidiaphragm. Soft tissues overlying the chest wall are unremarkable. Surgical mavis in the right hypochondrium. IMPRESSION: 1. No interval changes with total opacification of right hemithorax. 2. Unchanged suspected left minimal pleural effusion. 3. Clinical correlation and follow-up is advised. Electronically signed by Dillan Latham 11-24-2024 08:50 AM
--- NOTE | 2024-11-24 09:21 | Hospitalist Progress Note ---
Date of Service November 24, 2024 Assessment & Plan (1) Cecum mass: (2) Chronic hypoxemic respiratory failure: (3) Pacemaker: (4) Hypothyroidism: Plan 79-year-old female with a PMHx of Lung cancer with right lower lobe lobectomy, COPD with oxygen dependence and pulm HTN, Pacemaker secondary to AV-block, upper extremity DVT who presented to the hospital for planned right hemicolectomy due to recent diagnosis of adenocarcinoma of the cecum. This was diagnosed as outpatient colonoscopic biopsy earlier in October. Surgical resection by Dr. Lorenzo on 11/14. #Mildly differentiated adenocarcinoma of the cecum status post surgical resection/acute blood loss anemia on chronic anemia from: Cancer. Post operatively patient had post op ileus, attempt made to place NG tube which resulted in emesis with blood and clots. On POD#2 had acute onset in mental s tatus changes concerning for stoke and required intubation on 11/16 as she was not protecting her airway. Was seen by tele-stroke who did not recommend transfer or TNK. Seen by neurology who recommend EEG (no seizure activity) and MRI (which could not be completed d/t pacemaker incompatibility). She was extubated on 11/17 but tachypneic with bipap and had to be reintubated later that evening. Had bronchoscopy 11/18 showing mucopurulent secretions. Completed course of Vanc/Zosyn for HAP/VAP. Blood cultures negative. Was extubated to BIPAP on 11/21. Has been weaned down to NC. NG tube has been removed. On 11/23 stable for downgrade from ICU. Diet advancement / pain control / dispo planning per primary team PPI changed to qAM - likely does not need to be continued at discharge if no further signs of GI bleed slight drop in hgb 7.4 - agreeable to IV iron x 1, possibly more doses depending on how she tolerates todays dose #COPD/Acute respiratory failure with hypoxia requiring intubation On chronic oxygen at home prn Intubation/bronchoscopy events as above. CXR 11/23 showing interval progression of the right hemothorax opacity/ effusion leading to near total opacification Continue scheduled nebs, IS,FV, Hypertonic saline and Mucinex Pulmonary following - s/p bronchoscopy 11/24 #Hypokalemia replaced PO and now replete #Elevated Blood glucose Mild - BSG checks in ICU per protocol. A1c 5.3, no further BSG checks needed #Pulm hypertension. 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 Medicine will continue to follow Family updated at bedside 11/23 Admission and Anticipated Discharge Date Admission Date: November 14, 2024 Supervising Physician Co-Signing Physician Notes PA Supervision Note: I did not personally see or examine the patient today, but I verified all puga points of CROW Becerril's assessment and plan with the following exceptions/additions: None Subjective Patient seen lying in bed, reports feeling rough this morning after getting a bronchoscopy. But appreciative of her nurse " making her feel like a person again" Denies pain currently. Breathing feels okay legs are sore from SCDs Tele -Paced 80s Review of Systems Review of Systems: All systems reviewed & are unremarkable except as noted in Subjective Physical Exam Physical Exam: General: NAD, VS as above Resp: normal respiratory effort, lungs diminished, 2L NC CV: RRR, no murmur, sternotomy scar Abd: normal bowel sounds, non tender, Extremities: Moves all extremities, no edema Neuro: A&O x3, Results & Data Results & Data Vital Signs (Past 12 Hours) Vital Signs Temp Pulse Pulse Pulse Resp BP Pulse Ox 11/24/24 03:53 97.2 F L 79 23 107/40 L 98 11/24/24 01:47 79 23 100 11/23/24 23:07 82 11/23/24 23:02 82 29 H 96 11/23/24 22:51 98.8 F 82 25 H 102/44 L 92 11/23/24 22:17 O2 Del Method O2 Flow Rate FiO2 11/24/24 03:53 Nasal Cannula 2 11/24/24 01:47 Nasal Cannula 2 11/23/24 23:07 11/23/24 23:02 28 11/23/24 22:51 Nasal Cannula 2 11/23/24 22:17 Nasal Cannula 2 Laboratory Results cbc and chemsitry reviewed Diagnostic Findings cxr reviewed PG Care Time/CCT Total # of Minutes Spent Total Time Spent with Patient: Total time spent is greater than 50% in coordination of care (as documented) at patient's floor/unit and/or counseling patient: Coding Level of Care Code 25862 SUB INP/OBS CARE 3/50MIN Diagnoses Cecum mass K63.89 Chronic hypoxemic respiratory failure J96.11 Pacemaker Z95.0 Hypothyroidism E03.9
--- NOTE | 2024-11-24 10:15 | Pulmonology Progress Note ---
Date of Service November 24, 2024 Assessment & Plan (1) Atelectasis of right lung: (2) Hypoxemia: Plan Impression: 79-year-old female status post hemicolectomy for colon cancer with prior history of right lower lobectomy due to adenocarcinoma the lung. She has had a emiliano postoperative course with respiratory issues and continues to have right lung atelectasis with inadequate pulmonary toilet. Recommendations: 1. Right lung atelectasis: Patient was placed on conservative measures over the last 24 hours including chest vest therapy, hypertonic saline, CoughAssist, and flutter valve as well as incentive spirometry. Unfortunately despite these interventions the right lung remains atelectatic. Recommended proceeding with bronchoscopy which the patient is agreeable to. Recommendations: 1. Atelectasis right lung: Will plan on fiberoptic bronchoscopy with therapeutic aspiration of secretions today. The patient needs to continue with aggressive pulmonary toilet including incentive spirometry, flutter valve, chest PT, and hypertonic saline. 2. Hypoxemia: Continue to wean as tolerated. 3. Recommend the patient be out of bed to chair is much as possible as this will improve pulmonary toilet. She is very weak and deconditioned and will require aggressive rehab. Will continue to follow for pulmonary issues Admission and Anticipated Discharge Date Admission Date: November 14, 2024 Subjective Patient seen and examined. EMR reviewed. Discussed with bedside nurse. Patient states she is doing okay. Her incentive spirometer, flutter valve, and pulmonary toilet are still very weak however slightly improved from yesterday. She is not been able to cough up much phlegm. Her chest x-ray continues to show opacification of the right hemithorax. Despite this, she is doing well on low quantity of oxygen Review of Systems 2 Review of Systems: All systems reviewed & are unremarkable except as noted in Subjective Physical Exam 2 Constitutional: + frail appearing and + mechanically clay tilated; no acute distress and not in distress Neck: trachea midline, no thyromegaly Respiratory: Auscultation: + diminished lung sounds; no wheezes Cardiovascular: RRR, no murmur, no edema Gastrointestinal (Abdomen): normal bowel sounds, soft, nontender, no hepatosplenomegaly Musculoskeletal: Extremities: extremities normal to inspection Skin: no rashes, warm and dry Lymphatic: no cervical lymphadenopathy Results & Data Results & Data Vital Signs (Past 12 Hours) Vital Signs Temp Pulse Pulse Pulse Resp BP Pulse Ox 11/24/24 09:44 11/24/24 03:53 36.2 C L 79 23 107/40 L 98 11/24/24 01:47 79 23 100 11/23/24 23:07 82 11/23/24 23:02 82 29 H 96 11/23/24 22:51 37.1 C 82 25 H 102/44 L 92 11/23/24 22:17 O2 Del Method O2 Flow Rate FiO2 11/24/24 09:44 Oxymask 11/24/24 03:53 Nasal Cannula 2 11/24/24 01:47 Nasal Cannula 2 11/23/24 23:07 11/23/24 23:02 28 11/23/24 22:51 Nasal Cannula 2 11/23/24 22:17 Nasal Cannula 2 Laboratory Results 11/24/24 04:31 11/24/24 04:31 Diagnostic Findings Chest x-ray from today was independently reviewed. Opacification of the right hemithorax persists. Very small left pleural effusion noted. PG Care Time/CCT Total # of Minutes Spent Total Time Spent with Patient: Total time spent is greater than 50% in coordination of care (as documented) at patient's floor/unit and/or counseling patient: Coding Level of Care Code 86387 SUB INP/OBS CARE 235MIN Diagnoses Atelectasis of right lung J98.11 Hypoxemia R09.02
--- NOTE | 2024-11-24 10:18 | Procedure Note ---
Procedure Note Date of Service November 24, 2024 Procedure: Fiberoptic bronchoscopy Therapeutic aspiration of secretions, subsequent Provider: Willi Rea MD Consent: Verbal consent obtained from the patient prior to the procedure Procedure: Patient was in the PCU stepdown. She was given 1 mg of morphine prior to the procedure. Appropriate radiographic studies had been reviewed prior to the procedure. Standard monitoring was applied. Oxygen was administered. After topical anesthesia of the airways per respiratory therapy protocol, the fiberoptic scope was advanced through the right nares. Initially we attempted to pass the scope on the left nares however were unable to pass the scope effectively. Oropharynx was unremarkable. Vocal cords were visualized and were slightly swollen but normal in appearance. Topical anesthesia of the cords was achieved with instillation of lidocaine through the scope. Scope was then passed through the vocal cords. The trachea was tortuous with significant dynamic collapse. Main edwar was slightly splayed. Anesthesia of the lower airways was achieved with instillation of lidocaine through the scope. A sequential and systematic examination of the lower airways was conducted. There were bloody secretions present in the bilateral lower airways which required extensive saline lavage. Eventually we were able to clear the airways and inspection was performed. The right upper lobe and bronchus intermedius were patent with irritated mucosa. Patient is status post right lower lobectomy. Left-sided airways were patent again with inflamed mucosa but no endobronchial lesion. Extensive saline lavage was performed to clear the airways. The bronchoscope was then removed from the airways. The patient tolerated the procedure well without obvious complication. Impression: 1. Edematous vocal cords. 2. Bloody thick secretions present in the right mainstem bronchus and right lower lobe bronchus status post saline lavage. Continue pulmonary toilet [facility] Procedure Codes (Charges) Pulmonary/Thoracic Procedure 1: Pulmonary and Thoracic: 28399 Bronchoscopy, reclear airway Coding CPT Codes Pulmonary/Thoracic - Pulmonary and Thoracic: 52529 Bronchoscopy, reclear airway ([id number]) Additional Codes Date of Service (PG.SURGERY)
[2024-11-24] MEDS: FERROUS SULFATE 325 MG TAB PO SCH (10:33)
[2024-11-24] MEDS: IRON SUCROSE 300 MG in SODIUM CHLORIDE 0.9% 250 ML IV ONE (10:46)
[2024-11-24] MEDS: MoRPHine SULFATE 2 MG/ML CARP IV STA (10:47)
[2024-11-24] MEDS: PANTOprazole 40 MG TAB PO SCH (11:30)
[2024-11-24] MEDS: ROSUVASTATIN CALCIUM 5 MG TAB PO SCH (11:31)
[2024-11-25 04:44] LABS: Basophils # (auto) 0.02 K/uL (0.00-0.20); Basophils % (auto) 0.2 %; Eosinophils # (auto) 0.41 K/uL (0.00-0.50); Eosinophils % (auto) 4.7 %; Hematocrit (blood only) 24.1 % (37.0-47.0); Hemoglobin 7.5 g/dl (12.0-16.0); Immature Granulocytes # (auto) 0.18 K/uL (0.01-0.20); Immature Granulocytes % (auto) 2.1 %; Lymphocytes # (auto) 0.38 K/uL (1.20-3.40); Lymphocytes % (auto) 4.3 %; Mean Corpuscular Hemoglobin 28.7 pg (25.0-34.0); Mean Corpuscular Hgb Conc 31.1 g/dL (32.0-36.0); Mean Corpuscular Volume 92.3 fL (80.0-100.0); Mean Platelet Volume 9.7 fL (9.4-12.4); Monocytes # (auto) 0.52 K/uL (0.11-0.59); Monocytes % (auto) 5.9 %; Neutrophils # (auto) 7.27 K/uL (1.40-6.50); Neutrophils % (auto) 82.8 %; Platelet Count 370 K/uL (130-400); RDW Coefficient of Variation 14.5 % (11.5-14.5); RDW Standard Deviation 48.5 fL (36.4-46.3); Red Blood Count 2.61 M/uL (4.20-5.40); White Blood Count 8.78 K/ul (4.8-10.8)
[2024-11-25 05:01] LABS: BUN Creatinine Ratio 23.2 (10-20); Calcium 8.2 mg/dl (8.6-10.3); Creatinine Clr Calc Pharmacy 79.7 ml/min; Potassium 4.1 mmol/L (3.5-5.1)
[2024-11-25 05:07] LABS: Acanthocytes 1+; Ovalocytes 1+; Polychromasia 1+
--- NOTE | 2024-11-25 06:24 | Surgery Progress Note ---
Date of Service November 25, 2024 Assessment & Plan (1) H/O right hemicolectomy: Plan: Patient continues to do well from a GI standpoint. Tolerating diet and having BMs. Avon in place and incision is c/d/i Still monitoring her respiratory status, patient did require bronch yesterday due to right lung atelectasis. Aggressive pulmonary toileting with incentive spirometry, flutter valve, chest PT, and hypertonic saline. Encourage ambulation and OOB Admission and Anticipated Discharge Date Admission Date: November 14, 2024 Supervising Physician Co-Signing Physician Notes She is doing well tolerating a diet and has return of bowel function Feeling better after her bronc yesterday She is doing well from a surgical standpoint and can likely be discharged in the next day or 2 Subjective Patient seen and evaluated this morning, patient is drowsy however does awaken and answers appropriately Denies abdominal pain and continues to tolerate diet Due to continued atelectasis of the right lung she did undergo bronchoscopy by the critical care provider yesterday. Physical Exam Constitutional: WD/WN, vitals as above Respiratory: no respiratory distress and no labored breathing Auscultation: + diminished lung sounds (diminished on the right compared to left ) Cardiovascular: Rate/Rhythm: regular rate Gastrointestinal (Abdomen): Abdomen soft, nondistended, nontender to palpation. Avon in place to midline incision, c/d/i without any signs of infection Results & Data Vital Signs (Past 12 Hours) Vital Signs Temp Pulse Pulse Resp BP Pulse Ox O2 Del Method 11/25/24 03:44 36.1 C L 82 23 118/43 L 98 Nasal Cannula 11/25/24 00:21 82 24 95 BiPAP 11/25/24 00:00 85 11/25/24 00:00 36.6 C 81 34 H 116/44 L 96 Nasal Cannula 11/24/24 23:40 80 24 95 11/24/24 21:40 Nasal Cannula 11/24/24 20:00 36.6 C 91 H 33 H 125/53 L 96 Nasal Cannula 11/24/24 19:20 80 18 96 Nasal Cannula O2 Flow Rate FiO2 11/25/24 03:44 2 11/25/24 00:21 28 11/25/24 00:00 11/25/24 00:00 2 11/24/24 23:40 28 11/24/24 21:40 2 11/24/24 20:00 2 11/24/24 19:20 2 PG Care Time/CCT Total # of Minutes Spent Total Time Spent with Patient: Total time spent is greater than 50% in coordination of care (as documented) at patient's floor/unit and/or counseling patient: Coding [place] [address] Post Operative Follow-Up Patient Type Established Medical Decision Making Straight Forward Diagnoses H/O right hemicolectomy Z90.49
--- NOTE | 2024-11-25 08:01 | Pulmonology Progress Note ---
Date of Service November 25, 2024 Assessment & Plan (1) Atelectasis of right lung: (2) Hypoxemia: Plan Impression: 79-year-old female status post hemicolectomy for colon cancer with prior history of right lower lobectomy due to adenocarcinoma the lung. She has had a emiliano postoperative course with respiratory issues and continues to have right lung atelectasis with inadequate pulmonary toilet. Status post bronchoscopy yesterday with some improved aeration in her chest x-ray today but persistent atelectatic changes Recommendations: 1. Atelectasis right lung: Bronchoscopy performed Tuesday. No endobronchial lesion identified however secretions were aspirated. Her pulmonary toilet appears better today. Continue hypertonic saline, flutter valve, incentive spirometry, and increasing activity. 2. Hypoxemia: Continue to wean as tolerated. 3. Recommend the patient be out of bed to chair is much as possible as this will improve pulmonary toilet. She is very weak and deconditioned and will require aggressive rehab. Will continue to follow for pulmonary issues Admission and Anticipated Discharge Date Admission Date: November 14, 2024 Subjective Patient seen and examined. EMR reviewed. Patient sitting up eating breakfast. She is doing better this morning. She feels her breathing is better. Her pulmonary toilet is starting to get stronger and she is able to cough a little bit better. She is able to expectorate some phlegm. She tolerated the bronchoscopy yesterday relatively well Review of Systems 2 Review of Systems: All systems reviewed & are unremarkable except as noted in Subjective Physical Exam 2 Constitutional: + frail appearing and + mechanically clay tilated; no acute distress and not in distress Neck: trachea midline, no thyromegaly Respiratory: Auscultation: + diminished lung sounds; no wheezes Cardiovascular: RRR, no murmur, no edema Gastrointestinal (Abdomen): normal bowel sounds, soft, nontender, no hepatosplenomegaly Musculoskeletal: Extremities: extremities normal to inspection Skin: no rashes, warm and dry Lymphatic: no cervical lymphadenopathy Results & Data Results & Data Vital Signs (Past 12 Hours) Vital Signs Temp Pulse Pulse Resp BP Pulse Ox O2 Del Method 11/25/24 07:13 86 20 99 Nasal Cannula 11/25/24 03:44 36.1 C L 82 23 118/43 L 98 Nasal Cannula 11/25/24 00:21 82 24 95 BiPAP 11/25/24 00:00 85 11/25/24 00:00 36.6 C 81 34 H 116/44 L 96 Nasal Cannula 11/24/24 23:40 80 24 95 11/24/24 21:40 Nasal Cannula 11/24/24 20:00 36.6 C 91 H 33 H 125/53 L 96 Nasal Cannula O2 Flow Rate FiO2 11/25/24 07:13 1 11/25/24 03:44 2 11/25/24 00:21 28 11/25/24 00:00 11/25/24 00:00 2 11/24/24 23:40 28 11/24/24 21:40 2 11/24/24 20:00 2 Laboratory Results 11/25/24 04:32 11/25/24 04:32 Diagnostic Findings Chest x-ray from today was independently reviewed. The left lung is well aerated. There is improved aeration in the right apex however there appears to be persistent atelectatic changes in the right lung. PG Care Time/CCT Total # of Minutes Spent Total Time Spent with Patient: Total time spent is greater than 50% in coordination of care (as documented) at patient's floor/unit and/or counseling patient: Coding Level of Care Code 45368 SUB INP/OBS CARE 2/35MIN Diagnoses Atelectasis of right lung J98.11 Hypoxemia R09.02
--- NOTE | 2024-11-25 08:28 | XRay Report ---
EXAM: XR chest 1V portable CLINICAL HISTORY: atelectasis TECHNIQUE: An X-ray image of the chest is obtained in 1 AP projection. COMPARISON: X ray 11/24/2024. FINDINGS: Pulmonary Parenchyma: Still noted opacification of the right hemothorax. A small apical aerated part is noted. Unchanged prominent left parahilar markings. Unchanged suspected left minimal pleural effusion. Heart and Mediastinum: Apparent cardiomegaly. No mediastinal widening or masses. No hilar or mediastinal lymphadenopathy. Pace maker seen insitu. Bony Thorax: Sternotomy sutures. Bony thorax appears intact without fractures or deformities. Soft Tissues: Elevated right hemidiaphragm. Soft tissues overlying the chest wall are unremarkable. Surgical mavis in the right hypochondrium IMPRESSION: 1. Still noted opacification of the right hemothorax. A small apical aerated part is noted. 2. Unchanged suspected left minimal pleural effusion. 3. Clinical correlation and follow-up is advised. Electronically signed by Dillan Latham 11-25-2024 08:28 AM
--- NOTE | 2024-11-25 09:39 | Hospitalist Progress Note ---
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 This was diagnosed as outpatient colonoscopic biopsy earlier in October. Surgical resection by Dr. Lorenzo on 11/14. #Mildly differentiated adenocarcinoma of the cecum status post surgical resection/acute blood loss anemia on chronic anemia from: Cancer. Post operatively patient had post op ileus, attempt made to place NG tube which resulted in emesis with blood and clots. On POD#2 had acute onset in mental s tatus changes concerning for stoke and required intubation on 11/16 as she was not protecting her airway. Was seen by tele-stroke who did not recommend transfer or TNK. Seen by neurology who recommend EEG (no seizure activity) and MRI (which could not be completed d/t pacemaker incompatibility). She was extubated on 11/17 but tachypneic with bipap and had to be reintubated later that evening. Had bronchoscopy 11/18 showing mucopurulent secretions. Completed course of Vanc/Zosyn for HAP/VAP. Blood cultures negative. Was extubated to BIPAP on 11/21. Has been weaned down to NC. NG tube has been removed. On 11/23 stable for downgrade from ICU. Diet advancement / pain control / dispo planning per primary team PPI changed to qAM - likely does not need to be continued at discharge if no further signs of GI bleed hgb low, but stable - agreeable to IV iron - plan to complete 3 doses (holding PO Fe with recent bowel surgery to prevent constipation) Rec sequeira out today if able #COPD/Acute respiratory failure with hypoxia requiring intubation On chronic oxygen 2L Intubation/bronchoscopy events as above. CXR 11/23 showing interval progression of the right hemothorax opacity/ effusion leading to near total opacification Continue scheduled nebs, IS,FV, Hypertonic saline and Mucinex Pulmonary following - s/p bronchoscopy 11/24 #Hypokalemia replaced PO and now replete #Elevated Blood glucose Mild - BSG checks in ICU per protocol. A1c 5.3, no further BSG checks needed #Pulm hypertension. 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 Medicine will continue to follow Family updated at bedside 11/23 Admission and Anticipated Discharge Date Admission Date: November 14, 2024 Supervising Physician Co-Signing Physician Notes Attending Attestation - Chart reviewed, care plan d/w CROW Becerril. I agree w/ the puga components of her documentation. Sav Watson MD Subjective patient seen lying in bed, no family present at bedside patient had no issues with IV iron yesterday - -agreeable to two more doses so she does not have to take PO for a bit still quite weak Review of Systems Review of Systems: All systems reviewed & are unremarkable except as noted in Subjective Physical Exam Physical Exam: General: NAD, VS as above Resp: normal respiratory effort, lungs diminished, 2L NC CV: RRR, no murmur, sternotomy scar Abd: normal bowel sounds, non tender, stables open to air. Extremities: Moves all extremities, no edema Neuro: A&O x3, Results & Data Results & Data Vital Signs (Past 12 Hours) Vital Signs Temp Pulse Pulse Resp BP BP Pulse Ox 11/25/24 08:28 127/54 L 11/25/24 08:21 88 24 97 11/25/24 08:00 98.2 F 11/25/24 08:00 11/25/24 07:15 87 27 H 100 11/25/24 07:13 86 20 99 11/25/24 03:44 97.0 F L 82 23 118/43 L 98 11/25/24 00:21 82 24 95 11/25/24 00:00 85 11/25/24 00:00 97.9 F 81 34 H 116/44 L 96 11/24/24 23:40 80 24 95 11/24/24 21:40 O2 Del Method O2 Flow Rate FiO2 11/25/24 08:28 11/25/24 08:21 Nasal Cannula 2 11/25/24 08:00 11/25/24 08:00 Nasal Cannula 2 11/25/24 07:15 11/25/24 07:13 Nasal Cannula 1 11/25/24 03:44 Nasal Cannula 2 11/25/24 00:21 BiPAP 28 11/25/24 00:00 11/25/24 00:00 Nasal Cannula 2 11/24/24 23:40 28 11/24/24 21:40 Nasal Cannula 2 Laboratory Results cbc and chemsitry reviewed PG Care Time/CCT Total # of Minutes Spent Total Time Spent with Patient: Total time spent is greater than 50% in coordination of care (as documented) at patient's floor/unit and/or counseling patient: Coding Level of Care Code 88947 SUB INP/OBS CARE 2/35MIN Diagnoses Cecum mass K63.89 Chronic hypoxemic respiratory failure J96.11 Pacemaker Z95.0 Hypothyroidism E03.9
[2024-11-25] MEDS: IRON SUCROSE 300 MG in SODIUM CHLORIDE 0.9% 250 ML IV SCH (11:10)
[2024-11-26 06:31] LABS: Hemoglobin 7.9 g/dl (12.0-16.0); Mean Corpuscular Hemoglobin 28.4 pg (25.0-34.0); Mean Corpuscular Hgb Conc 30.4 g/dL (32.0-36.0); Mean Corpuscular Volume 93.5 fL (80.0-100.0); Mean Platelet Volume 9.7 fL (9.4-12.4); Platelet Count 399 K/uL (130-400); RDW Coefficient of Variation 14.5 % (11.5-14.5); RDW Standard Deviation 49.1 fL (36.4-46.3); Red Blood Count 2.78 M/uL (4.20-5.40); White Blood Count 9.66 K/ul (4.8-10.8)
--- NOTE | 2024-11-26 09:45 | Surgery Progress Note ---
Date of Service November 26, 2024 Assessment & Plan (1) H/O right hemicolectomy: Plan: doing fine from gen surgery standpoint will need aggressive PT/OT continue to encourage PO intake. Admission and Anticipated Discharge Date Admission Date: November 14, 2024 Subjective pt seen. feeling better each day. valerie reg diet. no abdominal complaints. Physical Exam Physical Exam: alert. nad abd: soft. wound looks good. Results & Data Vital Signs (Past 12 Hours) Vital Signs Temp Pulse Pulse Resp BP Pulse Ox O2 Del Method 11/26/24 07:36 Nasal Cannula 11/26/24 07:32 36.2 C L 87 20 147/75 H 97 Room Air 11/26/24 07:14 89 11/26/24 06:56 95 H 22 95 Nasal Cannula 11/26/24 04:18 36.4 C L 86 16 111/62 96 Nasal Cannula 11/26/24 00:32 90 24 96 Nasal Cannula 11/26/24 00:00 93 H 11/25/24 23:28 37.0 C 92 H 16 137/70 96 Nasal Cannula O2 Flow Rate 11/26/24 07:36 2 11/26/24 07:32 11/26/24 07:14 11/26/24 06:56 2 11/26/24 04:18 3 11/26/24 00:32 2 11/26/24 00:00 11/25/24 23:28 3 PG Care Time/CCT Total # of Minutes Spent Total Time Spent with Patient: Total time spent is greater than 50% in coordination of care (as documented) at patient's floor/unit and/or counseling patient: Coding Level of Care Code 33612 Post Operative Follow-Up Diagnoses H/O right hemicolectomy Z90.49
--- NOTE | 2024-11-26 10:43 | Hospitalist Progress Note ---
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 This was diagnosed as outpatient colonoscopic biopsy earlier in October. Surgical resection by Dr. Lorenzo on 11/14. #Mildly differentiated adenocarcinoma of the cecum status post surgical resection/acute blood loss anemia on chronic anemia from: Cancer. Post operatively patient had post op ileus, attempt made to place NG tube which resulted in emesis with blood and clots. On POD#2 had acute onset in mental s tatus changes concerning for stoke and required intubation on 11/16 as she was not protecting her airway. Was seen by tele-stroke who did not recommend transfer or TNK. Seen by neurology who recommend EEG (no seizure activity) and MRI (which could not be completed d/t pacemaker incompatibility). She was extubated on 11/17 but tachypneic with bipap and had to be reintubated later that evening. Had bronchoscopy 11/18 showing mucopurulent secretions. Completed course of Vanc/Zosyn for HAP/VAP. Blood cultures negative. Was extubated to BIPAP on 11/21. Has been weaned down to NC. NG tube has been removed. On 11/23 stable for downgrade from ICU. Diet advancement / pain control / dispo planning per primary team PPI changed to qAM - likely does not need to be continued at discharge if no further signs of GI bleed hgb low, but stable - agreeable to IV iron - s/p 3 doses (holding PO Fe with recent bowel surgery to prevent constipation) Rec sequeiar out today if able - discussed with primary team #COPD/Acute respiratory failure with hypoxia requiring intubation On chronic oxygen 2L Intubation/bronchoscopy events as above. CXR 11/23 showing interval progression of the right hemothorax opacity/ effusion leading to near total opacification Continue scheduled nebs, IS,FV, Hypertonic saline and Mucinex Pulmonary following - s/p bronchoscopy 11/24 #Hypokalemia replaced PO and now replete #Elevated Blood glucose Mild - BSG checks in ICU per protocol. A1c 5.3, no further BSG checks needed #Pulm hypertension. Home dose lasix 20mg - restart for 11/27 #Coronary artery disease/ Hx of AV block with pacer in place/ Hx of bypass Continues on metoprolol 12.5 mg BID, Eliquis 2.5mg po bid, and rosuvastatin #Hypothyroid - continue Synthroid #hx of lung cancer s/- right lower lobe lobectomy - noted #hx of DVT associated with pacemaker - continue Eliquis (lifelong) DVT proph: continue home Eliquis Thank you for allowing us to participate in the care of this patient, please reach out with any questions or concerns. Medicine will continue to follow peripherally. Family updated at bedside 11/23 Admission and Anticipated Discharge Date Admission Date: November 14, 2024 Supervising Physician Co-Signing Physician Notes Attending Attestation - Chart reviewed, care plan d/w CROW Becerril. I agree w/ the puga components of her documentation. Appreciate pulmonary assistance for right lung collapse. Sav Watson MD Subjective patient tired this mornng denies pain recommend foey to come out tele SR 90s Review of Systems Review of Systems: All systems reviewed & are unremarkable except as noted in Subjective Physical Exam Physical Exam: General: NAD, VS as above Resp: normal respiratory effort, lungs diminished, expiratory wheezing , 2L NC CV: RRR, no murmur, sternotomy scar Abd: normal bowel sounds, non tender, stables open to air. Extremities: Moves all extremities, no edema Neuro: A&O x3, Results & Data Results & Data Vital Signs (Past 12 Hours) Vital Signs Temp Pulse Pulse Resp BP Pulse Ox O2 Del Method 11/26/24 07:36 Nasal Cannula 11/26/24 07:32 97.2 F L 87 20 147/75 H 97 Room Air 11/26/24 07:14 89 11/26/24 06:56 95 H 22 95 Nasal Cannula 11/26/24 04:18 97.5 F L 86 16 111/62 96 Nasal Cannula 11/26/24 00:32 90 24 96 Nasal Cannula 11/26/24 00:00 93 H 11/25/24 23:28 98.6 F 92 H 16 137/70 96 Nasal Cannula O2 Flow Rate 11/26/24 07:36 2 11/26/24 07:32 11/26/24 07:14 11/26/24 06:56 2 11/26/24 04:18 3 11/26/24 00:32 2 11/26/24 00:00 11/25/24 23:28 3 Laboratory Results cbc reviewed PG Care Time/CCT Total # of Minutes Spent Total Time Spent with Patient: Total time spent is greater than 50% in coordination of care (as documented) at patient's floor/unit and/or counseling patient: Coding Level of Care Code 74803 SUB INP/OBS CARE 2/35MIN Diagnoses Cecum mass K63.89 Chronic hypoxemic respiratory failure J96.11 Pacemaker Z95.0 Hypothyroidism E03.9
--- NOTE | 2024-11-26 12:33 | Pulmonology Progress Note ---
Date of Service November 26, 2024 Assessment & Plan (1) Atelectasis of right lung: (2) Hypoxemia: Plan Impression: 79-year-old female status post hemicolectomy for colon cancer with prior history of right lower lobectomy due to adenocarcinoma the lung. She has had a emiliano postoperative course with respiratory issues and continues to have right lung atelectasis with inadequate pulmonary toilet. Status post bronchoscopy this admission with some improved aeration in her chest x-ray today but persistent atelectatic changes CT chest 11/18/2024 personally reviewed: Right-sided apical pleural thickening with consolidative process on the right side Small right-sided pleural effusion Dependent atelectasis of the left lower lobe Cardiomegaly No significant mediastinal lymphadenopathy --Atelectasis/collapse of the right lung S/p bronchoscopy 11/24/2024, no endobronchial lesion Atelectasis right lung: Bronchoscopy performed Tuesday. No endobronchial lesion identified however secretions were aspirated. Her pulmonary toilet appears better today. Continue hypertonic saline, flutter valve, incentive spirometry, and increasing activity. --Hypoxia Likely secondary to above Continue with O2 supplementation to keep oxygen saturation between 90-92% --History of adenocarcinoma of the right upper lobe Diagnosed 07/2014, T2 N2, stage IIIa S/p with chemoradiation, unable to complete planned chemo cycles because of neutropenia Relapse 2014 and then 11/2017 on alectinib Plan: Follow-up chest x-ray from today Continue with aggressive upper airway clearance technique Continue with 7% saline nebulized, will change patient's Anoro to budesonide and Perforomist while in the hospital Will consider CoughAssist but unfortunately we have only 1 CoughAssist in the hospital. I will add chest vest for the time being I spent > 50 minutes in looking at the chart, discussing with outgoing transverse abdominal muscle nurse, discussing plan of care with primary team, RT as well as the patient Please note the above document was generated using voice recognition software. It may contain grammatical, syntax or spelling errors.Any formal questions or concerns about the content, text or information contained within the body of this dictation should be directly addressed to the provider for clarification. Admission and Anticipated Discharge Date Admission Date: November 14, 2024 Subjective Patient seen and examined at bedside. No acute distress, no adverse events overnight. Case was discussed with outgoing transverse abdominal muscle nurse She was on 2 L nasal cannula, saturating 93-94% She has been using flutter valve but she is not able to bring much phlegm up. Denies any chest pain Has been afebrile Her appetite Denies any difficulty swallowing Review of Systems 2 Review of Systems: All systems reviewed & are unremarkable except as noted in Subjective Physical Exam 2 Physical Exam: Constitutional: No acute distress HEENT: EOMI, PERRLA Respiratory system: Decreased air entry on the right side, no wheeze, no rhonchi, positive crackles CVS: S1-S2 positive, no murmurs or gallops, distant heart sounds Abdomen: Soft, nontender, nondistended, positive bowel sounds x4 Extremities: +2 pulses bilaterally radialis/ dorsalis pedis, no cyanosis, no edema Neuro: Awake alert oriented x3 Psych: Normal mood and affect G/U: Positive Richardson Skin: no rashes, warm and dry Lymphatic: no cervical or axillary lymphadenopathy Results & Data Results & Data Vital Signs (Past 12 Hours) Vital Signs Temp Pulse Pulse Resp BP Pulse Ox O2 Del Method 11/26/24 11:13 36.2 C L 94 H 17 133/66 95 Room Air 11/26/24 07:36 Nasal Cannula 11/26/24 07:32 36.2 C L 87 20 147/75 H 97 Room Air 11/26/24 07:14 89 11/26/24 06:56 95 H 22 95 Nasal Cannula 11/26/24 04:18 36.4 C L 86 16 111/62 96 Nasal Cannula 11/26/24 00:32 90 24 96 Nasal Cannula O2 Flow Rate 11/26/24 11:13 11/26/24 07:36 2 11/26/24 07:32 11/26/24 07:14 11/26/24 06:56 2 11/26/24 04:18 3 11/26/24 00:32 2 Laboratory Results 11/26/24 05:39 11/25/24 04:32 PG Care Time/CCT Total # of Minutes Spent Total Time Spent with Patient: Total time spent is greater than 50% in coordination of care (as documented) at patient's floor/unit and/or counseling patient: Coding Level of Care Code 11034 SUB INP/OBS CARE 3/50MIN Diagnoses Atelectasis of right lung J98.11 Hypoxemia R09.02
--- NOTE | 2024-11-26 13:03 | XRay Report ---
XR chest 1V portable HISTORY: 79 years-old Female f/u follow-up study in a patient with right hemithorax opacification COMPARISON: 11/25/2024, chest CT 11/18/2024 TECHNIQUE: AP view of the chest FINDINGS: Cardiomegaly with pulmonary vascular congestion. Left subclavian pacer. Median sternotomy. Hypoinflat ion of the left lung with probable trace left pleural effusion and mild left basilar atelectasis. Com plete consolidation of the right hemithorax has progressed from yesterday's study. No definite midlin e shift. IMPRESSION: 1. Complete opacification of the right hemithorax has progressed from yesterday's study. 2. Cardiomegaly with pulmonary vascular congestion. ACT 112: Negative or not required by law. The above report was generated using voice recognition software. It may contain grammatical, syntax o r spelling errors. Electronically signed by: Joo Sagastume M.D. 11/26/2024 1:01 PM
[2024-11-26] MEDS: BUDESONIDE 0.25 MG/2 ML VIAL (PULMICORT) NEB SCH (19:21)
[2024-11-26] MEDS: FORMOTEROL 20 MCG/2 ML VIAL NEB SCH (19:22)
--- NOTE | 2024-11-27 07:24 | XRay Report ---
EXAM: XR chest 1V portable CLINICAL HISTORY: f/u TECHNIQUE: Radiograph of chest was acquired. COMPARISON: 11/25/2024 FINDINGS: Opacification of right hemithorax with interval increase in haziness of right upper zone compared to prior study Prominent perihilar bronchovascular markings in left lung Unchanged prominent left parahilar markings. Unchanged suspected left minimal pleural effusion. Aerated left lung with no evidence consolidation Apparent cardiomegaly Rest of the cardiomediastinal silhouette is within normal limits. No acute osseous abnormality. Sternal sutures in-situ Elevated right hemidiaphragm. Soft tissues overlying the chest wall are unremarkable. Surgical mavis in the right hypochondrium Cardiac pacemaker seen in situ IMPRESSION: 1. Opacification of right hemithorax in right middle and lower zones - unchanged 2. Interval increase in the opacification of right upper zone- there is progression compared to prior study 3. Unchanged prominent left hilar markings 4. Unchanged suspected left minimal pleural effusion 5. Apparent cardiomegaly Advised clinical correlation and follow up Electronically signed by Elliot Benitez 11-27-2024 07:24 AM
--- NOTE | 2024-11-27 07:55 | Surgery Progress Note ---
Date of Service November 27, 2024 Assessment & Plan (1) H/O right hemicolectomy: Plan: doing well from an abd standpoint tolerating low fiber diet discussed removing mavis prior to d/c recommending rehab and pt /ot while in house appreciate hospitalist and respiratory assist will follow Admission and Anticipated Discharge Date Admission Date: November 14, 2024 Subjective pt without abd complaints denies n/v +bm and flatus getting respiratory tx Review of Systems Constitutional: no fever and no chills Respiratory: + dyspnea Cardiovascular: no chest pain Gastrointestinal: no abdominal pain, no nausea and no vomiting Physical Exam Constitutional: comfortable; no acute distress Respiratory: able to speak in complete sentences; no respiratory distress Gastrointestinal (Abdomen): Inspection/Auscultation: + abdominal surgical incision; abdomen not distended Results & Data Vital Signs (Past 12 Hours) Vital Signs Temp Pulse Pulse Resp BP Pulse Ox O2 Del Method 11/27/24 06:54 94 H 21 96 Nasal Cannula 11/27/24 02:43 97.9 F 90 20 133/85 96 Nasal Cannula 11/27/24 00:06 90 22 95 Nasal Cannula 11/26/24 22:27 97.7 F 90 18 111/62 96 Nasal Cannula 11/26/24 21:48 94 H 11/26/24 20:51 Nasal Cannula O2 Flow Rate 11/27/24 06:54 2 11/27/24 02:43 11/27/24 00:06 2 11/26/24 22:27 11/26/24 21:48 11/26/24 20:51 2 PG Care Time/CCT Total # of Minutes Spent Total Time Spent with Patient: Total time spent is greater than 50% in coordination of care (as documented) at patient's floor/unit and/or counseling patient: Coding Level of Care Code 45739 Post Operative Follow-Up Diagnoses H/O right hemicolectomy Z90.49
--- NOTE | 2024-11-27 09:07 | Pulmonology Progress Note ---
Date of Service November 27, 2024 Assessment & Plan (1) Atelectasis of right lung: (2) Hypoxemia: (3) Pulmonary hypertension: (4) Chronic hypoxemic respiratory failure: (5) Adenocarcinoma of lung: (6) Lung cancer, lower lobe: Plan Impression: 79-year-old female status post hemicolectomy for colon cancer with prior history of right lower lobectomy due to adenocarcinoma the lung. She has had a emiliano postoperative course with respiratory issues and continues to have right lung atelectasis with inadequate pulmonary toilet. Status post bronchoscopy this admission CT chest 11/18/2024 personally reviewed: Right-sided apical pleural thickening with consolidative process on the right side Small right-sided pleural effusion Dependent atelectasis of the left lower lobe Cardiomegaly No significant mediastinal lymphadenopathy --Atelectasis/collapse of the right lung S/p bronchoscopy 11/24/2024, no endobronchial lesion Persistance collapse. 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 There is increased haziness in the right upper lobe Continue with 7% saline nebulized,budesonide and Perforomist Unfortunately we have only 1 CoughAssist in the hospital which is currently being used. Continue with chest vest for the time being. Continue with flutter valve I discussed the case with RN, I would recommend her to be out of the bed to chair Will consider another bronchoscopy if patient is agreeable to it. Please note the above document was generated using voice recognition software. It may contain grammatical, syntax or spelling errors.Any formal questions or concerns about the content, text or information contained within the body of this dictation should be directly addressed to the provider for clarification. Admission and Anticipated Discharge Date Admission Date: November 14, 2024 Subjective Patient seen and examined at bedside. No acute distress, no evidence events overnight She has been using chest vest therapy and has found some benefit compared to before. She is bringing up phlegm Denied any chest pain Still seems to be very lethargic Denied any nausea vomiting Fair appetite Review of Systems 2 Review of Systems: All systems reviewed & are unremarkable except as noted in Subjective Physical Exam 2 Physical Exam: Constitutional: No acute distress HEENT: EOMI, PERRLA Respiratory system: Decreased air entry on the right side, no wheeze, no rhonchi, positive crackles CVS: S1-S2 positive, no murmurs or gallops, distant heart sounds Abdomen: Soft, nontender, nondistended, positive bowel sounds x4 Extremities: +2 pulses bilaterally radialis/ dorsalis pedis, no cyanosis, no edema Neuro: Awake alert oriented x3 Psych: Normal mood and affect G/U: Positive Richardson Skin: no rashes, warm and dry Lymphatic: no cervical or axillary lymphadenopathy Results & Data Results & Data Vital Signs (Past 12 Hours) Vital Signs Temp Pulse Pulse Resp BP Pulse Ox O2 Del Method 11/27/24 08:11 36.4 C L 97 H 20 123/67 98 Nasal Cannula 11/27/24 08:00 84 11/27/24 06:54 94 H 21 96 Nasal Cannula 11/27/24 02:43 36.6 C 90 20 133/85 96 Nasal Cannula 11/27/24 00:06 90 22 95 Nasal Cannula 11/26/24 22:27 36.5 C 90 18 111/62 96 Nasal Cannula 11/26/24 21:48 94 H O2 Flow Rate 11/27/24 08:11 3 11/27/24 08:00 11/27/24 06:54 2 11/27/24 02:43 11/27/24 00:06 2 11/26/24 22:27 11/26/24 21:48 Laboratory Results 11/26/24 05:39 11/25/24 04:32 PG Care Time/CCT Total # of Minutes Spent Total Time Spent with Patient: Total time spent is greater than 50% in coordination of care (as documented) at patient's floor/unit and/or counseling patient: Coding Level of Care Code 90841 SUB INP/OBS CARE 2/35MIN Diagnoses Atelectasis of right lung J98.11 Hypoxemia R09.02 Pulmonary hypertension I27.20 Chronic hypoxemic respiratory failure J96.11 Adenocarcinoma of lung C34.90 Lung cancer, lower lobe C34.30
[2024-11-27] MEDS: FUROSEMIDE 20 MG TAB PO SCH (09:37)
--- NOTE | 2024-11-27 13:37 | Hospitalist Progress Note ---
Date of Service November 27, 2024 Assessment & Plan (1) Cecum mass: (2) Chronic hypoxemic respiratory failure: (3) Pacemaker: (4) Hypothyroidism: Plan (1) Cecum mass: (2) Chronic hypoxemic respiratory failure: (3) Pacemaker: (4) Hypothyroidism: Plan 79-year-old female with a PMHx of Lung ca s/p RLL lobectomy, COPD with oxygen dependence, pulm HTN, hx pacemaker 2nd to AV-block, UE DVT presented to hospital for planned right hemicolectomy due to recent diagnosis of adenocarcinoma of the cecum diagnosed as outpatient on colonoscopy/biopsy in December. Surgical resection with Dr Lorenzo on 11/14 and had post-op ileus requiring NGT placement which caused emesis with clots and patient developed acute onset of mental status change on POD #2, concerning for CVA and required intubation on 11/16 as not protecting airway. Seen by tele-stroke who did not recommend transfer or TNK and was seen by Neurology who recommended EEG (negative for seizure activity) and MRI brain (which could not be completed 2nd to pacemaker incompatibility). Was extubated on 11/17 but was tachypneic with BiPAP and needed reintubated later that evening. Bronchoscopy on 11/18 with mucopurulent secretions. Completed course of Vanco/Zosyn for HAP/VAP and blood cultures were negative. Eventual extubation to BiPAP on 11/21 and subsequent CXR w/ interval progression of RIGHT hemothorax/effusion leading to near complete opacification and required repeat bronchoscopy with Dr Rea on 11/24 with noted bloody thick secretions present in R mainstem and RLL bronchus status post saline lavage. Pulmonology continues to follow and adjustment to medication/nebulizer regimen and has been weaned to NC presently, SpO2 98%. Eventual plan for rehab. #Mildly differentiated adenocarcinoma of the cecum status post surgical resection/acute blood loss anemia on chronic anemia from: Cancer. Complicated post-op course as outlined above, improved and down to 2L NC Now on low fiber diet, continues on PPI once daily WBC wnl Richardson removal Tx COPD/Acute respiratory failure with hypoxia per pulmonology (baseline 2L). CBC w/ CM labs, consider PRBC, does have fatigue, hgb stable compared to priors this past week and did get Venofer IV x 3 doses PT/OT eventual need for rehab, CM to follow #COPD/Acute respiratory failure with hypoxia requiring intubation On chronic oxygen 2L, intubation events and bronchoscopy above and pulmonology on consult and following Patient remains on pulmonary toilet, IS, flutter valve, hypertonic saline, mucinex. Added formoterol/budesonide nebs BID on 11/26 Daily CXR/management per pulmonology appreciated #Pulm hypertension Lasix resumed 11/27 #Hypothyroid - continue Synthroid, check TSH w/ AM labs given anemia/fatigue for completensss #Coronary artery disease/ Hx of AV block with pacer in place/ Hx of bypass - continues on metoprolol 12.5 mg BID, Eliquis 2.5mg po bid, and rosuvastatin #Hypokalemia resolved #Elevated Blood glucose mild during BSG checks in ICU likely from acute illness. A1c 5.3, BSG checks dcd #hx of lung cancer s/- right lower lobe lobectomy - noted #hx of DVT associated with pacemaker - continue Eliquis (lifelong) DVT proph: continue home Eliquis 2.5mg BID Dispo: continued inpatient stay, tx hypoxia/atelectasis per pulmonology. Checking CBC w/ AM for stability, rec consideration for PRBC if remains low Hospitalist to follow peripherally as discussed w/ TIM this morning. Can contact if any questions/concerns. Admission and Anticipated Discharge Date Admission Date: November 14, 2024 Supervising Physician Co-Signing Physician Notes The patient was not seen by me. The chart was reviewed. Case discussed with CROW Sy. Agree with assessment and plan Subjective Eval this afternoon, sitting up in the chair, ready to get back to bed. Reports has been out of bed since around 10am, reports feeling fatigued. Breathing stable on baseline 2L. Discussed hospitalist service to follow peripherally if any needs, did message primary to consider PRBC if felt indicated but VSS but does report fatigue and prior in the 7s. Tolerating diet. Questions/concerns addressed at this time. Physical Exam Physical Exam: General: 79yo female sitting up in chair, NAD but reports fatigue, wanting to get back to bed Resp: normal respiratory effort, lungs diminished,decreased air entry on the right/+crackles, no signifant wheezing today, on 2L NC CV: RRR, no murmur, sternotomy scar Abd: normal bowel sounds, non tender, mavis open to air. Extremities: Moves all extremities, no edema Neuro: A&O x3, fatigued but cooperative Results & Data Results & Data Vital Signs (Past 12 Hours) Vital Signs Temp Pulse Pulse Resp BP Pulse Ox O2 Del Method 11/27/24 13:00 90 16 98 Nasal Cannula 11/27/24 11:46 36.5 C 95 H 20 119/66 97 Nasal Cannula 11/27/24 11:01 Nasal Cannula 11/27/24 08:11 36.4 C L 97 H 20 123/67 98 Nasal Cannula 11/27/24 08:00 84 11/27/24 06:54 94 H 21 96 Nasal Cannula 11/27/24 02:43 36.6 C 90 20 133/85 96 Nasal Cannula O2 Flow Rate 11/27/24 13:00 2 11/27/24 11:46 3 11/27/24 11:01 2 11/27/24 08:11 3 11/27/24 08:00 11/27/24 06:54 2 11/27/24 02:43 PG Care Time/CCT Total # of Minutes Spent Total Time Spent with Patient: Total time spent is greater than 50% in coordination of care (as documented) at patient's floor/unit and/or counseling patient: Coding Level of Care Code 28523 SUB INP/OBS CARE 08/25MIN Diagnoses Cecum mass K63.89 Chronic hypoxemic respiratory failure J96.11 Pacemaker Z95.0 Hypothyroidism E03.9
[2024-11-28 06:21] LABS: Hematocrit (blood only) 25.6 % (37.0-47.0); Mean Corpuscular Hgb Conc 31.3 g/dL (32.0-36.0); Mean Corpuscular Volume 92.8 fL (80.0-100.0); Mean Platelet Volume 9.6 fL (9.4-12.4); Platelet Count 371 K/uL (130-400); RDW Coefficient of Variation 14.9 % (11.5-14.5); RDW Standard Deviation 48.9 fL (36.4-46.3); Red Blood Count 2.76 M/uL (4.20-5.40); White Blood Count 10.52 K/ul (4.8-10.8)
[2024-11-28 06:59] LABS: BUN Creatinine Ratio 17.6 (10-20); Calcium 8.4 mg/dl (8.6-10.3); Creatinine Clr Calc Pharmacy 88.3 ml/min; Magnesium 1.6 mg/dl (1.7-2.4); Potassium 3.3 mmol/L (3.5-5.1); Thyroid Stimulating Hormone 12.669 uIu/ml (0.300-4.500)
--- NOTE | 2024-11-28 07:30 | Hospitalist Progress Note ---
Date of Service November 28, 2024 Assessment & Plan (1) Cecum mass: (2) Chronic hypoxemic respiratory failure: (3) Pacemaker: (4) Hypothyroidism: Plan (1) Cecum mass: (2) Chronic hypoxemic respiratory failure: (3) Pacemaker: (4) Hypothyroidism: Plan 79-year-old female with a PMHx of Lung ca s/p RLL lobectomy, COPD with oxygen dependence, pulm HTN, hx pacemaker 2nd to AV-block, UE DVT presented to hospital for planned right hemicolectomy due to recent diagnosis of adenocarcinoma of the cecum diagnosed as outpatient on colonoscopy/biopsy in December. Surgical resection with Dr Lorenzo on 11/14 and had post-op ileus requiring NGT placement which caused emesis with clots and patient developed acute onset of mental status change on POD #2, concerning for CVA and required intubation on 11/16 as not protecting airway. Seen by tele-stroke who did not recommend transfer or TNK and was seen by Neurology who recommended EEG (negative for seizure activity) and MRI brain (which could not be completed 2nd to pacemaker incompatibility). Was extubated on 11/17 but was tachypneic with BiPAP and needed reintubated later that evening. Bronchoscopy on 11/18 with mucopurulent secretions. Completed course of Vanco/Zosyn for HAP/VAP and blood cultures were negative. Eventual extubation to BiPAP on 11/21 and subsequent CXR w/ interval progression of RIGHT hemothorax/effusion leading to near complete opacification and required repeat bronchoscopy with Dr Rea on 11/24 with noted bloody thick secretions present in R mainstem and RLL bronchus status post saline lavage. Pulmonology continues to follow and adjustment to medication/nebulizer regimen and has been weaned to 2L NC presently, SpO2 95%. Now increasing lasix for diuetic effect as had been off during admission/weights up. Eventual plan for rehab. #Mildly differentiated adenocarcinoma of the cecum status post surgical resection/acute blood loss anemia on chronic anemia from: Cancer. Complicated post-op course as outlined above, improved and down to baseline O2 requirement Tolerating low fiber diet, moving bowels. Richardson removed Checked labs 11/28 for stability - WBC wnl but borderline, has been afebrile. Hgb 8.0 and stable compared to prior and has received 3 doses IV venofer. Consider PRBC discussed w/ primary if deemed appropriate BNP elevated to 658 and Lasix 40mg IV daily for now as discussed w/ pulm (prior 20mg PO daily, had been off ~2wks, weights up in system) Have ordered additional PO KCl replacement for K 3.3, 2gm IV mag for mag 1.6 Tx COPD/Acute respiratory failure with hypoxia per pulmonology (baseline 2L). PT/OT eventual need for rehab, CM to follow #COPD/Acute respiratory failure with hypoxia requiring intubation/Pulmonary HTN On chronic oxygen 2L, intubation events and bronchoscopy above and pulmonology on consult and following and remains on pulmonary toilet, ID, flutter valve, hypertonic saline, mucinex and added formoterol/budesonide nebs BID on 11/26 Lasix 20mg daily resumed 11/27 but INCREASING to 40mg IV daily for now Daily CXR/management per pulmonology appreciated #Hypothyroid - had been continued [id number] daily but checked TSH w/ fatigue/anemia --> TSH ELEVATED 12.6, synthroid increased to 37.5mcg daily/continue at dc recd #Coronary artery disease/ Hx of AV block with pacer in place/ Hx of bypass - continues on metoprolol 12.5 mg BID, Eliquis 2.5mg po bid, and rosuvastatin. consideration for PRBC but has completed 3 doses Venofer #Hypokalemia resolved #Elevated Blood glucose mild during BSG checks in ICU likely from acute illness. A1c 5.3, BSG checks dcd #hx of lung cancer s/- right lower lobe lobectomy - noted #hx of DVT associated with pacemaker - continue Eliquis (lifelong) DVT proph: continue home Eliquis 2.5mg BID Dispo: continued inpatient stay, tx hypoxia/atelectasis per pulmonology and increasing diuretics for assistance. Will continue to follow along. Please call with any questions/conerns. Admission and Anticipated Discharge Date Admission Date: November 14, 2024 Supervising Physician Co-Signing Physician Notes The patient was not seen by me. The chart was reviewed. Case discussed with CROW Sy. Agree with assessment and plan Subjective Patient evaluated this morning, feeling a little better today. Sitting up in bed eating, slouched in bed and repositioned with nursing. Breathing reported stable, on 2L w/ continued wheezing. Lasix resumed/discussed increasing and electrolyte derangement. Decent appetite, no nausea/vomiting. Moving bowels. No fever/chills, chest pain at this time. Eventual plan for rehab. Physical Exam 2 Physical Exam: General: 79yo female sitting up in bed, eating breakfast, NAD Resp: decreased air entry on the right, anterior expiratory wheezing/+crackles, on 2L, able to speak in complete sentences but becomes winded CV: RRR, no murmur, sternotomy scar, trace pedal edema Abd: normal bowel sounds, non tender, mavis open to air. Neuro: A&O x3, fatigued but cooperative Results & Data Results & Data Vital Signs (Past 12 Hours) Vital Signs Temp Pulse Pulse Resp BP Pulse Ox O2 Del Method 11/28/24 03:01 36.5 C 95 H 20 119/61 93 Nasal Cannula 11/28/24 01:10 90 22 99 Nasal Cannula 11/27/24 22:36 36.6 C 90 18 128/74 95 Nasal Cannula 11/27/24 21:59 97 H 11/27/24 21:00 Nasal Cannula 11/27/24 20:38 92 H 20 99 Nasal Cannula 11/27/24 19:33 36.5 C 81 18 119/62 98 Room Air O2 Flow Rate 11/28/24 03:01 11/28/24 01:10 2 11/27/24 22:36 11/27/24 21:59 11/27/24 21:00 2 11/27/24 20:38 2 11/27/24 19:33 Laboratory Results 11/28/24 05:48 11/28/24 05:48 Mag 1.6 BNP 658 TSH 12.669, T4 0.86 PG Care Time/CCT Total # of Minutes Spent Total Time Spent with Patient: Total time spent is greater than 50% in coordination of care (as documented) at patient's floor/unit and/or counseling patient: Coding Level of Care Code 26502 SUB INP/OBS CARE 3/50MIN Diagnoses Cecum mass K63.89 Chronic hypoxemic respiratory failure J96.11 Pacemaker Z95.0 Hypothyroidism E03.9
--- NOTE | 2024-11-28 07:46 | Surgery Progress Note ---
Date of Service November 28, 2024 Assessment & Plan (1) H/O right hemicolectomy: Plan: pt tolerating diet no n/v mavis removed from abd surgical wound and steri strips applied, no s/s of infection noted pt requesting shower, , will order continue pt/ot appreciate hospitalist assist with labs ordered and replacement and pulmonary assist as above. quite decompensated physically. continue to encourage good po intake and PT/OT. Admission and Anticipated Discharge Date Admission Date: November 14, 2024 Subjective pt seen in bed no n/v +bms requesting shower Review of Systems Gastrointestinal: no abdominal pain, no nausea and no vomiting Physical Exam Constitutional: cooperative and comfortable; no acute distress Cardiovascular: Rate/Rhythm: regular rate Gastrointestinal (Abdomen): Inspection/Auscultation: abdomen not distended Percussion/Palpation: abdomen soft Results & Data Vital Signs (Past 12 Hours) Vital Signs Temp Pulse Pulse Resp BP Pulse Ox O2 Del Method 11/28/24 03:01 97.7 F 95 H 20 119/61 93 Nasal Cannula 11/28/24 01:10 90 22 99 Nasal Cannula 11/27/24 22:36 97.9 F 90 18 128/74 95 Nasal Cannula 11/27/24 21:59 97 H 11/27/24 21:00 Nasal Cannula 11/27/24 20:38 92 H 20 99 Nasal Cannula O2 Flow Rate 11/28/24 03:01 11/28/24 01:10 2 11/27/24 22:36 11/27/24 21:59 11/27/24 21:00 2 11/27/24 20:38 2 PG Care Time/CCT Total # of Minutes Spent Total Time Spent with Patient: Total time spent is greater than 50% in coordination of care (as documented) at patient's floor/unit and/or counseling patient: Coding Level of Care Code 13393 Post Operative Follow-Up Diagnoses H/O right hemicolectomy Z90.49
[2024-11-28 07:47] LABS: T4 Free Thyroxine 0.86 ng/dl (0.61-1.60)
[2024-11-28] MEDS: MAGNESIUM SULFATE / D5W 1 GM/100 ML BAG IV SCH (08:32)
[2024-11-28] MEDS: POTASSIUM CHLORIDE CRTAB 20 MEQ TABCR PO STA ×2 (08:32→09:43)
[2024-11-28] MEDS: FUROSEMIDE 40 MG/4 ML VIAL IV ONE (08:33)
--- NOTE | 2024-11-28 13:27 | Pulmonology Progress Note ---
Date of Service November 28, 2024 Assessment & Plan (1) Atelectasis of right lung: (2) Hypoxemia: (3) Pulmonary hypertension: (4) Chronic hypoxemic respiratory failure: (5) Adenocarcinoma of lung: (6) Lung cancer, lower lobe: Plan Impression: 79-year-old female status post hemicolectomy for colon cancer with prior history of right lower lobectomy due to adenocarcinoma the lung. She has had a emiliano postoperative course with respiratory issues and continues to have right lung atelectasis with inadequate pulmonary toilet. Status post bronchoscopy this admission CT chest 11/18/2024 personally reviewed: Right-sided apical pleural thickening with consolidative process on the right side Small right-sided pleural effusion Dependent atelectasis of the left lower lobe Cardiomegaly No significant mediastinal lymphadenopathy --Atelectasis/collapse of the right lung S/p bronchoscopy 11/24/2024, no endobronchial lesion Persistance collapse. --Acute on chronic hypoxic respiratory failure Likely secondary to above On 2 L oxygen at home Continue with O2 supplementation to keep oxygen saturation between 90-92% --History of adenocarcinoma of the right LOWER lobe Diagnosed 07/2014, T2 N2, stage IIIa S/p with chemoradiation, unable to complete planned chemo cycles because of neutropenia Relapse 2014 and then 11/2017 on alectinib As per the patient she has had right lower lobectomy done Plan: Chest x-ray from today personally reviewed, it shows improvement in the right upper haziness, right middle and lower part are still collapsed. Continue with 7% saline nebulized,budesonide and Perforomist along with flutter valve Unfortunately we have only 1 CoughAssist in the hospital which is currently being used. Continue with chest vest for the time being, would recommend chest vest treatment on discharge I did discuss regarding repeating bronchoscopy in future if need be and patient is not interested in that. Please note the above document was generated using voice recognition software. It may contain grammatical, syntax or spelling errors.Any formal questions or concerns about the content, text or information contained within the body of this dictation should be directly addressed to the provider for clarification. Admission and Anticipated Discharge Date Admission Date: November 14, 2024 Subjective Patient seen and examined at bedside. No acute distress, no adverse events overnight She was sitting on the chair. Patient's friend as well as daughter were in the room Overall she says that she is feeling better Denied any nausea vomiting Fair appetite Has been using chest vest as well as flutter valve and bringing up phlegm without any issues Review of Systems 2 Review of Systems: All systems reviewed & are unremarkable except as noted in Subjective Physical Exam 2 Physical Exam: Constitutional: No acute distress HEENT: EOMI, PERRLA Respiratory system: Decreased air entry on the right side, no wheeze, no rhonchi, positive crackles right side CVS: S1-S2 positive, no murmurs or gallops, distant heart sounds Abdomen: Soft, nontender, nondistended, positive bowel sounds x4 Extremities: +2 pulses bilaterally radialis/ dorsalis pedis, no cyanosis, no edema Neuro: Awake alert oriented x3 Psych: Normal mood and affect G/U: Positive Richardson Skin: no rashes, warm and dry Lymphatic: no cervical or axillary lymphadenopathy Results & Data Results & Data Vital Signs (Past 12 Hours) Vital Signs Temp Pulse Resp BP Pulse Ox O2 Del Method O2 Flow Rate 11/28/24 11:16 36.5 C 94 H 18 117/68 96 Room Air 11/28/24 08:00 36.3 C L 84 19 110/62 95 Nasal Cannula 2.0 11/28/24 07:38 93 H 22 95 Nasal Cannula 2 11/28/24 03:01 36.5 C 95 H 20 119/61 93 Nasal Cannula Laboratory Results 11/28/24 05:48 11/28/24 05:48 PG Care Time/CCT Total # of Minutes Spent Total Time Spent with Patient: Total time spent is greater than 50% in coordination of care (as documented) at patient's floor/unit and/or counseling patient: Coding Level of Care Code 34153 SUB INP/OBS CARE 2/35MIN Diagnoses Atelectasis of right lung J98.11 Hypoxemia R09.02 Pulmonary hypertension I27.20 Chronic hypoxemic respiratory failure J96.11 Adenocarcinoma of lung C34.90 Lung cancer, lower lobe C34.30
--- NOTE | 2024-11-28 13:53 | XRay Report ---
XR chest 1V portable CLINICAL HISTORY: f/u COMPARISON STUDY: 11/27/2024 FINDINGS: There is been no interval change in the appearance of the heart and lungs. The right hemith orax is 75% opacified with fluid density. There is groundglass opacity in the apical portion of the r ight upper lobe. There is no right to left shift indicating that there must be a significant componen t of right lung atelectasis. There are right rib fractures identified which may be acute rate and a p ossibility of this could be a hemothorax. Recommend clinical correlation. The left lung is clear. There is moderate gaseous distention of the splenic flexure of the colon as a new finding. IMPRESSION: Stable right hemithorax opacification with fluid and atelectasis. Rib fractures are note d. If these are acute, this could be a hemopneumothorax. Recommend clinical correlation and follow-up . ACT 112: Positive. There are findings on this exam that require communication between the performing entity and the patient following Patient Test Result Information Act ([place] Act 112) guidelines. Electronically signed by: Savanna García M.D. 11/28/2024 1:51 PM
[2024-11-29] MEDS: LEVOTHYROXINE SODIUM 25 MCG TABLET PO SCH (05:39)
[2024-11-29 06:04] LABS: Hematocrit (blood only) 24.3 % (37.0-47.0); Hemoglobin 7.7 g/dl (12.0-16.0); Mean Corpuscular Hemoglobin 29.5 pg (25.0-34.0); Mean Corpuscular Hgb Conc 31.7 g/dL (32.0-36.0); Mean Corpuscular Volume 93.1 fL (80.0-100.0); Mean Platelet Volume 9.3 fL (9.4-12.4); Platelet Count 334 K/uL (130-400); RDW Coefficient of Variation 15.6 % (11.5-14.5); RDW Standard Deviation 49.5 fL (36.4-46.3); Red Blood Count 2.61 M/uL (4.20-5.40); White Blood Count 10.22 K/ul (4.8-10.8)
[2024-11-29 07:29] LABS: Calcium 8.5 mg/dl (8.6-10.3); Creatinine Clr Calc Pharmacy 73.7 ml/min; Magnesium 1.8 mg/dl (1.7-2.4); Potassium 3.8 mmol/L (3.5-5.1)
--- NOTE | 2024-11-29 07:49 | XRay Report ---
EXAM: XR chest 1V portable CLINICAL HISTORY: f/u TECHNIQUE: An X-ray image of the chest was obtained using AP projection. COMPARISON: Prior X-ray dated 11/27/2024 for comparison. FINDINGS: Pulmonary Parenchyma: Mild interval regression of opacification in the right hemithorax and a new finding of aeration in the right upper zone. Unchanged prominent left parahilar markings and suspected left mild pleural effusion. Heart and Mediastinum: Cardiomegaly. Left dual wire cardiac pacemaker. Tracheal shift to the right No mediastinal widening or masses. No hilar or mediastinal lymphadenopathy. Bony Thorax: Sternotomy sutures. Spondylotic changes in the thoracic spine. Bony thorax appears intact without fractures or deformities. Soft Tissues: Soft tissues overlying the chest wall are unremarkable. Surgical clips in the right hypochondrium. IMPRESSION: 1. Mild interval regression of opacification in the right hemithorax and new finding of aeration in right upper zone. 2. Unchanged prominent left parahilar markings and suspected left mild pleural effusion. 3. Unchanged tracheal shift to the right 4. Cardiomegaly. Electronically signed by Dillan Latham 11-29-2024 07:48 AM
--- NOTE | 2024-11-29 07:53 | Surgery Progress Note ---
Date of Service November 29, 2024 Assessment & Plan (1) H/O right hemicolectomy: Plan: pt tolerating diet no n/v VSS afebrile, H/H stable +cough and septum production, continue pulmonary recommendations for chest vest CXR taken this AM , not read yet steri strips on abd wound CDI, no s/s of infection noted pt requesting shower, may shower with assist continue pt/ot appreciate hospitalist , pulmonary assist as above. no acute surgical issues. valerie diet. will follow until d/c Admission and Anticipated Discharge Date Admission Date: November 14, 2024 Subjective pt denies concerns this am Review of Systems Constitutional: no fever and no chills Respiratory: + cough and + sputum production Cardiovascular: no chest pain Gastrointestinal: no abdominal pain, no nausea and no vomiting Psychiatric: no confusion Physical Exam Constitutional: cooperative and comfortable; no acute distress Respiratory: normal respiratory effort and able to speak in complete sentences; no respiratory distress Cardiovascular: Rate/Rhythm: regular rate Gastrointestinal (Abdomen): Inspection/Auscultation: + abdominal surgical in cision; abdomen not distended Percussion/Palpation: abdomen soft Results & Data Vital Signs (Past 12 Hours) Vital Signs Temp Pulse Pulse Resp BP Pulse Ox O2 Del Method 11/29/24 07:29 94 H 18 98 Nasal Cannula 11/29/24 07:09 98.2 F 95 H 23 117/68 99 Nasal Cannula 11/29/24 02:30 98.2 F 90 18 136/70 96 Room Air 11/29/24 02:07 89 18 97 Nasal Cannula 11/28/24 23:00 69 11/28/24 22:39 97.9 F 90 18 134/67 97 Nasal Cannula 11/28/24 21:03 90 17 96 Nasal Cannula 11/28/24 20:40 Nasal Cannula 11/28/24 20:00 98.1 F 95 H 20 124/70 96 Nasal Cannula O2 Flow Rate 11/29/24 07:29 2 11/29/24 07:09 2 11/29/24 02:30 11/29/24 02:07 2 11/28/24 23:00 11/28/24 22:39 11/28/24 21:03 2 11/28/24 20:40 2 11/28/24 20:00 Results CBC w Diff Results: RBC 2.61 M/uL (4.20-5.40) L 11/29/24 WBC 10.22 K/ul (4.8-10.8) 11/29/24 Hgb 7.7 g/dl (12.0-16.0) L 11/29/24 Hct 24.3 % (37.0-47.0) L 11/29/24 MCV 93.1 fL (80.0-100.0) 11/29/24 MCH 29.5 pg (25.0-34.0) 11/29/24 MCHC 31.7 g/dL (32.0-36.0) L 11/29/24 RDW Standard Deviation 49.5 fL (36.4-46.3) H 11/29/24 RDW Coefficient of Variation 15.6 % (11.5-14.5) H 11/29/24 Plt Count 334 K/uL (130-400) 11/29/24 MPV 9.3 fL (9.4-12.4) L 11/29/24 Neutrophils (%) (Auto) 82.8 % 11/25/24 Lymphocytes (%) (Auto) 4.3 % 11/25/24 Monocytes # (Auto) 0.52 K/uL (0.11-0.59) 11/25/24 Eosinophils # (Auto) 0.41 K/uL (0.00-0.50) 11/25/24 Immature Granulocyte % (Auto) 2.1 % 11/25/24 Neutrophils # (Auto) 7.27 K/uL (1.40-6.50) H 11/25/24 Lymphocytes # (Auto) 0.38 K/uL (1.20-3.40) L 11/25/24 Monocytes # (Auto) 0.52 K/uL (0.11-0.59) 11/25/24 Eosinophils # (Auto) 0.41 K/uL (0.00-0.50) 11/25/24 Basophils # (Auto) 0.02 K/uL (0.00-0.20) 11/25/24 Immature Granulocyte # (Auto) 0.18 K/uL (0.01-0.20) 5 Polychromasia 1+ 11/25/24 Ovalocytes 1+ 11/25/24 Acanthocytes 1+ 11/25/24 PG Care Time/CCT Total # of Minutes Spent Total Time Spent with Patient: Total time spent is greater than 50% in coordination of care (as documented) at patient's floor/unit and/or counseling patient: Coding Level of Care Code 34927 Post Operative Follow-Up Diagnoses H/O right hemicolectomy Z90.49
[2024-11-29] MEDS: POTASSIUM CHLORIDE CRTAB 20 MEQ TABCR PO STA (08:57)
--- NOTE | 2024-11-29 09:07 | Hospitalist Progress Note ---
Date of Service November 29, 2024 Assessment & Plan (1) Cecum mass: (2) Chronic hypoxemic respiratory failure: (3) Pacemaker: (4) Hypothyroidism: Plan (1) Cecum mass: (2) Chronic hypoxemic respiratory failure: (3) Pacemaker: (4) Hypothyroidism: Plan 79-year-old female with a PMHx of Lung ca s/p RLL lobectomy, COPD with oxygen dependence, pulm HTN, hx pacemaker 2nd to AV-block, UE DVT presented to hospital for planned right hemicolectomy due to recent diagnosis of adenocarcinoma of the cecum diagnosed as outpatient on colonoscopy/biopsy in December. Surgical resection with Dr Lorenzo on 11/14 and had post-op ileus requiring NGT placement which caused emesis with clots and patient developed acute onset of mental status change on POD #2, concerning for CVA and required intubation on 11/16 as not protecting airway. Seen by tele-stroke who did not recommend transfer or TNK and was seen by Neurology who recommended EEG (negative for seizure activity) and MRI brain (which could not be completed 2nd to pacemaker incompatibility). Was extubated on 11/17 but was tachypneic with BiPAP and needed reintubated later that evening. Bronchoscopy on 11/18 with mucopurulent secretions. Completed course of Vanco/Zosyn for HAP/VAP and blood cultures were negative. Eventual extubation to BiPAP on 11/21 and subsequent CXR w/ interval progression of RIGHT hemothorax/effusion leading to near complete opacification and required repeat bronchoscopy with Dr Rea on 11/24 with noted bloody thick secretions present in R mainstem and RLL bronchus status post saline lavage. Pulmonology continues to follow and adjustment to medication/nebulizer regimen and has been weaned to 2L NC presently, SpO2 98%. Lasix 40mg IV on 11/28 and will continue for now given weights up and was not on until recently. Eventual plan for rehab. #Mildly differentiated adenocarcinoma of the cecum status post surgical resection/acute blood loss anemia on chronic anemia from Cancer. Complicated post-op course as outlined above, improving and currently on baseline O2 Low fiber diet, sequeira has been removed WBC remaining wnl, afebrile. Hgb around baseline, has completed Venofer IV x 3. Consideration for PRBC discussed w/ primary given hx CAD- defer to primary Tx COPD/Acute respiratory failure with hypoxia per pulmonology (baseline 2L). PT/OT eventual need for rehab, CM to follow #COPD/Acute respiratory failure with hypoxia requiring intubation/Pulmonary HTN/lung ca On chronic oxygen 2L, intubation events and bronchoscopy/abx for PNA above and pulmonology on consult and following and remains on pulmonary toilet, ID, flutter valve, hypertonic saline, mucinex and formoterol/budesonide nebs BID added on 11/26 BNP elevated and discussed prior weight up and off ~2wks lasix while inpatient and ordered 40mg IV lasix on 11/28 and BUN/Cr stable and CXR improved and will continue for now Additional Kcl replacement w/ lasix and should monitor. Mag normalized and stable 1.8 but will monitor Continued management from pulm appreciated regarding respiratory status, chemo defer at this time, outpt f/u oncology #Hypothyroid -Continued on 25mcg daily but checked TSH w/ fatigue/anemia and ELEVATED to 12.6 -->Synthroid increased to 37.5mcg daily/continue at dc recd #Coronary artery disease/ Hx of AV block with pacer in place/ Hx of bypass Continues on metoprolol 12.5 mg BID, Eliquis 2.5mg po bid, and rosuvastatin. Consideration for PRBC as above No CP reported #Hypokalemia resolved but 3.8 and additional 20meq w IV lasix above, BMP in AM #Elevated Blood glucose mild during BSG checks in ICU likely from acute illness. A1c 5.3, BSG checks dcd #hx of lung cancer s/- right lower lobe lobectomy - noted #hx of DVT associated with pacemaker - continue Eliquis (lifelong) DVT proph: continue home Eliquis 2.5mg BID Dispo: continued inpatient stay and eventual plans for rehab Lasix IV continued, consider PRBC if any bleeding/worsening anemia but does appear better on exam today w/ lasix. Will follow up w/ AM labs but if remaining stable likely can just periodically see/follow peripherally as discussed w/ TIM prior. Please call with any questions/conerns. Admission and Anticipated Discharge Date Admission Date: November 14, 2024 Supervising Physician Co-Signing Physician Notes The patient was not seen by me. The chart was reviewed. Case discussed with CROW Sy. Agree with assessment and plan Subjective Eval this morning, sitting up in bed. Appears improved, reports feeling better. Decent appetite, denies bleeding. Reports breathing feels improved. Lasix to be continued for now, additional potassium discussed and plans for rehab. Denies nausea/vomiting, fever/chills, chest pain or abdominal pain at this time. Questions/concerns addressed at this time. Physical Exam 2 Physical Exam: General: 79yo female sitting up in bed, NAD, appears improved Resp: improved air entry on the right, anterior expiratory wheezing (improved/resolved), decreased crackles but still present, on 2L, work of breathing improved, able to answer questions without pause, no tachypnea CV: RRR, no murmur, sternotomy scar, trace pedal edema improving Abd: normal bowel sounds, less distension, non tender, mavis open to air. Neuro: A&O x3, fatigued (improved) but cooperative Results & Data Results & Data Vital Signs (Past 12 Hours) Vital Signs Temp Pulse Pulse Resp BP Pulse Ox O2 Del Method 11/29/24 08:39 89 11/29/24 07:29 94 H 18 98 Nasal Cannula 11/29/24 07:09 36.8 C 95 H 23 117/68 99 Nasal Cannula 11/29/24 02:30 36.8 C 90 18 136/70 96 Room Air 11/29/24 02:07 89 18 97 Nasal Cannula 11/28/24 23:00 69 11/28/24 22:39 36.6 C 90 18 134/67 97 Nasal Cannula 11/28/24 21:03 90 17 96 Nasal Cannula O2 Flow Rate 11/29/24 08:39 11/29/24 07:29 2 11/29/24 07:09 2 11/29/24 02:30 11/29/24 02:07 2 11/28/24 23:00 11/28/24 22:39 11/28/24 21:03 2 Laboratory Results 11/29/24 05:48 11/29/24 05:48 Mag 1.8 PG Care Time/CCT Total # of Minutes Spent Total Time Spent with Patient: Total time spent is greater than 50% in coordination of care (as documented) at patient's floor/unit and/or counseling patient: Coding Level of Care Code 50598 SUB INP/OBS CARE 3/50MIN Diagnoses Cecum mass K63.89 Chronic hypoxemic respiratory failure J96.11 Pacemaker Z95.0 Hypothyroidism E03.9
[2024-11-29] MEDS: FUROSEMIDE 40 MG/4 ML VIAL IV SCH (09:39)
--- NOTE | 2024-11-29 10:24 | Pulmonology Progress Note ---
Date of Service November 29, 2024 Assessment & Plan (1) Atelectasis of right lung: (2) Hypoxemia: (3) Pulmonary hypertension: (4) Chronic hypoxemic respiratory failure: (5) Adenocarcinoma of lung: (6) Lung cancer, lower lobe: Plan Impression: 79-year-old female status post hemicolectomy for colon cancer with prior history of right lower lobectomy due to adenocarcinoma the lung. She has had a emiliano postoperative course with respiratory issues and continues to have right lung atelectasis with inadequate pulmonary toilet. Status post bronchoscopy this admission CT chest 11/18/2024 personally reviewed: Right-sided apical pleural thickening with consolidative process on the right side Small right-sided pleural effusion Dependent atelectasis of the left lower lobe Cardiomegaly No significant mediastinal lymphadenopathy --Atelectasis/collapse of the right lung S/p bronchoscopy 11/24/2024, no endobronchial lesion Persistance collapse. --Acute on chronic hypoxic respiratory failure Likely secondary to above On 2 L oxygen at home Continue with O2 supplementation to keep oxygen saturation between 90-92% --History of adenocarcinoma of the right LOWER lobe Diagnosed 07/2014, T2 N2, stage IIIa S/p with chemoradiation, unable to complete planned chemo cycles because of neutropenia Relapse 2014 and then 11/2017 on alectinib As per the patient she has had right lower lobectomy done Plan: Chest x-ray from today personally reviewed, no significant change compared to yesterday Continue with 7% saline nebulized with flutter valve, recommend the same regimen even at home along with Anoro inhaler Unfortunately we have only 1 CoughAssist in the hospital which is currently being used. Continue with chest vest for the time being, would recommend chest vest treatment on discharge Follow-up with outpatient care aide, Dr. Sharma Case was discussed with surgery No further recommendation from pulmonary perspective, will sign off Please call directly with any questions Please note the above document was generated using voice recognition software. It may contain grammatical, syntax or spelling errors.Any formal questions or concerns about the content, text or information contained within the body of this dictation should be directly addressed to the provider for clarification. Admission and Anticipated Discharge Date Admission Date: November 14, 2024 Subjective Patient seen and examined at bedside. No acute distress, no adverse events overnight. She was saturating well on 2 L nasal cannula. Has been using chest with as well as flutter valve. Bringing up clear phlegm Denies any significant chest congestion Fair appetite, no nausea vomiting Does complain of some loose stools Review of Systems 2 Review of Systems: All systems reviewed & are unremarkable except as noted in Subjective Physical Exam 2 Physical Exam: Constitutional: No acute distress HEENT: EOMI, PERRLA Respiratory system: Decreased air entry on the right side, no wheeze, no rhonchi, positive crackles right side CVS: S1-S2 positive, no murmurs or gallops, distant heart sounds Abdomen: Soft, nontender, nondistended, positive bowel sounds x4 Extremities: +2 pulses bilaterally radialis/ dorsalis pedis, no cyanosis, no edema Neuro: Awake alert oriented x3 Psych: Normal mood and affect G/U: Positive Richardson Skin: no rashes, warm and dry Lymphatic: no cervical or axillary lymphadenopathy Results & Data Results & Data Vital Signs (Past 12 Hours) Vital Signs Temp Pulse Pulse Resp BP Pulse Ox O2 Del Method 11/29/24 08:39 89 11/29/24 07:29 94 H 18 98 Nasal Cannula 11/29/24 07:09 36.8 C 95 H 23 117/68 99 Nasal Cannula 11/29/24 02:30 36.8 C 90 18 136/70 96 Room Air 11/29/24 02:07 89 18 97 Nasal Cannula 11/28/24 23:00 69 11/28/24 22:39 36.6 C 90 18 134/67 97 Nasal Cannula O2 Flow Rate 11/29/24 08:39 11/29/24 07:29 2 11/29/24 07:09 2 11/29/24 02:30 11/29/24 02:07 2 11/28/24 23:00 11/28/24 22:39 Laboratory Results 11/29/24 05:48 11/29/24 05:48 PG Care Time/CCT Total # of Minutes Spent Total Time Spent with Patient: Total time spent is greater than 50% in coordination of care (as documented) at patient's floor/unit and/or counseling patient: Coding Level of Care Code 63196 SUB INP/OBS CARE 2/35MIN Diagnoses Atelectasis of right lung J98.11 Hypoxemia R09.02 Pulmonary hypertension I27.20 Chronic hypoxemic respiratory failure J96.11 Adenocarcinoma of lung C34.90 Lung cancer, lower lobe C34.30
[2024-11-30 06:09] LABS: Basophils # (auto) 0.03 K/uL (0.00-0.20); Basophils % (auto) 0.3 %; Hemoglobin 7.9 g/dl (12.0-16.0); Immature Granulocytes # (auto) 0.05 K/uL (0.01-0.20); Immature Granulocytes % (auto) 0.5 %; Lymphocytes # (auto) 0.62 K/uL (1.20-3.40); Lymphocytes % (auto) 6.2 %; Mean Corpuscular Hemoglobin 29.7 pg (25.0-34.0); Mean Corpuscular Hgb Conc 31.6 g/dL (32.0-36.0); Mean Platelet Volume 9.4 fL (9.4-12.4); Monocytes # (auto) 0.57 K/uL (0.11-0.59); Monocytes % (auto) 5.7 %; Neutrophils # (auto) 8.38 K/uL (1.40-6.50); Neutrophils % (auto) 84.3 %; Platelet Count 311 K/uL (130-400); RDW Coefficient of Variation 15.9 % (11.5-14.5); RDW Standard Deviation 51.2 fL (36.4-46.3); Red Blood Count 2.66 M/uL (4.20-5.40); White Blood Count 9.95 K/ul (4.8-10.8)
[2024-11-30 06:30] LABS: BUN Creatinine Ratio 23.6 (10-20); Calcium 8.5 mg/dl (8.6-10.3); Creatinine Clr Calc Pharmacy 62.6 ml/min; Magnesium 1.8 mg/dl (1.7-2.4); Potassium 4.1 mmol/L (3.5-5.1)
[2024-11-30 06:39] LABS: Ovalocytes 1+; Tear Drop Cells 1+
--- NOTE | 2024-11-30 08:48 | Pulmonology Progress Note ---
Date of Service November 30, 2024 Assessment & Plan (1) Atelectasis of right lung: (2) Hypoxemia: (3) Pulmonary hypertension: (4) Chronic hypoxemic respiratory failure: (5) Adenocarcinoma of lung: (6) Lung cancer, lower lobe: Plan Impression: 79-year-old female status post hemicolectomy for colon cancer with prior history of right lower lobectomy due to adenocarcinoma the lung. She has had a emiliano postoperative course with respiratory issues and continues to have right lung atelectasis with inadequate pulmonary toilet. Status post bronchoscopy this admission CT chest 11/18/2024 personally reviewed: Right-sided apical pleural thickening with consolidative process on the right side Small right-sided pleural effusion Dependent atelectasis of the left lower lobe Cardiomegaly No significant mediastinal lymphadenopathy --Atelectasis/collapse of the right lung S/p bronchoscopy 11/24/2024, no endobronchial lesion Persistance collapse. --Acute on chronic hypoxic respiratory failure Likely secondary to above On 2 L oxygen at home Continue with O2 supplementation to keep oxygen saturation between 90-92% --History of adenocarcinoma of the right LOWER lobe Diagnosed 07/2014, T2 N2, stage IIIa S/p with chemoradiation, unable to complete planned chemo cycles because of neutropenia Relapse 2014 and then 11/2017 on alectinib As per the patient she has had right lower lobectomy done -- Focal bronchiectasis on the right side Likely secondary to radiation that she got Plan: On discharge recommend the following 1) Continue with 7% hypertonic saline nebulized twice a day, DuoNebs nebulized every 6 hours as needed for shortness of breath or wheezing 2) continue with flutter valve 3) continue with Anoro inhaler which she is already on at home 4) will benefit from chest vest on discharge from SNF, she has failed open therapy to mobilize secretions, she does have history of chronic cough as well for years, documents have been signed by me 5) oxygen supplementation to keep O2 saturation around 90-92% Follow-up with outpatient small business consultant, Dr. Sharma Case was discussed with surgery and case management No further recommendation from pulmonary perspective, will sign off Please call directly with any questions Please note the above document was generated using voice recognition software. It may contain grammatical, syntax or spelling errors.Any formal questions or concerns about the content, text or information contained within the body of this dictation should be directly addressed to the provider for clarification. Admission and Anticipated Discharge Date Admission Date: November 14, 2024 Subjective Patient seen and examined at bedside. No acute distress, no adverse events overnight Has been using chest vest as well as flutter valve Coughing up clear phlegm Saturating well on 2 L which is her baseline Review of Systems 2 Review of Systems: All systems reviewed & are unremarkable except as noted in Subjective Physical Exam 2 Physical Exam: Constitutional: No acute distress HEENT: EOMI, PERRLA Respiratory system: Decreased air entry on the right side, no wheeze, no rhonchi, positive crackles right side CVS: S1-S2 positive, no murmurs or gallops, distant heart sounds Abdomen: Soft, nontender, nondistended, positive bowel sounds x4 Extremities: +2 pulses bilaterally radialis/ dorsalis pedis, no cyanosis, no edema Neuro: Awake alert oriented x3 Psych: Normal mood and affect G/U: Positive Richardson Skin: no rashes, warm and dry Lymphatic: no cervical or axillary lymphadenopathy Results & Data Results & Data Vital Signs (Past 12 Hours) Vital Signs Temp Pulse Pulse Resp BP Pulse Ox O2 Del Method 11/30/24 07:57 36.6 C 90 24 106/62 99 Nasal Cannula 11/30/24 07:34 89 11/30/24 07:02 95 H 17 95 Nasal Cannula 11/30/24 03:20 36.9 C 90 17 136/88 96 Nasal Cannula 11/29/24 23:31 36.4 C L 75 16 100/76 94 Nasal Cannula 11/29/24 21:39 96 H O2 Flow Rate 11/30/24 07:57 2 11/30/24 07:34 11/30/24 07:02 2 11/30/24 03:20 2 11/29/24 23:31 2 11/29/24 21:39 Laboratory Results 11/30/24 05:49 11/30/24 05:49 PG Care Time/CCT Total # of Minutes Spent Total Time Spent with Patient: Total time spent is greater than 50% in coordination of care (as documented) at patient's floor/unit and/or counseling patient: Coding Level of Care Code 17789 SUB INP/OBS CARE 2/35MIN Diagnoses Atelectasis of right lung J98.11 Hypoxemia R09.02 Pulmonary hypertension I27.20 Chronic hypoxemic respiratory failure J96.11 Adenocarcinoma of lung C34.90 Lung cancer, lower lobe C34.30
--- NOTE | 2024-11-30 10:20 | Surgery Progress Note ---
Date of Service November 30, 2024 Assessment & Plan (1) H/O right hemicolectomy: Plan: doing well from a surgical standpoint to continue a low fiber diet until cleared by surgeon at follow up appointment appreciate hospitalist and pulmonary assist with patient discussed with both that pt is stable for rehab transfer today pt will need to follow up with pulmonary outpatient f.u with Dr Lorenzo in 2 weeks case management will set up transportation, appreciate assist with d/c planning Admission and Anticipated Discharge Date Admission Date: November 14, 2024 Subjective pt sitting in chair denies abd pain, n/v states she feels her respiratory status is at her baseline Review of Systems Constitutional: no fever and no chills Respiratory: + cough and + sputum production Cardiovascular: no chest pain Gastrointestinal: no abdominal pain, no nausea and no vomiting Psychiatric: no confusion Physical Exam Constitutional: cooperative and comfortable; no acute distress Respiratory: normal respiratory effort and able to speak in complete sentences; no respiratory distress Cardiovascular: Rate/Rhythm: regular rate Gastrointestinal (Abdomen): Inspection/Auscultation: + abdominal surgical incision; abdomen not distended Percussion/Palpation: abdomen soft Results & Data Vital Signs (Past 12 Hours) Vital Signs Temp Pulse Pulse Resp BP Pulse Ox O2 Del Method 11/30/24 07:57 97.9 F 90 24 106/62 99 Nasal Cannula 11/30/24 07:34 89 11/30/24 07:02 95 H 17 95 Nasal Cannula 11/30/24 03:20 98.4 F 90 17 136/88 96 Nasal Cannula 11/29/24 23:31 97.5 F L 75 16 100/76 94 Nasal Cannula O2 Flow Rate 11/30/24 07:57 2 11/30/24 07:34 11/30/24 07:02 2 11/30/24 03:20 2 11/29/24 23:31 2 PG Care Time/CCT Total # of Minutes Spent Total Time Spent with Patient: Total time spent is greater than 50% in coordination of care (as documented) at patient's floor/unit and/or counseling patient: Coding Level of Care Code 76407 Post Operative Follow-Up Diagnoses H/O right hemicolectomy Z90.49
[2024-11-30 11:55] VITALS: TEMP 98.1
[2024-11-30 13:03] VITALS: PULSE 92; RESP 17; O2SAT 94
[2024-11-30 14:06] VITALS: BP 144/72
--- NOTE | 2024-12-04 12:08 | Cancer Operative Report ---
Post Operative Report Pre & Post Diagnosis Operation Date: 11/14/24 07:15 Pre-Op Diagnosis: Cecum Mass Post-Op Diagnosis: Cecum Mass I identified the patient and participated in the time-out.: Yes Procedure Operation Date: 11/14/24 07:15 Actual Procedures p Right Open Hemicolectomy with Primary Anastomosis(Right) - Dennis Lorenzo DO Surgeon Dennis Lorenzo DO Remedial Project Manager elvis Samaniego Estimated Blood Loss 50 Findings Consistent with Post-Op Diagnosis Specimens terminal ileum, right colon, portion of transverse colon Description of Procedure After informed consent was obtained the patient was taken to the operating room and placed in supine position. After successful intubation anesthesia performed a tap block. A Richardson catheter was placed sterilely and the abdomen was sterilely prepped and draped in usual fashion. I began with a midline incision using a 10 blade scalpel. This was carried down through the soft tissue using cautery. Anterior fascia was opened using cautery. Peritoneum was elevated with hemostats and incised under direct vision using Metzenbaum scissor. We then opened the incision to both poles using cautery. A Bookwalter retractor was used throughout the case to help with exposure. There was a firm cecal mass readily apparent. We packed off the small bowel on the left side of the abd omen. I mobilized the right colon along the white line of Toldt using finger fractionation and cautery. Several inches proximal to the ileocecal valve the small bowel was transected using a VINNIE brown cartridge linear stapler. We then found a spot on the transverse colon proximal to the middle colic vessels and transected the transverse colon again using a VINNIE brown cartridge linear stapler. We took down any attachments laterally using again cautery and finger fractionation. The mesentery was taken down using the LigaSure device staying as low as possible to incorporate as many lymph nodes as possible. Once this was completely divided the specimen was passed off and sent to pathology. There was adequate hemostasis. Next we performed a [id number] small bowel to transverse colon anastomosis. VINNIE brown cartridge linear stapler was used to perform this. The common enterotomy was closed using 3-0 Monocryl in running fashion for serosal/mucosal layers. 3-0 silk was then used to oversew this in Lembert fashion. 3-0 silk was also used to place a crotch stitch. The mesenteric defect was closed using 2-0 Vicryl. Anastomosis was widely patent. There was no evidence of any ischemia. At this point we changed our gloves. The entire abdomen was then thoroughly irrigated. No other abnormalities were identified. Liver and serosal surfaces as well as peritoneal surfaces were all within normal limits. We closed the fascia using #1 PDS starting from both poles running them and securing them together in the midline. Soft tissue was irrigated and skin closed using skin mavis. Silver dressing was applied. The patient was awakened extubated and transferred to recovery in stable condition. My nurse practitioner was present for the entire case was instrumental in provi ding exposure, assisting with the anastomosis, wound closure and dressing placement. Colon Resection Operation performed with curative intent: Yes Extent of colon and vascular resection: Right hemicolectomy ileocolic, R colic (if present) I attest to the content of the Intraoperative Record and any orders documented therein. Any exceptions are noted below.
== END 2024-11-30 14:40 | DRG 329 ==
LOC: ASU 05:30 → 2E 09:36 → 1E 11-16 18:02 → 4W 11-25 14:20
DX: J44.9 Chronic obstructive pulmonary disease, unspecified; Z86.718 Personal history of other venous thrombosis and embolism; D63.0 Anemia in neoplastic disease; E87.8 Other disorders of electrolyte and fluid balance, not elsewhere classified; C18.0 Malignant neoplasm of cecum; E87.4 Mixed disorder of acid-base balance; J96.21 Acute and chronic respiratory failure with hypoxia; Z95.1 Presence of aortocoronary bypass graft; I27.20 Pulmonary hypertension, unspecified; Z95.0 Presence of cardiac pacemaker; E03.9 Hypothyroidism, unspecified; Z99.81 Dependence on supplemental oxygen; Z79.890 Hormone replacement therapy; I10 Essential (primary) hypertension; E87.6 Hypokalemia; I25.10 Atherosclerotic heart disease of native coronary artery without angina pectoris; E83.39 Other disorders of phosphorus metabolism; K56.7 Ileus, unspecified; G93.40 Encephalopathy, unspecified; J18.9 Pneumonia, unspecified organism; Z85.118 Personal history of other malignant neoplasm of bronchus and lung; J98.11 Atelectasis